=== PATIENT | female | born 1935 | race Caucasian/White ===

== ENCOUNTER 2018-06-11 02:03 | Emergency (ER) | payer MEDICARE, BC ==
[2018-06-11] MEDS: IV NORMAL SALINE 1000ML BAG 1,000 ML IV ×2 (03:36)
[2018-06-11] MEDS: ONDANSETRON PF 4 MG/2 ML VIAL. IV (03:37)
[2018-06-11 03:44] LABS: BASO % 0 % (0-3); BILIRUBIN,URINE NEGATIVE (NEG); CLARITY,URINE CLEAR; COLOR,URINE YELLOW; EOS # 0.2 x10^3/uL (0.0-0.7); EOS % 1 % (0-3); GLUCOSE,URINE NEGATIVE (NEG); HEMATOCRIT 37.5 % (36.0-47.0); HEMOGLOBIN 12.5 g/dL (12.0-15.5); LYMPH # 0.9 x10^3/uL (1.0-4.8); LYMPH % 5 % (24-48); MEAN CORPUSCULAR HEMOGLOBIN 32 pg (25-35); MEAN CORPUSCULAR HGB CONC 33 g/dL (31-37); MEAN CORPUSCULAR VOLUME 97 fL (79-100); MONO # 1.3 x10^3/uL (0.0-1.1); MONO % 7 % (0-9); NEUT # 15.5 x10^3uL (1.8-7.7); NEUT % 87 % (31-73); NITRITE,URINE NEGATIVE (NEG); PH,URINE 5.5; PLATELET COUNT 336 x10^3/uL (140-400); PROTEIN,URINE NEGATIVE (NEG-TRACE); RED BLOOD COUNT 3.86 x10^6/uL (3.50-5.40); RED CELL DISTRIBUTION WIDTH 13.3 % (11.5-14.5); UROBILINOGEN,URINE 0.2 mg/dL (0.2 mg/dL); WHITE BLOOD COUNT 17.9 x10^3/uL (4.0-11.0)
[2018-06-11 03:50] LABS: ADD MAN DIFF? YES
[2018-06-11 03:55] LABS: ANION GAP 12 (6-14); BLOOD UREA NITROGEN 31 mg/dL (7-20); BUN/CREATININE RATIO 17 (6-20); CALCIUM 9.6 mg/dL (8.5-10.1); CARBON DIOXIDE 23 mmol/L (21-32); CHLORIDE 109 mmol/L (98-107); CREATININE 1.8 mg/dL (0.6-1.0); GFR 26.9; GLUCOSE 149 mg/dL (70-99); POTASSIUM 4.4 mmol/L (3.5-5.1); SODIUM 144 mmol/L (136-145)
[2018-06-11 04:01] LABS: ALBUMIN 3.8 g/dL (3.4-5.0); ALBUMIN/GLOBULIN RATIO 1.2 (1.0-1.7); ALK PHOS 62 U/L (46-116); ALT (SGPT) 21 U/L (14-59); AST (SGOT) 17 U/L (15-37); LIPASE 176 U/L (73-393); TOTAL BILIRUBIN 0.4 mg/dL (0.2-1.0); TOTAL PROTEIN 7.1 g/dL (6.4-8.2)
[2018-06-11 04:09] LABS: BACTERIA,URINE 0 /HPF (0-FEW); HYALINE CASTS, URINE MODERATE /HPF; RBC,URINE 0 /HPF (0-2); SQUAMOUS EPITHELIAL CELL,UR FEW /LPF
[2018-06-11 04:23] LABS: % BANDS 1 % (0-9); % BASOS 1 % (0-3); % EOS 1 % (0-5); % LYMPHS 10 % (24-48); % MONOS 5 % (0-10); % SEGS 82 % (35-66); PLT ESTIMATE ADEQUATE (ADEQUATE)
== END 2018-06-11 06:17 | disposition home or self-care (01) ==
LOC: ER 02:03
DX: K52.9 Noninfective gastroenteritis and colitis, unspecified (principal); I10 Essential (primary) hypertension; J45.909 Unspecified asthma, uncomplicated; Z87.440 Personal history of urinary (tract) infections; Z90.49 Acquired absence of other specified parts of digestive tract; Z90.89 Acquired absence of other organs; Z90.710 Acquired absence of both cervix and uterus; Z98.890 Other specified postprocedural states
CPT/HCPCS: 36415; 74176; 80053; 81001; 83690; 85007; 85025; 87086; 96361; 96365; 96374; 99285-25; J2405; J7030

== ENCOUNTER → 2018-08-29 | Outpatient (CLI) | payer MEDICARE, BC ==
[2018-06-11 04:30] VITALS: BP 162/70
[~2018-08-29] MED LIST: ALBU2.5V14 NEB; BUPR300T3 PO; CYCL1DRO EACHEYE; FLUT10.6 IH; FLUT16SP NS; FLUT1DIS3 IH; ONDA4TAB7 PO; OXYC-323 PO; PANT40TA5 PO; POTA10TA12 PO; PRAV80TA2 PO; ROFL500T7 PO; SULF1TAB24 PO; VERA120T59 PO; XOPENEX HFA15 GM IH
--- NOTE | 2018-08-29 17:35 | RAD ---
Renal ultrasound 08/29/2018 CLINICAL HISTORY: Chronic kidney disease. TECHNIQUE: A real-time ultrasound examination of both kidneys and the urinary bladder was performed. Multiple images were obtained. FINDINGS: Comparison is made to a CT scan of the abdomen and pelvis dated 06/11/2018. Both kidneys are within normal limits in size. The right kidney measures 11.5 cm in length. The left kidney measures 11 cm in length. Cysts are seen involving the superior/midpole left kidney which measure 1.3 to 2 cm in size. No focal abnormality of the right kidney is seen. There is no evidence of hydronephrosis. No renal calculus is noted. The urinary bladder is distended with urine. No abnormality is seen. IMPRESSION: Negative study. Electronically signed by: Delta Galindo MD (08/29/2018 5:32 PM) [facility]
== END | disposition home or self-care (01) ==
LOC: US 15:01
PROVIDERS: ATTEND Specialist
DX: I12.9 Hypertensive chronic kidney disease with stage 1 through stage 4 chronic kidney disease, or unspecified chronic kidney disease (principal); N18.3 Chronic kidney disease, stage 3 (moderate); N28.1 Cyst of kidney, acquired; E66.8 Other obesity
CPT/HCPCS: 76770

== ENCOUNTER 2019-05-20 00:38 | Emergency (ER) | payer MEDICARE, BC ==
[~2019-05-20] VITALS: Ht 172.7 cm; Wt 95.3 kg
[~2019-05-20 00:38] MED LIST changes: -OXYC-323 PO; +OXYC1TAB15 PO; -PANT40TA5 PO; +PANT40TA77 PO; -VERA120T59 PO; +VERA120T7 PO
[2019-05-20 01:38] LABS: BASO % 1 % (0-3); EOS # 0.4 x10^3/uL (0.0-0.7); EOS % 5 % (0-3); HEMATOCRIT 33.7 % (36.0-47.0); HEMOGLOBIN 11.5 g/dL (12.0-15.5); LYMPH # 1.8 x10^3/uL (1.0-4.8); LYMPH % 21 % (24-48); MEAN CORPUSCULAR HEMOGLOBIN 33 pg (25-35); MEAN CORPUSCULAR HGB CONC 34 g/dL (31-37); MEAN CORPUSCULAR VOLUME 96 fL (79-100); MONO # 0.9 x10^3/uL (0.0-1.1); MONO % 10 % (0-9); NEUT # 5.4 x10^3/uL (1.8-7.7); NEUT % 63 % (31-73); PLATELET COUNT 286 x10^3/uL (140-400); RED CELL DISTRIBUTION WIDTH 12.8 % (11.5-14.5); WHITE BLOOD COUNT 8.5 x10^3/uL (4.0-11.0)
--- NOTE | 2019-05-20 01:54 | RAD ---
AP portable chest radiograph 05/20/2019 Clinical History: Chest pain. An AP erect portable digital radiograph of the chest was obtained. No previous studies are available for comparison. The cardiac silhouette is mildly enlarged. The thoracic aorta is tortuous. Atherosclerotic calcification thoracic aorta is seen. No acute pulmonary infiltrate is seen. No pleural effusion or pneumothorax is noted. There is diffuse osteopenia of the visualized bony structures. Degenerative changes are seen involving the thoracic spine and both shoulders. IMPRESSION: No acute abnormality is seen. Electronically signed by: Delta Galindo MD (05/20/2019 1:51 AM) [facility]
[2019-05-20 02:09] LABS: CALCIUM 11.1 mg/dL (8.5-10.1); CREATININE 1.4 mg/dL (0.6-1.0); GFR 35.8; POTASSIUM 4.3 mmol/L (3.5-5.1)
[2019-05-20 02:15] LABS: ALBUMIN 3.5 g/dL (3.4-5.0); ALBUMIN/GLOBULIN RATIO 1.2 (1.0-1.7); TOTAL BILIRUBIN 0.3 mg/dL (0.2-1.0); TOTAL PROTEIN 6.4 g/dL (6.4-8.2)
[2019-05-20] MEDS ORDERED: METOCLOPRAMIDE HCL 10 MG/2 ML VIAL. IV ONE (02:30)
[2019-05-20] MEDS ORDERED: LIDO:MAALOX 1:1 20 ML SINGLE DOSE. PO PRN (02:30)
[2019-05-20] MEDS ORDERED: FAMOTIDINE 20 MG/2 ML VIAL IVP ONE (02:30)
[2019-05-20 03:00] VITALS: BP 157/73
--- NOTE | 2019-05-20 03:30 | PHYS DOC ---
Past Medical History Past Medical History: Asthma, Depression, Hypertension, Kidney Infection, UTI, Other Additional Past Medical Histor: "kidney disease" Past Surgical History: Appendectomy, Cholecystectomy, Hip Replacement, Hysterectomy, Knee Replacement, Other Additional Past Surgical Histo: hernia repair, bladder x2, bilat hips, Alcohol Use: None Drug Use: None Adult General Chief Complaint Chief Complaint: CHEST PAIN HPI HPI Patient is a 84 year old female who presents with epigastric pain radiating to chest, starting approximately 6 hours prior to ED arrival. Patient states symptoms initially improvement, but then worsened after eating hamburger this evening for dinner. Prescription later to some mouth, and nausea. No back pain flank pain, vomiting. Denies shortness of breath, and sweats. History of atrial flutter. Denies history of CAD or exertional chest pain.[] Review of Systems Review of Systems He is symptoms as per history of present illness. All other review symptoms are negative. All other systems were reviewed and found to be within normal limits, except as documented in this note. Current Medications Current Medications Current Medications Medications (Trade) Dose Ordered Sig/Radha Start Time Stop Time Status Last Admin Dose Admin Famotidine (Pepcid Vial) 20 mg 1X ONCE 05/20/19 02:30 05/20/19 02:31 DC 05/20/19 02:43 20 MG Metoclopramide HCl (Reglan Vial) 10 mg 1X ONCE 05/20/19 02:30 05/20/19 02:31 DC 05/20/19 02:43 10 MG Multi-Ingredient Mouthwash/Gargle (Gi Cocktail) 20 ml PRN QID PRN 05/20/19 02:30 05/20/19 02:43 20 ML Allergies Allergies Allergies Coded Allergies Type Severity Reaction Last Updated Verified No Known Drug Allergies 07/29/15 No Physical Exam Physical Exam Constitutional: Well developed, well nourished, no acute distress, non-toxic appearance. [] HENT: Normocephalic, atraumatic, bilateral external ears normal, oropharynx moist, no oral exudates, nose normal. [] Eyes: PERRLA, EOMI, conjunctiva normal, no discharge. [] Neck: Normal range of motion, no tenderness, supple, no stridor. [] Cardiovascular:Heart rate regular rhythm, no murmur [] Lungs & Thorax: Bilateral breath sounds clear to auscultation [] Abdomen: Bowel sounds normal, soft, no tenderness. [] Skin: Warm, dry, no erythema, no rash. [] Back: No tenderness, no CVA tenderness. [] Extremities: No tenderness, no cyanosis, no clubbing, ROM intact, no edema. [] Neurologic: Alert and oriented X 3, normal motor function, normal sensory function, no focal deficits noted. [] Psychologic: Affect normal, judgement normal, mood normal. [] Current Patient Data Vital Signs Vital Signs Date Time Temp Pulse Resp B/P (MAP) Pulse Ox O2 Delivery O2 Flow Rate FiO2 05/20/19 00:40 96.1 76 18 172/88 (116) 97 Room Air 96.1 Lab Values Laboratory Tests Test 05/20/19 01:10 White Blood Count 8.5 x10^3/uL (4.0-11.0) Red Blood Count 3.50 x10^6/uL (3.50-5.40) Hemoglobin 11.5 g/dL (12.0-15.5) L Hematocrit 33.7 % (36.0-47.0) L Mean Corpuscular Volume 96 fL (79-100) Mean Corpuscular Hemoglobin 33 pg (25-35) Mean Corpuscular Hemoglobin Concent 34 g/dL (31-37) Red Cell Distribution Width 12.8 % (11.5-14.5) Platelet Count 286 x10^3/uL (140-400) Neutrophils (%) (Auto) 63 % (31-73) Lymphocytes (%) (Auto) 21 % (24-48) L Monocytes (%) (Auto) 10 % (0-9) H Eosinophils (%) (Auto) 5 % (0-3) H Basophils (%) (Auto) 1 % (0-3) Neutrophils # (Auto) 5.4 x10^3/uL (1.8-7.7) Lymphocytes # (Auto) 1.8 x10^3/uL (1.0-4.8) Monocytes # (Auto) 0.9 x10^3/uL (0.0-1.1) Eosinophils # (Auto) 0.4 x10^3/uL (0.0-0.7) Basophils # (Auto) 0.0 x10^3/uL (0.0-0.2) Sodium Level 140 mmol/L (136-145) Potassium Level 4.3 mmol/L (3.5-5.1) Chloride Level 104 mmol/L (98-107) Carbon Dioxide Level 24 mmol/L (21-32) Anion Gap 12 (6-14) Blood Urea Nitrogen 27 mg/dL (7-20) H Creatinine 1.4 mg/dL (0.6-1.0) H Estimated GFR (Cockcroft-Gault) 35.8 BUN/Creatinine Ratio 19 (6-20) Glucose Level 111 mg/dL (70-99) H Calcium Level 11.1 mg/dL (8.5-10.1) H Total Bilirubin 0.3 mg/dL (0.2-1.0) Aspartate Amino Transferase (AST) 21 U/L (15-37) Alanine Aminotransferase (ALT) 20 U/L (14-59) Alkaline Phosphatase 66 U/L (46-116) Troponin I Quantitative < 0.017 ng/mL (0.000-0.055) Total Protein 6.4 g/dL (6.4-8.2) Albumin 3.5 g/dL (3.4-5.0) Albumin/Globulin Ratio 1.2 (1.0-1.7) Laboratory Tests 05/20/19 01:10 Laboratory Tests 05/20/19 01:10 EKG EKG [EKG: Reviewed] Radiology/Procedures Radiology/Procedures [Chest x-ray: Reviewed] Course & Med Decision Making Course & Med Decision Making Pertinent Labs and Imaging studies reviewed. (See chart for details) [EKG, lab and imaging reviewed. Symptoms fully resolved with medications provided. Symptoms most consistent with acute gastritis/esophagitis. Recommend supportive care with PCP follow-up. Return precautions reviewed. Patient verbalizes understanding and agreement discharge instructions prior to departure.] Dragon Disclaimer Dragon Disclaimer This electronic medical record was generated, in whole or in part, using a voice recognition dictation system. Departure Departure Impression: Primary Impression: Esophagitis Additional Impression: Chest pain Disposition: HOME, SELF-CARE Condition: GOOD Patient Instructions: Chest Pain (Nonspecific), [id number], Esophagitis Additional Instructions: Please take daily and acid and follow-up with PCP for reevaluation in 3-5 days. Avoid spicy food caffeine and fatty meals. Return to the ED if new or worsening symptoms Problem Qualifiers ELISSA PATEL DO May 20, 2019 03:30
--- NOTE | 2019-05-20 12:01 | EKG ---
[facility] [address] [place] [address] Test Date: 2019-05-20 Test Time: 00:46:15 Pat Name: OWEN CARROLL Department: Room: Gender: F [employer]: : 1935 Requested By: ELISSA PATEL Order Number: [id number] Reading MD: Measurements Intervals Tram Rate: 75 P: CO: QRS: -28 QRSD: 116 T: 74 QT: 384 QTc: 431 Interpretive Statements ATRIAL FIBRILLATION LEFTWARD AXIS QRS(T) CONTOUR ABNORMALITY CONSISTENT WITH ANTEROSEPTAL INFARCT PROBABLY OLD CONSISTENT WITH INFERIOR INFARCT PROBABLY OLD ST & T ABNORMALITY, CONSIDER HIGH LATERAL ISCHEMIA OR LEFT VENTRICULAR STRAIN ABNORMAL ECG No previous ECG available for comparison
== END 2019-05-20 03:30 | disposition home or self-care (01) ==
LOC: ER 00:38
DX: K20.9 Esophagitis, unspecified (principal); R07.89 Other chest pain; I10 Essential (primary) hypertension; J45.909 Unspecified asthma, uncomplicated; Z90.89 Acquired absence of other organs; Z90.49 Acquired absence of other specified parts of digestive tract; Z90.710 Acquired absence of both cervix and uterus; Z98.890 Other specified postprocedural states
CPT/HCPCS: 36415; 71045; 80053; 84484; 85025; 93005; 96374; 96375; 99285; J2765; J3490

== ENCOUNTER → 2020-06-26 | Outpatient (CLI) | payer MEDICARE, BC ==
--- NOTE | 2020-06-27 08:52 | CARD ---
MR#: [id number] Date of Study: 06/26/2020 Ordering Physician: RAMÓN WHITNEY, Referring Physician: RAMÓN WHITNEY, Tech: Mariela Lomas APPROVED REPORT EXAM: Two-dimensional and M-mode echocardiogram with Doppler and color Doppler. Other Information Quality : AverageHR: 76bpm INDICATION COPD Aortic Valve Disease Atrial Fibrillation RISK FACTORS Hypertension 2D DIMENSIONS RVDd2.8 (2.9-3.5cm)Left Atrium(2D)4.6 (1.6-4.0cm) IVSd1.1 (0.7-1.1cm)Aortic Root(2D)2.9 (2.0-3.7cm) LVDd6.1 (3.9-5.9cm)LVOT Diameter2.1 (1.8-2.4cm) PWd1.3 (0.7-1.1cm)LVDs3.8 (2.5-4.0cm) FS (%) 51.6 %SV154.0 ml Aortic Valve AoV Peak Lew.160.2cm/sAoV VTI34.7cm AO Peak GR.10.3mmHgLVOT VTI 20.01cm AO Mean GR.7mmHg Mitral Valve MV E Jsmikqhq90.9cm/sMV E Peak Gr.2mmHg MV DECEL [id number] A Enqyhirr03.1cm/s MV E Mean Gr.1mmHgE/A Ratio1.5 TDI Lateral E' P. V8.17cm/sMedial E' P. V6.56cm/s E/Lateral E'10.4E/Medial E'12.9 Tricuspid Valve TR P. Gdbetluh615bl/sRAP [id number] TR Peak Gr.89blDoIWHY52xsYc Pulmonary Vein S1 Jvntyzro96.2cm/sS2 Pcwptzlq66.15cm/s D2 Fgchghji04.2cm/sPVa rcuaetoh282rkyc LEFT VENTRICLE The left ventricle is normal size. There is mild concentric left ventricular hypertrophy. The left ve ntricular systolic function is low normal. The Ejection Fraction is estimated at 50%. There is normal LV segmental wall motion. The left ventricular diastolic function and filling is normal for age. RIGHT VENTRICLE The right ventricle is normal size. There is normal right ventricular wall thickness. The right ventr icular systolic function is normal. ATRIA The left atrium is borderline dilated. The right atrium size is normal. The interatrial septum is int act with no evidence for an atrial septal defect or patent foramen ovale as noted on 2-D or Doppler i maging. AORTIC VALVE The aortic valve is normal in structure and function. Doppler and Color Flow revealed no significant aortic regurgitation. There is no significant aortic valvular stenosis. Calculated aortic valve area is 1.75 cm2 with maximum pressure gradient of 10 mmHg and mean pressure gradient of 7 mmHg. MITRAL VALVE The mitral valve is normal in structure and function. There is no evidence of mitral valve prolapse. There is no mitral valve stenosis. Doppler and Color Flow revealed trace mitral valve regurgitation. TRICUSPID VALVE The tricuspid valve is normal in structure and function. Doppler and Color Flow revealed trace tricus pid regurgitation with an estimated PAP of 37 mmHg. There is no tricuspid valve stenosis. PULMONIC VALVE The pulmonic valve is not well visualized. Doppler and Color Flow revealed no pulmonic valvular regur gitation. GREAT VESSELS The aortic root is normal in size. The ascending aorta is normal in size. The IVC is normal in size a nd collapses >50% with inspiration. PERICARDIAL EFFUSION There is no evidence of significant pericardial effusion. Critical Notification Critical Value: No <Conclusion> The left ventricle is normal size. The left ventricular systolic function is low normal. The Ejection Fraction is estimated at 50%. There is mild concentric left ventricular hypertrophy. Doppler and Color Flow revealed no significant aortic regurgitation. There is no significant aortic valvular stenosis. Doppler and Color Flow revealed trace mitral valve regurgitation. Doppler and Color Flow revealed trace tricuspid regurgitation with an estimated PAP of 37 mmHg. Signed by : Nicola Becker MD Electronically Approved : 06/27/2020 08:52:22
== END | disposition home or self-care (01) ==
LOC: ECHO 14:38
PROVIDERS: ATTEND Internal Medicine Cardiovascular Disease
DX: I35.8 Other nonrheumatic aortic valve disorders (principal); I51.7 Cardiomegaly
CPT/HCPCS: 93306

== ENCOUNTER 2020-08-23 14:44 | Emergency (ER) | payer MEDICARE, BC ==
[~2020-08-23] VITALS: Ht 172.7 cm; Wt 95.5 kg
[2020-08-23] MEDS ORDERED: LIDOCAINE 1%/EPI 1:100,000 20 ML VIAL. SQ ONE (15:45)
--- NOTE | 2020-08-23 16:38 | RAD ---
CT Head W/O Contrast: History: Reason: fall head injury / Spl. Instructions: / History: Comparison: none Axial images were obtained without contrast. There is mild diffuse atrophy. There is no mass effect, extraaxial fluid collections or hydrocephalus. There is no gross bleed. Mild, patchy periventricular and subcortical white matter hypoattenuation is seen. There is no focal loss of gomez-white matter distinction to suggest acute ischemia, i.e. stroke. There is a scalp hematoma anterior laterally on the left. Impression: No acute intracranial findings. End impression CT C-Spine without contrast: Clinical History: Reason: fall head injury / Spl. Instructions: / History: Technique: Axial helical images of the cervical spine were obtained without contrast, axial coronal and sagittal reconstruction was performed. Findings: There is no loss of vertebral body stature. There is no prevertebral soft tissue swelling. The vertebral bodies are well aligned. The C1-C2 relationship is normal. The visualized osseous structures appear normal. Evaluation of the central canal is limited without contrast. There is multiple posterior disc bulges resulting in flattening of the thecal sac. There does not appear to be gross flattening of the cervical cord. There is marked narrowing of multiple neuroforamen. Impression: No acute findings. Clinical correlation suggested. PQRS Compliance Statement: One or more of the following individualized dose reduction techniques were utilized for this examination: 1. Automated exposure control 2. Adjustment of the mA and/or kV according to patient size 3. Use of iterative reconstruction technique Electronically signed by: Red Crabtree III, MD (08/23/2020 4:35 PM) [id number]
--- NOTE | 2020-08-23 16:43 | ED.ADGEN ---
Past Medical History Past Medical History: Asthma, Depression, Hypertension, Kidney Infection, UTI, Other Additional Past Medical Histor: "kidney disease" Past Surgical History: Appendectomy, Cholecystectomy, Hip Replacement, Hysterectomy, Knee Replacement, Other Additional Past Surgical Histo: hernia repair, bladder x2, bilat hips, Smoking Status: Never Smoker Alcohol Use: Rarely Drug Use: None General Adult EDM: Chief Complaint: MECHANICAL FALL HPI: HPI: Patient is a 85 year old female, accompanied by her son, who presents to the emergency room for evaluation after suffering a fall while in her garage. Patient states that at around 1400 today she was in the garage when she tripped over a sandbag and fell. She denies any loss of consciousness, dizziness, or headache. Patient denies any chest pain or palpitations prior to the fall. She denies any shortness of breath, nausea, vomiting, diarrhea, abdominal pain, or vision changes. She denies any use of blood thinners. The patient currently complains of pain in her forehead at the laceration site that she rates a 2 out of 10 on the pain scale. Patient reports her last tetanus shot was less than 5 years ago. C-collar was placed by triage. Review of Systems: Review of Systems: Complete ROS is negative unless otherwise stated in the HPI. Current Medications: Current Medications Medications (Trade) Dose Ordered Sig/Radha Start Time Stop Time Status Last Admin Dose Admin Lidocaine/ Epinephrine (LIDOCAINE 1%-EPI 1:100,000 Multi-Dose) 20 ml 1X ONCE 08/23/20 15:45 08/23/20 15:46 DC 08/23/20 15:23 20 ML Allergies: Allergies: Allergies Coded Allergies Type Severity Reaction Last Updated Verified No Known Drug Allergies 07/29/15 No Physical Exam: PE: Constitutional: Well developed, well nourished, no acute distress, non-toxic appearance, obese. [] HENT: Normocephalic, atraumatic, bilateral external ears normal, nose normal. [] Eyes: PERRLA, EOMI, conjunctiva normal, no discharge. [] Neck: Normal range of motion, no obvious deformity, in c-collar, no stridor. [] Cardiovascular:Heart rate regular rhythm Lungs & Thorax: Respirations even and unlabored, no retractions, no respiratory distress Abdomen: soft, no tenderness Skin: Warm, dry, no erythema, no rash; 3 cm laceration noted to patient's forehead with bleeding controlled, no visible foreign body; there is a 5 cm skin tear to the left forearm, bleeding controlled, no visible foreign body;1 cm skin tear to the fourth digit of the left hand, bleeding controlled, no visible foreign body [] Extremities: LUE: Tenderness to palpation of the fourth digit of the left hand, arthritic changes noted unable to rule out deformity, no crepitus, no cyanosis, ROM intact, no edema, left elbow nontender to palpation, left forearm nontender to palpation, left wrist nontender to palpation. [] Neurologic: Alert and oriented X 3, no focal deficits noted. [] Psychologic: Affect normal, judgement normal, mood normal. [] Current Patient Data: Vital Signs: Vital Signs Date Time Temp Pulse Resp B/P (MAP) Pulse Ox O2 Delivery O2 Flow Rate FiO2 08/23/20 18:00 74 20 97 08/23/20 14:44 98.4 169/76 (107) Room Air 98.4 EKG: EKG: [] Heart Score: Risk Factors: Risk Factors: DM, Current or recent (<one month) smoker, HTN, HLP, family history of CAD, obesity. Risk Scores: Score 0 - 3: 2.5% MACE over next 6 weeks - Discharge Home Score 4 - 6: 20.3% MACE over next 6 weeks - Admit for Clinical Observation Score 7 - 10: 72.7% MACE over next 6 weeks - Early Invasive Strategies Radiology/Procedures: Radiology/Procedures: PROCEDURE: CT HEAD AND CERVICAL SPINE WO CT Head W/O Contrast: History: Reason: fall head injury / Spl. Instructions: / History: Comparison: none Axial images were obtained without contrast. There is mild diffuse atrophy. There is no mass effect, extraaxial fluid collections or hydrocephalus. There is no gross bleed. Mild, patchy periventricular and subcortical white matter hypoattenuation is seen. There is no focal loss of gomez-white matter distinction to suggest acute ischemia, i.e. stroke. There is a scalp hematoma anterior laterally on the left. Impression: No acute intracranial findings. End impression CT C-Spine without contrast: Clinical History: Reason: fall head injury / Spl. Instructions: / History: Technique: Axial helical images of the cervical spine were obtained without contrast, axial coronal and sagittal reconstruction was performed. Findings: There is no loss of vertebral body stature. There is no prevertebral soft tissue swelling. The vertebral bodies are well aligned. The C1-C2 relationship is normal. The visualized osseous structures appear normal. Evaluation of the central canal is limited without contrast. There is multiple posterior disc bulges resulting in flattening of the thecal sac. There does not appear to be gross flattening of the cervical cord. There is marked narrowing of multiple neuroforamen. Impression: No acute findings. Clinical correlation suggested. Laceration Repair by me: Anesthesia: 1% lidocaine locally with epi Location: Left forehead Tendon/Joint/Nerves: No injury Foreign body: None detected after copious irrigation and exploration w ith NS and chlorhexidine Technique: 7 simple Interrupted Sutures with 6-0 Ethilon Complexity: No subcutaneous sutures/mucosal repair/edge excision Post Closure Length: 2.5 cm Patient's bleeding was easily controlled in the department and there is no indication of anemia. No evidence of compartment syndrome, neurologic injury, vascular injury, open joint, tendon laceration, or foreign body. Patient is appropriate for outpatient follow up. 48 hour wound check. [] Course & Med Decision Making: Course & Med Decision Making Pertinent Labs and Imaging studies reviewed. (See chart for details) [] Dragon Disclaimer: Dragon Disclaimer: This electronic medical record was generated, in whole or in part, using a voice recognition dictation system. Departure Departure Impression: Primary Impression: Laceration of forehead without complication Additional Impressions: Head injury, acute, without loss of consciousness Skin tear of left upper extremity Finger abrasion, non-infected Disposition: 01 DC HOME SELF CARE/HOMELESS Condition: STABLE Referrals: KEN CONTE MD (PCP) Patient Instructions: Head Injury, Adult, Gtqo-zm-Gkbs, Skin Tear Care, Ukcn-an-Fxlb, Sutured Wound Care, Qjck-zf-Pqlq Additional Instructions: Fill the prescription and use it as directed. Tylenol or ibuprofen as needed for pain. Follow the head injury precautions provided. Keep the area clean and dry. Keep the dressing that was placed today on for 24 hours then change the dressing twice a day and as needed. Follow-up with your primary care doctor, or return to the emergency room in 5-7 days to have the sutures removed, sooner if you develop signs of infection including: redness, warmth, drainage, or a fever. Recommend wound recheck with your primary care doctor in 48 hours. Scripts Cephalexin (KEFLEX) 500 Mg Capsule 500 MG PO QID for 7 Days, #28 CAP 0 Refills Prov: FRIDA SERRANO [employer]UX SYSTEM ENGINEER 08/23/20 Problem Qualifiers Primary Impression: Laceration of forehead without complication Encounter type: initial encounter Qualified Codes: S01.81XA - Laceration without foreign body of other part of head, initial encounter Additional Impressions: Head injury, acute, without loss of consciousness Encounter type: initial encounter Qualified Codes: S09.90XA - Unspecified injury of head, initial encounter FRIDA SERRANO [employer] SYSTEM ENGINEER Aug 23, 2020 16:43
--- NOTE | 2020-08-23 17:58 | RAD ---
3 views left finger HISTORY: Pain after injury to the left fourth finger from fall AP view left hand was obtained as well as oblique and lateral comminuted views of the fourth finger. 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 A fracture line is not seen. IMPRESSION: Marked chronic degenerative changes. No acute bony abnormality identified. Electronically signed by: Red Crabtree III, MD (08/23/2020 5:55 PM) [id number]
[2020-08-23 18:00] VITALS: BP 182/85
[2020-08-23] MEDS ORDERED: CEPH-264 PO (18:19)
== END 2020-08-23 19:56 | disposition home or self-care (01) ==
LOC: ER 14:44
DX: S01.81XA Laceration without foreign body of other part of head, initial encounter (principal); S41.112A Laceration without foreign body of left upper arm, initial encounter; S60.415A Abrasion of left ring finger, initial encounter; J45.909 Unspecified asthma, uncomplicated; I10 Essential (primary) hypertension; W01.0XXA Fall on same level from slipping, tripping and stumbling without subsequent striking against object, initial encounter; Y93.89 Activity, other specified; Y92.89 Other specified places as the place of occurrence of the external cause; Y99.8 Other external cause status
CPT/HCPCS: 12011; 29125; 70450; 72125; 73140; 99285; J3490

== ENCOUNTER 2020-11-22 19:10 | Inpatient (IN) | payer MEDICARE, BC ==
[~2020-11-22] VITALS: Ht 172.7 cm; Wt 95.6 kg
[~2020-11-22 19:10] MED LIST changes: +CEPH-264 PO
[2020-11-22] MEDS ORDERED: IV NORMAL SALINE 1000ML BAG 1,000 ML IV SCH (19:15)
--- NOTE | 2020-11-22 19:37 | RAD ---
Exam: CT head INDICATION: Left-sided weakness and facial droop TECHNIQUE: Sequential axial images through the head were obtained without the administration of IV co ntrast. Comparisons: 08/23/2020 FINDINGS: No focal parenchymal lesion or hemorrhage is identified. There is no midline shift or sulcal effaceme nt. Patchy hypodensity in the periventricular white matter, similar when compared to prior exam. No acute vascular territory infarction is identified. Carlisle-white distinction is preserved. The ventricular system is within normal limits without compression hydrocephalus. The basal cisterns are well maintained. 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 The visualized portions of the paranasal sinuses and mastoid air cells are well-pneumatized. No acute fractures. IMPRESSION: No acute intracranial abnormality. Exposure: One or more of the following in the visualized dose reduction techniques were utilized for this examination: 1. Automated exposure control 2. Adjustment of the MA and/or KV according to patient size Use of iterative of reconstructive technique FOR INTERNAL CODING PURPOSES Critical result: Findings discussed with Karma at 11/22/2020 7:33 PM. RESULT CODE: (C) Electronically signed by: Fadi Reid MD (11/22/2020 7:34 PM) [email or web address]
--- NOTE | 2020-11-22 19:40 | PHYS DOC ---
Past Medical History Past Medical History: A-Fib, Asthma, Cancer (left facial skin), COPD, Dep ression, Hypertension, Kidney Infection, Renal Disease, UTI, Other Past Medical History Limited secondary to acuity of condition Past Surgical History: Appendectomy, Cholecystectomy, Hip Replacement, Hysterectomy, Knee Replacement, Other Additional Past Surgical Histo: hernia repair, bladder x2, bilat hips, Past Surgical History Limited secondary to acuity of condition Smoking Status: Never Smoker Alcohol Use: Rarely Drug Use: None Social History Limited secondary to acuity of condition General Adult EDM: Chief Complaint: NEURO SYMPTOMS/DEFICITS HPI: HPI: Patient is a 85 year old female presents as code stroke per EMS with last known well at 1600. Patient was reportedly found on floor of bedroom at 1825 with limited ability to move left side. EMS noted a left facial droop with significantly slurred speech. EMS also reports O2 sat down to 80% on room air which improved with supplemental O2. Patient reports she had felt lightheaded and slid off the bed onto the floor. Patient has been recently treated for pos sible COPD exacerbation with steroids. Reports has had some symptoms of shortness of breath and cough x2 weeks. Patient was tested for COVID-19 10 days ago which was reportedly negative. Denies history of prior stroke. Denies use of blood thinners with exception for aspirin. Patient reports she has not taken her aspirin this evening. History of present illness limited secondary to acuity of condition. Review of Systems: Review of Systems: Constitutional: Denies fever or chills; reports malaise Eyes: Denies redness or eye pain; denies vision change Respiratory: Reports cough and shortness of breath Cardiovascular: Denies chest pain or palpitations GI: Denies abdominal pain, nausea, or vomiting : Denies dysuria or hematuria Musculoskeletal: Denies back pain or joint pain Integument: Denies rash or skin lesions Neurologic: Denies headache; reports left facial droop, left sided weakness and decreased sensation on left side Review of systems limited secondary to acuity of condition Current Medications: Current Medications Medications (Trade) Dose Ordered Sig/Radha Start Time Stop Time Status Last Admin Dose Admin Alteplase, Recombinant 90 ml @ 90 mls/hr 1X ONCE 11/22/20 19:45 11/22/20 20:44 UNV Aspirin (Aspirin Rectal Supp) 300 mg 1X ONCE 11/22/20 19:45 11/22/20 19:46 UNV Sodium Chloride 50 ml @ 50 mls/hr 1X ONCE 11/22/20 19:45 11/22/20 20:44 UNV Allergies: Allergies: Allergies Coded Allergies Type Severity Reaction Last Updated Verified No Known Drug Allergies 07/29/15 No Physical Exam: PE: Constitutional: Well developed, well nourished, no acute distress, non-toxic appearance HENT: Normocephalic, atraumatic Eyes: PERRL, deviation to right side with limited range of motion with looking left, conjunctiva normal, no discharge Neck: Normal range of motion, no tenderness, supple Lungs & Thorax: No respiratory distress, equal chest rise and fall Abdomen: Soft, no tenderness, no guarding/rebound tenderness/distention Skin: Warm, dry, no erythema, left cheek Steri-Strip intact at site of skin biopsy/cancer removal Extremities: Decreased strength to left arm and hand in comparison to right Neurologic: Alert and oriented X 3, severe slurred speech and dysarthria appreciated, decreased sensation to left arm, cheek, and left leg EKG: EKG: @1943 Sinus tachycardia at 116 bpm with frequent PVC, baseline artifact noted, QRS 100ms, QT/QTc 350/493ms Radiology/Procedures: Radiology/Procedures: PROCEDURE: CT CODE STROKE HEAD WO Exam: CT head INDICATION: Left-sided weakness and facial droop TECHNIQUE: Sequential axial images through the head were obtained without the administration of IV contrast. Comparisons: 08/23/2020 FINDINGS: No focal parenchymal lesion or hemorrhage is identified. There is no midline shift or sulcal effacement. Patchy hypodensity in the periventricular white matter, similar when compared to prior exam. No acute vascular territory infarction is identified. Carlisle-white distinction is preserved. The ventricular system is within normal limits without compression hydrocephalus. The basal cisterns are well maintained. 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 The visualized portions of the paranasal sinuses and mastoid air cells are well- pneumatized. No acute fractures. IMPRESSION: No acute intracranial abnormality. Exposure: One or more of the following in the visualized dose reduction techniques were utilized for this examination: 1. Automated exposure control 2. Adjustment of the MA and/or KV according to patient size Use of iterative of reconstructive technique FOR INTERNAL CODING PURPOSES Critical result: Findings discussed with Gilmore at 11/22/2020 7:33 PM. RESULT CODE: (C) Electronically signed by: Fadi Reid MD (11/22/2020 7:34 PM) [facility] PROCEDURE: PORTABLE CHEST 1V EXAM: XR CHEST 1V INDICATION: Reason: CODE stroke, weakness 3 / Spl. Instructions: / History: . TECHNIQUE: Single view COMPARISON: 05/20/2019 chest x-ray FINDINGS: The heart size is moderately enlarged. The great vessels appear unremarkable. There is no hilar or mediastinal mass. There is mild central pulmonary vascular congestion. Left basilar opacity suggesting atelectasis or consolidation is noted. There is no pleural effusion or pneumothorax. There are no significant osseous abnormalities. IMPRESSION: Cardiomegaly with mild central pulmonary vascular congestion. Left basilar atelectasis or consolidation. Electronically signed by: Eulalio Head MD (11/22/2020 9:47 PM) [facility] PROCEDURE: CT ANGIOGRAPHY HEAD AND NECK Exam: CTA head and neck INDICATION: Left-sided weakness, facial droop TECHNIQUE: Sequential axial images through the head and neck obtained following the administration of 60 mL of Omni 300 IV contrast. Sagittal and coronal reformatted images were reconstructed from the axial data and reviewed. 3-D reformatted images were reconstructed from the axial data and reviewed. Comparisons: CT head without contrast same day FINDINGS: CTA NECK: Visualized portions of thoracic aorta are unremarkable. Standard three-vessel aortic arch anatomy. Right common carotid artery is patent without evidence of stenosis, occlusion or aneurysm. Mild plaque at the origin of the right internal carotid artery without significant stenosis. Left common carotid artery is patent without evidence of stenosis, occlusion or aneurysm. Mild plaque at the origin left internal carotid artery without significant stenosis. Right vertebral artery is patent to the basilar confluence without evidence of stenosis, occlusion or aneurysm. Left vertebral artery is patent to the basilar confluence without evidence of stenosis, occlusion or aneurysm. Visualized paraspinal soft tissues are unremarkable. CTA HEAD: Mild calcified plaque at the cavernous segment of the right internal carotid artery. There is cut off of the M2/M3 branch of the right MCA seen on series 3 image 271, at the sylvian fissure. Right KENDALL is patent. Mild calcified plaque at the cavernous segment left internal carotid artery without significant stenosis. Left MCA is patent. Left KENDALL is patent. Basilar artery is patent without evidence of stenosis, occlusion or aneurysm. advertising account manager are patent bilaterally. IMPRESSION: 1. Evaluation is mildly limited secondary to technical factors. There is apparent abrupt cut off of a M2/M3 branch of the right MCA is described above. 2. Mild calcified plaque at the origin of the internal carotid arteries bilaterally without significant stenosis. 3. Mild calcified plaque at the cavernous segment of the internal carotid arteries bilaterally without significant stenosis. Exposure: One or more of the following in the visualized dose reduction techniques were utilized for this examination: 1. Automated exposure control 2. Adjustment of the MA and/or KV according to patient size 3. Use of iterative of reconstructive technique FOR INTERNAL CODING PURPOSES Critical result: Findings discussed with Karma at 11/22/2020 8:45 PM. RESULT CODE: (C) Electronically signed by: Fadi Reid MD (11/22/2020 9:02 PM) [facility] Course & Med Decision Making: Course & Med Decision Making Pertinent Labs and Imaging studies reviewed. (See chart for details) Patient presents as code stroke with left-sided deficit. Patient initially appears to have left-sided neglect. Patient sent immediately to CT scanner. CT head without acute hemorrhage. Patient NIHSS 14 upon arrival. EKG stable. Labs obtained and posted to chart. Patient close to 4-hour window as last known well at 1600. Decision to start TPA after discussion with family and patient who are in agreement that benefits outweigh risk at this time. Discussed case with Dr. Berg (neurology) regarding who is in agreement with plan of care and to send patient for CTA head/neck. Dr. Berg in agreement with consultation if patient not requiring neuro-interventional therapy. TPA with some improvement of symptoms. CTA head/neck with signs of infarct at M2/M3 distribution. Discussed case with stroke neurologist, who discussed case with neurointerventionalist. Decision as lesion distal that risk of neuro-intervention outweighing benefit. Of note: COVID testing obtained with patient's history of SOA x 2 weeks and hypoxia upon EMS arrival requiring supplemental O2. CXR stable. BNP elevated. Bumex therefore provided due to concern for CHF exacerbation with decreased GFR. Patient requiring admission for further evaluation and treatment. Discussed with Dr. Verma (hospitalist) who is in agreement with admission. Discussed findings and plan with patient, who acknowledges understanding and agreement. COVID-19 CRITERIA: The patient was evaluated during the global COVID-19 pandemic, and that diagnosis was suspected/considered upon their initial presentation. Their evaluation, treatment and testing was consistent with current guidelines for patients who present with complaints or symptoms that may be related to COVID-19. Dragon Disclaimer: Dragon Disclaimer: This electronic medical record was generated, in whole or in part, using a voice recognition dictation system. Departure Departure Impression: Primary Impression: Acute CVA (cerebrovascular accident) Additional Impressions: Suspected 2019 novel coronavirus infection Hypoxia Pulmonary vascular congestion Lactic acidosis Disposition: ADMITTED INPT THIS HOSP (ICU) Admitting Physician: SAVANNAH Wright) Condition: GUARDED Referrals: KEN CONTE MD (PCP) NIHSS Stroke Scale NIH Stroke Scale: NIH Stroke Scale Response (Comments) Value Level of Consciousness: 0 Alert/Responsive 0 LOC Questions: 0 Answers both correctly 0 LOC Commands: 0 Performs both tasks 0 Best Gaze: 1 Partial gaze palsy 1 Visual: 1 Partial hemianopia 1 Facial Palsy: 2 Partial paralysis 2 Motor - Left Arm 2 Some effort 2 Motor - Right Arm 0 No drift 0 Motor - Left Leg 0 No drift 0 Motor: Right Leg 0 No drift 0 Limb Ataxia: 1 One limb 1 Sensory: 2 Severe to total loss 2 Best Language: 2 Severe aphasia 2 Dysathria: 2 Severe 2 Extinction and Inattention: 1 One sensory modality 1 Total 14 COVID-19 Assessment: COVID-19 Patient Risks: Age 65 or older: Yes Sign of co-morbidity: Yes Exp to person + for COVID: No Exp to PUI: No Travel from affected area: No Lower respiratory symptoms: Yes Fever: No Other: Yes PPE Use: Full PPE with N95 mask or PAPR: Yes Critical Care Time Critical care time was 60 minutes which includes time at bedside, spent in discussion of patient's care with specialists and/or family members, with interpretation of laboratory and/or radiological studies and is exclusive of procedures. DENISSE GILMORE DO Nov 22, 2020 19:40
[2020-11-22 19:45] LABS: BASO # 0.1 x10^3/uL (0.0-0.2); BASO % 1 % (0-3); EOS # 0.3 x10^3/uL (0.0-0.7); EOS % 3 % (0-3); HEMATOCRIT 32.1 % (36.0-47.0); HEMOGLOBIN 10.6 g/dL (12.0-15.5); LYMPH # 1.6 x10^3/uL (1.0-4.8); LYMPH % 16 % (24-48); MEAN CORPUSCULAR HEMOGLOBIN 33 pg (25-35); MEAN CORPUSCULAR HGB CONC 33 g/dL (31-37); MEAN CORPUSCULAR VOLUME 100 fL (79-100); MONO # 0.8 x10^3/uL (0.0-1.1); MONO % 9 % (0-9); NEUT # 6.9 x10^3/uL (1.8-7.7); NEUT % 72 % (31-73); PLATELET COUNT 234 x10^3/uL (140-400); RED BLOOD COUNT 3.22 x10^6/uL (3.50-5.40); RED CELL DISTRIBUTION WIDTH 14.3 % (11.5-14.5); WHITE BLOOD COUNT 9.7 x10^3/uL (4.0-11.0)
[2020-11-22] MEDS ORDERED: IV NORMAL SALINE 50ML IV ONE (19:45)
[2020-11-22] MEDS ORDERED: IV NORMAL SALINE 50ML 50 ML IV ONE (19:45)
[2020-11-22] MEDS ORDERED: ALTEPLASE 9 MG IV ONE (19:45)
[2020-11-22] MEDS ORDERED: ALTEPLASE IV ONE ×2 (19:45)
[2020-11-22] MEDS ORDERED: ASPIRIN RECTAL 300 MG SUPP. PR ONE (19:45)
[2020-11-22] MEDS ORDERED: ALTEPLASE 81 MG IV SCH (19:45)
[2020-11-22 19:58] LABS: PROTHROMBIN TIME PATIENT 13.2 SEC (11.7-14.0)
[2020-11-22 20:09] LABS: CREATININE 1.5 mg/dL (0.6-1.0); POTASSIUM 3.3 mmol/L (3.5-5.1)
[2020-11-22 20:11] LABS: ALBUMIN 2.8 g/dL (3.4-5.0); MAGNESIUM 1.7 mg/dL (1.8-2.4); TOTAL BILIRUBIN 0.3 mg/dL (0.2-1.0); TOTAL PROTEIN 5.6 g/dL (6.4-8.2)
[2020-11-22] MEDS ORDERED: IOHEXOL 300 MG/ML 100ML VIAL. IV ONE (20:15)
[2020-11-22 20:22] LABS: CREATINE KINASE 58 U/L (26-192)
[2020-11-22] MEDS ORDERED: CONTRAST GIVEN. MC PRN (20:30)
--- NOTE | 2020-11-22 21:04 | RAD ---
Exam: CTA head and neck INDICATION: Left-sided weakness, facial droop TECHNIQUE: Sequential axial images through the head and neck obtained following the administration of 60 mL of Omni 300 IV contrast. Sagittal and coronal reformatted images were reconstructed from the a xial data and reviewed. 3-D reformatted images were reconstructed from the axial data and reviewed. Comparisons: CT head without contrast same day FINDINGS: CTA NECK: Visualized portions of thoracic aorta are unremarkable. Standard three-vessel aortic arch anatomy. Right common carotid artery is patent without evidence of stenosis, occlusion or aneurysm. Mild plaqu e at the origin of the right internal carotid artery without significant stenosis. Left common carotid artery is patent without evidence of stenosis, occlusion or aneurysm. Mild plaque at the origin left internal carotid artery without significant stenosis. Right vertebral artery is patent to the basilar confluence without evidence of stenosis, occlusion or aneurysm. Left vertebral artery is patent to the basilar confluence without evidence of stenosis, occlusion or aneurysm. Visualized paraspinal soft tissues are unremarkable. CTA HEAD: Mild calcified plaque at the cavernous segment of the right internal carotid artery. There is cut off of the M2/M3 branch of the right MCA seen on series 3 image 271, at the sylvian fissure. Right KENDALL i s patent. Mild calcified plaque at the cavernous segment left internal carotid artery without significant steno sis. Left MCA is patent. Left KENDALL is patent. Basilar artery is patent without evidence of stenosis, occlusion or aneurysm. gravel inspector are patent bilater ally. IMPRESSION: 1. Evaluation is mildly limited secondary to technical factors. There is apparent abrupt cut off of a M2/M3 branch of the right MCA is described above. 2. Mild calcified plaque at the origin of the internal carotid arteries bilaterally without signific ant stenosis. 3. Mild calcified plaque at the cavernous segment of the internal carotid arteries bilaterally witho ut significant stenosis. Exposure: One or more of the following in the visualized dose reduction techniques were utilized for this examination: 1. Automated exposure control 2. Adjustment of the MA and/or KV according to patient size 3. Use of iterative of reconstructive technique FOR INTERNAL CODING PURPOSES Critical result: Findings discussed with Parada at 11/22/2020 8:45 PM. RESULT CODE: (C) Electronically signed by: Fadi Reid MD (11/22/2020 9:02 PM) [facility]
[2020-11-22] MEDS ORDERED: ONDANSETRON PF 4 MG/2 ML VIAL. IV PRN (21:45)
--- NOTE | 2020-11-22 21:50 | RAD ---
EXAM: XR CHEST 1V INDICATION: Reason: CODE stroke, weakness 3 / Spl. Instructions: / History: . TECHNIQUE: Single view COMPARISON: 05/20/2019 chest x-ray FINDINGS: The heart size is moderately enlarged. The great vessels appear unremarkable. There is no hilar or mediastinal mass. There is mild central pulmonary vascular congestion. Left basilar opacity suggesting atelectasis or c onsolidation is noted. There is no pleural effusion or pneumothorax. There are no significant osseous abnormalities. IMPRESSION: Cardiomegaly with mild central pulmonary vascular congestion. Left basilar atelectasis or consolidation. Electronically signed by: Eulalio Head MD (11/22/2020 9:47 PM) [facility]
[2020-11-22 22:09] LABS: BILIRUBIN,URINE NEGATIVE (NEG); CLARITY,URINE CLOUDY; COLOR,URINE YELLOW; NITRITE,URINE NEGATIVE (NEG); PH,URINE 5.5 (<5.0-8.0); PROTEIN,URINE 100 mg/dL (NEG-TRACE); UROBILINOGEN,URINE 0.2 mg/dL (0.2 mg/dL)
[2020-11-22 22:14] LABS: AMORPHOUS SEDIMENT,UR PRESENT /HPF; BACTERIA,URINE FEW /HPF (0-FEW); RBC,URINE RARE /HPF (0-2)
[2020-11-22 22:15] LABS: HYALINE CASTS, URINE OCCASIONAL /HPF
[2020-11-22 23:30] VITALS: BP 167/119
[2020-11-22] MEDS ORDERED: BUMETANIDE 1 MG/4 ML VIAL. IV ONE (23:30)
[2020-11-22 23:45] VITALS: BP 149/78
[2020-11-23] VITALS (32 sets, daily range): BP systolic 101–193; BP diastolic 56–123
[2020-11-23] MEDS: POTASSIUM CHLORIDE 10MEQ 100 ML IV SCH ×4 (02:46→07:34)
[2020-11-23] MEDS ORDERED: MAGNESIUM SULFATE 2GM 50 ML IV ONE (03:00)
[2020-11-23] MEDS: LABETALOL 20 MG/4 ML DISP.SYRIN. IVP PRN ×7 (03:38→16:08)
--- NOTE | 2020-11-23 04:33 | RAD ---
EXAM: CT head without contrast INDICATION: Headache post TBA COMPARISON: CT head 11/22/2020 TECHNIQUE: Axial CT imaging through the head without intravenous contrast. One or more of the following individualized dose reduction techniques were utilized for this examinat ion: 1. Automated exposure control 2. Adjustment of the mA and/or kV according to patient size 3. Use of iterative reconstruction technique. FINDINGS: There is new hypoattenuation with loss of gomez-white matter differentiation in the right frontal, par ietal, and temporal lobes, consistent with acute infarct. This involves approximately two thirds of t he right cerebral hemisphere. There is mild gyral swelling within the infarct. No definite intracran ial hemorrhage. No midline shift. Ventricles and sulci are mildly enlarged. There are old small white matter infarcts in the left frontal lobe, unchanged. There is fluid in the sphenoid sinuses. Surgical and scalp are intact. Globes and orbits are intact. IMPRESSION: 1. Moderate to large acute infarct in the right MCA territory with mild edema. No midline shift. 2. No acute intracranial hemorrhage. Critical results discussed with the patient's nurse at 4:30 AM on 11/23/2020. FOR INTERNAL CODING PURPOSES Critical result: Findings discussed with at 11/23/2020 4:30 AM. RESULT CODE: (C) Electronically signed by: Dina Chaudhary MD (11/23/2020 4:30 AM) [id number]
--- NOTE | 2020-11-23 07:52 | NUR ---
At approximately 2315 on 11/22 patient arrived to room 109 from the ED. NIHSS done at bedside by this RN and Aarti RICHARDSON. VS stable. Will continue to monitor
--- NOTE | 2020-11-23 07:59 | NUR ---
At approximately 0330, patient c/o headache post TPA administration. Patient still A&Ox4 and pupils still reactive. Dr. Berg paged immediately. Orders for stat CT of the head completed and was negative for hemorrhage.
[2020-11-23] MEDS ORDERED: ASCO500C PO (11:36)
[2020-11-23] MEDS ORDERED: DRON400T6 PO (11:36)
[2020-11-23] MEDS ORDERED: IRON1CAP14 PO (11:36)
[2020-11-23] MEDS ORDERED: MV-M1TAB7 PO (11:36)
[2020-11-23] MEDS ORDERED: METO25TA4 PO (11:36)
[2020-11-23] MEDS ORDERED: CYAN-25 PO (11:36)
[2020-11-23] MEDS ORDERED: ASPI325T8 PO (11:36)
[2020-11-23] MEDS ORDERED: GUAI-108 PO (11:36)
[2020-11-23] MEDS ORDERED: guaiFENesin DM 600/30MG 1 TAB TAB.ER.12H PO PRN (12:00)
--- NOTE | 2020-11-23 12:21 | PDOC ---
GENERAL General: History and physical 716301 VITAL SIGNS Vital Signs/I&O: Vital Signs Date Time Temp Pulse Resp B/P (MAP) Pulse Ox O2 Delivery O2 Flow Rate FiO2 11/23/20 11:00 104 25 137/83 (101) 96 Nasal Cannula 2.0 11/23/20 08:00 98.5 98.5 I & O 11/22/20 11/22/20 11/23/20 15:00 23:00 07:00 Intake Total 1140 ml Balance 1140 ml ALLERGIES Allergies: Allergies Coded Allergies Type Severity Reaction Last Updated Verified No Known Drug Allergies 07/29/15 No MEDS Medications: Current Medications Medications (Trade) Dose Ordered Sig/Radha Route PRN Reason Start Time Stop Time Status Last Admin Dose Admin Sodium Chloride 1,000 ml @ 1,000 mls/hr Q1H IV 11/22/20 19:15 11/22/20 20:14 DC 11/22/20 19:31 Alteplase, Recombinant 9 ml @ 540 mls/hr 1X ONCE IV 11/22/20 19:45 11/22/20 19:46 DC 11/22/20 19:57 Alteplase, Recombinant 81 ml @ 81 mls/hr Q1H IV 11/22/20 19:45 11/22/20 20:44 DC 11/22/20 20:00 Sodium Chloride 50 ml @ 200 mls/hr 1X ONCE IV 11/22/20 19:45 11/22/20 19:59 DC 11/22/20 20:10 Aspirin (Aspirin Rectal Supp) 300 mg 1X ONCE AR 11/22/20 19:45 11/22/20 19:48 DC 11/22/20 20:16 Iohexol (Omnipaque 300 Mg/ml) 60 ml 1X ONCE IV 11/22/20 20:15 11/22/20 20:16 DC 11/22/20 20:38 Ondansetron HCl (Zofran) 4 mg PRN Q8HRS PRN IV NAUSEA/VOMITING 1ST CHOICE 11/22/20 21:45 11/23/20 21:44 11/23/20 04:05 Bumetanide (Bumex) 0.5 mg 1X ONCE IV 11/22/20 23:30 11/22/20 23:31 DC 11/23/20 00:51 Labetalol HCl (Normodyne Iv Push) 10 mg PRN Q10MIN PRN IVP HYPERTENSION 11/23/20 02:15 11/23/20 09:56 Nicardipine HCl 50 mg/Sodium Chloride 250 ml @ 25 mls/hr CONT PRN PRN IV HYPERTENSION 11/23/20 02:15 11/23/20 07:49 Potassium Chloride/Water 100 ml @ 100 mls/hr Q1H IV 11/23/20 03:00 11/23/20 06:59 DC 11/23/20 07:34 Magnesium Sulfate 50 ml @ 25 mls/hr 1X ONCE IV 11/23/20 03:00 11/23/20 04:59 DC 11/23/20 04:31 LAB Lab: Laboratory Tests Test 11/22/20 19:25 11/22/20 19:27 11/22/20 22:01 White Blood Count 9.7 x10^3/uL (4.0-11.0) Red Blood Count 3.22 x10^6/uL (3.50-5.40) L Hemoglobin 10.6 g/dL (12.0-15.5) L Hematocrit 32.1 % (36.0-47.0) L Mean Corpuscular Volume 100 fL (79-100) Mean Corpuscular Hemoglobin 33 pg (25-35) Mean Corpuscular Hemoglobin Concent 33 g/dL (31-37) Red Cell Distribution Width 14.3 % (11.5-14.5) Platelet Count 234 x10^3/uL (140-400) Neutrophils (%) (Auto) 72 % (31-73) Lymphocytes (%) (Auto) 16 % (24-48) L Monocytes (%) (Auto) 9 % (0-9) Eosinophils (%) (Auto) 3 % (0-3) Basophils (%) (Auto) 1 % (0-3) Neutrophils # (Auto) 6.9 x10^3/uL (1.8-7.7) Lymphocytes # (Auto) 1.6 x10^3/uL (1.0-4.8) Monocytes # (Auto) 0.8 x10^3/uL (0.0-1.1) Eosinophils # (Auto) 0.3 x10^3/uL (0.0-0.7) Basophils # (Auto) 0.1 x10^3/uL (0.0-0.2) Prothrombin Time 13.2 SEC (11.7-14.0) Prothrombin Time INR 1.0 (0.8-1.1) Activated Partial Thromboplast Time 27 SEC (24-38) Sodium Level 147 mmol/L (136-145) H Potassium Level 3.3 mmol/L (3.5-5.1) L Chloride Level 109 mmol/L (98-107) H Carbon Dioxide Level 25 mmol/L (21-32) Anion Gap 13 (6-14) Blood Urea Nitrogen 25 mg/dL (7-20) H Creatinine 1.5 mg/dL (0.6-1.0) H Estimated GFR (Cockcroft-Gault) 33.0 BUN/Creatinine Ratio 17 (6-20) Glucose Level 184 mg/dL (70-99) H Lactic Acid Level 2.2 mmol/L (0.4-2.0) H Calcium Level 8.0 mg/dL (8.5-10.1) L Magnesium Level 1.7 mg/dL (1.8-2.4) L Total Bilirubin 0.3 mg/dL (0.2-1.0) Aspartate Amino Transferase (AST) 19 U/L (15-37) Alanine Aminotransferase (ALT) 32 U/L (14-59) Alkaline Phosphatase 51 U/L (46-116) Ammonia 14 mcmol/L (11-34) Creatine Kinase 58 U/L (26-192) Creatine Kinase MB (Mass) 1.3 ng/mL (0.0-3.6) Creatine Kinase MB Relative Index % (0-4) Troponin I Quantitative 0.027 ng/mL (0.000-0.055) DZ-Aki-U-Type Natriuretic Peptide 3852 pg/mL (0-449) H Total Protein 5.6 g/dL (6.4-8.2) L Albumin 2.8 g/dL (3.4-5.0) L Albumin/Globulin Ratio 1.0 (1.0-1.7) Glucose (Fingerstick) 197 mg/dL (70-99) H Urine Collection Type Unknown Urine Color Yellow Urine Clarity Cloudy Urine pH 5.5 (<5.0-8.0) Urine Specific Celina >=1.030 (1.000-1.030) Urine Protein 100 mg/dL (NEG-TRACE) Urine Glucose (UA) Negative mg/dL (NEG) Urine Ketones (Stick) Negative mg/dL (NEG) Urine Blood Negative (NEG) Urine Nitrite Negative (NEG) Urine Bilirubin Negative (NEG) Urine Urobilinogen Dipstick 0.2 mg/dL (0.2 mg/dL) Urine Leukocyte Esterase Negative (NEG) Urine RBC Rare /HPF (0-2) Urine WBC 1-4 /HPF (0-4) Urine Squamous Epithelial Cells Mod /LPF Urine Amorphous Sediment Present /HPF Urine Bacteria Few /HPF (0-FEW) Urine Hyaline Casts Occasional /HPF Urine Mucus Slight /LPF Laboratory Tests 11/22/20 19:25 Laboratory Tests 11/22/20 19:25 Justifications for Admission Other Justification YAS WELSH MD Nov 23, 2020 12:21
[2020-11-23 12:31] LABS: BASO % 1 % (0-3); EOS # 0.1 x10^3/uL (0.0-0.7); EOS % 1 % (0-3); HEMATOCRIT 30.6 % (36.0-47.0); HEMOGLOBIN 10.1 g/dL (12.0-15.5); LYMPH % 10 % (24-48); MEAN CORPUSCULAR HEMOGLOBIN 33 pg (25-35); MEAN CORPUSCULAR HGB CONC 33 g/dL (31-37); MEAN CORPUSCULAR VOLUME 99 fL (79-100); MONO # 0.8 x10^3/uL (0.0-1.1); MONO % 8 % (0-9); NEUT # 7.7 x10^3/uL (1.8-7.7); NEUT % 80 % (31-73); PLATELET COUNT 206 x10^3/uL (140-400); RED CELL DISTRIBUTION WIDTH 14.1 % (11.5-14.5); WHITE BLOOD COUNT 9.6 x10^3/uL (4.0-11.0)
[2020-11-23 12:47] LABS: CHOLESTEROL/HDL RATIO 1.9
[2020-11-23 12:54] LABS: ALBUMIN 2.9 g/dL (3.4-5.0); ALBUMIN/GLOBULIN RATIO 1.1 (1.0-1.7); CALCIUM 8.1 mg/dL (8.5-10.1); CREATININE 1.3 mg/dL (0.6-1.0); GFR 38.9; POTASSIUM 3.6 mmol/L (3.5-5.1); TOTAL BILIRUBIN 0.6 mg/dL (0.2-1.0); TOTAL PROTEIN 5.6 g/dL (6.4-8.2)
[2020-11-23] MEDS: VERAPAMIL SR 120 MG TABLET.ER. PO SCH (12:55)
[2020-11-23] MEDS: buPROPion XL 150 MG TAB.ER.24H. PO SCH (12:55)
--- NOTE | 2020-11-23 12:55 | NUR ---
Asked patient's son for list of medications, brought up a list of medications and patient's glasses up to the hospital. Medication reconciliation completed by Dr. Mayers, but did not pass swallow evaluation by speech therapist. Notified Dr. Mayers, some medications changed to IV.
[2020-11-23] MEDS ORDERED: METOPROLOL IV PUSH 5 MG/5 ML VIAL. IVP ONE (13:00)
[2020-11-23] MEDS: AMINO AC 3%/ELECTROLYTE/GLYCER 1,000 ML IV SCH (13:00)
--- NOTE | 2020-11-23 13:24 | HP ---
ADMIT DATE: 11/22/2020 HISTORY OF PRESENT ILLNESS: The patient is an 85-year-old woman who presented late yesterday via 911, having been found on the floor of her bedroom about 2-1/2 hours after her last known normal with inability to move her left side. The patient was found to have a dense left hemiparesis, left facial droop, and aphasia. She was found to have a large right MCA territory stroke, which was worked up extensively in the Emergency Department including consultation by phone with the on-call stroke neurologist. The patient was not a candidate for transfer for intravascular intervention given the location of the defect. The patient was treated with TPA in the Emergency Department with improvement of symptoms. I am seeing her this morning now about 18 hours after admission. Her only complaint is that she is very hungry. She says she was not eating well yesterday before the event. She has little memory of the event. She has had about 2 weeks of cough and congestion and was tested over a week ago for COVID-19 and negative. She has been placed in isolation while awaiting a repeat COVID-19 test at this point. The patient tells me that she has a history of COPD and feels that this is a COPD exacerbation. She has several tissues on her bed with significant blood-tinged sputum. She denies any chest pain, palpitations, nausea, vomiting, or change in her bowel habits. Her biggest issue is that she wants to eat. Initial concern given the size of her stroke is that she has a significant swallow deficit. Speech and swallow assessment is pending. REVIEW OF SYSTEMS: All other systems reviewed and negative. PAST MEDICAL HISTORY: We will need to review with her medical durable power of ip attorney, but per the patient's report she has a history of: 1. Hypertension. 2. Chronic obstructive pulmonary disease. 3. Chronic depression and anxiety. 4. Generalized osteoarthritis. MEDICATIONS: Please see the medication reconciliation form. SOCIAL HISTORY: The patient lives independently in her own home with her son and [id number]. They are a big help to her. She does not take any tobacco, alcohol or illicit drugs. FAMILY HISTORY: Reviewed in full and noncontributory to the present illness. PHYSICAL EXAMINATION: VITAL SIGNS: Reviewed since admission and are notable for that the patient has been afebrile, blood pressure has been in the one-teens to 140s over 70s, heart rate is in the one-teens, sinus tachycardia. She is breathing comfortably and saturating 96% on 2 liters. GENERAL: The patient is a pleasant 85-year-old woman who is mildly dysarthric. Per report, improving, appears to be at baseline orientation, full mental status assessment was not completed. Other than being hungry she is in no acute distress. HEENT: Unremarkable for acute abnormality. NECK: Soft and supple. No adenopathy or thyromegaly noted. CHEST: Bilateral equal air entry, though diminished throughout. No crackles or wheezes are noted. HEART: S1, S2, tachycardic. No murmurs or gallops are noted. ABDOMEN: Obese, soft, nontender, nondistended. No masses or organomegaly noted. EXTREMITIES: Notable for weakness throughout. She has a 3 x 5 strength deficit in her left upper extremity and lower extremity. Trace bipedal edema noted. Pulses intact throughout. LABORATORY DATA AND OTHER STUDIES: Admission hemoglobin is 10.6, white count is 9.7, platelet count is 234. Troponin 0.027. BNP is mildly elevated at 3851. Random glucose is up at 197, creatinine is 1.5 which is unchanged compared with prior. Nonfasting glucose was elevated as well in the Emergency Department at 184. Serum potassium is 3.3. Chest x-ray is notable for cardiomegaly, as well as left basilar atelectasis versus consolidation. Head CT demonstrates moderate to large acute infarct in the right MCA territory with mild edema, no midline shift. Head and neck CTA does demonstrate a defect at the M2-M3 branch of the right MCA at the sylvian fissure. Right common carotid is unremarkable. Left common carotid is unremarkable. EKG is unremarkable per report, I am unable to locate that to review. ASSESSMENT AND PLAN: An 85-year-old woman admitted several hours after being found down in her home 2-1/2 hours after her last known normal, found to have a large right MCA territory stroke, treated with TPA. She seems to have responded well to that. We have all of his therapy teams ordered and hopefully, the speech and swallow folks will commence soon so that she can eat. I promised her I would start some intravenous nutrition and she seems happy by that intervention. We will check fasting cholesterol, A1c, among other labs in the morning. Neurology consultation is pending. We will hold aspirin and other antiplatelet medications and at this time following TPA and defer to Neurology regarding longer term treatment plan. The patient is a full code by report and we will need to reach out to her medical durable power of ip attorney. Inpatient status is most appropriate as we anticipate a length of stay of 3 to 5 midnights while we work this through. COVID-19 testing is pending. I will add empiric antibiotics for her acute lower respiratory infection along with antitussives. YAS WELSH MD DR: RACHELL/ellen JOB#: [id number] / [id number] NORRIS
[2020-11-23] MEDS ORDERED: AZITHRMYCN 500MG IVPB FOR OMNI 250 ML IV ONE (14:15)
[2020-11-23] MEDS: ALBUTEROL SULFATE 2.5 MG/3 ML NEBU. NEB SCH ×2 (16:00→20:00)
[2020-11-23] MEDS: AZITHROMYCIN 500 MG in IV NORMAL SALINE 250ML 250 ML IV SCH (16:21)
--- NOTE | 2020-11-23 17:14 | NUR ---
Nebulizer nonadministered, patient PUI covid-19.
[2020-11-23] MEDS: METOPROLOL IV PUSH 5 MG/5 ML VIAL. IVP SCH (18:16)
[2020-11-23] MEDS: BUDESONIDE 0.5 MG/2 ML NEBU. NEB SCH (20:00)
[2020-11-23] MEDS: DRONEDARONE HCL 400 MG TABLET PO SCH (21:00)
[2020-11-23] MEDS: ATORVASTATIN CALCIUM 20 MG TABLET PO SCH (21:00)
[2020-11-23] MEDS ORDERED: NON FORMULARY ITEM (Fluticasone/Salmeterol (Advair 250-50 Diskus) 1 PUFF) IH SCH (21:00)
[2020-11-23] MEDS: METOPROLOL TART IMMED RELEASE 25 MG TABLET. PO SCH (21:00)
--- NOTE | 2020-11-23 23:10 | CONS ---
DATE OF CONSULTATION: REFERRING PHYSICIAN: Dr. Verma. REASON FOR CONSULTATION: Stroke. HISTORY OF PRESENT ILLNESS: The patient is an 85-year-old woman who was found down in her bathroom. Last known normal was 2-1/2 hours prior to discovery. 911 was activated and she was taken to [facility] Emergency Room. She was found to have dense left hemiparesis, some left-sided neglect and difficulty with speech. CT scan of the head was negative. TPA was administered as it was nearing the end of the potential window for TPA. While TPA was being administered, she underwent a CT arteriogram to see if there was evidence of large vessel occlusion. She was found to have occlusion of M2 or M3, so this was not approachable. She was admitted to the Intensive Care Unit with supportive care. She has continued to have severe deficits. Early in the morning, she complained of the onset of headache. A stat CT scan of the head was performed and fortunately did not reveal any evidence of hemorrhage. It was starting to show evidence of stroke in the right middle cerebral artery distribution. PAST MEDICAL HISTORY: 1. Hypertension. 2. Chronic obstructive pulmonary disease. 3. Chronic anxiety and depression. 4. Generalized osteoarthritis. ALLERGIES: No known allergies to drugs. MEDICATIONS PRIOR TO ADMISSION: Albuterol nebulized 4 times a day, vitamin C 500 mg capsules, aspirin 325 mg, bupropion XL 300 mg, vitamin B12 tablets, Multaq 400 mg twice per day, Flovent metered dose inhaler, Advair Diskus twice per day, Mucinex DM twice per day as needed, Xopenex metered dose inhaler as needed, metoprolol 25 mg twice per day, multivitamin, Zofran 4 mg as needed, pravastatin 80 mg, roflumilast 500 mcg daily and verapamil extended release 120 mg daily. FAMILY HISTORY: Noncontributory. SOCIAL HISTORY: She lives independently in her own home with her son and [id number]. They are being help to her. She does not smoke tobacco, drink alcohol or use recreational drugs. REVIEW OF SYSTEMS: She did have some headache. She is not aware of a change of vision or hearing. She has had trouble with speech and swallow. She is not feeling short of breath. There has been no chest or abdominal pain. Does have bone and joint pain. The knees are especially bothered her. She has not had fever or rash. Does not have any gastrointestinal or genitourinary complaints. Does not currently have any psychiatric complaints. Does not complain of excessive bruising or bleeding. She does not complain of swelling. PHYSICAL EXAMINATION: VITAL SIGNS: The blood pressure was elevated at 181/83, pulse 111, respirations 24, temperature 99.1 degrees oral, oximetry was 99% on 2 liters nasal cannula. Her weight was 104.8 kilograms, height 68 inches with a calculated body mass index of 35.1. GENERAL: She was alert, awake and cooperative. Speech was dysarthric, but understandable. Speech was fluent. She appeared well groomed and well nourished. She was well oriented. NEUROLOGIC: Examination of the cranial nerves revealed visual redding were not full to confrontation. She appeared to have a dense left homonymous hemianopsia. She had a right gaze preference. Extraocular movements were intact. The eyes were conjugate. Pupils were 3 mm. Facial sensation was intact bilaterally. Muscles of mastication were powerful symmetrically. She had a left facial droop and delay of left smile. Slight delay of left eye closure. Hearing was intact to finger rub. The palate arched symmetrically. Tongue was midline with full motion. Sternocleidomastoid and trapezius were powerful. Muscle bulk was symmetric. Tone was increased in the left leg, diminished in the left arm. Power was full in the right. On the left side, she could raise the left arm in the air, but there was drift. 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 In the left leg, she could raise the leg off the bed with effort. Marked weakness with hip, knee and ankle dorsiflexion 4/5. Reflexes slightly brisker in the left upper and the right upper extremity. She had trace reflexes in the left knee, absent at the right knee. Ankle reflexes were absent. Left toe was upgoing whereas the right toe was not. Coordination testing with [id number] well performed with the right hand, but not the left. [id number] not well performed with the left. Sensory exam was intact on the right to pain, light touch, proprioception, graphesthesia. There was loss of graphesthesia, proprioception with the left hand. Pain was not perceived in the left hand. She did not perceive nail bed pressure. Although the left arm did withdraw, but she denied any pain. Gait was not testable. EXTREMITIES: Peripheral pulses were symmetric in the hands, diminished in the feet. There was slight edema in the feet. There was no cyanosis. LABORATORY RESULTS: CBC was performed 11/23/2020 revealing a normal white blood cell count and platelet count. Hemoglobin was diminished to 10.1 and hematocrit 30.6. Chemistries were performed 11/23/2020. This revealed normal sodium and potassium. Chloride was elevated to 109 and CO2 was normal. BUN was 18 and creatinine was elevated to 1.3 with a GFR that calculated at 38.9. Glucose was elevated at 117. Calcium was low at 8.1. The liver enzymes were not elevated. Total protein was diminished to 5.6 and albumin at 2.9. Troponin was elevated to 0.066. Lactic acid was not elevated. Fasting lipid profile was performed 11/23/2020. Total glucose was 136, triglycerides 74, HDL was 73, LDL 48 and VLDL 15. PT/INR was 1, PTT was 27. Urinalysis was performed 11/22/2020. This revealed a high specific gravity of greater than 1.030. Protein was 100 mg/dL. There was rare red blood cells and 1-4 white blood cells with moderate squamous epithelial cells. There were few bacteria. Head CT was performed 11/22/2020 at 1931 hours which revealed no acute intracranial process. DIAGNOSTIC RESULTS: CTA of the head and neck was performed 11/22/2020. This revealed abrupt cutoff of the M2/M3 branch of the right MCA. There was mild calcified plaque at the origin of the internal carotid arteries bilaterally without significant stenosis. There was mild calcified plaque in the cavernous segment of the internal carotid arteries bilaterally without significant stenosis. CT scan of the head was performed without contrast on 11/23/2020 at 0418 hours. I reviewed these images. This revealed changes consistent with stroke in the distribution of the right middle cerebral artery typically one that would be seen with an M1 segment occlusion. There was sulcal effacement. This was a fairly large stroke. IMPRESSION AND PLAN: The patient is an 85-year-old woman who had a last known normal and was found 2-1/2 hours following this with left hemiparesis suggesting stroke. She presented to the Emergency Room in a timely fashion without a contraindication to TPA, which was ultimately administered intravenously. Unfortunately, she appears to have had a very large stroke despite the fact TPA was administered. She developed a headache, which was concerning for intracranial hemorrhage, but this was shown not to be the case by a CT scan of the head at 4 in the morning. She will have another CT scan of her head at 24 hours to make sure there has been no complication of intracranial hemorrhage. She will have further stroke workup with echocardiogram to evaluate for cardioembolic source. If there is no intracranial hemorrhage, aspirin can be resumed and clopidogrel can be added to the regimen. Her fasting lipid profile was favorable. She will continue with pravastatin. She will work with all the therapies. At the present time, she is not able to swallow, but hopefully Speech Therapy can work with her to tolerate a modified diet. She will need to go to inpatient rehabilitation when medically stable. ALON BOSCH MD DR: DANO/ellen JOB#: [id number] / [id number] THOM Ruiz MD
[2020-11-23] MEDS ORDERED: CLOPIDOGREL BISULFATE 75 MG TABLET PO ONE (23:30)
[2020-11-23] MEDS: ASPIRIN ENTERIC COATED 81 MG TABLET.DR. PO SCH (23:30)
[2020-11-24] VITALS (29 sets, daily range): BP systolic 95–216; BP diastolic 61–117
--- NOTE | 2020-11-24 01:30 | RAD ---
EXAM: CT head without contrast INDICATION: 24 hours posterior PA COMPARISON: CT head 117 TECHNIQUE: Axial CT imaging through the head without intravenous contrast. Coronal reformats were obt ained. One or more of the following individualized dose reduction techniques were utilized for this examinat ion: 1. Automated exposure control 2. Adjustment of the mA and/or kV according to patient size 3. Use of iterative reconstruction technique. FINDINGS: No intracranial hemorrhage. Hypoattenuation with loss of gomez-white matter differentiation and narrow ing of the sulci in the right cerebral hemisphere has slightly progressed. There is mild narrowing of the left lateral ventricle. No midline shift. Skull and scalp are intact. There is fluid in the sphe noid sinuses. Globes and orbits are intact. IMPRESSION: 1. No intracranial hemorrhage. 2. Evolving large subacute right MCA territory infarct with edema. No midline shift. Electronically signed by: Dina Chaudhary MD (11/24/2020 1:27 AM) [id number]
[2020-11-24 04:32] LABS: BASO # 0.1 x10^3/uL (0.0-0.2); BASO % 1 % (0-3); EOS # 0.1 x10^3/uL (0.0-0.7); EOS % 1 % (0-3); HEMATOCRIT 29.4 % (36.0-47.0); HEMOGLOBIN 9.7 g/dL (12.0-15.5); LYMPH # 1.1 x10^3/uL (1.0-4.8); LYMPH % 11 % (24-48); MEAN CORPUSCULAR HEMOGLOBIN 33 pg (25-35); MEAN CORPUSCULAR HGB CONC 33 g/dL (31-37); MEAN CORPUSCULAR VOLUME 99 fL (79-100); MONO # 1.1 x10^3/uL (0.0-1.1); MONO % 10 % (0-9); NEUT # 8.1 x10^3/uL (1.8-7.7); NEUT % 78 % (31-73); PLATELET COUNT 178 x10^3/uL (140-400); RED BLOOD COUNT 2.97 x10^6/uL (3.50-5.40); RED CELL DISTRIBUTION WIDTH 13.9 % (11.5-14.5); WHITE BLOOD COUNT 10.5 x10^3/uL (4.0-11.0)
[2020-11-24] MEDS: AMINO AC 3%/ELECTROLYTE/GLYCER 1,000 ML IV SCH ×3 (04:40→22:02)
[2020-11-24 04:57] LABS: ALBUMIN 2.6 g/dL (3.4-5.0); ALBUMIN/GLOBULIN RATIO 0.9 (1.0-1.7); CALCIUM 8.1 mg/dL (8.5-10.1); CREATININE 1.3 mg/dL (0.6-1.0); GFR 38.9; POTASSIUM 3.9 mmol/L (3.5-5.1); TOTAL BILIRUBIN 0.6 mg/dL (0.2-1.0); TOTAL PROTEIN 5.5 g/dL (6.4-8.2)
[2020-11-24] MEDS: METOPROLOL IV PUSH 5 MG/5 ML VIAL. IVP SCH ×4 (06:26→18:10)
[2020-11-24] MEDS: LABETALOL 20 MG/4 ML DISP.SYRIN. IVP PRN ×4 (07:22→19:19)
[2020-11-24] MEDS: CLOPIDOGREL BISULFATE 75 MG TABLET PO SCH (07:51)
[2020-11-24] MEDS: ASPIRIN ENTERIC COATED 81 MG TABLET.DR. PO SCH (07:51)
[2020-11-24] MEDS: VERAPAMIL SR 120 MG TABLET.ER. PO SCH (07:51)
[2020-11-24] MEDS: METOPROLOL TART IMMED RELEASE 25 MG TABLET. PO SCH ×2 (07:52→20:25)
[2020-11-24] MEDS: CYANOCOBALAMIN (VITAMIN B-12) 1,000 MCG TABLET. PO SCH (07:52)
[2020-11-24] MEDS: buPROPion XL 150 MG TAB.ER.24H. PO SCH (07:52)
[2020-11-24] MEDS: ROFLUMILAST 500 MCG TABLET. PO SCH (07:52)
[2020-11-24] MEDS: DRONEDARONE HCL 400 MG TABLET PO SCH ×2 (07:52→20:25)
--- NOTE | 2020-11-24 07:56 | NUR ---
Patient in severe respiratory distress at 0650, audibly wheezing and coarse, able to cough and expectorate secretions. Stat CXR ordered, Dr. Mas consulted for COPD exacerbation, and patient placed on BiPAP. HR 140s-150s, in afib rvr with a bundle branch block and hypertensive. Labetalol given for blood pressure control and cardizem increased to 15 mg/hr. After about 15 minutes, patient's HR was <100, afib without a bundle branch block, and patient in no respiratory distress. No change in neurological status. Will continue to monitor.
--- NOTE | 2020-11-24 08:28 | RAD ---
Study: XR CHEST 1V Indication: Respiratory distress. Comparison: 11/22/2020 Findings: Redemonstrated prominence of the cardiomediastinal silhouette. Similar degree of increased lung bart ngs though aeration has improved at the left lung base. No newly seen focal airspace infiltrate or in creasing effusion. No pneumothorax. Unchanged thickening of the right minor fissure. Aortic atherosclerotic calcifications. Impression: Improved appearance of the chest to include better aeration at the left lower lung with the left cost ophrenic angle now able to be delineated. Unchanged prominence of the cardiomediastinal silhouette. Electronically signed by: HELEN BECKHAM MD (11/24/2020 8:26 AM) [id number]
[2020-11-24] MEDS ORDERED: ACETAMINOPHEN 650 MG SUPP.RECT. PR PRN (08:45)
[2020-11-24] MEDS ORDERED: ONDANSETRON PF 4 MG/2 ML VIAL. IVP PRN (08:45)
[2020-11-24] MEDS ORDERED: FLUTICASONE PROPIONATE IH SCH (09:00)
[2020-11-24] MEDS: BUDESONIDE 0.5 MG/2 ML NEBU. NEB SCH ×2 (09:12→19:52)
[2020-11-24] MEDS: ALBUTEROL SULFATE 2.5 MG/3 ML NEBU. NEB SCH ×4 (09:12→19:52)
[2020-11-24] MEDS: ENOXAPARIN 30 MG/0.3 ML SYRINGE. SQ SCH (09:24)
[2020-11-24 09:47] LABS: BASE EXCESS ABG -2 mmol/L (-3-3); HCO3 ABG 22 mmol/L (21-28); PCO2 ABG 36 mmHg (35-46); PO2 ABG 162 mmHg (65-108); SAT O2 ABG 99 % (92-99)
[2020-11-24 09:50] LABS: FIO2 ABG 40
--- NOTE | 2020-11-24 10:00 | PDOC ---
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 I believe the risks outweigh the benefits of full anticoagulation this soon after a fairly good size stroke, I will institute low- dose enoxaparin Resume statin when able to swallow PT/OT/ST Will need inpatient rehabilitation Subjective Denies pain Objective Vital Signs Date Time Temp Pulse Resp B/P (MAP) Pulse Ox O2 Delivery O2 Flow Rate FiO2 11/24/20 09:00 100 BiPAP/CPAP 11/24/20 09:00 85 20 113/70 (84) 11/24/20 07:00 2.0 11/24/20 04:00 98.7 98.7 Intake and Output 11/24/20 07:00 Intake Total 3104 ml Output Total 791 ml Balance 2313 ml Intake IV Total 3104 ml Output Urine Total 790 ml Stool Total 1 ml PHYSICAL EXAM Alert. Wearing BiPAP PERRL. EOMI. CN: Left field cut, left central facial weakness. Muscle tone: normal. Muscle strength: 3/5 left hemiparesis DTR: 2+ Plantar reflex: Flexor Gait: not examined in bed. Sensory exam: no abnormal findings. No cerebellar signs elicited. Review of Relevant I have reviewed the following items gerry (where applicable) has been applied. Labs Laboratory Tests Test 11/22/20 19:25 11/22/20 19:27 11/22/20 20:49 11/22/20 22:01 White Blood Count 9.7 x10^3/uL (4.0-11.0) Red Blood Count 3.22 x10^6/uL (3.50-5.40) Hemoglobin 10.6 g/dL (12.0-15.5) Hematocrit 32.1 % (36.0-47.0) Mean Corpuscular Volume 100 fL (79-100) Mean Corpuscular Hemoglobin 33 pg (25-35) Mean Corpuscular Hemoglobin Concent 33 g/dL (31-37) Red Cell Distribution Width 14.3 % (11.5-14.5) Platelet Count 234 x10^3/uL (140-400) Neutrophils (%) (Auto) 72 % (31-73) Lymphocytes (%) (Auto) 16 % (24-48) Monocytes (%) (Auto) 9 % (0-9) Eosinophils (%) (Auto) 3 % (0-3) Basophils (%) (Auto) 1 % (0-3) Neutrophils # (Auto) 6.9 x10^3/uL (1.8-7.7) Lymphocytes # (Auto) 1.6 x10^3/uL (1.0-4.8) Monocytes # (Auto) 0.8 x10^3/uL (0.0-1.1) Eosinophils # (Auto) 0.3 x10^3/uL (0.0-0.7) Basophils # (Auto) 0.1 x10^3/uL (0.0-0.2) Prothrombin Time 13.2 SEC (11.7-14.0) Prothromb Time International Ratio 1.0 (0.8-1.1) Activated Partial Thromboplast Time 27 SEC (24-38) Sodium Level 147 mmol/L (136-145) Potassium Level 3.3 mmol/L (3.5-5.1) Chloride Level 109 mmol/L (98-107) Carbon Dioxide Level 25 mmol/L (21-32) Anion Gap 13 (6-14) Blood Urea Nitrogen 25 mg/dL (7-20) Creatinine 1.5 mg/dL (0.6-1.0) Estimated GFR (Cockcroft-Gault) 33.0 BUN/Creatinine Ratio 17 (6-20) Glucose Level 184 mg/dL (70-99) Lactic Acid Level 2.2 mmol/L (0.4-2.0) Calcium Level 8.0 mg/dL (8.5-10.1) Magnesium Level 1.7 mg/dL (1.8-2.4) Total Bilirubin 0.3 mg/dL (0.2-1.0) Aspartate Amino Transf (AST/SGOT) 19 U/L (15-37) Alanine Aminotransferase (ALT/SGPT) 32 U/L (14-59) Alkaline Phosphatase 51 U/L (46-116) Ammonia 14 mcmol/L (11-34) Creatine Kinase 58 U/L (26-192) Creatine Kinase MB (Mass) 1.3 ng/mL (0.0-3.6) Creatine Kinase MB Relative Index % (0-4) Troponin I Quantitative 0.027 ng/mL (0.000-0.055) RN-Ggf-V-Type Natriuretic Peptide 3852 pg/mL (0-449) Total Protein 5.6 g/dL (6.4-8.2) Albumin 2.8 g/dL (3.4-5.0) Albumin/Globulin Ratio 1.0 (1.0-1.7) Glucose (Fingerstick) 197 mg/dL (70-99) Coronavirus (PCR) Not detected (Not Detected) Urine Collection Type Unknown Urine Color Yellow Urine Clarity Cloudy Urine pH 5.5 (<5.0-8.0) Urine Specific [place] >=1.030 (1.000-1.030) Urine Protein 100 mg/dL (NEG-TRACE) Urine Glucose (UA) Negative mg/dL (NEG) Urine Ketones (Stick) Negative mg/dL (NEG) Urine Blood Negative (NEG) Urine Nitrite Negative (NEG) Urine Bilirubin Negative (NEG) Urine Urobilinogen Dipstick 0.2 mg/dL (0.2 mg/dL) Urine Leukocyte Esterase Negative (NEG) Urine RBC Rare /HPF (0-2) Urine WBC 1-4 /HPF (0-4) Urine Squamous Epithelial Cells Mod /LPF Urine Amorphous Sediment Present /HPF Urine Bacteria Few /HPF (0-FEW) Urine Hyaline Casts Occasional /HPF Urine Mucus Slight /LPF Test 11/23/20 12:05 11/24/20 04:05 11/24/20 09:45 White Blood Count 9.6 x10^3/uL (4.0-11.0) 10.5 x10^3/uL (4.0-11.0) Red Blood Count 3.10 x10^6/uL (3.50-5.40) 2.97 x10^6/uL (3.50-5.40) Hemoglobin 10.1 g/dL (12.0-15.5) 9.7 g/dL (12.0-15.5) Hematocrit 30.6 % (36.0-47.0) 29.4 % (36.0-47.0) Mean Corpuscular Volume 99 fL (79-100) 99 fL (79-100) Mean Corpuscular Hemoglobin 33 pg (25-35) 33 pg (25-35) Mean Corpuscular Hemoglobin Concent 33 g/dL (31-37) 33 g/dL (31-37) Red Cell Distribution Width 14.1 % (11.5-14.5) 13.9 % (11.5-14.5) Platelet Count 206 x10^3/uL (140-400) 178 x10^3/uL (140-400) Neutrophils (%) (Auto) 80 % (31-73) 78 % (31-73) Lymphocytes (%) (Auto) 10 % (24-48) 11 % (24-48) Monocytes (%) (Auto) 8 % (0-9) 10 % (0-9) Eosinophils (%) (Auto) 1 % (0-3) 1 % (0-3) Basophils (%) (Auto) 1 % (0-3) 1 % (0-3) Neutrophils # (Auto) 7.7 x10^3/uL (1.8-7.7) 8.1 x10^3/uL (1.8-7.7) Lymphocytes # (Auto) 1.0 x10^3/uL (1.0-4.8) 1.1 x10^3/uL (1.0-4.8) Monocytes # (Auto) 0.8 x10^3/uL (0.0-1.1) 1.1 x10^3/uL (0.0-1.1) Eosinophils # (Auto) 0.1 x10^3/uL (0.0-0.7) 0.1 x10^3/uL (0.0-0.7) Basophils # (Auto) 0.0 x10^3/uL (0.0-0.2) 0.1 x10^3/uL (0.0-0.2) Sodium Level 142 mmol/L (136-145) 143 mmol/L (136-145) Potassium Level 3.6 mmol/L (3.5-5.1) 3.9 mmol/L (3.5-5.1) Chloride Level 109 mmol/L (98-107) 109 mmol/L (98-107) Carbon Dioxide Level 24 mmol/L (21-32) 24 mmol/L (21-32) Anion Gap 9 (6-14) 10 (6-14) Blood Urea Nitrogen 18 mg/dL (7-20) 22 mg/dL (7-20) Creatinine 1.3 mg/dL (0.6-1.0) 1.3 mg/dL (0.6-1.0) Estimated GFR (Cockcroft-Gault) 38.9 38.9 BUN/Creatinine Ratio 14 (6-20) 17 (6-20) Glucose Level 117 mg/dL (70-99) 123 mg/dL (70-99) Lactic Acid Level 0.9 mmol/L (0.4-2.0) Calcium Level 8.1 mg/dL (8.5-10.1) 8.1 mg/dL (8.5-10.1) Total Bilirubin 0.6 mg/dL (0.2-1.0) 0.6 mg/dL (0.2-1.0) Aspartate Amino Transf (AST/SGOT) 23 U/L (15-37) 25 U/L (15-37) Alanine Aminotransferase (ALT/SGPT) 31 U/L (14-59) 26 U/L (14-59) Alkaline Phosphatase 47 U/L (46-116) 47 U/L (46-116) Troponin I Quantitative 0.066 ng/mL (0.000-0.055) Total Protein 5.6 g/dL (6.4-8.2) 5.5 g/dL (6.4-8.2) Albumin 2.9 g/dL (3.4-5.0) 2.6 g/dL (3.4-5.0) Albumin/Globulin Ratio 1.1 (1.0-1.7) 0.9 (1.0-1.7) Triglycerides Level 74 mg/dL (0-150) Cholesterol Level 136 mg/dL (0-200) LDL Cholesterol, Calculated 48 mg/dL (0-100) VLDL Cholesterol, Calculated 15 mg/dL (0-40) Non-HDL Cholesterol Calculated 63 mg/dL (0-129) HDL Cholesterol 73 mg/dL (40-60) Cholesterol/HDL Ratio 1.9 O2 Saturation 99 % (92-99) Arterial Blood pH 7.41 (7.35-7.45) Arterial Blood pCO2 at Patient Temp 36 mmHg (35-46) Arterial Blood pO2 at Patient Temp 162 mmHg (65-108) Arterial Blood HCO3 22 mmol/L (21-28) Arterial Blood Base Excess -2 mmol/L (-3-3) FiO2 40 Laboratory Tests Test 11/23/20 12:05 11/24/20 04:05 11/24/20 09:45 White Blood Count 9.6 x10^3/uL (4.0-11.0) 10.5 x10^3/uL (4.0-11.0) Red Blood Count 3.10 x10^6/uL (3.50-5.40) 2.97 x10^6/uL (3.50-5.40) Hemoglobin 10.1 g/dL (12.0-15.5) 9.7 g/dL (12.0-15.5) Hematocrit 30.6 % (36.0-47.0) 29.4 % (36.0-47.0) Mean Corpuscular Volume 99 fL (79-100) 99 fL (79-100) Mean Corpuscular Hemoglobin 33 pg (25-35) 33 pg (25-35) Mean Corpuscular Hemoglobin Concent 33 g/dL (31-37) 33 g/dL (31-37) Red Cell Distribution Width 14.1 % (11.5-14.5) 13.9 % (11.5-14.5) Platelet Count 206 x10^3/uL (140-400) 178 x10^3/uL (140-400) Neutrophils (%) (Auto) 80 % (31-73) 78 % (31-73) Lymphocytes (%) (Auto) 10 % (24-48) 11 % (24-48) Monocytes (%) (Auto) 8 % (0-9) 10 % (0-9) Eosinophils (%) (Auto) 1 % (0-3) 1 % (0-3) Basophils (%) (Auto) 1 % (0-3) 1 % (0-3) Neutrophils # (Auto) 7.7 x10^3/uL (1.8-7.7) 8.1 x10^3/uL (1.8-7.7) Lymphocytes # (Auto) 1.0 x10^3/uL (1.0-4.8) 1.1 x10^3/uL (1.0-4.8) Monocytes # (Auto) 0.8 x10^3/uL (0.0-1.1) 1.1 x10^3/uL (0.0-1.1) Eosinophils # (Auto) 0.1 x10^3/uL (0.0-0.7) 0.1 x10^3/uL (0.0-0.7) Basophils # (Auto) 0.0 x10^3/uL (0.0-0.2) 0.1 x10^3/uL (0.0-0.2) Sodium Level 142 mmol/L (136-145) 143 mmol/L (136-145) Potassium Level 3.6 mmol/L (3.5-5.1) 3.9 mmol/L (3.5-5.1) Chloride Level 109 mmol/L (98-107) 109 mmol/L (98-107) Carbon Dioxide Level 24 mmol/L (21-32) 24 mmol/L (21-32) Anion Gap 9 (6-14) 10 (6-14) Blood Urea Nitrogen 18 mg/dL (7-20) 22 mg/dL (7-20) Creatinine 1.3 mg/dL (0.6-1.0) 1.3 mg/dL (0.6-1.0) Estimated GFR (Cockcroft-Gault) 38.9 38.9 BUN/Creatinine Ratio 14 (6-20) 17 (6-20) Glucose Level 117 mg/dL (70-99) 123 mg/dL (70-99) Lactic Acid Level 0.9 mmol/L (0.4-2.0) Calcium Level 8.1 mg/dL (8.5-10.1) 8.1 mg/dL (8.5-10.1) Total Bilirubin 0.6 mg/dL (0.2-1.0) 0.6 mg/dL (0.2-1.0) Aspartate Amino Transf (AST/SGOT) 23 U/L (15-37) 25 U/L (15-37) Alanine Aminotransferase (ALT/SGPT) 31 U/L (14-59) 26 U/L (14-59) Alkaline Phosphatase 47 U/L (46-116) 47 U/L (46-116) Troponin I Quantitative 0.066 ng/mL (0.000-0.055) Total Protein 5.6 g/dL (6.4-8.2) 5.5 g/dL (6.4-8.2) Albumin 2.9 g/dL (3.4-5.0) 2.6 g/dL (3.4-5.0) Albumin/Globulin Ratio 1.1 (1.0-1.7) 0.9 (1.0-1.7) Triglycerides Level 74 mg/dL (0-150) Cholesterol Level 136 mg/dL (0-200) LDL Cholesterol, Calculated 48 mg/dL (0-100) VLDL Cholesterol, Calculated 15 mg/dL (0-40) Non-HDL Cholesterol Calculated 63 mg/dL (0-129) HDL Cholesterol 73 mg/dL (40-60) Cholesterol/HDL Ratio 1.9 O2 Saturation 99 % (92-99) Arterial Blood pH 7.41 (7.35-7.45) Arterial Blood pCO2 at Patient Temp 36 mmHg (35-46) Arterial Blood pO2 at Patient Temp 162 mmHg (65-108) Arterial Blood HCO3 22 mmol/L (21-28) Arterial Blood Base Excess -2 mmol/L (-3-3) FiO2 40 Microbiology 11/22/20 Blood Culture - Preliminary, Resulted NO GROWTH AFTER 1 DAY Medications Current Medications Sodium Chloride 1,000 ml @ 1,000 mls/hr Q1H IV Last administered on 11/22/20at 19:31; Start 11/22/20 at 19:15; Stop 11/22/20 at 20:14; Status DC Alteplase, Recombinant 9 ml @ 540 mls/hr 1X ONCE IV Last administered on 11/22/20at 19:57; Start 11/22/20 at 19:45; Stop 11/22/20 at 19:46; Status DC Alteplase, Recombinant 81 ml @ 81 mls/hr Q1H IV Last administered on 11/22/20at 20:00; Start 11/22/20 at 19:45; Stop 11/22/20 at 20:44; Status DC Sodium Chloride 50 ml @ 200 mls/hr 1X ONCE IV Last administered on 11/22/20at 20:10; Start 11/22/20 at 19:45; Stop 11/22/20 at 19:59; Status DC Alteplase, Recombinant 10 ml @ 600 mls/hr 1X ONCE IV ; Start 11/22/20 at 19:45; Stop 11/22/20 at 19:46; Status UNV Alteplase, Recombinant 90 ml @ 90 mls/hr 1X ONCE IV ; Start 11/22/20 at 19:45; Stop 11/22/20 at 20:44; Status UNV Sodium Chloride 50 ml @ 50 mls/hr 1X ONCE IV ; Start 11/22/20 at 19:45; Stop 11/22/20 at 20:44; Status UNV Aspirin (Aspirin Rectal Supp) 300 mg 1X ONCE TN Last administered on 11/22/20at 20:16; Start 11/22/20 at 19:45; Stop 11/22/20 at 19:48; Status DC Iohexol (Omnipaque 300 Mg/ml) 60 ml 1X ONCE IV Last administered on 11/22/20at 20:38; Start 11/22/20 at 20:15; Stop 11/22/20 at 20:16; Status DC Info (CONTRAST GIVEN -- Rx MONITORING) 1 each PRN DAILY PRN MC SEE COMMENTS; Start 11/22/20 at 20:30; Stop 11/24/20 at 20:29 Ondansetron HCl (Zofran) 4 mg PRN Q8HRS PRN IV NAUSEA/VOMITING 1ST CHOICE Last administered on 11/23/20at 04:05; Start 11/22/20 at 21:45; Stop 11/23/20 at 21:44; Status DC Bumetanide (Bumex) 0.5 mg 1X ONCE IV Last administered on 11/23/20at 00:51; Start 11/22/20 at 23:30; Stop 11/22/20 at 23:31; Status DC Labetalol HCl (Normodyne Iv Push) 10 mg PRN Q10MIN PRN IVP HYPERTENSION Last administered on 11/24/20at 07:22; Start 11/23/20 at 02:15 Nicardipine HCl 50 mg/Sodium Chloride 250 ml @ 25 mls/hr CONT PRN PRN IV HYPERTENSION Last administered on 11/23/20at 15:53; Start 11/23/20 at 02:15; Stop 11/24/20 at 09:35; Status DC Potassium Chloride/Water 100 ml @ 100 mls/hr Q1H IV Last administered on 11/23/20at 07:34; Start 11/23/20 at 03:00; Stop 11/23/20 at 06:59; Status DC Magnesium Sulfate 50 ml @ 25 mls/hr 1X ONCE IV Last administered on 11/23/20at 04:31; Start 11/23/20 at 03:00; Stop 11/23/20 at 04:59; Status DC Amino Acids/ Glycerin/ Electrolytes 1,000 ml @ 80 mls/hr [id number] IV Last administered on 11/24/20at 04:40; Start 11/23/20 at 11:30 Cyanocobalamin (Vitamin B-12) 1,000 mcg DAILY PO ; Start 11/24/20 at 09:00 Dronedarone (Multaq) 400 mg BID PO ; Start 11/23/20 at 21:00 Guaifenesin (MUCINEX ER with DM) 1 tab PRN BID PRN PO cough and congestion; Start 11/23/20 at 12:00 Metoprolol Tartrate (Lopressor) 25 mg BID PO ; Start 11/23/20 at 21:00 Roflumilast (Daliresp) 500 mcg DAILY PO ; Start 11/24/20 at 09:00 Verapamil HCl (Calan Sr) 120 mg DAILY PO ; Start 11/23/20 at 13:00 Albuterol Sulfate (Ventolin Neb Soln) 2.5 mg RTQID NEB Last administered on 11/24/20at 09:12; Start 11/23/20 at 16:00 Bupropion HCl (Wellbutrin Xl) 300 mg DAILY PO ; Start 11/23/20 at 13:00 Non-Formulary Medication (Fluticasone Propionate (Flovent 44MCG Hfa)) 10.6 gm DAILY IH ; Start 11/24/20 at 09:00; Status UNV Non-Formulary Medication (Fluticasone/ Salmeterol (Advair 250-50 Diskus)) 1 puff BID IH ; Start 11/23/20 at 21:00; Status UNV Atorvastatin Calcium (Lipitor) 20 mg QHS PO ; Start 11/23/20 at 21:00 Budesonide (Pulmicort) 0.5 mg RTBID NEB Last administered on 11/24/20at 09:12; Start 11/23/20 at 20:00 Metoprolol Tartrate (Lopressor Vial) 2.5 mg Q6HRS IVP Last administered on 11/24/20at 06:26; Start 11/23/20 at 18:00 Metoprolol Tartrate (Lopressor Vial) 2.5 mg 1X ONCE IVP Last administered on 11/23/20at 13:01; Start 11/23/20 at 13:00; Stop 11/23/20 at 13:01; Status DC Azithromycin 250 ml @ 250 mls/hr 1X ONCE IV ; Start 11/23/20 at 14:15; Stop 11/23/20 at 15:14; Status UNV Azithromycin 500 mg/Sodium Chloride 250 ml @ 250 mls/hr Q24H IV Last administered on 11/23/20at 16:21; Start 11/23/20 at 16:00 Aspirin (Ecotrin) 81 mg DAILYWBKFT PO ; Start 11/23/20 at 23:30 Clopidogrel Bisulfate (Plavix) 75 mg 1X ONCE PO ; Start 11/23/20 at 23:30; Stop 11/23/20 at 23:31; Status DC Clopidogrel Bisulfate (Plavix) 75 mg DAILYWBKFT PO ; Start 11/24/20 at 08:00 Diltiazem HCl 125 mg/Sodium Chloride 125 ml @ 5 mls/hr CONT PRN IV SEE ADMIN INSTRUCTIONS Last administered on 11/24/20at 00:17; Start 11/23/20 at 23:45 Labetalol HCl (Normodyne Iv Push) 10 mg PRN Q10MIN PRN IVP HYPERTENSION; Start 11/24/20 at 08:45 Nicardipine HCl 50 mg/Sodium Chloride 250 ml @ 25 mls/hr CONT PRN PRN IV HYPERTENSION; Start 11/24/20 at 08:45 Acetaminophen (Tylenol) 650 mg PRN Q6HRS PRN PO MILD PAIN / TEMP > 100.3'F; Start 11/24/20 at 08:45 Acetaminophen (Tylenol Supp) 650 mg PRN Q6HRS PRN TN MILD PAIN / TEMP > 100.3'F; Start 11/24/20 at 08:45 Ondansetron HCl (Zofran) 4 mg PRN Q6HRS PRN IVP NAUSEA/VOMITING; Start 11/24/20 at 08:45 Enoxaparin Sodium (Lovenox 30mg Syringe) 30 mg Q24H SQ Last administered on 11/24/20at 09:24; Start 11/24/20 at 08:45 Active Scripts Active Zofran (Ondansetron Hcl) 4 Mg Tablet 1 Tab PO PRN Q6-8HRS PRN Reported Mucinex Dm Er 600-30 Mg Tablet (Guaifenesin/Dextromethorphan) 1 Each Tab.er.12h 1 Tab PO BID PRN 14 Days Aspirin 325 Mg Tablet 1 Tab PO DAILY Vitamin B-12 (Cyanocobalamin (Vitamin B-12)) 1,000 Mcg Tablet 1 Tab PO DAILY 30 Days Vitamin D3 Complete Caplet (Mv-Mn/Iron/Fa/Herbal Cmplx#190) 1 Each Tablet 1 Each PO DAILY Vitamin C (Ascorbic Acid) 500 Mg Capsule.er 2 Cap PO BID 30 Days Metoprolol Tartrate 25 Mg Tablet 1 Tab PO BID Multaq (Dronedarone Hcl) 400 Mg Tablet 1 Tab PO BID Flovent 44MCG Hfa (Fluticasone Propionate) 10.6 Gm Aer.w.adap 10.6 Gm IH DAILY Xopenex Hfa (Levalbuterol Tartrate) 15 Gm Hfa.aer.ad 15 Gm IH PRN Verapamil Er (Verapamil Hcl) 120 Mg Tablet.er 120 Mg PO DAILY Pravastatin Sodium 80 Mg Tablet 80 Mg PO DAILY Daliresp (Roflumilast) 500 Mcg Tablet 500 Mcg PO DAILY Wellbutrin Xl (Bupropion Hcl) 300 Mg Tab.er.24h 300 Mg PO DAILY Albuterol Sulfate Conc Neb Soln (Albuterol Sulfate) 2.5 Mg/0.5 Ml Vial.neb 1 Vial NEB QID Advair 250-50 Diskus (Fluticasone/Salmeterol) 1 Each Disk.w.dev 1 Puff IH BID Vitals/I & O Vital Sign - Last 24 Hours 11/23/20 11/23/20 11/23/20 11/23/20 09:56 10:00 11:00 12:00 Temp 99.1 99.1 Pulse 122 108 104 116 Resp B/P (MAP) 155/102 151/77 (101) 137/83 (101) 163/76 (105) Pulse Ox 98 96 98 O2 Delivery Nasal Cannula Nasal Cannula Nasal Cannula O2 Flow Rate 2.0 2.0 2.0 11/23/20 11/23/20 11/23/20 11/23/20 12:00 13:00 13:01 13:15 Pulse 124 116 95 24 B/P (MAP) 150/81 (104) 163/76 119/80 (93) Pulse Ox 99 O2 Delivery Nasal Cannula Nasal Cannula O2 Flow Rate 2.0 2.0 11/23/20 11/23/20 11/23/20 11/23/20 14:00 14:35 15:00 16:00 Temp 99.8 99.8 Pulse 122 111 111 101 Resp B/P (MAP) 136/75 (95) 181/67 143/70 (94) 160/94 (116) Pulse Ox 97 99 100 O2 Delivery Nasal Cannula Nasal Cannula Nasal Cannula O2 Flow Rate 2.0 2.0 2.0 11/23/20 11/23/20 11/23/20 11/23/20 16:00 16:08 17:00 18:00 Pulse 111 118 116 Resp B/P (MAP) 181/83 147/56 (86) 101/64 (76) Pulse Ox 97 96 O2 Delivery Nasal Cannula Nasal Cannula Nasal Cannula O2 Flow Rate 2.0 2.0 2.0 11/23/20 11/23/20 11/23/20 11/23/20 18:16 19:00 20:00 20:00 Temp 100.2 100.2 Pulse 128 100 114 Resp B/P (MAP) 147/56 124/72 (89) 149/75 (99) Pulse Ox 100 99 O2 Delivery Nasal Cannula Nasal Cannula Nasal Cannula O2 Flow Rate 2.0 2.0 2.0 11/23/20 11/23/20 11/23/20 11/24/20 21:00 22:00 23:00 00:00 Temp 99.2 98.9 99.2 98.9 Pulse 100 108 92 112 Resp 24 23 22 25 B/P (MAP) 137/73 (94) 123/77 (92) 144/71 (95) 151/93 (112) Pulse Ox 98 100 100 100 O2 Delivery Nasal Cannula Nasal Cannula Nasal Cannula Nasal Cannula O2 Flow Rate 2.0 2.0 2.0 2.0 11/24/20 11/24/20 11/24/20 11/24/20 00:00 00:00 01:00 02:00 Pulse 112 92 106 Resp 26 28 B/P (MAP) 151/93 144/64 (90) 169/73 (105) Pulse Ox 100 100 O2 Delivery Nasal Cannula Nasal Cannula Nasal Cannula O2 Flow Rate 2.0 2.0 2.0 11/24/20 11/24/20 11/24/20 11/24/20 03:00 04:00 04:00 05:00 Temp 98.7 98.7 Pulse 104 104 104 Resp 30 18 30 B/P (MAP) 111/78 (89) 103/75 (84) 123/61 (81) Pulse Ox 98 100 100 O2 Delivery Nasal Cannula Nasal Cannula Nasal Cannula Nasal Cannula O2 Flow Rate 2.0 2.0 2.0 2.0 11/24/20 11/24/20 11/24/20 11/24/20 06:00 06:26 07:00 07:22 Pulse 94 123 150 125 Resp 25 32 B/P (MAP) 148/89 (108) 148/89 174/105 (128) 174/105 Pulse Ox 98 88 O2 Delivery Nasal Cannula Nasal Cannula O2 Flow Rate 2.0 2.0 11/24/20 11/24/20 11/24/20 11/24/20 07:28 07:45 08:00 08:45 Pulse 87 71 84 Resp 22 22 B/P (MAP) 119/82 (94) 138/71 (93) Pulse Ox 100 100 O2 Delivery BiPAP/CPAP BiPAP/CPAP Bi-pap 11/24/20 11/24/20 09:00 09:00 Pulse 85 Resp 20 B/P (MAP) 113/70 (84) Pulse Ox 100 100 O2 Delivery BiPAP/CPAP BiPAP/CPAP Intake and Output 11/23/20 11/23/20 11/24/20 15:00 23:00 07:00 Intake Total 1189 ml 1915 ml Output Total 300 ml 250 ml 241 ml Balance -300 ml 939 ml 1674 ml Justicifation of Admission Dx: Justifications for Admission: Justification of Admission Dx: Yes Stroke - Ischemic: Stroke-Ischemic THOM POP MD Nov 24, 2020 10:00
--- NOTE | 2020-11-24 13:57 | PDOC ---
PULMONARY PROGRESS NOTES DATE: 11/24/20 TIME: 13:56 Vitals Vital Signs Date Time Temp Pulse Resp B/P (MAP) Pulse Ox O2 Delivery O2 Flow Rate FiO2 11/24/20 13:07 103 183/72 11/24/20 11:05 97 Nasal Cannula 2.0 11/24/20 11:00 27 11/24/20 04:00 98.7 98.7 Labs Laboratory Tests Test 11/22/20 19:25 11/22/20 19:27 11/22/20 20:49 11/22/20 22:01 White Blood Count 9.7 x10^3/uL (4.0-11.0) Red Blood Count 3.22 x10^6/uL (3.50-5.40) Hemoglobin 10.6 g/dL (12.0-15.5) Hematocrit 32.1 % (36.0-47.0) Mean Corpuscular Volume 100 fL (79-100) Mean Corpuscular Hemoglobin 33 pg (25-35) Mean Corpuscular Hemoglobin Concent 33 g/dL (31-37) Red Cell Distribution Width 14.3 % (11.5-14.5) Platelet Count 234 x10^3/uL (140-400) Neutrophils (%) (Auto) 72 % (31-73) Lymphocytes (%) (Auto) 16 % (24-48) Monocytes (%) (Auto) 9 % (0-9) Eosinophils (%) (Auto) 3 % (0-3) Basophils (%) (Auto) 1 % (0-3) Neutrophils # (Auto) 6.9 x10^3/uL (1.8-7.7) Lymphocytes # (Auto) 1.6 x10^3/uL (1.0-4.8) Monocytes # (Auto) 0.8 x10^3/uL (0.0-1.1) Eosinophils # (Auto) 0.3 x10^3/uL (0.0-0.7) Basophils # (Auto) 0.1 x10^3/uL (0.0-0.2) Prothrombin Time 13.2 SEC (11.7-14.0) Prothromb Time International Ratio 1.0 (0.8-1.1) Activated Partial Thromboplast Time 27 SEC (24-38) Sodium Level 147 mmol/L (136-145) Potassium Level 3.3 mmol/L (3.5-5.1) Chloride Level 109 mmol/L (98-107) Carbon Dioxide Level 25 mmol/L (21-32) Anion Gap 13 (6-14) Blood Urea Nitrogen 25 mg/dL (7-20) Creatinine 1.5 mg/dL (0.6-1.0) Estimated GFR (Cockcroft-Gault) 33.0 BUN/Creatinine Ratio 17 (6-20) Glucose Level 184 mg/dL (70-99) Lactic Acid Level 2.2 mmol/L (0.4-2.0) Calcium Level 8.0 mg/dL (8.5-10.1) Magnesium Level 1.7 mg/dL (1.8-2.4) Total Bilirubin 0.3 mg/dL (0.2-1.0) Aspartate Amino Transf (AST/SGOT) 19 U/L (15-37) Alanine Aminotransferase (ALT/SGPT) 32 U/L (14-59) Alkaline Phosphatase 51 U/L (46-116) Ammonia 14 mcmol/L (11-34) Creatine Kinase 58 U/L (26-192) Creatine Kinase MB (Mass) 1.3 ng/mL (0.0-3.6) Creatine Kinase MB Relative Index % (0-4) Troponin I Quantitative 0.027 ng/mL (0.000-0.055) JD-Ytb-Y-Type Natriuretic Peptide 3852 pg/mL (0-449) Total Protein 5.6 g/dL (6.4-8.2) Albumin 2.8 g/dL (3.4-5.0) Albumin/Globulin Ratio 1.0 (1.0-1.7) Glucose (Fingerstick) 197 mg/dL (70-99) Coronavirus (PCR) Not detected (Not Detected) Urine Collection Type Unknown Urine Color Yellow Urine Clarity Cloudy Urine pH 5.5 (<5.0-8.0) Urine Specific [place] >=1.030 (1.000-1.030) Urine Protein 100 mg/dL (NEG-TRACE) Urine Glucose (UA) Negative mg/dL (NEG) Urine Ketones (Stick) Negative mg/dL (NEG) Urine Blood Negative (NEG) Urine Nitrite Negative (NEG) Urine Bilirubin Negative (NEG) Urine Urobilinogen Dipstick 0.2 mg/dL (0.2 mg/dL) Urine Leukocyte Esterase Negative (NEG) Urine RBC Rare /HPF (0-2) Urine WBC 1-4 /HPF (0-4) Urine Squamous Epithelial Cells Mod /LPF Urine Amorphous Sediment Present /HPF Urine Bacteria Few /HPF (0-FEW) Urine Hyaline Casts Occasional /HPF Urine Mucus Slight /LPF Test 11/23/20 12:05 11/24/20 04:05 11/24/20 09:45 White Blood Count 9.6 x10^3/uL (4.0-11.0) 10.5 x10^3/uL (4.0-11.0) Red Blood Count 3.10 x10^6/uL (3.50-5.40) 2.97 x10^6/uL (3.50-5.40) Hemoglobin 10.1 g/dL (12.0-15.5) 9.7 g/dL (12.0-15.5) Hematocrit 30.6 % (36.0-47.0) 29.4 % (36.0-47.0) Mean Corpuscular Volume 99 fL (79-100) 99 fL (79-100) Mean Corpuscular Hemoglobin 33 pg (25-35) 33 pg (25-35) Mean Corpuscular Hemoglobin Concent 33 g/dL (31-37) 33 g/dL (31-37) Red Cell Distribution Width 14.1 % (11.5-14.5) 13.9 % (11.5-14.5) Platelet Count 206 x10^3/uL (140-400) 178 x10^3/uL (140-400) Neutrophils (%) (Auto) 80 % (31-73) 78 % (31-73) Lymphocytes (%) (Auto) 10 % (24-48) 11 % (24-48) Monocytes (%) (Auto) 8 % (0-9) 10 % (0-9) Eosinophils (%) (Auto) 1 % (0-3) 1 % (0-3) Basophils (%) (Auto) 1 % (0-3) 1 % (0-3) Neutrophils # (Auto) 7.7 x10^3/uL (1.8-7.7) 8.1 x10^3/uL (1.8-7.7) Lymphocytes # (Auto) 1.0 x10^3/uL (1.0-4.8) 1.1 x10^3/uL (1.0-4.8) Monocytes # (Auto) 0.8 x10^3/uL (0.0-1.1) 1.1 x10^3/uL (0.0-1.1) Eosinophils # (Auto) 0.1 x10^3/uL (0.0-0.7) 0.1 x10^3/uL (0.0-0.7) Basophils # (Auto) 0.0 x10^3/uL (0.0-0.2) 0.1 x10^3/uL (0.0-0.2) Sodium Level 142 mmol/L (136-145) 143 mmol/L (136-145) Potassium Level 3.6 mmol/L (3.5-5.1) 3.9 mmol/L (3.5-5.1) Chloride Level 109 mmol/L (98-107) 109 mmol/L (98-107) Carbon Dioxide Level 24 mmol/L (21-32) 24 mmol/L (21-32) Anion Gap 9 (6-14) 10 (6-14) Blood Urea Nitrogen 18 mg/dL (7-20) 22 mg/dL (7-20) Creatinine 1.3 mg/dL (0.6-1.0) 1.3 mg/dL (0.6-1.0) Estimated GFR (Cockcroft-Gault) 38.9 38.9 BUN/Creatinine Ratio 14 (6-20) 17 (6-20) Glucose Level 117 mg/dL (70-99) 123 mg/dL (70-99) Lactic Acid Level 0.9 mmol/L (0.4-2.0) Calcium Level 8.1 mg/dL (8.5-10.1) 8.1 mg/dL (8.5-10.1) Total Bilirubin 0.6 mg/dL (0.2-1.0) 0.6 mg/dL (0.2-1.0) Aspartate Amino Transf (AST/SGOT) 23 U/L (15-37) 25 U/L (15-37) Alanine Aminotransferase (ALT/SGPT) 31 U/L (14-59) 26 U/L (14-59) Alkaline Phosphatase 47 U/L (46-116) 47 U/L (46-116) Troponin I Quantitative 0.066 ng/mL (0.000-0.055) Total Protein 5.6 g/dL (6.4-8.2) 5.5 g/dL (6.4-8.2) Albumin 2.9 g/dL (3.4-5.0) 2.6 g/dL (3.4-5.0) Albumin/Globulin Ratio 1.1 (1.0-1.7) 0.9 (1.0-1.7) Triglycerides Level 74 mg/dL (0-150) Cholesterol Level 136 mg/dL (0-200) LDL Cholesterol, Calculated 48 mg/dL (0-100) VLDL Cholesterol, Calculated 15 mg/dL (0-40) Non-HDL Cholesterol Calculated 63 mg/dL (0-129) HDL Cholesterol 73 mg/dL (40-60) Cholesterol/HDL Ratio 1.9 O2 Saturation 99 % (92-99) Arterial Blood pH 7.41 (7.35-7.45) Arterial Blood pCO2 at Patient Temp 36 mmHg (35-46) Arterial Blood pO2 at Patient Temp 162 mmHg (65-108) Arterial Blood HCO3 22 mmol/L (21-28) Arterial Blood Base Excess -2 mmol/L (-3-3) FiO2 40 Laboratory Tests Test 11/24/20 04:05 11/24/20 09:45 White Blood Count 10.5 x10^3/uL (4.0-11.0) Red Blood Count 2.97 x10^6/uL (3.50-5.40) Hemoglobin 9.7 g/dL (12.0-15.5) Hematocrit 29.4 % (36.0-47.0) Mean Corpuscular Volume 99 fL (79-100) Mean Corpuscular Hemoglobin 33 pg (25-35) Mean Corpuscular Hemoglobin Concent 33 g/dL (31-37) Red Cell Distribution Width 13.9 % (11.5-14.5) Platelet Count 178 x10^3/uL (140-400) Neutrophils (%) (Auto) 78 % (31-73) Lymphocytes (%) (Auto) 11 % (24-48) Monocytes (%) (Auto) 10 % (0-9) Eosinophils (%) (Auto) 1 % (0-3) Basophils (%) (Auto) 1 % (0-3) Neutrophils # (Auto) 8.1 x10^3/uL (1.8-7.7) Lymphocytes # (Auto) 1.1 x10^3/uL (1.0-4.8) Monocytes # (Auto) 1.1 x10^3/uL (0.0-1.1) Eosinophils # (Auto) 0.1 x10^3/uL (0.0-0.7) Basophils # (Auto) 0.1 x10^3/uL (0.0-0.2) Sodium Level 143 mmol/L (136-145) Potassium Level 3.9 mmol/L (3.5-5.1) Chloride Level 109 mmol/L (98-107) Carbon Dioxide Level 24 mmol/L (21-32) Anion Gap 10 (6-14) Blood Urea Nitrogen 22 mg/dL (7-20) Creatinine 1.3 mg/dL (0.6-1.0) Estimated GFR (Cockcroft-Gault) 38.9 BUN/Creatinine Ratio 17 (6-20) Glucose Level 123 mg/dL (70-99) Calcium Level 8.1 mg/dL (8.5-10.1) Total Bilirubin 0.6 mg/dL (0.2-1.0) Aspartate Amino Transf (AST/SGOT) 25 U/L (15-37) Alanine Aminotransferase (ALT/SGPT) 26 U/L (14-59) Alkaline Phosphatase 47 U/L (46-116) Total Protein 5.5 g/dL (6.4-8.2) Albumin 2.6 g/dL (3.4-5.0) Albumin/Globulin Ratio 0.9 (1.0-1.7) O2 Saturation 99 % (92-99) Arterial Blood pH 7.41 (7.35-7.45) Arterial Blood pCO2 at Patient Temp 36 mmHg (35-46) Arterial Blood pO2 at Patient Temp 162 mmHg (65-108) Arterial Blood HCO3 22 mmol/L (21-28) Arterial Blood Base Excess -2 mmol/L (-3-3) FiO2 40 Medications Active Scripts Medications Dose Route/Sig Max Daily Dose Days Date Category Mucinex Dm Er 600-30 Mg Tablet (Guaifenesin/Dextromethorphan) 1 Each Tab.er.12h 1 Tab PO BID PRN 14 11/23/20 Reported Aspirin 325 Mg Tablet 1 Tab PO DAILY 11/23/20 Reported Vitamin B-12 (Cyanocobalamin (Vitamin B-12)) 1,000 Mcg Tablet 1 Tab PO DAILY 30 11/23/20 Reported Vitamin D3 Complete Caplet (Mv-Mn/Iron/Fa/Herbal Cmplx#190) 1 Each Tablet 1 Each PO DAILY 11/23/20 Reported Vitamin C (Ascorbic Acid) 500 Mg Capsule.er 2 Cap PO BID 30 11/23/20 Reported Metoprolol Tartrate 25 Mg Tablet 1 Tab PO BID 11/23/20 Reported Multaq (Dronedarone Hcl) 400 Mg Tablet 1 Tab PO BID 11/23/20 Reported Zofran (Ondansetron Hcl) 4 Mg Tablet 1 Tab PO PRN Q6-8HRS PRN 06/11/18 Rx Flovent 44MCG Hfa (Fluticasone Propionate) 10.6 Gm Aer.w.adap 10.6 Gm IH DAILY 07/29/15 Reported Xopenex Hfa (Levalbuterol Tartrate) 15 Gm Hfa.aer.ad 15 Gm IH PRN 07/20/14 Reported Verapamil Er (Verapamil Hcl) 120 Mg Tablet.er 120 Mg PO DAILY 07/20/14 Reported Pravastatin Sodium 80 Mg Tablet 80 Mg PO DAILY 07/20/14 Reported Daliresp (Roflumilast) 500 Mcg Tablet 500 Mcg PO DAILY 07/20/14 Reported Wellbutrin Xl (Bupropion Hcl) 300 Mg Tab.er.24h 300 Mg PO DAILY 07/20/14 Reported Albuterol Sulfate Conc Neb Soln (Albuterol Sulfate) 2.5 Mg/0.5 Ml Vial.neb 1 Vial NEB QID 07/20/14 Reported Advair 250-50 Diskus (Fluticasone/Salmeterol) 1 Each Disk.w.dev 1 Puff IH BID 07/20/14 Reported Impression . Full note dictated Chronic respiratory failure, acute exacerbation of COPD, recent stroke. Continue current support. May require outpatient polysomnogram. JALEESA NICOLE MD Nov 24, 2020 13:57
--- NOTE | 2020-11-24 14:45 | PDOC ---
PROGRESS NOTES Date of Service: DATE: 11/24/20 TIME: 14:42 Chief Complaint Chief Complaint acute stoke, RIGHT MCA, s/p TPA given left hemiparesis hand face left sided neglect obese, BMI 35 DM2 History of Present Illness History of Present Illness start PT and OT today cont current Vitals Vitals Vital Signs Date Time Temp Pulse Resp B/P (MAP) Pulse Ox O2 Delivery O2 Flow Rate FiO2 11/24/20 13:07 103 183/72 11/24/20 11:05 97 Nasal Cannula 2.0 11/24/20 11:00 27 11/24/20 04:00 98.7 98.7 Physical Exam General: Alert, Oriented X3, Cooperative, No acute distress Heart: Regular rate, Normal S2 Abdomen: Soft Extremities: No clubbing, No cyanosis Skin: No breakdown Labs LABS Laboratory Tests Test 11/24/20 04:05 11/24/20 09:45 White Blood Count 10.5 x10^3/uL (4.0-11.0) Red Blood Count 2.97 x10^6/uL (3.50-5.40) Hemoglobin 9.7 g/dL (12.0-15.5) Hematocrit 29.4 % (36.0-47.0) Mean Corpuscular Volume 99 fL (79-100) Mean Corpuscular Hemoglobin 33 pg (25-35) Mean Corpuscular Hemoglobin Concent 33 g/dL (31-37) Red Cell Distribution Width 13.9 % (11.5-14.5) Platelet Count 178 x10^3/uL (140-400) Neutrophils (%) (Auto) 78 % (31-73) Lymphocytes (%) (Auto) 11 % (24-48) Monocytes (%) (Auto) 10 % (0-9) Eosinophils (%) (Auto) 1 % (0-3) Basophils (%) (Auto) 1 % (0-3) Neutrophils # (Auto) 8.1 x10^3/uL (1.8-7.7) Lymphocytes # (Auto) 1.1 x10^3/uL (1.0-4.8) Monocytes # (Auto) 1.1 x10^3/uL (0.0-1.1) Eosinophils # (Auto) 0.1 x10^3/uL (0.0-0.7) Basophils # (Auto) 0.1 x10^3/uL (0.0-0.2) Sodium Level 143 mmol/L (136-145) Potassium Level 3.9 mmol/L (3.5-5.1) Chloride Level 109 mmol/L (98-107) Carbon Dioxide Level 24 mmol/L (21-32) Anion Gap 10 (6-14) Blood Urea Nitrogen 22 mg/dL (7-20) Creatinine 1.3 mg/dL (0.6-1.0) Estimated GFR (Cockcroft-Gault) 38.9 BUN/Creatinine Ratio 17 (6-20) Glucose Level 123 mg/dL (70-99) Calcium Level 8.1 mg/dL (8.5-10.1) Total Bilirubin 0.6 mg/dL (0.2-1.0) Aspartate Amino Transf (AST/SGOT) 25 U/L (15-37) Alanine Aminotransferase (ALT/SGPT) 26 U/L (14-59) Alkaline Phosphatase 47 U/L (46-116) Total Protein 5.5 g/dL (6.4-8.2) Albumin 2.6 g/dL (3.4-5.0) Albumin/Globulin Ratio 0.9 (1.0-1.7) O2 Saturation 99 % (92-99) Arterial Blood pH 7.41 (7.35-7.45) Arterial Blood pCO2 at Patient Temp 36 mmHg (35-46) Arterial Blood pO2 at Patient Temp 162 mmHg (65-108) Arterial Blood HCO3 22 mmol/L (21-28) Arterial Blood Base Excess -2 mmol/L (-3-3) FiO2 40 Assessment and Plan Assessmemt and Plan Problems Medical Problems: (1) Acute CVA (cerebrovascular accident) Status: Acute (2) Hypoxia Status: Acute (3) Lactic acidosis Status: Acute (4) Pulmonary vascular congestion Status: Acute (5) Suspected 2019 novel coronavirus infection Status: Acute Comment Review of Relevant I have reviewed the following items gerry (where applicable) has been applied. Labs Laboratory Tests Test 11/22/20 19:25 11/22/20 19:27 11/22/20 20:49 11/22/20 22:01 White Blood Count 9.7 x10^3/uL (4.0-11.0) Red Blood Count 3.22 x10^6/uL (3.50-5.40) Hemoglobin 10.6 g/dL (12.0-15.5) Hematocrit 32.1 % (36.0-47.0) Mean Corpuscular Volume 100 fL (79-100) Mean Corpuscular Hemoglobin 33 pg (25-35) Mean Corpuscular Hemoglobin Concent 33 g/dL (31-37) Red Cell Distribution Width 14.3 % (11.5-14.5) Platelet Count 234 x10^3/uL (140-400) Neutrophils (%) (Auto) 72 % (31-73) Lymphocytes (%) (Auto) 16 % (24-48) Monocytes (%) (Auto) 9 % (0-9) Eosinophils (%) (Auto) 3 % (0-3) Basophils (%) (Auto) 1 % (0-3) Neutrophils # (Auto) 6.9 x10^3/uL (1.8-7.7) Lymphocytes # (Auto) 1.6 x10^3/uL (1.0-4.8) Monocytes # (Auto) 0.8 x10^3/uL (0.0-1.1) Eosinophils # (Auto) 0.3 x10^3/uL (0.0-0.7) Basophils # (Auto) 0.1 x10^3/uL (0.0-0.2) Prothrombin Time 13.2 SEC (11.7-14.0) Prothromb Time International Ratio 1.0 (0.8-1.1) Activated Partial Thromboplast Time 27 SEC (24-38) Sodium Level 147 mmol/L (136-145) Potassium Level 3.3 mmol/L (3.5-5.1) Chloride Level 109 mmol/L (98-107) Carbon Dioxide Level 25 mmol/L (21-32) Anion Gap 13 (6-14) Blood Urea Nitrogen 25 mg/dL (7-20) Creatinine 1.5 mg/dL (0.6-1.0) Estimated GFR (Cockcroft-Gault) 33.0 BUN/Creatinine Ratio 17 (6-20) Glucose Level 184 mg/dL (70-99) Lactic Acid Level 2.2 mmol/L (0.4-2.0) Calcium Level 8.0 mg/dL (8.5-10.1) Magnesium Level 1.7 mg/dL (1.8-2.4) Total Bilirubin 0.3 mg/dL (0.2-1.0) Aspartate Amino Transf (AST/SGOT) 19 U/L (15-37) Alanine Aminotransferase (ALT/SGPT) 32 U/L (14-59) Alkaline Phosphatase 51 U/L (46-116) Ammonia 14 mcmol/L (11-34) Creatine Kinase 58 U/L (26-192) Creatine Kinase MB (Mass) 1.3 ng/mL (0.0-3.6) Creatine Kinase MB Relative Index % (0-4) Troponin I Quantitative 0.027 ng/mL (0.000-0.055) MV-Tlo-E-Type Natriuretic Peptide 3852 pg/mL (0-449) Total Protein 5.6 g/dL (6.4-8.2) Albumin 2.8 g/dL (3.4-5.0) Albumin/Globulin Ratio 1.0 (1.0-1.7) Glucose (Fingerstick) 197 mg/dL (70-99) Coronavirus (PCR) Not detected (Not Detected) Urine Collection Type Unknown Urine Color Yellow Urine Clarity Cloudy Urine pH 5.5 (<5.0-8.0) Urine Specific [place] >=1.030 (1.000-1.030) Urine Protein 100 mg/dL (NEG-TRACE) Urine Glucose (UA) Negative mg/dL (NEG) Urine Ketones (Stick) Negative mg/dL (NEG) Urine Blood Negative (NEG) Urine Nitrite Negative (NEG) Urine Bilirubin Negative (NEG) Urine Urobilinogen Dipstick 0.2 mg/dL (0.2 mg/dL) Urine Leukocyte Esterase Negative (NEG) Urine RBC Rare /HPF (0-2) Urine WBC 1-4 /HPF (0-4) Urine Squamous Epithelial Cells Mod /LPF Urine Amorphous Sediment Present /HPF Urine Bacteria Few /HPF (0-FEW) Urine Hyaline Casts Occasional /HPF Urine Mucus Slight /LPF Test 11/23/20 12:05 11/24/20 04:05 11/24/20 09:45 White Blood Count 9.6 x10^3/uL (4.0-11.0) 10.5 x10^3/uL (4.0-11.0) Red Blood Count 3.10 x10^6/uL (3.50-5.40) 2.97 x10^6/uL (3.50-5.40) Hemoglobin 10.1 g/dL (12.0-15.5) 9.7 g/dL (12.0-15.5) Hematocrit 30.6 % (36.0-47.0) 29.4 % (36.0-47.0) Mean Corpuscular Volume 99 fL (79-100) 99 fL (79-100) Mean Corpuscular Hemoglobin 33 pg (25-35) 33 pg (25-35) Mean Corpuscular Hemoglobin Concent 33 g/dL (31-37) 33 g/dL (31-37) Red Cell Distribution Width 14.1 % (11.5-14.5) 13.9 % (11.5-14.5) Platelet Count 206 x10^3/uL (140-400) 178 x10^3/uL (140-400) Neutrophils (%) (Auto) 80 % (31-73) 78 % (31-73) Lymphocytes (%) (Auto) 10 % (24-48) 11 % (24-48) Monocytes (%) (Auto) 8 % (0-9) 10 % (0-9) Eosinophils (%) (Auto) 1 % (0-3) 1 % (0-3) Basophils (%) (Auto) 1 % (0-3) 1 % (0-3) Neutrophils # (Auto) 7.7 x10^3/uL (1.8-7.7) 8.1 x10^3/uL (1.8-7.7) Lymphocytes # (Auto) 1.0 x10^3/uL (1.0-4.8) 1.1 x10^3/uL (1.0-4.8) Monocytes # (Auto) 0.8 x10^3/uL (0.0-1.1) 1.1 x10^3/uL (0.0-1.1) Eosinophils # (Auto) 0.1 x10^3/uL (0.0-0.7) 0.1 x10^3/uL (0.0-0.7) Basophils # (Auto) 0.0 x10^3/uL (0.0-0.2) 0.1 x10^3/uL (0.0-0.2) Sodium Level 142 mmol/L (136-145) 143 mmol/L (136-145) Potassium Level 3.6 mmol/L (3.5-5.1) 3.9 mmol/L (3.5-5.1) Chloride Level 109 mmol/L (98-107) 109 mmol/L (98-107) Carbon Dioxide Level 24 mmol/L (21-32) 24 mmol/L (21-32) Anion Gap 9 (6-14) 10 (6-14) Blood Urea Nitrogen 18 mg/dL (7-20) 22 mg/dL (7-20) Creatinine 1.3 mg/dL (0.6-1.0) 1.3 mg/dL (0.6-1.0) Estimated GFR (Cockcroft-Gault) 38.9 38.9 BUN/Creatinine Ratio 14 (6-20) 17 (6-20) Glucose Level 117 mg/dL (70-99) 123 mg/dL (70-99) Lactic Acid Level 0.9 mmol/L (0.4-2.0) Calcium Level 8.1 mg/dL (8.5-10.1) 8.1 mg/dL (8.5-10.1) Total Bilirubin 0.6 mg/dL (0.2-1.0) 0.6 mg/dL (0.2-1.0) Aspartate Amino Transf (AST/SGOT) 23 U/L (15-37) 25 U/L (15-37) Alanine Aminotransferase (ALT/SGPT) 31 U/L (14-59) 26 U/L (14-59) Alkaline Phosphatase 47 U/L (46-116) 47 U/L (46-116) Troponin I Quantitative 0.066 ng/mL (0.000-0.055) Total Protein 5.6 g/dL (6.4-8.2) 5.5 g/dL (6.4-8.2) Albumin 2.9 g/dL (3.4-5.0) 2.6 g/dL (3.4-5.0) Albumin/Globulin Ratio 1.1 (1.0-1.7) 0.9 (1.0-1.7) Triglycerides Level 74 mg/dL (0-150) Cholesterol Level 136 mg/dL (0-200) LDL Cholesterol, Calculated 48 mg/dL (0-100) VLDL Cholesterol, Calculated 15 mg/dL (0-40) Non-HDL Cholesterol Calculated 63 mg/dL (0-129) HDL Cholesterol 73 mg/dL (40-60) Cholesterol/HDL Ratio 1.9 O2 Saturation 99 % (92-99) Arterial Blood pH 7.41 (7.35-7.45) Arterial Blood pCO2 at Patient Temp 36 mmHg (35-46) Arterial Blood pO2 at Patient Temp 162 mmHg (65-108) Arterial Blood HCO3 22 mmol/L (21-28) Arterial Blood Base Excess -2 mmol/L (-3-3) FiO2 40 Laboratory Tests Test 11/24/20 04:05 11/24/20 09:45 White Blood Count 10.5 x10^3/uL (4.0-11.0) Red Blood Count 2.97 x10^6/uL (3.50-5.40) Hemoglobin 9.7 g/dL (12.0-15.5) Hematocrit 29.4 % (36.0-47.0) Mean Corpuscular Volume 99 fL (79-100) Mean Corpuscular Hemoglobin 33 pg (25-35) Mean Corpuscular Hemoglobin Concent 33 g/dL (31-37) Red Cell Distribution Width 13.9 % (11.5-14.5) Platelet Count 178 x10^3/uL (140-400) Neutrophils (%) (Auto) 78 % (31-73) Lymphocytes (%) (Auto) 11 % (24-48) Monocytes (%) (Auto) 10 % (0-9) Eosinophils (%) (Auto) 1 % (0-3) Basophils (%) (Auto) 1 % (0-3) Neutrophils # (Auto) 8.1 x10^3/uL (1.8-7.7) Lymphocytes # (Auto) 1.1 x10^3/uL (1.0-4.8) Monocytes # (Auto) 1.1 x10^3/uL (0.0-1.1) Eosinophils # (Auto) 0.1 x10^3/uL (0.0-0.7) Basophils # (Auto) 0.1 x10^3/uL (0.0-0.2) Sodium Level 143 mmol/L (136-145) Potassium Level 3.9 mmol/L (3.5-5.1) Chloride Level 109 mmol/L (98-107) Carbon Dioxide Level 24 mmol/L (21-32) Anion Gap 10 (6-14) Blood Urea Nitrogen 22 mg/dL (7-20) Creatinine 1.3 mg/dL (0.6-1.0) Estimated GFR (Cockcroft-Gault) 38.9 BUN/Creatinine Ratio 17 (6-20) Glucose Level 123 mg/dL (70-99) Calcium Level 8.1 mg/dL (8.5-10.1) Total Bilirubin 0.6 mg/dL (0.2-1.0) Aspartate Amino Transf (AST/SGOT) 25 U/L (15-37) Alanine Aminotransferase (ALT/SGPT) 26 U/L (14-59) Alkaline Phosphatase 47 U/L (46-116) Total Protein 5.5 g/dL (6.4-8.2) Albumin 2.6 g/dL (3.4-5.0) Albumin/Globulin Ratio 0.9 (1.0-1.7) O2 Saturation 99 % (92-99) Arterial Blood pH 7.41 (7.35-7.45) Arterial Blood pCO2 at Patient Temp 36 mmHg (35-46) Arterial Blood pO2 at Patient Temp 162 mmHg (65-108) Arterial Blood HCO3 22 mmol/L (21-28) Arterial Blood Base Excess -2 mmol/L (-3-3) FiO2 40 Microbiology 11/23/20 Blood Culture - Preliminary, Resulted NO GROWTH AFTER 1 DAY Medications Current Medications Sodium Chloride 1,000 ml @ 1,000 mls/hr Q1H IV Last administered on 11/22/20at 19:31; Start 11/22/20 at 19:15; Stop 11/22/20 at 20:14; Status DC Alteplase, Recombinant 9 ml @ 540 mls/hr 1X ONCE IV Last administered on 11/22/20at 19:57; Start 11/22/20 at 19:45; Stop 11/22/20 at 19:46; Status DC Alteplase, Recombinant 81 ml @ 81 mls/hr Q1H IV Last administered on 11/22/20at 20:00; Start 11/22/20 at 19:45; Stop 11/22/20 at 20:44; Status DC Sodium Chloride 50 ml @ 200 mls/hr 1X ONCE IV Last administered on 11/22/20at 20:10; Start 11/22/20 at 19:45; Stop 11/22/20 at 19:59; Status DC Alteplase, Recombinant 10 ml @ 600 mls/hr 1X ONCE IV ; Start 11/22/20 at 19:45; Stop 11/22/20 at 19:46; Status UNV Alteplase, Recombinant 90 ml @ 90 mls/hr 1X ONCE IV ; Start 11/22/20 at 19:45; Stop 11/22/20 at 20:44; Status UNV Sodium Chloride 50 ml @ 50 mls/hr 1X ONCE IV ; Start 11/22/20 at 19:45; Stop 11/22/20 at 20:44; Status UNV Aspirin (Aspirin Rectal Supp) 300 mg 1X ONCE [place] Last administered on 11/22/20at 20:16; Start 11/22/20 at 19:45; Stop 11/22/20 at 19:48; Status DC Iohexol (Omnipaque 300 Mg/ml) 60 ml 1X ONCE IV Last administered on 11/22/20at 20:38; Start 11/22/20 at 20:15; Stop 11/22/20 at 20:16; Status DC Info (CONTRAST GIVEN -- Rx MONITORING) 1 each PRN DAILY PRN MC SEE COMMENTS; Start 11/22/20 at 20:30; Stop 11/24/20 at 20:29 Ondansetron HCl (Zofran) 4 mg PRN Q8HRS PRN IV NAUSEA/VOMITING 1ST CHOICE Last administered on 11/23/20at 04:05; Start 11/22/20 at 21:45; Stop 11/23/20 at 21:44; Status DC Bumetanide (Bumex) 0.5 mg 1X ONCE IV Last administered on 11/23/20at 00:51; Start 11/22/20 at 23:30; Stop 11/22/20 at 23:31; Status DC Labetalol HCl (Normodyne Iv Push) 10 mg PRN Q10MIN PRN IVP HYPERTENSION Last administered on 11/24/20at 13:07; Start 11/23/20 at 02:15 Nicardipine HCl 50 mg/Sodium Chloride 250 ml @ 25 mls/hr CONT PRN PRN IV HYPERTENSION Last administered on 11/23/20at 15:53; Start 11/23/20 at 02:15; Stop 11/24/20 at 09:35; Status DC Potassium Chloride/Water 100 ml @ 100 mls/hr Q1H IV Last administered on 11/23/20at 07:34; Start 11/23/20 at 03:00; Stop 11/23/20 at 06:59; Status DC Magnesium Sulfate 50 ml @ 25 mls/hr 1X ONCE IV Last administered on 11/23/20at 04:31; Start 11/23/20 at 03:00; Stop 11/23/20 at 04:59; Status DC Amino Acids/ Glycerin/ Electrolytes 1,000 ml @ 80 mls/hr [id number] IV Last administered on 11/24/20at 04:40; Start 11/23/20 at 11:30 Cyanocobalamin (Vitamin B-12) 1,000 mcg DAILY PO ; Start 11/24/20 at 09:00 Dronedarone (Multaq) 400 mg BID PO ; Start 11/23/20 at 21:00 Guaifenesin (MUCINEX ER with DM) 1 tab PRN BID PRN PO cough and congestion; Start 11/23/20 at 12:00 Metoprolol Tartrate (Lopressor) 25 mg BID PO ; Start 11/23/20 at 21:00 Roflumilast (Daliresp) 500 mcg DAILY PO ; Start 11/24/20 at 09:00 Verapamil HCl (Calan Sr) 120 mg DAILY PO ; Start 11/23/20 at 13:00 Albuterol Sulfate (Ventolin Neb Soln) 2.5 mg RTQID NEB Last administered on 11/24/20at 11:03; Start 11/23/20 at 16:00 Bupropion HCl (Wellbutrin Xl) 300 mg DAILY PO ; Start 11/23/20 at 13:00 Non-Formulary Medication (Fluticasone Propionate (Flovent 44MCG Hfa)) 10.6 gm DAILY IH ; Start 11/24/20 at 09:00; Status UNV Non-Formulary Medication (Fluticasone/ Salmeterol (Advair 250-50 Diskus)) 1 puff BID IH ; Start 11/23/20 at 21:00; Status UNV Atorvastatin Calcium (Lipitor) 20 mg QHS PO ; Start 11/23/20 at 21:00 Budesonide (Pulmicort) 0.5 mg RTBID NEB Last administered on 11/24/20at 09:12; Start 11/23/20 at 20:00 Metoprolol Tartrate (Lopressor Vial) 2.5 mg Q6HRS IVP Last administered on 11/24/20at 13:06; Start 11/23/20 at 18:00 Metoprolol Tartrate (Lopressor Vial) 2.5 mg 1X ONCE IVP Last administered on 11/23/20at 13:01; Start 11/23/20 at 13:00; Stop 11/23/20 at 13:01; Status DC Azithromycin 250 ml @ 250 mls/hr 1X ONCE IV ; Start 11/23/20 at 14:15; Stop 11/23/20 at 15:14; Status UNV Azithromycin 500 mg/Sodium Chloride 250 ml @ 250 mls/hr Q24H IV Last administered on 11/23/20at 16:21; Start 11/23/20 at 16:00 Aspirin (Ecotrin) 81 mg DAILYWBKFT PO ; Start 11/23/20 at 23:30 Clopidogrel Bisulfate (Plavix) 75 mg 1X ONCE PO ; Start 11/23/20 at 23:30; Stop 11/23/20 at 23:31; Status DC Clopidogrel Bisulfate (Plavix) 75 mg DAILYWBKFT PO ; Start 11/24/20 at 08:00 Diltiazem HCl 125 mg/Sodium Chloride 125 ml @ 5 mls/hr CONT PRN IV SEE ADMIN INSTRUCTIONS Last administered on 11/24/20at 00:17; Start 11/23/20 at 23:45 Labetalol HCl (Normodyne Iv Push) 10 mg PRN Q10MIN PRN IVP HYPERTENSION; Start 11/24/20 at 08:45 Nicardipine HCl 50 mg/Sodium Chloride 250 ml @ 25 mls/hr CONT PRN PRN IV HYPERTENSION; Start 11/24/20 at 08:45 Acetaminophen (Tylenol) 650 mg PRN Q6HRS PRN PO MILD PAIN / TEMP > 100.3'F; Start 11/24/20 at 08:45 Acetaminophen (Tylenol Supp) 650 mg PRN Q6HRS PRN [place] MILD PAIN / TEMP > 100.3'F; Start 11/24/20 at 08:45 Ondansetron HCl (Zofran) 4 mg PRN Q6HRS PRN IVP NAUSEA/VOMITING; Start 11/24/20 at 08:45 Enoxaparin Sodium (Lovenox 30mg Syringe) 30 mg Q24H SQ Last administered on 11/24/20at 09:24; Start 11/24/20 at 08:45 Active Scripts Active Zofran (Ondansetron Hcl) 4 Mg Tablet 1 Tab PO PRN Q6-8HRS PRN Reported Mucinex Dm Er 600-30 Mg Tablet (Guaifenesin/Dextromethorphan) 1 Each Tab.er.12h 1 Tab PO BID PRN 14 Days Aspirin 325 Mg Tablet 1 Tab PO DAILY Vitamin B-12 (Cyanocobalamin (Vitamin B-12)) 1,000 Mcg Tablet 1 Tab PO DAILY 30 Days Vitamin D3 Complete Caplet (Mv-Mn/Iron/Fa/Herbal Cmplx#190) 1 Each Tablet 1 Each PO DAILY Vitamin C (Ascorbic Acid) 500 Mg Capsule.er 2 Cap PO BID 30 Days Metoprolol Tartrate 25 Mg Tablet 1 Tab PO BID Multaq (Dronedarone Hcl) 400 Mg Tablet 1 Tab PO BID Flovent 44MCG Hfa (Fluticasone Propionate) 10.6 Gm Aer.w.adap 10.6 Gm IH DAILY Xopenex Hfa (Levalbuterol Tartrate) 15 Gm Hfa.aer.ad 15 Gm IH PRN Verapamil Er (Verapamil Hcl) 120 Mg Tablet.er 120 Mg PO DAILY Pravastatin Sodium 80 Mg Tablet 80 Mg PO DAILY Daliresp (Roflumilast) 500 Mcg Tablet 500 Mcg PO DAILY Wellbutrin Xl (Bupropion Hcl) 300 Mg Tab.er.24h 300 Mg PO DAILY Albuterol Sulfate Conc Neb Soln (Albuterol Sulfate) 2.5 Mg/0.5 Ml Vial.neb 1 Vial NEB QID Advair 250-50 Diskus (Fluticasone/Salmeterol) 1 Each Disk.w.dev 1 Puff IH BID Vitals/I & O Vital Sign - Last 24 Hours 111/23/20 11/23/20 11/23/20 15:00 16:00 16:00 16:08 Temp 99.8 99.8 Pulse 111 101 111 Resp B/P (MAP) 143/70 (94) 160/94 (116) 181/83 Pulse Ox 99 100 O2 Delivery Nasal Cannula Nasal Cannula Nasal Cannula O2 Flow Rate 2.0 2.0 2.0 11/23/20 11/23/20 11/23/20 11/23/20 17:00 18:00 18:16 19:00 Pulse 118 116 128 100 Resp 23 B/P (MAP) 147/56 (86) 101/64 (76) 147/56 124/72 (89) Pulse Ox 97 96 100 O2 Delivery Nasal Cannula Nasal Cannula Nasal Cannula O2 Flow Rate 2.0 2.0 2.0 11/23/20 11/23/20 11/23/20 11/23/20 20:00 20:00 21:00 22:00 Temp 100.2 99.2 100.2 99.2 Pulse 114 100 108 Resp B/P (MAP) 149/75 (99) 137/73 (94) 123/77 (92) Pulse Ox 99 98 100 O2 Delivery Nasal Cannula Nasal Cannula Nasal Cannula Nasal Cannula O2 Flow Rate 2.0 2.0 2.0 2.0 11/23/20 11/24/20 11/24/20 11/24/20 23:00 00:00 00:00 00:00 Temp 98.9 98.9 Pulse 92 112 112 Resp B/P (MAP) 144/71 (95) 151/93 (112) 151/93 Pulse Ox 100 100 O2 Delivery Nasal Cannula Nasal Cannula Nasal Cannula O2 Flow Rate 2.0 2.0 2.0 11/24/20 11/24/20 11/24/20 11/24/20 01:00 02:00 03:00 04:00 Pulse 92 106 104 Resp 30 B/P (MAP) 144/64 (90) 169/73 (105) 111/78 (89) Pulse Ox 100 100 98 O2 Delivery Nasal Cannula Nasal Cannula Nasal Cannula Nasal Cannula O2 Flow Rate 2.0 2.0 2.0 2.0 11/24/20 11/24/20 11/24/20 11/24/20 04:00 05:00 06:00 06:26 Temp 98.7 98.7 Pulse 104 104 94 123 Resp 18 30 25 B/P (MAP) 103/75 (84) 123/61 (81) 148/89 (108) 148/89 Pulse Ox 100 100 98 O2 Delivery Nasal Cannula Nasal Cannula Nasal Cannula O2 Flow Rate 2.0 2.0 2.0 11/24/20 11/24/20 11/24/20 11/24/20 07:00 07:22 07:28 07:45 Pulse 150 125 87 71 Resp 32 22 22 B/P (MAP) 174/105 (128) 174/105 119/82 (94) Pulse Ox 88 100 100 O2 Delivery Nasal Cannula BiPAP/CPAP BiPAP/CPAP O2 Flow Rate 2.0 11/24/20 11/24/20 11/24/20 11/24/20 08:00 08:45 09:00 09:00 Pulse 84 85 Resp 20 B/P (MAP) 138/71 (93) 113/70 (84) Pulse Ox 100 100 O2 Delivery Bi-pap BiPAP/CPAP BiPAP/CPAP 11/24/20 11/24/20 11/24/20 11/24/20 10:00 10:21 11:00 11:05 Pulse 97 97 Resp 27 27 B/P (MAP) 153/92 (112) 95/61 (72) Pulse Ox 100 99 100 97 O2 Delivery BiPAP/CPAP Nasal Cannula Nasal Cannula Nasal Cannula O2 Flow Rate 2.0 2.0 2.0 11/24/20 11/24/20 13:06 13:07 Pulse 93 103 B/P (MAP) 95/61 183/72 Intake and Output 11/23/20 11/23/20 11/24/20 15:00 23:00 07:00 Intake Total 1189 ml 1915 ml Output Total 300 ml 250 ml 241 ml Balance -300 ml 939 ml 1674 ml Justicifation of Admission Dx: Justifications for Admission: Justification of Admission Dx: Yes Stroke - Ischemic: Stroke-Ischemic CORRINA BROWN MD Nov 24, 2020 14:45
--- NOTE | 2020-11-24 15:11 | CONS ---
DATE OF CONSULTATION: 11/24/2020 ATTENDING PHYSICIAN: Braulio Mayers MD REASON FOR CONSULTATION: The patient is seen in pulmonary consultation at the request of Dr. Mayers for COPD and hypoxemia. HISTORY OF PRESENT ILLNESS: The patient is an 85-year-old that was found down in the bedroom. She presented to the Emergency Department and was found to have a large dense hemiparesis, some left-sided neglect and difficulty with speech. CT of the head was negative. TPA was administered. She underwent CT angiogram. There is no evidence of large vessel occlusion. The patient was seen by Neurology. She is currently doing well. Her speech has improved. I was asked to see her in consultation as a result of chronic respiratory failure and underlying COPD. She has never smoked. She has been around multiple family members that smoked. The patient has also had a recent cough and congestion, tested over a week ago for COVID-19, which was negative. She was placed in isolation and was told to undergo repeat scan. She does have a history of COPD and her symptoms were secondary to acute exacerbation of COPD. She denies any significant cough productive of discolored sputum. No chest pain. No pressure, no nausea, vomiting, diarrhea. PAST MEDICAL HISTORY: Remarkable for hypertension, COPD, recent testing for COVID-19 was negative, depression, anxiety, chronic respiratory failure. She wears oxygen at bedtime at 4 liters. She has never had a polysomnogram. ALLERGIES: No known drug allergies. SOCIAL HISTORY: She lives independently on her own. Denies any illicit use of drugs or tobacco. FAMILY HISTORY: Noncontributory. REVIEW OF SYSTEMS: As indicated in history of present illness. Otherwise, a 10-point system was reviewed. CURRENT MEDICATION: List was reviewed. PHYSICAL EXAMINATION: VITAL SIGNS: Stable. O2 saturation was greater than 92% on 2 liters of oxygen currently. Her T-max yesterday was 100.2. HEENT: Eyes, the sclerae were nonicteric. NECK: Jugular venous distention was not elevated. No lymphadenopathy. CHEST: Full expansion. LUNGS: Adequate flow with no wheezes. CARDIOVASCULAR: Regular rate and rhythm with S1, S2, no S3. ABDOMEN: Soft, obese. EXTREMITIES: No clubbing, cyanosis or edema. LABORATORY DATA: Reviewed. White count is 10.5. Arterial blood gas: pH of 7.41, PaCO2 of 36, pO2 162, SARS-CoV-2 was negative. UA was noted. Electrolytes were noted. BUN was normal. Elevated creatinine was elevated. Albumin was low. CT revealed no intracranial hemorrhage. There was evolving large subacute right MCA territory infarct with edema. Chest x-ray was reviewed, cardiomegaly with mild vascular congestion. IMPRESSION: 1. Chronic respiratory failure. 2. Chronic obstructive pulmonary disease with mild acute exacerbation . 3. MCA infarct, status post tPA. 4. Dysphagia. 5. Left-sided hemiparesis. 6. Acute on chronic diastolic heart failure. PLAN: 1. Respiratory status appears to be compensated. We will continue current support. The patient was started on antibiotics. No need for steroids at this time. I did not appreciate any wheezing, upon exam. 2. Follow Neurology input. 3. We will need aggressive PT and OT. 4. Continue oxygen supplementation. 5. Nebulized treatments. I do appreciate the privilege in sharing the patient's care. JALEESA NICOLE MD DR: YOHANNES/ellen JOB#: [id number] / [id number]
[2020-11-24] MEDS ORDERED: SALIVA STIMULANT AGENT 44ML SPRAY BOTTLE. PO PRN (15:45)
--- NOTE | 2020-11-24 16:07 | NUR ---
SS following for discharge planning. SS reviewed pt chart and discussed with pt RN. Pt is from home with family and is currently requiring oxygen at two liters. COVID19 negative. Pt on IV Azithromycin. NPO on PPN. ST following. PT/OT recommended acute rehabilitation. Pt and pt's family requesting [facility], ; fax [phone]. Pt needing PO diet prior to discharge. SS phoned and faxed referral as requested. SS will continue to follow for discharge planning.
[2020-11-24] MEDS: AZITHROMYCIN 500 MG in IV NORMAL SALINE 250ML 250 ML IV SCH (16:37)
[2020-11-24] MEDS: ATORVASTATIN CALCIUM 20 MG TABLET PO SCH (20:25)
[2020-11-25] VITALS (25 sets, daily range): BP systolic 108–213; BP diastolic 56–110
[2020-11-25 00:11] LABS: HEMOGLOBIN A1C 5.4 % (4.8-5.6)
[2020-11-25] MEDS: METOPROLOL IV PUSH 5 MG/5 ML VIAL. IVP SCH ×5 (00:41→18:33)
[2020-11-25] MEDS: LABETALOL 20 MG/4 ML DISP.SYRIN. IVP PRN (03:05)
[2020-11-25] MEDS ORDERED: HALOPERIDOL LACTATE 5 MG/ML VIAL. IVP PRN (05:45)
[2020-11-25] MEDS: VERAPAMIL SR 120 MG TABLET.ER. PO SCH (07:50)
[2020-11-25] MEDS: CLOPIDOGREL BISULFATE 75 MG TABLET PO SCH (07:50)
[2020-11-25] MEDS: ASPIRIN ENTERIC COATED 81 MG TABLET.DR. PO SCH (07:50)
[2020-11-25] MEDS: METOPROLOL TART IMMED RELEASE 25 MG TABLET. PO SCH ×2 (07:51→21:00)
[2020-11-25] MEDS: DRONEDARONE HCL 400 MG TABLET PO SCH ×2 (07:51→21:00)
[2020-11-25] MEDS: ROFLUMILAST 500 MCG TABLET. PO SCH (07:51)
[2020-11-25] MEDS: CYANOCOBALAMIN (VITAMIN B-12) 1,000 MCG TABLET. PO SCH (07:52)
[2020-11-25] MEDS: buPROPion XL 150 MG TAB.ER.24H. PO SCH (07:52)
[2020-11-25] MEDS: ALBUTEROL SULFATE 2.5 MG/3 ML NEBU. NEB SCH ×4 (07:55→20:12)
[2020-11-25] MEDS: BUDESONIDE 0.5 MG/2 ML NEBU. NEB SCH ×3 (07:55→22:05)
[2020-11-25] MEDS: ENOXAPARIN 30 MG/0.3 ML SYRINGE. SQ SCH (08:48)
[2020-11-25 09:20] LABS: BASO # 0.1 x10^3/uL (0.0-0.2); BASO % 1 % (0-3); EOS # 0.1 x10^3/uL (0.0-0.7); EOS % 1 % (0-3); HEMATOCRIT 32.6 % (36.0-47.0); HEMOGLOBIN 10.6 g/dL (12.0-15.5); LYMPH # 0.8 x10^3/uL (1.0-4.8); LYMPH % 6 % (24-48); MEAN CORPUSCULAR HEMOGLOBIN 32 pg (25-35); MEAN CORPUSCULAR HGB CONC 33 g/dL (31-37); MEAN CORPUSCULAR VOLUME 98 fL (79-100); MONO # 1.1 x10^3/uL (0.0-1.1); MONO % 9 % (0-9); NEUT # 10.4 x10^3/uL (1.8-7.7); NEUT % 83 % (31-73); PLATELET COUNT 185 x10^3/uL (140-400); RED BLOOD COUNT 3.32 x10^6/uL (3.50-5.40); RED CELL DISTRIBUTION WIDTH 13.7 % (11.5-14.5); WHITE BLOOD COUNT 12.4 x10^3/uL (4.0-11.0)
[2020-11-25 09:39] LABS: ALBUMIN 2.9 g/dL (3.4-5.0); ALBUMIN/GLOBULIN RATIO 0.9 (1.0-1.7); CALCIUM 8.9 mg/dL (8.5-10.1); CREATININE 1.2 mg/dL (0.6-1.0); GFR 42.7; TOTAL BILIRUBIN 0.7 mg/dL (0.2-1.0); TOTAL PROTEIN 6.3 g/dL (6.4-8.2)
--- NOTE | 2020-11-25 10:16 | PDOC ---
PULMONARY PROGRESS NOTES DATE: 11/25/20 TIME: 10:08 Subjective Pt. remains on N/C oxygen 2 liters on cardene gtt no overnight concerns Vitals Vital Signs Date Time Temp Pulse Resp B/P (MAP) Pulse Ox O2 Delivery O2 Flow Rate FiO2 11/25/20 09:00 116 143/83 (103) 99 Nasal Cannula 2.0 11/25/20 06:04 18 11/25/20 03:00 98.8 98.8 Comments Left side weakness and facial droop ROS: No Nausea, No Chest Pain, No Abdominal Pain, No Increase Cough General: Alert Lungs: Clear Cardiovascular: S1, S2 Abdomen: Soft, Non-tender Skin: Warm, Dry Labs Laboratory Tests Test 11/23/20 12:05 11/24/20 04:00 11/24/20 04:05 11/24/20 09:45 White Blood Count 9.6 x10^3/uL (4.0-11.0) 10.5 x10^3/uL (4.0-11.0) Red Blood Count 3.10 x10^6/uL (3.50-5.40) 2.97 x10^6/uL (3.50-5.40) Hemoglobin 10.1 g/dL (12.0-15.5) 9.7 g/dL (12.0-15.5) Hematocrit 30.6 % (36.0-47.0) 29.4 % (36.0-47.0) Mean Corpuscular Volume 99 fL (79-100) 99 fL (79-100) Mean Corpuscular Hemoglobin 33 pg (25-35) 33 pg (25-35) Mean Corpuscular Hemoglobin Concent 33 g/dL (31-37) 33 g/dL (31-37) Red Cell Distribution Width 14.1 % (11.5-14.5) 13.9 % (11.5-14.5) Platelet Count 206 x10^3/uL (140-400) 178 x10^3/uL (140-400) Neutrophils (%) (Auto) 80 % (31-73) 78 % (31-73) Lymphocytes (%) (Auto) 10 % (24-48) 11 % (24-48) Monocytes (%) (Auto) 8 % (0-9) 10 % (0-9) Eosinophils (%) (Auto) 1 % (0-3) 1 % (0-3) Basophils (%) (Auto) 1 % (0-3) 1 % (0-3) Neutrophils # (Auto) 7.7 x10^3/uL (1.8-7.7) 8.1 x10^3/uL (1.8-7.7) Lymphocytes # (Auto) 1.0 x10^3/uL (1.0-4.8) 1.1 x10^3/uL (1.0-4.8) Monocytes # (Auto) 0.8 x10^3/uL (0.0-1.1) 1.1 x10^3/uL (0.0-1.1) Eosinophils # (Auto) 0.1 x10^3/uL (0.0-0.7) 0.1 x10^3/uL (0.0-0.7) Basophils # (Auto) 0.0 x10^3/uL (0.0-0.2) 0.1 x10^3/uL (0.0-0.2) Sodium Level 142 mmol/L (136-145) 143 mmol/L (136-145) Potassium Level 3.6 mmol/L (3.5-5.1) 3.9 mmol/L (3.5-5.1) Chloride Level 109 mmol/L (98-107) 109 mmol/L (98-107) Carbon Dioxide Level 24 mmol/L (21-32) 24 mmol/L (21-32) Anion Gap 9 (6-14) 10 (6-14) Blood Urea Nitrogen 18 mg/dL (7-20) 22 mg/dL (7-20) Creatinine 1.3 mg/dL (0.6-1.0) 1.3 mg/dL (0.6-1.0) Estimated GFR (Cockcroft-Gault) 38.9 38.9 BUN/Creatinine Ratio 14 (6-20) 17 (6-20) Glucose Level 117 mg/dL (70-99) 123 mg/dL (70-99) Lactic Acid Level 0.9 mmol/L (0.4-2.0) Calcium Level 8.1 mg/dL (8.5-10.1) 8.1 mg/dL (8.5-10.1) Total Bilirubin 0.6 mg/dL (0.2-1.0) 0.6 mg/dL (0.2-1.0) Aspartate Amino Transf (AST/SGOT) 23 U/L (15-37) 25 U/L (15-37) Alanine Aminotransferase (ALT/SGPT) 31 U/L (14-59) 26 U/L (14-59) Alkaline Phosphatase 47 U/L (46-116) 47 U/L (46-116) Troponin I Quantitative 0.066 ng/mL (0.000-0.055) Total Protein 5.6 g/dL (6.4-8.2) 5.5 g/dL (6.4-8.2) Albumin 2.9 g/dL (3.4-5.0) 2.6 g/dL (3.4-5.0) Albumin/Globulin Ratio 1.1 (1.0-1.7) 0.9 (1.0-1.7) Triglycerides Level 74 mg/dL (0-150) Cholesterol Level 136 mg/dL (0-200) LDL Cholesterol, Calculated 48 mg/dL (0-100) VLDL Cholesterol, Calculated 15 mg/dL (0-40) Non-HDL Cholesterol Calculated 63 mg/dL (0-129) HDL Cholesterol 73 mg/dL (40-60) Cholesterol/HDL Ratio 1.9 Hemoglobin A1c 5.4 % (4.8-5.6) O2 Saturation 99 % (92-99) Arterial Blood pH 7.41 (7.35-7.45) Arterial Blood pCO2 at Patient Temp 36 mmHg (35-46) Arterial Blood pO2 at Patient Temp 162 mmHg (65-108) Arterial Blood HCO3 22 mmol/L (21-28) Arterial Blood Base Excess -2 mmol/L (-3-3) FiO2 40 Test 11/25/20 09:06 White Blood Count 12.4 x10^3/uL (4.0-11.0) Red Blood Count 3.32 x10^6/uL (3.50-5.40) Hemoglobin 10.6 g/dL (12.0-15.5) Hematocrit 32.6 % (36.0-47.0) Mean Corpuscular Volume 98 fL (79-100) Mean Corpuscular Hemoglobin 32 pg (25-35) Mean Corpuscular Hemoglobin Concent 33 g/dL (31-37) Red Cell Distribution Width 13.7 % (11.5-14.5) Platelet Count 185 x10^3/uL (140-400) Neutrophils (%) (Auto) 83 % (31-73) Lymphocytes (%) (Auto) 6 % (24-48) Monocytes (%) (Auto) 9 % (0-9) Eosinophils (%) (Auto) 1 % (0-3) Basophils (%) (Auto) 1 % (0-3) Neutrophils # (Auto) 10.4 x10^3/uL (1.8-7.7) Lymphocytes # (Auto) 0.8 x10^3/uL (1.0-4.8) Monocytes # (Auto) 1.1 x10^3/uL (0.0-1.1) Eosinophils # (Auto) 0.1 x10^3/uL (0.0-0.7) Basophils # (Auto) 0.1 x10^3/uL (0.0-0.2) Sodium Level 139 mmol/L (136-145) Potassium Level 4.0 mmol/L (3.5-5.1) Chloride Level 104 mmol/L (98-107) Carbon Dioxide Level 23 mmol/L (21-32) Anion Gap 12 (6-14) Blood Urea Nitrogen 30 mg/dL (7-20) Creatinine 1.2 mg/dL (0.6-1.0) Estimated GFR (Cockcroft-Gault) 42.7 BUN/Creatinine Ratio 25 (6-20) Glucose Level 119 mg/dL (70-99) Calcium Level 8.9 mg/dL (8.5-10.1) Total Bilirubin 0.7 mg/dL (0.2-1.0) Aspartate Amino Transf (AST/SGOT) 34 U/L (15-37) Alanine Aminotransferase (ALT/SGPT) 30 U/L (14-59) Alkaline Phosphatase 49 U/L (46-116) Total Protein 6.3 g/dL (6.4-8.2) Albumin 2.9 g/dL (3.4-5.0) Albumin/Globulin Ratio 0.9 (1.0-1.7) Laboratory Tests Test 11/25/20 09:06 White Blood Count 12.4 x10^3/uL (4.0-11.0) Red Blood Count 3.32 x10^6/uL (3.50-5.40) Hemoglobin 10.6 g/dL (12.0-15.5) Hematocrit 32.6 % (36.0-47.0) Mean Corpuscular Volume 98 fL (79-100) Mean Corpuscular Hemoglobin 32 pg (25-35) Mean Corpuscular Hemoglobin Concent 33 g/dL (31-37) Red Cell Distribution Width 13.7 % (11.5-14.5) Platelet Count 185 x10^3/uL (140-400) Neutrophils (%) (Auto) 83 % (31-73) Lymphocytes (%) (Auto) 6 % (24-48) Monocytes (%) (Auto) 9 % (0-9) Eosinophils (%) (Auto) 1 % (0-3) Basophils (%) (Auto) 1 % (0-3) Neutrophils # (Auto) 10.4 x10^3/uL (1.8-7.7) Lymphocytes # (Auto) 0.8 x10^3/uL (1.0-4.8) Monocytes # (Auto) 1.1 x10^3/uL (0.0-1.1) Eosinophils # (Auto) 0.1 x10^3/uL (0.0-0.7) Basophils # (Auto) 0.1 x10^3/uL (0.0-0.2) Sodium Level 139 mmol/L (136-145) Potassium Level 4.0 mmol/L (3.5-5.1) Chloride Level 104 mmol/L (98-107) Carbon Dioxide Level 23 mmol/L (21-32) Anion Gap 12 (6-14) Blood Urea Nitrogen 30 mg/dL (7-20) Creatinine 1.2 mg/dL (0.6-1.0) Estimated GFR (Cockcroft-Gault) 42.7 BUN/Creatinine Ratio 25 (6-20) Glucose Level 119 mg/dL (70-99) Calcium Level 8.9 mg/dL (8.5-10.1) Total Bilirubin 0.7 mg/dL (0.2-1.0) Aspartate Amino Transf (AST/SGOT) 34 U/L (15-37) Alanine Aminotransferase (ALT/SGPT) 30 U/L (14-59) Alkaline Phosphatase 49 U/L (46-116) Total Protein 6.3 g/dL (6.4-8.2) Albumin 2.9 g/dL (3.4-5.0) Albumin/Globulin Ratio 0.9 (1.0-1.7) Medications Active Scripts Medications Dose Route/Sig Max Daily Dose Days Date Category Mucinex Dm Er 600-30 Mg Tablet (Guaifenesin/Dextromethorphan) 1 Each Tab.er.12h 1 Tab PO BID PRN 14 11/23/20 Reported Aspirin 325 Mg Tablet 1 Tab PO DAILY 11/23/20 Reported Vitamin B-12 (Cyanocobalamin (Vitamin B-12)) 1,000 Mcg Tablet 1 Tab PO DAILY 30 11/23/20 Reported Vitamin D3 Complete Caplet (Mv-Mn/Iron/Fa/Herbal Cmplx#190) 1 Each Tablet 1 Each PO DAILY 11/23/20 Reported Vitamin C (Ascorbic Acid) 500 Mg Capsule.er 2 Cap PO BID 30 11/23/20 Reported Metoprolol Tartrate 25 Mg Tablet 1 Tab PO BID 11/23/20 Reported Multaq (Dronedarone Hcl) 400 Mg Tablet 1 Tab PO BID 11/23/20 Reported Zofran (Ondansetron Hcl) 4 Mg Tablet 1 Tab PO PRN Q6-8HRS PRN 06/11/18 Rx Flovent 44MCG Hfa (Fluticasone Propionate) 10.6 Gm Aer.w.adap 10.6 Gm IH DAILY 07/29/15 Reported Xopenex Hfa (Levalbuterol Tartrate) 15 Gm Hfa.aer.ad 15 Gm IH PRN 07/20/14 Reported Verapamil Er (Verapamil Hcl) 120 Mg Tablet.er 120 Mg PO DAILY 07/20/14 Reported Pravastatin Sodium 80 Mg Tablet 80 Mg PO DAILY 07/20/14 Reported Daliresp (Roflumilast) 500 Mcg Tablet 500 Mcg PO DAILY 07/20/14 Reported Wellbutrin Xl (Bupropion Hcl) 300 Mg Tab.er.24h 300 Mg PO DAILY 07/20/14 Reported Albuterol Sulfate Conc Neb Soln (Albuterol Sulfate) 2.5 Mg/0.5 Ml Vial.neb 1 Vial NEB QID 07/20/14 Reported Advair 250-50 Diskus (Fluticasone/Salmeterol) 1 Each Disk.w.dev 1 Puff IH BID 07/20/[address] head IMPRESSION: 1. No intracranial hemorrhage. 2. Evolving large subacute right MCA territory infarct with edema. No midline shift. Impression . IMPRESSION: 1. Chronic respiratory failure. 2. Chronic obstructive pulmonary disease with mild acute exacerbation . 3. MCA infarct, status post tPA. 4. Dysphagia. 5. Left-sided hemiparesis. 6. Acute on chronic diastolic heart failure. Plan . PLAN: Continue supplemental oxygen, remains on 2 liters N/C Follow neurology recs -- S/P TPA ---11/22 NEBS Continue cardene gtt for HTN PT/OT/ST Start PPN if not able to pass swallow study DVT/GI PPX D/W PIERO ENRIQUE MD Nov 25, 2020 10:16
--- NOTE | 2020-11-25 10:57 | PDOC ---
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 I believe the risks outweigh the benefits of full anticoagulation this soon after a fairly good size stroke Resume statin when able to swallow PT/OT/ST Will need inpatient rehabilitation Subjective Feels anxious, responds to reassurance Objective Vital Signs Date Time Temp Pulse Resp B/P (MAP) Pulse Ox O2 Delivery O2 Flow Rate FiO2 11/25/20 10:05 100.4 100.4 11/25/20 09:00 116 143/83 (103) 99 Nasal Cannula 2.0 11/25/20 06:04 18 Intake and Output 11/25/20 07:00 Intake Total 745 ml Output Total 487 ml Balance 258 ml Intake IV Total 745 ml Output Urine Total 485 ml Stool Total 2 ml # Bowel Movements 1 PHYSICAL EXAM Alert. Off BiPAP PERRL. EOMI. CN: Left field cut, left central facial weakness. Muscle tone: normal. Muscle strength: 3/5 left hemiparesis DTR: 2+ Plantar reflex: Flexor Gait: not examined in bed. Sensory exam: no abnormal findings. No cerebellar signs elicited. A little tremulousness Review of Relevant I have reviewed the following items gerry (where applicable) has been applied. Labs Laboratory Tests Test 11/23/20 12:05 11/24/20 04:00 11/24/20 04:05 11/24/20 09:45 White Blood Count 9.6 x10^3/uL (4.0-11.0) 10.5 x10^3/uL (4.0-11.0) Red Blood Count 3.10 x10^6/uL (3.50-5.40) 2.97 x10^6/uL (3.50-5.40) Hemoglobin 10.1 g/dL (12.0-15.5) 9.7 g/dL (12.0-15.5) Hematocrit 30.6 % (36.0-47.0) 29.4 % (36.0-47.0) Mean Corpuscular Volume 99 fL (79-100) 99 fL (79-100) Mean Corpuscular Hemoglobin 33 pg (25-35) 33 pg (25-35) Mean Corpuscular Hemoglobin Concent 33 g/dL (31-37) 33 g/dL (31-37) Red Cell Distribution Width 14.1 % (11.5-14.5) 13.9 % (11.5-14.5) Platelet Count 206 x10^3/uL (140-400) 178 x10^3/uL (140-400) Neutrophils (%) (Auto) 80 % (31-73) 78 % (31-73) Lymphocytes (%) (Auto) 10 % (24-48) 11 % (24-48) Monocytes (%) (Auto) 8 % (0-9) 10 % (0-9) Eosinophils (%) (Auto) 1 % (0-3) 1 % (0-3) Basophils (%) (Auto) 1 % (0-3) 1 % (0-3) Neutrophils # (Auto) 7.7 x10^3/uL (1.8-7.7) 8.1 x10^3/uL (1.8-7.7) Lymphocytes # (Auto) 1.0 x10^3/uL (1.0-4.8) 1.1 x10^3/uL (1.0-4.8) Monocytes # (Auto) 0.8 x10^3/uL (0.0-1.1) 1.1 x10^3/uL (0.0-1.1) Eosinophils # (Auto) 0.1 x10^3/uL (0.0-0.7) 0.1 x10^3/uL (0.0-0.7) Basophils # (Auto) 0.0 x10^3/uL (0.0-0.2) 0.1 x10^3/uL (0.0-0.2) Sodium Level 142 mmol/L (136-145) 143 mmol/L (136-145) Potassium Level 3.6 mmol/L (3.5-5.1) 3.9 mmol/L (3.5-5.1) Chloride Level 109 mmol/L (98-107) 109 mmol/L (98-107) Carbon Dioxide Level 24 mmol/L (21-32) 24 mmol/L (21-32) Anion Gap 9 (6-14) 10 (6-14) Blood Urea Nitrogen 18 mg/dL (7-20) 22 mg/dL (7-20) Creatinine 1.3 mg/dL (0.6-1.0) 1.3 mg/dL (0.6-1.0) Estimated GFR (Cockcroft-Gault) 38.9 38.9 BUN/Creatinine Ratio 14 (6-20) 17 (6-20) Glucose Level 117 mg/dL (70-99) 123 mg/dL (70-99) Lactic Acid Level 0.9 mmol/L (0.4-2.0) Calcium Level 8.1 mg/dL (8.5-10.1) 8.1 mg/dL (8.5-10.1) Total Bilirubin 0.6 mg/dL (0.2-1.0) 0.6 mg/dL (0.2-1.0) Aspartate Amino Transf (AST/SGOT) 23 U/L (15-37) 25 U/L (15-37) Alanine Aminotransferase (ALT/SGPT) 31 U/L (14-59) 26 U/L (14-59) Alkaline Phosphatase 47 U/L (46-116) 47 U/L (46-116) Troponin I Quantitative 0.066 ng/mL (0.000-0.055) Total Protein 5.6 g/dL (6.4-8.2) 5.5 g/dL (6.4-8.2) Albumin 2.9 g/dL (3.4-5.0) 2.6 g/dL (3.4-5.0) Albumin/Globulin Ratio 1.1 (1.0-1.7) 0.9 (1.0-1.7) Triglycerides Level 74 mg/dL (0-150) Cholesterol Level 136 mg/dL (0-200) LDL Cholesterol, Calculated 48 mg/dL (0-100) VLDL Cholesterol, Calculated 15 mg/dL (0-40) Non-HDL Cholesterol Calculated 63 mg/dL (0-129) HDL Cholesterol 73 mg/dL (40-60) Cholesterol/HDL Ratio 1.9 Hemoglobin A1c 5.4 % (4.8-5.6) O2 Saturation 99 % (92-99) Arterial Blood pH 7.41 (7.35-7.45) Arterial Blood pCO2 at Patient Temp 36 mmHg (35-46) Arterial Blood pO2 at Patient Temp 162 mmHg (65-108) Arterial Blood HCO3 22 mmol/L (21-28) Arterial Blood Base Excess -2 mmol/L (-3-3) FiO2 40 Test 11/25/20 09:06 White Blood Count 12.4 x10^3/uL (4.0-11.0) Red Blood Count 3.32 x10^6/uL (3.50-5.40) Hemoglobin 10.6 g/dL (12.0-15.5) Hematocrit 32.6 % (36.0-47.0) Mean Corpuscular Volume 98 fL (79-100) Mean Corpuscular Hemoglobin 32 pg (25-35) Mean Corpuscular Hemoglobin Concent 33 g/dL (31-37) Red Cell Distribution Width 13.7 % (11.5-14.5) Platelet Count 185 x10^3/uL (140-400) Neutrophils (%) (Auto) 83 % (31-73) Lymphocytes (%) (Auto) 6 % (24-48) Monocytes (%) (Auto) 9 % (0-9) Eosinophils (%) (Auto) 1 % (0-3) Basophils (%) (Auto) 1 % (0-3) Neutrophils # (Auto) 10.4 x10^3/uL (1.8-7.7) Lymphocytes # (Auto) 0.8 x10^3/uL (1.0-4.8) Monocytes # (Auto) 1.1 x10^3/uL (0.0-1.1) Eosinophils # (Auto) 0.1 x10^3/uL (0.0-0.7) Basophils # (Auto) 0.1 x10^3/uL (0.0-0.2) Sodium Level 139 mmol/L (136-145) Potassium Level 4.0 mmol/L (3.5-5.1) Chloride Level 104 mmol/L (98-107) Carbon Dioxide Level 23 mmol/L (21-32) Anion Gap 12 (6-14) Blood Urea Nitrogen 30 mg/dL (7-20) Creatinine 1.2 mg/dL (0.6-1.0) Estimated GFR (Cockcroft-Gault) 42.7 BUN/Creatinine Ratio 25 (6-20) Glucose Level 119 mg/dL (70-99) Calcium Level 8.9 mg/dL (8.5-10.1) Total Bilirubin 0.7 mg/dL (0.2-1.0) Aspartate Amino Transf (AST/SGOT) 34 U/L (15-37) Alanine Aminotransferase (ALT/SGPT) 30 U/L (14-59) Alkaline Phosphatase 49 U/L (46-116) Total Protein 6.3 g/dL (6.4-8.2) Albumin 2.9 g/dL (3.4-5.0) Albumin/Globulin Ratio 0.9 (1.0-1.7) Laboratory Tests Test 11/25/20 09:06 White Blood Count 12.4 x10^3/uL (4.0-11.0) Red Blood Count 3.32 x10^6/uL (3.50-5.40) Hemoglobin 10.6 g/dL (12.0-15.5) Hematocrit 32.6 % (36.0-47.0) Mean Corpuscular Volume 98 fL (79-100) Mean Corpuscular Hemoglobin 32 pg (25-35) Mean Corpuscular Hemoglobin Concent 33 g/dL (31-37) Red Cell Distribution Width 13.7 % (11.5-14.5) Platelet Count 185 x10^3/uL (140-400) Neutrophils (%) (Auto) 83 % (31-73) Lymphocytes (%) (Auto) 6 % (24-48) Monocytes (%) (Auto) 9 % (0-9) Eosinophils (%) (Auto) 1 % (0-3) Basophils (%) (Auto) 1 % (0-3) Neutrophils # (Auto) 10.4 x10^3/uL (1.8-7.7) Lymphocytes # (Auto) 0.8 x10^3/uL (1.0-4.8) Monocytes # (Auto) 1.1 x10^3/uL (0.0-1.1) Eosinophils # (Auto) 0.1 x10^3/uL (0.0-0.7) Basophils # (Auto) 0.1 x10^3/uL (0.0-0.2) Sodium Level 139 mmol/L (136-145) Potassium Level 4.0 mmol/L (3.5-5.1) Chloride Level 104 mmol/L (98-107) Carbon Dioxide Level 23 mmol/L (21-32) Anion Gap 12 (6-14) Blood Urea Nitrogen 30 mg/dL (7-20) Creatinine 1.2 mg/dL (0.6-1.0) Estimated GFR (Cockcroft-Gault) 42.7 BUN/Creatinine Ratio 25 (6-20) Glucose Level 119 mg/dL (70-99) Calcium Level 8.9 mg/dL (8.5-10.1) Total Bilirubin 0.7 mg/dL (0.2-1.0) Aspartate Amino Transf (AST/SGOT) 34 U/L (15-37) Alanine Aminotransferase (ALT/SGPT) 30 U/L (14-59) Alkaline Phosphatase 49 U/L (46-116) Total Protein 6.3 g/dL (6.4-8.2) Albumin 2.9 g/dL (3.4-5.0) Albumin/Globulin Ratio 0.9 (1.0-1.7) Microbiology 11/23/20 Blood Culture - Preliminary, Resulted NO GROWTH AFTER 1 DAY Medications Current Medications Sodium Chloride 1,000 ml @ 1,000 mls/hr Q1H IV Last administered on 11/22/20at 19:31; Start 11/22/20 at 19:15; Stop 11/22/20 at 20:14; Status DC Alteplase, Recombinant 9 ml @ 540 mls/hr 1X ONCE IV Last administered on 11/22/20at 19:57; Start 11/22/20 at 19:45; Stop 11/22/20 at 19:46; Status DC Alteplase, Recombinant 81 ml @ 81 mls/hr Q1H IV Last administered on 11/22/20at 20:00; Start 11/22/20 at 19:45; Stop 11/22/20 at 20:44; Status DC Sodium Chloride 50 ml @ 200 mls/hr 1X ONCE IV Last administered on 11/22/20at 20:10; Start 11/22/20 at 19:45; Stop 11/22/20 at 19:59; Status DC Alteplase, Recombinant 10 ml @ 600 mls/hr 1X ONCE IV ; Start 11/22/20 at 19:45; Stop 11/22/20 at 19:46; Status UNV Alteplase, Recombinant 90 ml @ 90 mls/hr 1X ONCE IV ; Start 11/22/20 at 19:45; Stop 11/22/20 at 20:44; Status UNV Sodium Chloride 50 ml @ 50 mls/hr 1X ONCE IV ; Start 11/22/20 at 19:45; Stop at 20:44; Status UNV Aspirin (Aspirin Rectal Supp) 300 mg 1X ONCE ID Last administered on 11/22/20at 20:16; Start 11/22/20 at 19:45; Stop 11/22/20 at 19:48; Status DC Iohexol (Omnipaque 300 Mg/ml) 60 ml 1X ONCE IV Last administered on 11/22/20at 20:38; Start 11/22/20 at 20:15; Stop 11/22/20 at 20:16; Status DC Info (CONTRAST GIVEN -- Rx MONITORING) 1 each PRN DAILY PRN MC SEE COMMENTS; Start 11/22/20 at 20:30; Stop 11/24/20 at 20:29; Status DC Ondansetron HCl (Zofran) 4 mg PRN Q8HRS PRN IV NAUSEA/VOMITING 1ST CHOICE Last administered on 11/23/20at 04:05; Start 11/22/20 at 21:45; Stop 11/23/20 at 21:44; Status DC Bumetanide (Bumex) 0.5 mg 1X ONCE IV Last administered on 11/23/20at 00:51; Start 11/22/20 at 23:30; Stop 11/22/20 at 23:31; Status DC Labetalol HCl (Normodyne Iv Push) 10 mg PRN Q10MIN PRN IVP HYPERTENSION Last administered on 11/24/20at 13:07; Start 11/23/20 at 02:15; Stop 11/24/20 at 15:00; Status DC Nicardipine HCl 50 mg/Sodium Chloride 250 ml @ 25 mls/hr CONT PRN PRN IV HYPERTENSION Last administered on 11/23/20at 15:53; Start 11/23/20 at 02:15; Stop 11/24/20 at 09:35; Status DC Potassium Chloride/Water 100 ml @ 100 mls/hr Q1H IV Last administered on 11/23/20at 07:34; Start 11/23/20 at 03:00; Stop 11/23/20 at 06:59; Status DC Magnesium Sulfate 50 ml @ 25 mls/hr 1X ONCE IV Last administered on 11/23/20at 04:31; Start 11/23/20 at 03:00; Stop 11/23/20 at 04:59; Status DC Amino Acids/ Glycerin/ Electrolytes 1,000 ml @ 80 mls/hr [id number] IV Last administered on 11/24/20at 22:02; Start 11/23/20 at 11:30 Cyanocobalamin (Vitamin B-12) 1,000 mcg DAILY PO ; Start 11/24/20 at 09:00 Dronedarone (Multaq) 400 mg BID PO ; Start 11/23/20 at 21:00 Guaifenesin (MUCINEX ER with DM) 1 tab PRN BID PRN PO cough and congestion; Start 11/23/20 at 12:00 Metoprolol Tartrate (Lopressor) 25 mg BID PO ; Start 11/23/20 at 21:00 Roflumilast (Daliresp) 500 mcg DAILY PO ; Start 11/24/20 at 09:00 Verapamil HCl (Calan Sr) 120 mg DAILY PO ; Start 11/23/20 at 13:00 Albuterol Sulfate (Ventolin Neb Soln) 2.5 mg RTQID NEB Last administered on 11/25/20at 07:55; Start 11/23/20 at 16:00 Bupropion HCl (Wellbutrin Xl) 300 mg DAILY PO ; Start 11/23/20 at 13:00 Non-Formulary Medication (Fluticasone Propionate (Flovent 44MCG Hfa)) 10.6 gm DAILY IH ; Start 11/24/20 at 09:00; Status UNV Non-Formulary Medication (Fluticasone/ Salmeterol (Advair 250-50 Diskus)) 1 puff BID IH ; Start 11/23/20 at 21:00; Status UNV Atorvastatin Calcium (Lipitor) 20 mg QHS PO ; Start 11/23/20 at 21:00 Budesonide (Pulmicort) 0.5 mg RTBID NEB Last administered on 11/25/20at 07:55; Start 11/23/20 at 20:00 Metoprolol Tartrate (Lopressor Vial) 2.5 mg Q6HRS IVP Last administered on 11/25/20at 05:31; Start 11/23/20 at 18:00; Stop 11/25/20 at 08:41; Status DC Metoprolol Tartrate (Lopressor Vial) 2.5 mg 1X ONCE IVP Last administered on 11/23/20at 13:01; Start 11/23/20 at 13:00; Stop 11/23/20 at 13:01; Status DC Azithromycin 250 ml @ 250 mls/hr 1X ONCE IV ; Start 11/23/20 at 14:15; Stop 11/23/20 at 15:14; Status UNV Azithromycin 500 mg/Sodium Chloride 250 ml @ 250 mls/hr Q24H IV Last administered on 11/24/20at 16:37; Start 11/23/20 at 16:00 Aspirin (Ecotrin) 81 mg DAILYWBKFT PO ; Start 11/23/20 at 23:30 Clopidogrel Bisulfate (Plavix) 75 mg 1X ONCE PO ; Start 11/23/20 at 23:30; Stop 11/23/20 at 23:31; Status DC Clopidogrel Bisulfate (Plavix) 75 mg DAILYWBKFT PO ; Start 11/24/20 at 08:00 Diltiazem HCl 125 mg/Sodium Chloride 125 ml @ 5 mls/hr CONT PRN IV SEE ADMIN INSTRUCTIONS Last administered on 11/24/20at 00:17; Start 11/23/20 at 23:45 Labetalol HCl (Normodyne Iv Push) 10 mg PRN Q10MIN PRN IVP HYPERTENSION, see comments Last administered on 11/25/20at 03:05; Start 11/24/20 at 08:45 Nicardipine HCl 50 mg/Sodium Chloride 250 ml @ 25 mls/hr CONT PRN PRN IV HYPERTENSION, See comments Last administered on 11/25/20at 08:48; Start 11/24/20 at 08:45 Acetaminophen (Tylenol) 650 mg PRN Q6HRS PRN PO MILD PAIN / TEMP > 100.3'F; Start 11/24/20 at 08:45 Acetaminophen (Tylenol Supp) 650 mg PRN Q6HRS PRN ID MILD PAIN / TEMP > 100.3'F; Start 11/24/20 at 08:45 Ondansetron HCl (Zofran) 4 mg PRN Q6HRS PRN IVP NAUSEA/VOMITING; Start 11/24/20 at 08:45 Enoxaparin Sodium (Lovenox 30mg Syringe) 30 mg Q24H SQ Last administered on 11/25/20at 08:48; Start 11/24/20 at 08:45 Saliva Substitute (Biotene Moisturizing Mouth) 2 spray PRN Q15MIN PRN PO DRY MOUTH Last administered on 11/24/20at 16:37; Start 11/24/20 at 15:45 Haloperidol Lactate (Haldol Inj) 5 mg PRN Q6HRS PRN IVP AGITATION Last administered on 11/25/20at 05:55; Start 11/25/20 at 05:45 Metoprolol Tartrate (Lopressor Vial) 5 mg Q6HRS IVP Last administered on 11/25/20at 08:51; Start 11/25/20 at 09:00 Active Scripts Active Zofran (Ondansetron Hcl) 4 Mg Tablet 1 Tab PO PRN Q6-8HRS PRN Reported Mucinex Dm Er 600-30 Mg Tablet (Guaifenesin/Dextromethorphan) 1 Each Tab.er.12h 1 Tab PO BID PRN 14 Days Aspirin 325 Mg Tablet 1 Tab PO DAILY Vitamin B-12 (Cyanocobalamin (Vitamin B-12)) 1,000 Mcg Tablet 1 Tab PO DAILY 30 Days Vitamin D3 Complete Caplet (Mv-Mn/Iron/Fa/Herbal Cmplx#190) 1 Each Tablet 1 Each PO DAILY Vitamin C (Ascorbic Acid) 500 Mg Capsule.er 2 Cap PO BID 30 Days Metoprolol Tartrate 25 Mg Tablet 1 Tab PO BID Multaq (Dronedarone Hcl) 400 Mg Tablet 1 Tab PO BID Flovent 44MCG Hfa (Fluticasone Propionate) 10.6 Gm Aer.w.adap 10.6 Gm IH DAILY Xopenex Hfa (Levalbuterol Tartrate) 15 Gm Hfa.aer.ad 15 Gm IH PRN Verapamil Er (Verapamil Hcl) 120 Mg Tablet.er 120 Mg PO DAILY Pravastatin Sodium 80 Mg Tablet 80 Mg PO DAILY Daliresp (Roflumilast) 500 Mcg Tablet 500 Mcg PO DAILY Wellbutrin Xl (Bupropion Hcl) 300 Mg Tab.er.24h 300 Mg PO DAILY Albuterol Sulfate Conc Neb Soln (Albuterol Sulfate) 2.5 Mg/0.5 Ml Vial.neb 1 Vial NEB QID Advair 250-50 Diskus (Fluticasone/Salmeterol) 1 Each Disk.w.dev 1 Puff IH BID Vitals/I & O Vital Sign - Last 24 Hours 11/24/20 11/24/20 11/24/20 11/24/20 11:00 11:05 12:00 12:00 Temp 100.1 100.1 Pulse 97 96 Resp 27 28 B/P (MAP) 95/61 (72) 157/80 (105) Pulse Ox 100 97 100 O2 Delivery Nasal Cannula Nasal Cannula Nasal Cannula Nasal Cannula O2 Flow Rate 2.0 2.0 2.0 2.0 11/24/20 11/24/20 11/24/20 11/24/20 13:00 13:06 13:07 13:15 Pulse 105 93 103 Resp 29 B/P (MAP) 183/87 (119) 95/61 183/72 149/88 (108) Pulse Ox 100 O2 Delivery Nasal Cannula O2 Flow Rate 2.0 11/24/20 11/24/20 11/24/20 11/24/20 14:00 15:00 15:08 15:20 Pulse 89 98 96 93 Resp 25 24 B/P (MAP) 177/89 (118) 216/117 (150) 216/117 163/94 (117) Pulse Ox 100 99 O2 Delivery Nasal Cannula Nasal Cannula O2 Flow Rate 2.0 2.0 11/24/20 11/24/20 11/24/20 11/24/20 15:26 16:00 16:00 16:30 Temp 99.5 99.5 Pulse 94 Resp 26 B/P (MAP) 182/105 (130) 145/115 (125) Pulse Ox 95 100 O2 Delivery Room Air Nasal Cannula Nasal Cannula O2 Flow Rate 2.0 2.0 11/24/20 11/24/20 11/24/20 11/24/20 16:45 17:00 18:00 18:10 Pulse 102 107 102 Resp 24 25 B/P (MAP) 146/77 (100) 146/77 (100) 145/69 (94) 146/77 Pulse Ox 98 92 O2 Delivery Nasal Cannula Nasal Cannula O2 Flow Rate 2.0 2.0 11/24/20 11/24/20 11/24/20 11/24/20 19:00 19:19 19:32 19:32 Temp 98.7 98.7 Pulse 97 104 Resp 25 B/P (MAP) 121/66 (84) 121/66 Pulse Ox 94 O2 Delivery Nasal Cannula Nasal Cannula O2 Flow Rate 2.0 2.0 2.0 11/24/20 11/24/20 11/24/20 11/24/20 19:52 20:00 21:00 22:00 Pulse 94 107 95 Resp B/P (MAP) 145/62 (89) 135/79 (97) 132/63 (86) Pulse Ox 95 99 97 100 O2 Delivery Room Air Nasal Cannula Nasal Cannula Nasal Cannula O2 Flow Rate 2.0 2.0 2.0 11/24/20 11/24/20 11/24/20 11/25/20 23:00 23:47 23:47 00:00 Temp 98.9 98.9 Pulse 96 106 Resp B/P (MAP) 141/83 (102) 135/62 (86) Pulse Ox 98 100 O2 Delivery Nasal Cannula Nasal Cannula Nasal Cannula O2 Flow Rate 2.0 2.0 2.0 2.0 11/25/20 11/25/20 11/25/20 11/25/20 00:41 01:00 02:07 03:00 Temp 98.8 98.8 Pulse 106 94 93 96 Resp 24 B/P (MAP) 135/62 155/68 (97) 151/65 (93) 126/78 (94) Pulse Ox 97 98 99 O2 Delivery Nasal Cannula Nasal Cannula Nasal Cannula O2 Flow Rate 2.0 2.0 2.0 11/25/20 11/25/20 11/25/20 11/25/20 03:05 04:00 04:00 04:00 Pulse 116 103 Resp 25 B/P (MAP) 133/76 140/72 (94) Pulse Ox 99 O2 Delivery Nasal Cannula Nasal Cannula O2 Flow Rate 2.0 2.0 2.0 11/25/20 11/25/20 11/25/20 11/25/20 05:00 05:31 06:04 07:00 Pulse 106 111 103 132 Resp 21 18 B/P (MAP) 169/81 (110) 183/84 158/91 (113) 213/79 (123) Pulse Ox 99 99 99 O2 Delivery Nasal Cannula Nasal Cannula Nasal Cannula O2 Flow Rate 2.0 2.0 2.0 11/25/20 11/25/20 11/25/20 11/25/20 07:45 07:58 08:00 08:00 Pulse 124 B/P (MAP) 156/110 (125) Pulse Ox 99 96 96 O2 Delivery Nasal Cannula Room Air Room Air Nasal Cannula O2 Flow Rate 2.0 0.5 0.5 2.0 11/25/20 11/25/20 11/25/20 11/25/20 08:15 08:30 08:45 08:51 Pulse 132 138 130 125 B/P (MAP) 166/78 (107) 183/85 (117) 175/92 (119) Pulse Ox 97 97 97 O2 Delivery Nasal Cannula Nasal Cannula Nasal Cannula O2 Flow Rate 2.0 2.0 2.0 11/25/20 11/25/20 09:00 10:05 Temp 100.4 100.4 Pulse 116 B/P (MAP) 143/83 (103) Pulse Ox 99 O2 Delivery Nasal Cannula O2 Flow Rate 2.0 Intake and Output 11/24/20 11/24/20 11/25/20 15:00 23:00 07:00 Intake Total 745 ml Output Total 26 ml 226 ml 235 ml Balance -26 ml 519 ml -235 ml Justicifation of Admission Dx: Justifications for Admission: Justification of Admission Dx: Yes Stroke - Ischemic: Stroke-Ischemic THOM POP MD Nov 25, 2020 10:57
--- NOTE | 2020-11-25 11:49 | PDOC2 ---
CLIF MCCANN [employer] 11/25/20 1149: CARDIAC CONSULT DATE OF CONSULT Date of Consult DATE: 11/25/20 TIME: 11:38 REASON FOR CONSULT Reason for Consult: Hypertension AFIB REFERRING PHYSICIAN Referring Physician: Dr. Tompkins SOURCE Source: Chart review, Patient HISTORY OF PRESENT ILLNESS HISTORY OF PRESENT ILLNESS This is an 85 yo female who presented secondary to acute stroke. S/p TPA. Has been in AFIB with RVR, which prompted this consult. Is known to our service from outpatient clinic. Has a history of PAFIB. She has deferred anticoagulation therapy multiple times in the past. PAST MEDICAL HISTORY Cardiovascular: AFIB, HTN, Hyperlipidemia Pulmonary: Asthma, COPD Psych: Depression PAST SURGICAL HISTORY Past Surgical History: Appendectomy, Cholecystectomy, Hernia Repair, Total hip replacement (bilateral ), Hysterectomy FAMILY HISTORY Family History: Other (no pertinent history) SOCIAL HISTORY Smoke: No ALCOHOL: none Drugs: None Lives: with Family CURRENT MEDICATIONS CURRENT MEDICATIONS Current Medications Medications (Trade) Dose Ordered Sig/Radha Route PRN Reason Start Time Stop Time Status Last Admin Dose Admin Saliva Substitute (Biotene Moisturizing Mouth) 2 spray PRN Q15MIN PRN PO DRY MOUTH 11/24/20 15:45 11/24/20 16:37 Haloperidol Lactate (Haldol Inj) 5 mg PRN Q6HRS PRN IVP AGITATION 11/25/20 05:45 11/25/20 05:55 Metoprolol Tartrate (Lopressor Vial) 5 mg Q6HRS IVP 11/25/20 09:00 11/25/20 08:51 ALLERGIES ALLERGIES: Coded Allergies: No Known Drug Allergies (Unverified , 07/29/15) ROS Review of System limited as patient is on BiPAP PHYSICAL EXAM General: Alert, mild distress HEENT: Atraumatic, Mucous membr. moist/pink Lungs: Other (diminished bases, on BiPAP) Heart: Other (distant heart tones, IRRR; tele AFIB with RVR) Abdomen: Soft Extremities: Normal pulses, Other (1+ bilateral UE edema. ) Skin: No significant lesion Neuro: Normal speech, Sensation intact, Other (leftr hemiparesis ) MUSCULOSKELETAL: Osteoarthritic changes both hands VITALS/I&O VITALS/I&O: Vital Signs Date Time Temp Pulse Resp B/P (MAP) Pulse Ox O2 Delivery O2 Flow Rate FiO2 11/25/20 11:00 98.3 120 153/95 (114) 97 Nasal Cannula 2.0 98.3 11/25/20 06:04 18 I & O 11/24/20 11/24/20 11/25/20 15:00 23:00 07:00 Intake Total 745 ml Output Total 26 ml 226 ml 235 ml Balance -26 ml 519 ml -235 ml LABS Lab: Laboratory Tests Test 11/25/20 09:06 White Blood Count 12.4 x10^3/uL (4.0-11.0) H Red Blood Count 3.32 x10^6/uL (3.50-5.40) L Hemoglobin 10.6 g/dL (12.0-15.5) L Hematocrit 32.6 % (36.0-47.0) L Mean Corpuscular Volume 98 fL (79-100) Mean Corpuscular Hemoglobin 32 pg (25-35) Mean Corpuscular Hemoglobin Concent 33 g/dL (31-37) Red Cell Distribution Width 13.7 % (11.5-14.5) Platelet Count 185 x10^3/uL (140-400) Neutrophils (%) (Auto) 83 % (31-73) H Lymphocytes (%) (Auto) 6 % (24-48) L Monocytes (%) (Auto) 9 % (0-9) Eosinophils (%) (Auto) 1 % (0-3) Basophils (%) (Auto) 1 % (0-3) Neutrophils # (Auto) 10.4 x10^3/uL (1.8-7.7) H Lymphocytes # (Auto) 0.8 x10^3/uL (1.0-4.8) L Monocytes # (Auto) 1.1 x10^3/uL (0.0-1.1) Eosinophils # (Auto) 0.1 x10^3/uL (0.0-0.7) Basophils # (Auto) 0.1 x10^3/uL (0.0-0.2) Sodium Level 139 mmol/L (136-145) Potassium Level 4.0 mmol/L (3.5-5.1) Chloride Level 104 mmol/L (98-107) Carbon Dioxide Level 23 mmol/L (21-32) Anion Gap 12 (6-14) Blood Urea Nitrogen 30 mg/dL (7-20) H Creatinine 1.2 mg/dL (0.6-1.0) H Estimated GFR (Cockcroft-Gault) 42.7 BUN/Creatinine Ratio 25 (6-20) H Glucose Level 119 mg/dL (70-99) H Calcium Level 8.9 mg/dL (8.5-10.1) Total Bilirubin 0.7 mg/dL (0.2-1.0) Aspartate Amino Transferase (AST) 34 U/L (15-37) Alanine Aminotransferase (ALT) 30 U/L (14-59) Alkaline Phosphatase 49 U/L (46-116) Total Protein 6.3 g/dL (6.4-8.2) L Albumin 2.9 g/dL (3.4-5.0) L Albumin/Globulin Ratio 0.9 (1.0-1.7) L Laboratory Tests 11/25/20 09:06 Laboratory Tests 11/25/20 09:06 ECHOCARDIOGRAM ECHOCARDIOGRAM <Conclusion> The left ventricle is normal size. The left ventricular systolic function is low normal. The Ejection Fraction is estimated at 50%. There is mild concentric left ventricular hypertrophy. Doppler and Color Flow revealed no significant aortic regurgitation. There is no significant aortic valvular stenosis. Doppler and Color Flow revealed trace mitral valve regurgitation. Doppler and Color Flow revealed trace tricuspid regurgitation with an estimated PAP of 37 mmHg. DATE: 06/26/201642 ASSESSMENT/PLAN ASSESSMENT/PLAN 1. 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 s/p TPA 11/22 2. PAFIB; with present AFIB with RVR. Declined OAC multiple times in past. On ASA therapy. Multaq for rhythm maintenance 3. Hypertensive urgency; off Cardene. BP better controlled 4. Acute respiratory failure with AE COPD; requiring BiPAP 5. Acute on chronic diastolic CHF 6. Mild troponin elevation; highest 0.06. Most probable type II, demand ischemia 7. SHELLEY 8. Leukocytosis, fevers 9. Dysphagia Recommendations Continue IV Metoprolol for rate control Will give dose of IV Dig now Allow for higher baseline blood pressure given acute stroke Lasix PRN ASA therapy Statin when able to take oral On low-dose anticoagulation therapy with Lovenox High risk for full anticoagulation with large infarct Echo pending Rehab modalities Supportive care RAMÓN WHITNEY MD 11/25/20 1638: CARDIAC CONSULT ASSESSMENT/PLAN ASSESSMENT/PLAN Patient seen and examined. Agree with above nurse practitioner note. 85 old woman with massive stroke likely due to underlying history of atrial fibrillation, cannot rule out atherosclerotic disease Continue management of blood pressure and heart rate. Too high risk for anticoagulation at this time Supportive care. We will follow along closely. Echocardiogram is grossly unremarkable. CLIF MCCANN APRN Nov 25, 2020 11:49 RAMÓN WHITNEY MD Nov 25, 2020 16:38
[2020-11-25] MEDS: AMINO AC 3%/ELECTROLYTE/GLYCER 1,000 ML IV SCH (11:51)
--- NOTE | 2020-11-25 11:54 | RAD ---
XR CHEST 1V History: Reason: covid neg; increasing SOA / Spl. Instructions: / History: Comparison: November 24, 2020 Findings: Ill-defined mid and bibasilar opacities, unchanged. No pleural effusion. No pneumothorax. Normal hear t size. Impression: 1. Stable appearance of the chest compared to prior. Electronically signed by: Marty Melgar DO (11/25/2020 11:51 AM) [id number]
[2020-11-25] MEDS ORDERED: DIGOXIN IV 500 MCG/2 ML AMPUL. IV ONE (12:00)
[2020-11-25] MEDS ORDERED: methylPREDNISolone SOD SUCC PF 40 MG/ML VIAL. IV ONE (14:00)
--- NOTE | 2020-11-25 14:51 | PDOC ---
PROGRESS NOTES Date of Service: DATE: 11/25/20 TIME: 14:50 Chief Complaint Chief Complaint acute stoke, RIGHT MCA, s/p TPA given left hemiparesis hand face left sided neglect obese, BMI 35 DM2 History of Present Illness History of Present Illness some stridor today, was on bipap, started breathing treatments, will do IV steroids, then inhl pt and Ot still discussed restarting full anti-coag with CV consult, maybe 7 days post TPA is most safe, will also ask neuro consult Vitals Vitals Vital Signs Date Time Temp Pulse Resp B/P (MAP) Pulse Ox O2 Delivery O2 Flow Rate FiO2 11/25/20 14:02 130 11/25/20 12:20 100 BiPAP/CPAP 11/25/20 12:00 2.0 11/25/20 11:00 98.3 153/95 (114) 98.3 11/25/20 06:04 18 Physical Exam General: Alert, mild distress Heart: Other (distant heart tones, IRRR; tele AFIB with RVR) Lungs: Clear Abdomen: Soft Extremities: No clubbing, Normal pulses, Other (1+ bilateral UE edema. ) Skin: No rashes, No significant lesion Labs LABS Laboratory Tests Test 11/25/20 09:06 White Blood Count 12.4 x10^3/uL (4.0-11.0) Red Blood Count 3.32 x10^6/uL (3.50-5.40) Hemoglobin 10.6 g/dL (12.0-15.5) Hematocrit 32.6 % (36.0-47.0) Mean Corpuscular Volume 98 fL (79-100) Mean Corpuscular Hemoglobin 32 pg (25-35) Mean Corpuscular Hemoglobin Concent 33 g/dL (31-37) Red Cell Distribution Width 13.7 % (11.5-14.5) Platelet Count 185 x10^3/uL (140-400) Neutrophils (%) (Auto) 83 % (31-73) Lymphocytes (%) (Auto) 6 % (24-48) Monocytes (%) (Auto) 9 % (0-9) Eosinophils (%) (Auto) 1 % (0-3) Basophils (%) (Auto) 1 % (0-3) Neutrophils # (Auto) 10.4 x10^3/uL (1.8-7.7) Lymphocytes # (Auto) 0.8 x10^3/uL (1.0-4.8) Monocytes # (Auto) 1.1 x10^3/uL (0.0-1.1) Eosinophils # (Auto) 0.1 x10^3/uL (0.0-0.7) Basophils # (Auto) 0.1 x10^3/uL (0.0-0.2) Sodium Level 139 mmol/L (136-145) Potassium Level 4.0 mmol/L (3.5-5.1) Chloride Level 104 mmol/L (98-107) Carbon Dioxide Level 23 mmol/L (21-32) Anion Gap 12 (6-14) Blood Urea Nitrogen 30 mg/dL (7-20) Creatinine 1.2 mg/dL (0.6-1.0) Estimated GFR (Cockcroft-Gault) 42.7 BUN/Creatinine Ratio 25 (6-20) Glucose Level 119 mg/dL (70-99) Calcium Level 8.9 mg/dL (8.5-10.1) Total Bilirubin 0.7 mg/dL (0.2-1.0) Aspartate Amino Transf (AST/SGOT) 34 U/L (15-37) Alanine Aminotransferase (ALT/SGPT) 30 U/L (14-59) Alkaline Phosphatase 49 U/L (46-116) Total Protein 6.3 g/dL (6.4-8.2) Albumin 2.9 g/dL (3.4-5.0) Albumin/Globulin Ratio 0.9 (1.0-1.7) Thyroid Stimulating Hormone (TSH) 0.443 uIU/mL (0.358-3.74) Assessment and Plan Assessmemt and Plan Problems Medical Problems: (1) Acute CVA (cerebrovascular accident) Status: Acute (2) Hypoxia Status: Acute (3) Lactic acidosis Status: Acute (4) Pulmonary vascular congestion Status: Acute (5) Suspected 2019 novel coronavirus infection Status: Acute Comment Review of Relevant I have reviewed the following items gerry (where applicable) has been applied. Labs Laboratory Tests Test 11/24/20 04:00 11/24/20 04:05 11/24/20 09:45 11/25/20 09:06 Hemoglobin A1c 5.4 % (4.8-5.6) White Blood Count 10.5 x10^3/uL (4.0-11.0) 12.4 x10^3/uL (4.0-11.0) Red Blood Count 2.97 x10^6/uL (3.50-5.40) 3.32 x10^6/uL (3.50-5.40) Hemoglobin 9.7 g/dL (12.0-15.5) 10.6 g/dL (12.0-15.5) Hematocrit 29.4 % (36.0-47.0) 32.6 % (36.0-47.0) Mean Corpuscular Volume 99 fL (79-100) 98 fL (79-100) Mean Corpuscular Hemoglobin 33 pg (25-35) 32 pg (25-35) Mean Corpuscular Hemoglobin Concent 33 g/dL (31-37) 33 g/dL (31-37) Red Cell Distribution Width 13.9 % (11.5-14.5) 13.7 % (11.5-14.5) Platelet Count 178 x10^3/uL (140-400) 185 x10^3/uL (140-400) Neutrophils (%) (Auto) 78 % (31-73) 83 % (31-73) Lymphocytes (%) (Auto) 11 % (24-48) 6 % (24-48) Monocytes (%) (Auto) 10 % (0-9) 9 % (0-9) Eosinophils (%) (Auto) 1 % (0-3) 1 % (0-3) Basophils (%) (Auto) 1 % (0-3) 1 % (0-3) Neutrophils # (Auto) 8.1 x10^3/uL (1.8-7.7) 10.4 x10^3/uL (1.8-7.7) Lymphocytes # (Auto) 1.1 x10^3/uL (1.0-4.8) 0.8 x10^3/uL (1.0-4.8) Monocytes # (Auto) 1.1 x10^3/uL (0.0-1.1) 1.1 x10^3/uL (0.0-1.1) Eosinophils # (Auto) 0.1 x10^3/uL (0.0-0.7) 0.1 x10^3/uL (0.0-0.7) Basophils # (Auto) 0.1 x10^3/uL (0.0-0.2) 0.1 x10^3/uL (0.0-0.2) Sodium Level 143 mmol/L (136-145) 139 mmol/L (136-145) Potassium Level 3.9 mmol/L (3.5-5.1) 4.0 mmol/L (3.5-5.1) Chloride Level 109 mmol/L (98-107) 104 mmol/L (98-107) Carbon Dioxide Level 24 mmol/L (21-32) 23 mmol/L (21-32) Anion Gap 10 (6-14) 12 (6-14) Blood Urea Nitrogen 22 mg/dL (7-20) 30 mg/dL (7-20) Creatinine 1.3 mg/dL (0.6-1.0) 1.2 mg/dL (0.6-1.0) Estimated GFR (Cockcroft-Gault) 38.9 42.7 BUN/Creatinine Ratio 17 (6-20) 25 (6-20) Glucose Level 123 mg/dL (70-99) 119 mg/dL (70-99) Calcium Level 8.1 mg/dL (8.5-10.1) 8.9 mg/dL (8.5-10.1) Total Bilirubin 0.6 mg/dL (0.2-1.0) 0.7 mg/dL (0.2-1.0) Aspartate Amino Transf (AST/SGOT) 25 U/L (15-37) 34 U/L (15-37) Alanine Aminotransferase (ALT/SGPT) 26 U/L (14-59) 30 U/L (14-59) Alkaline Phosphatase 47 U/L (46-116) 49 U/L (46-116) Total Protein 5.5 g/dL (6.4-8.2) 6.3 g/dL (6.4-8.2) Albumin 2.6 g/dL (3.4-5.0) 2.9 g/dL (3.4-5.0) Albumin/Globulin Ratio 0.9 (1.0-1.7) 0.9 (1.0-1.7) O2 Saturation 99 % (92-99) Arterial Blood pH 7.41 (7.35-7.45) Arterial Blood pCO2 at Patient Temp 36 mmHg (35-46) Arterial Blood pO2 at Patient Temp 162 mmHg (65-108) Arterial Blood HCO3 22 mmol/L (21-28) Arterial Blood Base Excess -2 mmol/L (-3-3) FiO2 40 Thyroid Stimulating Hormone (TSH) 0.443 uIU/mL (0.358-3.74) Laboratory Tests Test 11/25/20 09:06 White Blood Count 12.4 x10^3/uL (4.0-11.0) Red Blood Count 3.32 x10^6/uL (3.50-5.40) Hemoglobin 10.6 g/dL (12.0-15.5) Hematocrit 32.6 % (36.0-47.0) Mean Corpuscular Volume 98 fL (79-100) Mean Corpuscular Hemoglobin 32 pg (25-35) Mean Corpuscular Hemoglobin Concent 33 g/dL (31-37) Red Cell Distribution Width 13.7 % (11.5-14.5) Platelet Count 185 x10^3/uL (140-400) Neutrophils (%) (Auto) 83 % (31-73) Lymphocytes (%) (Auto) 6 % (24-48) Monocytes (%) (Auto) 9 % (0-9) Eosinophils (%) (Auto) 1 % (0-3) Basophils (%) (Auto) 1 % (0-3) Neutrophils # (Auto) 10.4 x10^3/uL (1.8-7.7) Lymphocytes # (Auto) 0.8 x10^3/uL (1.0-4.8) Monocytes # (Auto) 1.1 x10^3/uL (0.0-1.1) Eosinophils # (Auto) 0.1 x10^3/uL (0.0-0.7) Basophils # (Auto) 0.1 x10^3/uL (0.0-0.2) Sodium Level 139 mmol/L (136-145) Potassium Level 4.0 mmol/L (3.5-5.1) Chloride Level 104 mmol/L (98-107) Carbon Dioxide Level 23 mmol/L (21-32) Anion Gap 12 (6-14) Blood Urea Nitrogen 30 mg/dL (7-20) Creatinine 1.2 mg/dL (0.6-1.0) Estimated GFR (Cockcroft-Gault) 42.7 BUN/Creatinine Ratio 25 (6-20) Glucose Level 119 mg/dL (70-99) Calcium Level 8.9 mg/dL (8.5-10.1) Total Bilirubin 0.7 mg/dL (0.2-1.0) Aspartate Amino Transf (AST/SGOT) 34 U/L (15-37) Alanine Aminotransferase (ALT/SGPT) 30 U/L (14-59) Alkaline Phosphatase 49 U/L (46-116) Total Protein 6.3 g/dL (6.4-8.2) Albumin 2.9 g/dL (3.4-5.0) Albumin/Globulin Ratio 0.9 (1.0-1.7) Thyroid Stimulating Hormone (TSH) 0.443 uIU/mL (0.358-3.74) Microbiology 11/23/20 Blood Culture - Preliminary, Resulted NO GROWTH AFTER 2 DAYS Medications Current Medications Sodium Chloride 1,000 ml @ 1,000 mls/hr Q1H IV Last administered on 11/22/20at 19:31; Start 11/22/20 at 19:15; Stop 11/22/20 at 20:14; Status DC Alteplase, Recombinant 9 ml @ 540 mls/hr 1X ONCE IV Last administered on 11/22/20at 19:57; Start 11/22/20 at 19:45; Stop 11/22/20 at 19:46; Status DC Alteplase, Recombinant 81 ml @ 81 mls/hr Q1H IV Last administered on 11/22/20at 20:00; Start 11/22/20 at 19:45; Stop 11/22/20 at 20:44; Status DC Sodium Chloride 50 ml @ 200 mls/hr 1X ONCE IV Last administered on 11/22/20at 20:10; Start 11/22/20 at 19:45; Stop 11/22/20 at 19:59; Status DC Alteplase, Recombinant 10 ml @ 600 mls/hr 1X ONCE IV ; Start 11/22/20 at 19:45; Stop 11/22/20 at 19:46; Status UNV Alteplase, Recombinant 90 ml @ 90 mls/hr 1X ONCE IV ; Start 11/22/20 at 19:45; Stop 11/22/20 at 20:44; Status UNV Sodium Chloride 50 ml @ 50 mls/hr 1X ONCE IV ; Start 11/22/20 at 19:45; Stop 11/22/20 at 20:44; Status UNV Aspirin (Aspirin Rectal Supp) 300 mg 1X ONCE [place] Last administered on 11/22/20at 20:16; Start 11/22/20 at 19:45; Stop 11/22/20 at 19:48; Status DC Iohexol (Omnipaque 300 Mg/ml) 60 ml 1X ONCE IV Last administered on 11/22/20at 20:38; Start 11/22/20 at 20:15; Stop 11/22/20 at 20:16; Status DC Info (CONTRAST GIVEN -- Rx MONITORING) 1 each PRN DAILY PRN MC SEE COMMENTS; Start 11/22/20 at 20:30; Stop 11/24/20 at 20:29; Status DC Ondansetron HCl (Zofran) 4 mg PRN Q8HRS PRN IV NAUSEA/VOMITING 1ST CHOICE Last administered on 11/23/20at 04:05; Start 11/22/20 at 21:45; Stop 11/23/20 at 21:44; Status DC Bumetanide (Bumex) 0.5 mg 1X ONCE IV Last administered on 11/23/20at 00:51; Start 11/22/20 at 23:30; Stop 11/22/20 at 23:31; Status DC Labetalol HCl (Normodyne Iv Push) 10 mg PRN Q10MIN PRN IVP HYPERTENSION Last administered on 11/24/20at 13:07; Start 11/23/20 at 02:15; Stop 11/24/20 at 15:00; Status DC Nicardipine HCl 50 mg/Sodium Chloride 250 ml @ 25 mls/hr CONT PRN PRN IV HYPERTENSION Last administered on 11/23/20at 15:53; Start 11/23/20 at 02:15; Stop 11/24/20 at 09:35; Status DC Potassium Chloride/Water 100 ml @ 100 mls/hr Q1H IV Last administered on 11/23/20at 07:34; Start 11/23/20 at 03:00; Stop 11/23/20 at 06:59; Status DC Magnesium Sulfate 50 ml @ 25 mls/hr 1X ONCE IV Last administered on 11/23/20at 04:31; Start 11/23/20 at 03:00; Stop 11/23/20 at 04:59; Status DC Amino Acids/ Glycerin/ Electrolytes 1,000 ml @ 80 mls/hr [id number] IV Last administered on 11/25/20at 11:51; Start 11/23/20 at 11:30 Cyanocobalamin (Vitamin B-12) 1,000 mcg DAILY PO ; Start 11/24/20 at 09:00 Dronedarone (Multaq) 400 mg BID PO ; Start 11/23/20 at 21:00 Guaifenesin (MUCINEX ER with DM) 1 tab PRN BID PRN PO cough and congestion; Start 11/23/20 at 12:00 Metoprolol Tartrate (Lopressor) 25 mg BID PO ; Start 11/23/20 at 21:00 Roflumilast (Daliresp) 500 mcg DAILY PO ; Start 11/24/20 at 09:00 Verapamil HCl (Calan Sr) 120 mg DAILY PO ; Start 11/23/20 at 13:00 Albuterol Sulfate (Ventolin Neb Soln) 2.5 mg RTQID NEB Last administered on 11/25/20at 12:20; Start 11/23/20 at 16:00 Bupropion HCl (Wellbutrin Xl) 300 mg DAILY PO ; Start 11/23/20 at 13:00 Non-Formulary Medication (Fluticasone Propionate (Flovent 44MCG Hfa)) 10.6 gm DAILY IH ; Start 11/24/20 at 09:00; Status UNV Non-Formulary Medication (Fluticasone/ Salmeterol (Advair 250-50 Diskus)) 1 puff BID IH ; Start 11/23/20 at 21:00; Status UNV Atorvastatin Calcium (Lipitor) 20 mg QHS PO ; Start 11/23/20 at 21:00 Budesonide (Pulmicort) 0.5 mg RTBID NEB Last administered on 11/25/20at 07:55; Start 11/23/20 at 20:00 Metoprolol Tartrate (Lopressor Vial) 2.5 mg Q6HRS IVP Last administered on 11/25/20at 05:31; Start 11/23/20 at 18:00; Stop 11/25/20 at 08:41; Status DC Metoprolol Tartrate (Lopressor Vial) 2.5 mg 1X ONCE IVP Last administered on 11/23/20at 13:01; Start 11/23/20 at 13:00; Stop 11/23/20 at 13:01; Status DC Azithromycin 250 ml @ 250 mls/hr 1X ONCE IV ; Start 11/23/20 at 14:15; Stop 11/23/20 at 15:14; Status UNV Azithromycin 500 mg/Sodium Chloride 250 ml @ 250 mls/hr Q24H IV Last administered on 11/24/20at 16:37; Start 11/23/20 at 16:00 Aspirin (Ecotrin) 81 mg DAILYWBKFT PO ; Start 11/23/20 at 23:30 Clopidogrel Bisulfate (Plavix) 75 mg 1X ONCE PO ; Start 11/23/20 at 23:30; Stop 11/23/20 at 23:31; Status DC Clopidogrel Bisulfate (Plavix) 75 mg DAILYWBKFT PO ; Start 11/24/20 at 08:00 Diltiazem HCl 125 mg/Sodium Chloride 125 ml @ 5 mls/hr CONT PRN IV SEE ADMIN INSTRUCTIONS Last administered on 11/24/20at 00:17; Start 11/23/20 at 23:45 Labetalol HCl (Normodyne Iv Push) 10 mg PRN Q10MIN PRN IVP HYPERTENSION, see comments Last administered on 11/25/20at 03:05; Start 11/24/20 at 08:45 Nicardipine HCl 50 mg/Sodium Chloride 250 ml @ 25 mls/hr CONT PRN PRN IV HYPERTENSION, See comments Last administered on 11/25/20at 08:48; Start 11/24/20 at 08:45 Acetaminophen (Tylenol) 650 mg PRN Q6HRS PRN PO MILD PAIN / TEMP > 100.3'F; Start 11/24/20 at 08:45 Acetaminophen (Tylenol Supp) 650 mg PRN Q6HRS PRN NJ MILD PAIN / TEMP > 100.3'F; Start 11/24/20 at 08:45 Ondansetron HCl (Zofran) 4 mg PRN Q6HRS PRN IVP NAUSEA/VOMITING; Start 11/24/20 at 08:45 Enoxaparin Sodium (Lovenox 30mg Syringe) 30 mg Q24H SQ Last administered on 11/25/20at 08:48; Start 11/24/20 at 08:45 Saliva Substitute (Biotene Moisturizing Mouth) 2 spray PRN Q15MIN PRN PO DRY MOUTH Last administered on 11/24/20at 16:37; Start 11/24/20 at 15:45 Haloperidol Lactate (Haldol Inj) 5 mg PRN Q6HRS PRN IVP AGITATION Last administered on 11/25/20at 05:55; Start 11/25/20 at 05:45 Metoprolol Tartrate (Lopressor Vial) 5 mg Q6HRS IVP Last administered on 11/25/20at 14:02; Start 11/25/20 at 09:00 Digoxin (Lanoxin) 500 mcg 1X ONCE IV Last administered on 11/25/20at 12:23; Start 11/25/20 at 12:00; Stop 11/25/20 at 12:01; Status DC Methylprednisolone Sodium Succinate (SOLU-Medrol 40MG VIAL) 40 mg 1X ONCE IV Last administered on 11/25/20at 14:01; Start 11/25/20 at 14:00; Stop 11/25/20 at 14:01; Status DC Budesonide (Pulmicort) 0.5 mg RTBID NEB ; Start 11/25/20 at 20:00 Aspirin (Aspirin Rectal Supp) 300 mg PRN DAILY PRN NJ IF UNABLE TO TAKE PO; Start 11/25/20 at 14:00 Hydralazine HCl (Apresoline Inj) 10 mg PRN Q4HRS PRN IVP ELEVATED BP, SEE COMMENTS; Start 11/25/20 at 15:00; Status UNV Active Scripts Active Zofran (Ondansetron Hcl) 4 Mg Tablet 1 Tab PO PRN Q6-8HRS PRN Reported Mucinex Dm Er 600-30 Mg Tablet (Guaifenesin/Dextromethorphan) 1 Each Tab.er.12h 1 Tab PO BID PRN 14 Days Aspirin 325 Mg Tablet 1 Tab PO DAILY Vitamin B-12 (Cyanocobalamin (Vitamin B-12)) 1,000 Mcg Tablet 1 Tab PO DAILY 30 Days Vitamin D3 Complete Caplet (Mv-Mn/Iron/Fa/Herbal Cmplx#190) 1 Each Tablet 1 Each PO DAILY Vitamin C (Ascorbic Acid) 500 Mg Capsule.er 2 Cap PO BID 30 Days Metoprolol Tartrate 25 Mg Tablet 1 Tab PO BID Multaq (Dronedarone Hcl) 400 Mg Tablet 1 Tab PO BID Flovent 44MCG Hfa (Fluticasone Propionate) 10.6 Gm Aer.w.adap 10.6 Gm IH DAILY Xopenex Hfa (Levalbuterol Tartrate) 15 Gm Hfa.aer.ad 15 Gm IH PRN Verapamil Er (Verapamil Hcl) 120 Mg Tablet.er 120 Mg PO DAILY Pravastatin Sodium 80 Mg Tablet 80 Mg PO DAILY Daliresp (Roflumilast) 500 Mcg Tablet 500 Mcg PO DAILY Wellbutrin Xl (Bupropion Hcl) 300 Mg Tab.er.24h 300 Mg PO DAILY Albuterol Sulfate Conc Neb Soln (Albuterol Sulfate) 2.5 Mg/0.5 Ml Vial.neb 1 Vial NEB QID Advair 250-50 Diskus (Fluticasone/Salmeterol) 1 Each Disk.w.dev 1 Puff IH BID Vitals/I & O Vital Sign - Last 24 Hours 11/24/20 11/24/20 11/24/20 11/24/20 15:00 15:08 15:20 15:26 Pulse 98 96 93 Resp 24 B/P (MAP) 216/117 (150) 216/117 163/94 (117) Pulse Ox 99 95 O2 Delivery Nasal Cannula Room Air O2 Flow Rate 2.0 11/24/20 11/24/20 11/24/20 11/24/20 16:00 16:00 16:30 16:45 Temp 99.5 99.5 Pulse 94 Resp 26 B/P (MAP) 182/105 (130) 145/115 (125) 146/77 (100) Pulse Ox 100 O2 Delivery Nasal Cannula Nasal Cannula O2 Flow Rate 2.0 2.0 11/24/20 11/24/20 11/24/20 11/24/20 17:00 18:00 18:10 19:00 Temp 98.7 98.7 Pulse 102 107 102 97 Resp 24 25 25 B/P (MAP) 146/77 (100) 145/69 (94) 146/77 121/66 (84) Pulse Ox 98 92 94 O2 Delivery Nasal Cannula Nasal Cannula Nasal Cannula O2 Flow Rate 2.0 2.0 2.0 11/24/20 11/24/20 11/24/20 11/24/20 19:19 19:32 19:32 19:52 Pulse 104 B/P (MAP) 121/66 Pulse Ox 95 O2 Delivery Nasal Cannula Room Air O2 Flow Rate 2.0 2.0 11/24/20 11/24/20 11/24/20 11/24/20 20:00 21:00 22:00 23:00 Temp 98.9 98.9 Pulse 94 107 95 96 Resp 24 B/P (MAP) 145/62 (89) 135/79 (97) 132/63 (86) 141/83 (102) Pulse Ox 99 97 100 98 O2 Delivery Nasal Cannula Nasal Cannula Nasal Cannula Nasal Cannula O2 Flow Rate 2.0 2.0 2.0 2.0 11/24/20 11/24/20 11/25/20 11/25/20 23:47 23:47 00:00 00:41 Pulse 106 106 Resp 24 B/P (MAP) 135/62 (86) 135/62 Pulse Ox 100 O2 Delivery Nasal Cannula Nasal Cannula O2 Flow Rate 2.0 2.0 2.0 11/25/20 11/25/20 11/25/20 11/25/20 01:00 02:07 03:00 03:05 Temp 98.8 98.8 Pulse 94 93 96 116 Resp 24 B/P (MAP) 155/68 (97) 151/65 (93) 126/78 (94) 133/76 Pulse Ox 97 98 99 O2 Delivery Nasal Cannula Nasal Cannula Nasal Cannula O2 Flow Rate 2.0 2.0 2.0 11/25/20 11/25/20 11/25/20 11/25/20 04:00 04:00 04:00 05:00 Pulse 103 106 Resp B/P (MAP) 140/72 (94) 169/81 (110) Pulse Ox 99 99 O2 Delivery Nasal Cannula Nasal Cannula Nasal Cannula O2 Flow Rate 2.0 2.0 2.0 2.0 11/25/20 11/25/20 11/25/20 11/25/20 05:31 06:04 07:00 07:45 Pulse 111 103 132 124 Resp 18 B/P (MAP) 183/84 158/91 (113) 213/79 (123) 156/110 (125) Pulse Ox 99 99 99 O2 Delivery Nasal Cannula Nasal Cannula Nasal Cannula O2 Flow Rate 2.0 2.0 2.0 11/25/20 11/25/20 11/25/20 11/25/20 07:58 08:00 08:00 08:15 Pulse 132 B/P (MAP) 166/78 (107) Pulse Ox 96 96 97 O2 Delivery Room Air Room Air Nasal Cannula Nasal Cannula O2 Flow Rate 0.5 0.5 2.0 2.0 11/25/20 11/25/20 11/25/20 11/25/20 08:30 08:45 08:51 09:00 Pulse 138 130 125 116 B/P (MAP) 183/85 (117) 175/92 (119) 143/83 (103) Pulse Ox 97 97 99 O2 Delivery Nasal Cannula Nasal Cannula Nasal Cannula O2 Flow Rate 2.0 2.0 2.0 11/25/20 11/25/20 11/25/20 11/25/20 10:05 11:00 12:00 12:20 Temp 100.4 98.3 100.4 98.3 Pulse 120 B/P (MAP) 153/95 (114) Pulse Ox 97 100 O2 Delivery Nasal Cannula Nasal Cannula BiPAP/CPAP O2 Flow Rate 2.0 2.0 11/25/20 11/25/20 12:23 14:02 Pulse 133 130 Intake and Output 11/24/20 11/24/20 11/25/20 15:00 23:00 07:00 Intake Total 745 ml Output Total 26 ml 226 ml 235 ml Balance -26 ml 519 ml -235 ml Justicifation of Admission Dx: Justifications for Admission: Justification of Admission Dx: Yes Stroke - Ischemic: Stroke-Ischemic CORRINA BROWN MD Nov 25, 2020 14:51
[2020-11-25] MEDS: hydrALAZINE 20 MG/ML VIAL. IVP PRN (14:53)
--- NOTE | 2020-11-25 15:03 | CARD ---
MR#: [id number] Date of Study: 11/25/2020 Ordering Physician: YAS WELSH, Referring Physician: YAS WELSH, Tech: Malka Lombardo [facility] APPROVED REPORT EXAM: Two-dimensional and M-mode echocardiogram with Doppler and color Doppler. Other Information Quality : Fair Rhythm : Atrial FibrillationTechnically limited study due to lung interference and obesity INDICATION CVA/TIA Hypertension/HCVD 2D DIMENSIONS RVDd2.9 (2.9-3.5cm)Left Atrium(2D)5.1 (1.6-4.0cm) IVSd1.0 (0.7-1.1cm)Aortic Root(2D)2.8 (2.0-3.7cm) LVDd4.7 (3.9-5.9cm)LVOT Diameter2.3 (1.8-2.4cm) PWd1.0 (0.7-1.1cm)LVDs3.6 (2.5-4.0cm) FS (%) 24.8 %SV51.3 ml LVEF(%)49.0 (>50%) Aortic Valve AoV Peak Lew.214.6cm/sAoV VTI29.4cm AO Peak GR.18.4mmHgLVOT VTI 21.36cm AO Mean GR.11mmHgAVA (VTI)3.10cm2 Mitral Valve MV E Uzdunfxv433.7cm/sMV DECEL [id number] TDI Lateral E' P. V4.54cm/sMedial E' P. V7.11cm/s E/Lateral E'28.8E/Medial E'18.4 Tricuspid Valve TR P. Celmkrbi477pd/sRAP [id number] TR Peak Gr.[id number] Pulmonary Vein S1 Iryndtvk28.4cm/sS2 Pvxttjhm89.88cm/s D2 Huglnnqp51.9cm/s LEFT VENTRICLE The left ventricle is normal size. There is normal left ventricular wall thickness. The left ventricu lar systolic function is normal. The Ejection Fraction is 55-60%. There is normal LV segmental wall m otion. RIGHT VENTRICLE The right ventricle is normal size. The right ventricular systolic function is normal. ATRIA The left atrium is moderately dilated. The right atrium is mildly dilated. The interatrial septum is intact with no evidence for an atrial septal defect or patent foramen ovale as noted on 2-D or Dopple r imaging. AORTIC VALVE The aortic valve is calcified but opens well. Doppler and Color Flow revealed no significant aortic r egurgitation. There is no significant aortic valvular stenosis. MITRAL VALVE The mitral valve is calcified but opens well. Mitral annular calcification is mild. There is no evide nce of mitral valve prolapse. There is no mitral valve stenosis. Doppler and Color-flow revealed mild mitral regurgitation. TRICUSPID VALVE The tricuspid valve is normal in structure and function. Doppler and Color Flow revealed moderate tri cuspid regurgitation. There is severe pulmonary hypertension. The PA pressure was estimated at 67 mmH g. There is no tricuspid valve stenosis. PULMONIC VALVE The pulmonic valve is not well visualized. Doppler and Color Flow revealed trace pulmonic valvular re gurgitation. There is no pulmonic valvular stenosis. GREAT VESSELS The aortic root is normal in size. The ascending aorta is normal in size. The IVC is dilated and montse apses <50% with inspiration. PERICARDIAL EFFUSION There is no evidence of significant pericardial effusion. Critical Notification Critical Value: No <Conclusion> The left ventricular systolic function is normal. The Ejection Fraction is 55-60%. There is normal LV segmental wall motion. Mild mitral regurgitation. Moderate tricuspid regurgitation. There is severe pulmonary hypertension. The PA pressure was estimated at 67 mmHg. There is no evidence of significant pericardial effusion. Signed by : Jone Underwood, Electronically Approved : 11/25/2020 15:03:19
--- NOTE | 2020-11-25 15:35 | NUR ---
SS following up with discharge planning. SS reviewed pt chart and discussed with pt RN. COVID19 negative. Pt is currently on BIPAP intermittently. COVID19 negative. Pt on IV Azithromycin. ST following. NPO and on PPN. Pt went to MRI but was unable to tolerate. Referral was sent to [facility], ; fax [phone]. Pt needing diet order prior to being accepted. SS will continue to follow for discharge planning.
[2020-11-25] MEDS ORDERED: LABETALOL 20 MG/4 ML DISP.SYRIN. IVP ONE (15:45)
--- NOTE | 2020-11-25 16:14 | NUR ---
Patient unable to tolerate MRI. When laying flat goes into respiratory distress, Spo2 in the 70's. HR into the 150-160's. Patient back to room placed on Bipap and Labetalol given per Dr Russo. Patient HR currently controlled a-fib with a rate of 101, BP 129/69, O2 sat 100% on Bipap 18/2 20 40%Will monitor.
[2020-11-25] MEDS: AZITHROMYCIN 500 MG in IV NORMAL SALINE 250ML 250 ML IV SCH (16:17)
[2020-11-25] MEDS ORDERED: ASPIRIN RECTAL 300 MG SUPP. PR ONE (21:00)
[2020-11-25] MEDS: ATORVASTATIN CALCIUM 20 MG TABLET PO SCH (21:00)
[2020-11-26] VITALS (22 sets, daily range): BP systolic 106–155; BP diastolic 42–99
[2020-11-26] MEDS: METOPROLOL IV PUSH 5 MG/5 ML VIAL. IVP SCH ×5 (00:07→23:15)
[2020-11-26] MEDS: AMINO AC 3%/ELECTROLYTE/GLYCER 1,000 ML IV SCH ×2 (02:02→15:21)
[2020-11-26] MEDS: BUDESONIDE 0.5 MG/2 ML NEBU. NEB SCH ×4 (07:19→20:53)
[2020-11-26] MEDS: ALBUTEROL SULFATE 2.5 MG/3 ML NEBU. NEB SCH ×4 (07:20→20:53)
[2020-11-26 07:34] LABS: BASO % 0 % (0-3); EOS % 0 % (0-3); HEMATOCRIT 29.9 % (36.0-47.0); LYMPH # 0.4 x10^3/uL (1.0-4.8); LYMPH % 5 % (24-48); MEAN CORPUSCULAR HEMOGLOBIN 33 pg (25-35); MEAN CORPUSCULAR HGB CONC 34 g/dL (31-37); MEAN CORPUSCULAR VOLUME 98 fL (79-100); MONO # 0.5 x10^3/uL (0.0-1.1); MONO % 5 % (0-9); NEUT # 8.8 x10^3/uL (1.8-7.7); NEUT % 90 % (31-73); PLATELET COUNT 176 x10^3/uL (140-400); RED BLOOD COUNT 3.06 x10^6/uL (3.50-5.40); RED CELL DISTRIBUTION WIDTH 13.3 % (11.5-14.5); WHITE BLOOD COUNT 9.7 x10^3/uL (4.0-11.0)
[2020-11-26 07:50] LABS: ALBUMIN 2.4 g/dL (3.4-5.0); ALBUMIN/GLOBULIN RATIO 0.7 (1.0-1.7); CALCIUM 8.9 mg/dL (8.5-10.1); CREATININE 1.4 mg/dL (0.6-1.0); GFR 35.7; POTASSIUM 4.2 mmol/L (3.5-5.1); TOTAL BILIRUBIN 0.4 mg/dL (0.2-1.0); TOTAL PROTEIN 5.9 g/dL (6.4-8.2)
[2020-11-26 07:53] LABS: PROTHROMBIN TIME PATIENT 14.5 SEC (11.7-14.0)
[2020-11-26] MEDS: CLOPIDOGREL BISULFATE 75 MG TABLET PO SCH (08:00)
[2020-11-26] MEDS: ASPIRIN ENTERIC COATED 81 MG TABLET.DR. PO SCH (08:00)
[2020-11-26 08:43] LABS: % BANDS 1 % (0-9); % LYMPHS 5 % (24-48); % MONOS 4 % (0-10); % SEGS 90 % (35-66); PLT ESTIMATE ADEQUATE (ADEQUATE)
[2020-11-26] MEDS: METOPROLOL TART IMMED RELEASE 25 MG TABLET. PO SCH ×2 (09:00→20:49)
[2020-11-26] MEDS: buPROPion XL 150 MG TAB.ER.24H. PO SCH (09:00)
[2020-11-26] MEDS: ROFLUMILAST 500 MCG TABLET. PO SCH (09:00)
[2020-11-26] MEDS: CYANOCOBALAMIN (VITAMIN B-12) 1,000 MCG TABLET. PO SCH (09:00)
[2020-11-26] MEDS: DRONEDARONE HCL 400 MG TABLET PO SCH ×2 (09:00→20:50)
[2020-11-26] MEDS: VERAPAMIL SR 120 MG TABLET.ER. PO SCH (09:00)
--- NOTE | 2020-11-26 09:39 | PDOC ---
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 Her strength is improving Recurrence of atrial fibrillation COPD exacerbation, better Hypertension, history of COVID-19 Could not tolerate MRI, will try again today Pulmonary hypertension Plan May transfer to floor Await MRI of the brain Low-dose enoxaparin She had been on aspirin instead of anticoagulation because of recent falls, for her atrial fibrillation. I believe the risks outweigh the benefits of full anticoagulation this soon after a fairly good size stroke Resume statin when able to swallow PT/OT/ST Will need inpatient rehabilitation Objective Vital Signs Date Time Temp Pulse Resp B/P (MAP) Pulse Ox O2 Delivery O2 Flow Rate FiO2 11/26/20 07:17 100 Nasal Cannula 1.0 11/26/20 07:00 98.1 85 20 127/58 (81) 98.1 Intake and Output 11/26/20 07:00 Intake Total 0 ml Output Total 500 ml Balance -500 ml Intake Oral 0 ml Output Urine Total 500 ml # Voids 3 # Bowel Movements 1 PHYSICAL EXAM Alert. Off BiPAP PERRL. EOMI. CN: Left field cut, left central facial weakness. Muscle tone: normal. Muscle strength: 4/5 left hemiparesis DTR: 2+ Plantar reflex: Flexor Gait: not examined in bed. Sensory exam: no abnormal findings. No cerebellar signs elicited. A little tremulousness Review of Relevant I have reviewed the following items gerry (where applicable) has been applied. Labs Laboratory Tests Test 11/24/20 09:45 11/25/20 09:06 11/26/20 06:55 O2 Saturation 99 % (92-99) Arterial Blood pH 7.41 (7.35-7.45) Arterial Blood pCO2 at Patient Temp 36 mmHg (35-46) Arterial Blood pO2 at Patient Temp 162 mmHg (65-108) Arterial Blood HCO3 22 mmol/L (21-28) Arterial Blood Base Excess -2 mmol/L (-3-3) FiO2 40 White Blood Count 12.4 x10^3/uL (4.0-11.0) 9.7 x10^3/uL (4.0-11.0) Red Blood Count 3.32 x10^6/uL (3.50-5.40) 3.06 x10^6/uL (3.50-5.40) Hemoglobin 10.6 g/dL (12.0-15.5) 10.0 g/dL (12.0-15.5) Hematocrit 32.6 % (36.0-47.0) 29.9 % (36.0-47.0) Mean Corpuscular Volume 98 fL (79-100) 98 fL (79-100) Mean Corpuscular Hemoglobin 32 pg (25-35) 33 pg (25-35) Mean Corpuscular Hemoglobin Concent 33 g/dL (31-37) 34 g/dL (31-37) Red Cell Distribution Width 13.7 % (11.5-14.5) 13.3 % (11.5-14.5) Platelet Count 185 x10^3/uL (140-400) 176 x10^3/uL (140-400) Neutrophils (%) (Auto) 83 % (31-73) 90 % (31-73) Lymphocytes (%) (Auto) 6 % (24-48) 5 % (24-48) Monocytes (%) (Auto) 9 % (0-9) 5 % (0-9) Eosinophils (%) (Auto) 1 % (0-3) 0 % (0-3) Basophils (%) (Auto) 1 % (0-3) 0 % (0-3) Neutrophils # (Auto) 10.4 x10^3/uL (1.8-7.7) 8.8 x10^3/uL (1.8-7.7) Lymphocytes # (Auto) 0.8 x10^3/uL (1.0-4.8) 0.4 x10^3/uL (1.0-4.8) Monocytes # (Auto) 1.1 x10^3/uL (0.0-1.1) 0.5 x10^3/uL (0.0-1.1) Eosinophils # (Auto) 0.1 x10^3/uL (0.0-0.7) 0.0 x10^3/uL (0.0-0.7) Basophils # (Auto) 0.1 x10^3/uL (0.0-0.2) 0.0 x10^3/uL (0.0-0.2) Sodium Level 139 mmol/L (136-145) 138 mmol/L (136-145) Potassium Level 4.0 mmol/L (3.5-5.1) 4.2 mmol/L (3.5-5.1) Chloride Level 104 mmol/L (98-107) 104 mmol/L (98-107) Carbon Dioxide Level 23 mmol/L (21-32) 22 mmol/L (21-32) Anion Gap 12 (6-14) 12 (6-14) Blood Urea Nitrogen 30 mg/dL (7-20) 46 mg/dL (7-20) Creatinine 1.2 mg/dL (0.6-1.0) 1.4 mg/dL (0.6-1.0) Estimated GFR (Cockcroft-Gault) 42.7 35.7 BUN/Creatinine Ratio 25 (6-20) 33 (6-20) Glucose Level 119 mg/dL (70-99) 128 mg/dL (70-99) Calcium Level 8.9 mg/dL (8.5-10.1) 8.9 mg/dL (8.5-10.1) Total Bilirubin 0.7 mg/dL (0.2-1.0) 0.4 mg/dL (0.2-1.0) Aspartate Amino Transf (AST/SGOT) 34 U/L (15-37) 23 U/L (15-37) Alanine Aminotransferase (ALT/SGPT) 30 U/L (14-59) 29 U/L (14-59) Alkaline Phosphatase 49 U/L (46-116) 48 U/L (46-116) Total Protein 6.3 g/dL (6.4-8.2) 5.9 g/dL (6.4-8.2) Albumin 2.9 g/dL (3.4-5.0) 2.4 g/dL (3.4-5.0) Albumin/Globulin Ratio 0.9 (1.0-1.7) 0.7 (1.0-1.7) Thyroid Stimulating Hormone (TSH) 0.443 uIU/mL (0.358-3.74) Segmented Neutrophils % 90 % (35-66) Band Neutrophils % 1 % (0-9) Lymphocytes % 5 % (24-48) Monocytes % 4 % (0-10) Platelet Estimate Adequate (ADEQUATE) Prothrombin Time 14.5 SEC (11.7-14.0) Prothromb Time International Ratio 1.2 (0.8-1.1) Laboratory Tests Test 11/26/20 06:55 White Blood Count 9.7 x10^3/uL (4.0-11.0) Red Blood Count 3.06 x10^6/uL (3.50-5.40) Hemoglobin 10.0 g/dL (12.0-15.5) Hematocrit 29.9 % (36.0-47.0) Mean Corpuscular Volume 98 fL (79-100) Mean Corpuscular Hemoglobin 33 pg (25-35) Mean Corpuscular Hemoglobin Concent 34 g/dL (31-37) Red Cell Distribution Width 13.3 % (11.5-14.5) Platelet Count 176 x10^3/uL (140-400) Neutrophils (%) (Auto) 90 % (31-73) Lymphocytes (%) (Auto) 5 % (24-48) Monocytes (%) (Auto) 5 % (0-9) Eosinophils (%) (Auto) 0 % (0-3) Basophils (%) (Auto) 0 % (0-3) Neutrophils # (Auto) 8.8 x10^3/uL (1.8-7.7) Lymphocytes # (Auto) 0.4 x10^3/uL (1.0-4.8) Monocytes # (Auto) 0.5 x10^3/uL (0.0-1.1) Eosinophils # (Auto) 0.0 x10^3/uL (0.0-0.7) Basophils # (Auto) 0.0 x10^3/uL (0.0-0.2) Segmented Neutrophils % 90 % (35-66) Band Neutrophils % 1 % (0-9) Lymphocytes % 5 % (24-48) Monocytes % 4 % (0-10) Platelet Estimate Adequate (ADEQUATE) Prothrombin Time 14.5 SEC (11.7-14.0) Prothromb Time International Ratio 1.2 (0.8-1.1) Sodium Level 138 mmol/L (136-145) Potassium Level 4.2 mmol/L (3.5-5.1) Chloride Level 104 mmol/L (98-107) Carbon Dioxide Level 22 mmol/L (21-32) Anion Gap 12 (6-14) Blood Urea Nitrogen 46 mg/dL (7-20) Creatinine 1.4 mg/dL (0.6-1.0) Estimated GFR (Cockcroft-Gault) 35.7 BUN/Creatinine Ratio 33 (6-20) Glucose Level 128 mg/dL (70-99) Calcium Level 8.9 mg/dL (8.5-10.1) Total Bilirubin 0.4 mg/dL (0.2-1.0) Aspartate Amino Transf (AST/SGOT) 23 U/L (15-37) Alanine Aminotransferase (ALT/SGPT) 29 U/L (14-59) Alkaline Phosphatase 48 U/L (46-116) Total Protein 5.9 g/dL (6.4-8.2) Albumin 2.4 g/dL (3.4-5.0) Albumin/Globulin Ratio 0.7 (1.0-1.7) Microbiology 11/23/20 Blood Culture - Preliminary, Resulted NO GROWTH AFTER 2 DAYS Medications Current Medications Sodium Chloride 1,000 ml @ 1,000 mls/hr Q1H IV Last administered on 11/22/20at 19:31; Start 11/22/20 at 19:15; Stop 11/22/20 at 20:14; Status DC Alteplase, Recombinant 9 ml @ 540 mls/hr 1X ONCE IV Last administered on 11/22/20at 19:57; Start 11/22/20 at 19:45; Stop 11/22/20 at 19:46; Status DC Alteplase, Recombinant 81 ml @ 81 mls/hr Q1H IV Last administered on 11/22/20at 20:00; Start 11/22/20 at 19:45; Stop 11/22/20 at 20:44; Status DC Sodium Chloride 50 ml @ 200 mls/hr 1X ONCE IV Last administered on 11/22/20at 20:10; Start 11/22/20 at 19:45; Stop 11/22/20 at 19:59; Status DC Alteplase, Recombinant 10 ml @ 600 mls/hr 1X ONCE IV ; Start 11/22/20 at 19:45; Stop 11/22/20 at 19:46; Status UNV Alteplase, Recombinant 90 ml @ 90 mls/hr 1X ONCE IV ; Start 11/22/20 at 19:45; Stop 11/22/20 at 20:44; Status UNV Sodium Chloride 50 ml @ 50 mls/hr 1X ONCE IV ; Start 11/22/20 at 19:45; Stop 11/22/20 at 20:44; Status UNV Aspirin (Aspirin Rectal Supp) [address] Last administered on 11/22/20at 20:16; Start 11/22/20 at 19:45; Stop 11/22/20 at 19:48; Status DC Iohexol (Omnipaque 300 Mg/ml) 60 ml 1X ONCE IV Last administered on 11/22/20at 20:38; Start 11/22/20 at 20:15; Stop 11/22/20 at 20:16; Status DC Info (CONTRAST GIVEN -- Rx MONITORING) 1 each PRN DAILY PRN MC SEE COMMENTS; Start 11/22/20 at 20:30; Stop 11/24/20 at 20:29; Status DC Ondansetron HCl (Zofran) 4 mg PRN Q8HRS PRN IV NAUSEA/VOMITING 1ST CHOICE Last administered on 11/23/20at 04:05; Start 11/22/20 at 21:45; Stop 11/23/20 at 21:44; Status DC Bumetanide (Bumex) 0.5 mg 1X ONCE IV Last administered on 11/23/20at 00:51; Start 11/22/20 at 23:30; Stop 11/22/20 at 23:31; Status DC Labetalol HCl (Normodyne Iv Push) 10 mg PRN Q10MIN PRN IVP HYPERTENSION Last administered on 11/24/20at 13:07; Start 11/23/20 at 02:15; Stop 11/24/20 at 15:00; Status DC Nicardipine HCl 50 mg/Sodium Chloride 250 ml @ 25 mls/hr CONT PRN PRN IV HYPERTENSION Last administered on 11/23/20at 15:53; Start 11/23/20 at 02:15; Stop 11/24/20 at 09:35; Status DC Potassium Chloride/Water 100 ml @ 100 mls/hr Q1H IV Last administered on 11/07 05/27at 07:34; Start 11/23/20 at 03:00; Stop 11/23/20 at 06:59; Status DC Magnesium Sulfate 50 ml @ 25 mls/hr 1X ONCE IV Last administered on 11/23/20at 04:31; Start 11/23/20 at 03:00; Stop 11/23/20 at 04:59; Status DC Amino Acids/ Glycerin/ Electrolytes 1,000 ml @ 80 mls/hr [id number] IV Last administered on 11/26/20at 02:02; Start 11/23/20 at 11:30 Cyanocobalamin (Vitamin B-12) 1,000 mcg DAILY PO ; Start 11/24/20 at 09:00 Dronedarone (Multaq) 400 mg BID PO ; Start 11/23/20 at 21:00 Guaifenesin (MUCINEX ER with DM) 1 tab PRN BID PRN PO cough and congestion; Start 11/23/20 at 12:00 Metoprolol Tartrate (Lopressor) 25 mg BID PO ; Start 11/23/20 at 21:00 Roflumilast (Daliresp) 500 mcg DAILY PO ; Start 11/24/20 at 09:00 Verapamil HCl (Calan Sr) 120 mg DAILY PO ; Start 11/23/20 at 13:00 Albuterol Sulfate (Ventolin Neb Soln) 2.5 mg RTQID NEB Last administered on 11/26/20at 07:20; Start 11/23/20 at 16:00 Bupropion HCl (Wellbutrin Xl) 300 mg DAILY PO ; Start 11/23/20 at 13:00 Non-Formulary Medication (Fluticasone Propionate (Flovent 44MCG Hfa)) 10.6 gm DAILY IH ; Start 11/24/20 at 09:00; Status UNV Non-Formulary Medication (Fluticasone/ Salmeterol (Advair 250-50 Diskus)) 1 puff BID IH ; Start 11/23/20 at 21:00; Status UNV Atorvastatin Calcium (Lipitor) 20 mg QHS PO ; Start 11/23/20 at 21:00 Budesonide (Pulmicort) 0.5 mg RTBID NEB Last administered on 11/26/20at 07:19; Start 11/23/20 at 20:00 Metoprolol Tartrate (Lopressor Vial) 2.5 mg Q6HRS IVP Last administered on 11/25/20at 05:31; Start 11/23/20 at 18:00; Stop 11/25/20 at 08:41; Status DC Metoprolol Tartrate (Lopressor Vial) 2.5 mg 1X ONCE IVP Last administered on 11/23/20at 13:01; Start 11/23/20 at 13:00; Stop 11/23/20 at 13:01; Status DC Azithromycin 250 ml @ 250 mls/hr 1X ONCE IV ; Start 11/23/20 at 14:15; Stop 11/23/20 at 15:14; Status UNV Azithromycin 500 mg/Sodium Chloride 250 ml @ 250 mls/hr Q24H IV Last administered on 11/25/20at 16:17; Start 11/23/20 at 16:00 Aspirin (Ecotrin) 81 mg DAILYWBKFT PO ; Start 11/23/20 at 23:30 Clopidogrel Bisulfate (Plavix) 75 mg 1X ONCE PO ; Start 11/23/20 at 23:30; Stop 11/23/20 at 23:31; Status DC Clopidogrel Bisulfate (Plavix) 75 mg DAILYWBKFT PO ; Start 11/24/20 at 08:00 Diltiazem HCl 125 mg/Sodium Chloride 125 ml @ 5 mls/hr CONT PRN IV SEE ADMIN INSTRUCTIONS Last administered on 11/24/20at 00:17; Start 11/23/20 at 23:45 Labetalol HCl (Normodyne Iv Push) 10 mg PRN Q10MIN PRN IVP HYPERTENSION, see comments Last administered on 11/25/20at 03:05; Start 11/24/20 at 08:45 Nicardipine HCl 50 mg/Sodium Chloride 250 ml @ 25 mls/hr CONT PRN PRN IV HYPERTENSION, See comments Last administered on 11/26/20at 08:26; Start 11/24/20 at 08:45 Acetaminophen (Tylenol) 650 mg PRN Q6HRS PRN PO MILD PAIN / TEMP > 100.3'F; Start 11/24/20 at 08:45 Acetaminophen (Tylenol Supp) 650 [address]N Q6HRS PRN [address] MILD PAIN / TEMP > 100.3'F; Start 11/24/20 at 08:45 Ondansetron HCl (Zofran) 4 mg PRN Q6HRS PRN IVP NAUSEA/VOMITING; Start 11/24/20 at 08:45 Enoxaparin Sodium (Lovenox 30mg Syringe) 30 mg Q24H SQ Last administered on 11/25/20at 08:48; Start 11/24/20 at 08:45 Saliva Substitute (Biotene Moisturizing Mouth) 2 spray PRN Q15MIN PRN PO DRY MOUTH Last administered on 11/24/20at 16:37; Start 11/24/20 at 15:45 Haloperidol Lactate (Haldol Inj) 5 mg PRN Q6HRS PRN IVP AGITATION Last administered on 11/25/20at 05:55; Start 11/25/20 at 05:45 Metoprolol Tartrate (Lopressor Vial) 5 mg Q6HRS IVP Last administered on 11/26/20at 06:01; Start 11/25/20 at 09:00 Digoxin (Lanoxin) 500 mcg 1X ONCE IV Last administered on 11/25/20at 12:23; Start 11/25/20 at 12:00; Stop 11/25/20 at 12:01; Status DC Methylprednisolone Sodium Succinate (SOLU-Medrol 40MG VIAL) 40 mg 1X ONCE IV Last administered on 11/25/20at 14:01; Start 11/25/20 at 14:00; Stop 11/25/20 at 14:01; Status DC Budesonide (Pulmicort) 0.5 mg RTBID NEB ; Start 11/25/20 at 20:00 Aspirin (Aspirin Rectal Supp) [address] IF UNABLE TO TAKE PO; Start 11/25/20 at 14:00 Hydralazine HCl (Apresoline Inj) 10 mg PRN Q4HRS PRN IVP ELEVATED BP, SEE COMMENTS Last administered on 11/25/20at 14:53; Start 11/25/20 at 15:00 Aspirin (Aspirin Rectal Supp) [address] Last administered on 11/25/20at 22:21; Start 11/25/20 at 21:00; Stop 11/25/20 at 21:01; Status DC Labetalol HCl (Normodyne Iv Push) 20 mg 1X ONCE IVP Last administered on 11/25/20at 15:40; Start 11/25/20 at 15:45; Stop 11/25/20 at 15:46; Status DC Sodium Chloride 1,000 ml @ 100 mls/hr 1X ONCE IV ; Start 11/26/20 at 09:45; Stop 11/26/20 at 19:44; Status UNV Active Scripts Active Zofran (Ondansetron Hcl) 4 Mg Tablet 1 Tab PO PRN Q6-8HRS PRN Reported Mucinex Dm Er 600-30 Mg Tablet (Guaifenesin/Dextromethorphan) 1 Each Tab.er.12h 1 Tab PO BID PRN 14 Days Aspirin 325 Mg Tablet 1 Tab PO DAILY Vitamin B-12 (Cyanocobalamin (Vitamin B-12)) 1,000 Mcg Tablet 1 Tab PO DAILY 30 Days Vitamin D3 Complete Caplet (Mv-Mn/Iron/Fa/Herbal Cmplx#190) 1 Each Tablet 1 Each PO DAILY Vitamin C (Ascorbic Acid) 500 Mg Capsule.er 2 Cap PO BID 30 Days Metoprolol Tartrate 25 Mg Tablet 1 Tab PO BID Multaq (Dronedarone Hcl) 400 Mg Tablet 1 Tab PO BID Flovent 44MCG Hfa (Fluticasone Propionate) 10.6 Gm Aer.w.adap 10.6 Gm IH DAILY Xopenex Hfa (Levalbuterol Tartrate) 15 Gm Hfa.aer.ad 15 Gm IH PRN Verapamil Er (Verapamil Hcl) 120 Mg Tablet.er 120 Mg PO DAILY Pravastatin Sodium 80 Mg Tablet 80 Mg PO DAILY Daliresp (Roflumilast) 500 Mcg Tablet 500 Mcg PO DAILY Wellbutrin Xl (Bupropion Hcl) 300 Mg Tab.er.24h 300 Mg PO DAILY Albuterol Sulfate Conc Neb Soln (Albuterol Sulfate) 2.5 Mg/0.5 Ml Vial.neb 1 Vial NEB QID Advair 250-50 Diskus (Fluticasone/Salmeterol) 1 Each Disk.w.dev 1 Puff IH BID Vitals/I & O Vital Sign - Last 24 Hours 11/25/20 11/25/20 11/25/20 11/25/20 10:05 11:00 12:00 12:00 Temp 100.4 98.3 100.4 98.3 Pulse 120 108 B/P (MAP) 153/95 (114) 153/73 (99) Pulse Ox 97 O2 Delivery Nasal Cannula BiPAP/CPAP Nasal Cannula O2 Flow Rate 2.0 2.0 11/25/20 11/25/20 11/25/20 11/25/20 12:20 12:23 13:00 14:00 Pulse 133 120 114 B/P (MAP) 167/96 (119) 176/106 (129) Pulse Ox 100 O2 Delivery BiPAP/CPAP Nasal Cannula Nasal Cannula 11/25/20 11/25/20 11/25/20 11/25/20 14:02 14:53 15:00 15:30 Temp 98.1 98.1 Pulse 130 111 122 B/P (MAP) 203/90 167/75 (105) Pulse Ox 100 O2 Delivery Nasal Cannula BiPAP/CPAP 11/25/20 11/25/20 11/25/20 11/25/20 15:40 16:00 16:12 16:32 Pulse 145 102 B/P (MAP) 128/69 (88) Pulse Ox 100 O2 Delivery Nasal Cannula Bi-pap BiPAP/CPAP 11/25/20 11/25/20 11/25/20 11/25/20 17:00 18:33 19:00 20:00 Temp 98.9 98.9 Pulse 106 112 114 86 B/P (MAP) 164/76 (105) 166/83 (110) 150/61 (90) Pulse Ox 100 100 O2 Delivery Nasal Cannula Nasal Cannula Nasal Cannula O2 Flow Rate 2.0 2.0 11/25/20 11/25/20 11/25/20 11/25/20 20:14 21:00 21:00 22:00 Pulse 78 86 82 B/P (MAP) 148/60 138/59 (85) 148/60 (89) Pulse Ox 96 99 99 O2 Delivery Nasal Cannula Nasal Cannula Nasal Cannula O2 Flow Rate 1.0 2.0 2.0 11/25/20 11/25/20 11/25/20 11/26/20 22:05 22:05 23:00 00:00 Temp 98.4 98.4 Pulse 82 Resp 28 B/P (MAP) 108/56 (73) Pulse Ox 100 O2 Delivery Nasal Cannula Nasal Cannula Nasal Cannula O2 Flow Rate 2.0 2.0 2.0 2.0 1/2011/26/20 11/26/20 11/26/20 00:07 00:09 00:11 00:58 Pulse 85 85 85 Resp 28 30 B/P (MAP) 116/52 116/52 (73) 136/42 (73) Pulse Ox 100 100 O2 Delivery Nasal Cannula Nasal Cannula O2 Flow Rate 2.0 2.0 2.0 11/26/20 11/26/20 11/26/20 11/26/20 02:00 03:00 03:56 03:56 Temp 98.6 98.6 Pulse 83 80 Resp 25 24 B/P (MAP) 106/55 (72) 109/48 (68) Pulse Ox 100 100 O2 Delivery Nasal Cannula Nasal Cannula Nasal Cannula O2 Flow Rate 2.0 2.0 2.0 2.0 11/26/20 11/26/20 11/26/20 11/26/20 04:00 05:00 06:00 06:01 Pulse 90 70 90 89 Resp 28 26 29 B/P (MAP) 148/50 (82) 128/60 (82) 142/48 (79) 142/48 Pulse Ox 100 100 100 O2 Delivery Nasal Cannula Nasal Cannula Nasal Cannula O2 Flow Rate 2.0 2.0 2.0 11/26/20 11/26/20 07:00 07:17 Temp 98.1 98.1 Pulse 85 Resp 20 B/P (MAP) 127/58 (81) Pulse Ox 100 100 O2 Delivery Nasal Cannula Nasal Cannula O2 Flow Rate 2.0 1.0 Intake and Output 11/25/20 11/25/20 11/26/20 15:00 23:00 07:00 Intake Total 0 ml Output Total 400 ml 100 ml Balance -400 ml -100 ml Images Echocardiogram: LEFT VENTRICLE The left ventricle is normal size. There is normal left ventricular wall thickness. The left ventricular systolic function is normal. The Ejection Fraction is 55-60%. There is normal LV segmental wall motion. RIGHT VENTRICLE The right ventricle is normal size. The right ventricular systolic function is normal. ATRIA The left atrium is moderately dilated. The right atrium is mildly dilated. The interatrial septum is intact with no evidence for an atrial septal defect or patent foramen ovale as noted on 2-D or Doppler imaging. AORTIC VALVE The aortic valve is calcified but opens well. Doppler and Color Flow revealed no significant aortic regurgitation. There is no significant aortic valvular stenosis. MITRAL VALVE The mitral valve is calcified but opens well. Mitral annular calcification is mild. There is no evidence of mitral valve prolapse. There is no mitral valve stenosis. Doppler and Color-flow revealed mild mitral regurgitation. TRICUSPID VALVE The tricuspid valve is normal in structure and function. Doppler and Color Flow revealed moderate tricuspid regurgitation. There is severe pulmonary hypertension. The PA pressure was estimated at 67 mmHg. There is no tricuspid valve stenosis. PULMONIC VALVE The pulmonic valve is not well visualized. Doppler and Color Flow revealed trace pulmonic valvular regurgitation. There is no pulmonic valvular stenosis. GREAT VESSELS The aortic root is normal in size. The ascending aorta is normal in size. The IVC is dilated and collapses <50% with inspiration. PERICARDIAL EFFUSION There is no evidence of significant pericardial effusion. Critical Notification Critical Value: No <Conclusion> The left ventricular systolic function is normal. The Ejection Fraction is 55-60%. There is normal LV segmental wall motion. Mild mitral regurgitation. Moderate tricuspid regurgitation. There is severe pulmonary hypertension. The PA pressure was estimated at 67 mmHg. There is no evidence of significant pericardial effusion. Justicifation of Admission Dx: Justifications for Admission: Justification of Admission Dx: Yes Stroke - Ischemic: Stroke-Ischemic THOM POP MD Nov 26, 2020 09:39
[2020-11-26] MEDS ORDERED: IV NORMAL SALINE 1000ML BAG 1,000 ML IV ONE (09:45)
--- NOTE | 2020-11-26 10:25 | PDOC ---
CARDIO Progress Notes Date and Time Date of Service 11/26/20 Time of Evaluation 1020 Subjective Subjective: Other (feeling much better today. Up in chair. left sided weakness ) Vitals Vitals Vital Signs Date Time Temp Pulse Resp B/P (MAP) Pulse Ox O2 Delivery O2 Flow Rate FiO2 11/26/20 09:00 68 20 126/80 (95) 100 Nasal Cannula 2.0 11/26/20 07:00 98.1 98.1 Weight Weight [ ] Input and Output Intake and Output Intake and Output 11/26/20 07:00 Intake Total 0 ml Output Total 500 ml Balance -500 ml Intake Oral 0 ml Output Urine Total 500 ml # Voids 3 # Bowel Movements 1 Laboratory Labs Laboratory Tests Test 11/26/20 06:55 White Blood Count 9.7 x10^3/uL (4.0-11.0) Red Blood Count 3.06 x10^6/uL (3.50-5.40) Hemoglobin 10.0 g/dL (12.0-15.5) Hematocrit 29.9 % (36.0-47.0) Mean Corpuscular Volume 98 fL (79-100) Mean Corpuscular Hemoglobin 33 pg (25-35) Mean Corpuscular Hemoglobin Concent 34 g/dL (31-37) Red Cell Distribution Width 13.3 % (11.5-14.5) Platelet Count 176 x10^3/uL (140-400) Neutrophils (%) (Auto) 90 % (31-73) Lymphocytes (%) (Auto) 5 % (24-48) Monocytes (%) (Auto) 5 % (0-9) Eosinophils (%) (Auto) 0 % (0-3) Basophils (%) (Auto) 0 % (0-3) Neutrophils # (Auto) 8.8 x10^3/uL (1.8-7.7) Lymphocytes # (Auto) 0.4 x10^3/uL (1.0-4.8) Monocytes # (Auto) 0.5 x10^3/uL (0.0-1.1) Eosinophils # (Auto) 0.0 x10^3/uL (0.0-0.7) Basophils # (Auto) 0.0 x10^3/uL (0.0-0.2) Segmented Neutrophils % 90 % (35-66) Band Neutrophils % 1 % (0-9) Lymphocytes % 5 % (24-48) Monocytes % 4 % (0-10) Platelet Estimate Adequate (ADEQUATE) Prothrombin Time 14.5 SEC (11.7-14.0) Prothromb Time International Ratio 1.2 (0.8-1.1) Sodium Level 138 mmol/L (136-145) Potassium Level 4.2 mmol/L (3.5-5.1) Chloride Level 104 mmol/L (98-107) Carbon Dioxide Level 22 mmol/L (21-32) Anion Gap 12 (6-14) Blood Urea Nitrogen 46 mg/dL (7-20) Creatinine 1.4 mg/dL (0.6-1.0) Estimated GFR (Cockcroft-Gault) 35.7 BUN/Creatinine Ratio 33 (6-20) Glucose Level 128 mg/dL (70-99) Calcium Level 8.9 mg/dL (8.5-10.1) Total Bilirubin 0.4 mg/dL (0.2-1.0) Aspartate Amino Transf (AST/SGOT) 23 U/L (15-37) Alanine Aminotransferase (ALT/SGPT) 29 U/L (14-59) Alkaline Phosphatase 48 U/L (46-116) Total Protein 5.9 g/dL (6.4-8.2) Albumin 2.4 g/dL (3.4-5.0) Albumin/Globulin Ratio 0.7 (1.0-1.7) Microbiology Micro Microbiology 11/23/20 Blood Culture - Preliminary, Resulted NO GROWTH AFTER 2 DAYS Physical Exam HEENT: Neck Supple W Full Motion Chest: Symmetric LUNGS: Other (diminished bases) Heart: irregularly irregular (AFIB, rate controlled ) Abdomen: Soft N/T Extremities: Other (mild anasarca, left-sided weakness ) Neurology: alert, oriented, follow commands Assessment Assessment 1. 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 s/p TPA 11/22 2. PAFIB; Declined OAC multiple times in past. Remains in AFIB, rate controlled 3. Hypertensive urgency; off Cardene. BP better controlled 4. Acute respiratory failure with underlying COPD; improved. on RA 5. Acute on chronic diastolic CHF; appears compensated 6. Mild troponin elevation; highest 0.06. Most probable type II, demand ischemia. Echo with preserved LV systolic function 7. SHELLEY; Cr stable 8. Leukocytosis, fevers 9. Dysphagia 10. Severe pulmonary hypertension; PAP 67 mmHg. Recommendations Continue IV Metoprolol for rate control Hydralazine IV PRN Titrate off Cardene as able Allow for higher baseline blood pressure given acute stroke Lasix PRN ASA therapy Statin when able to take oral On low-dose anticoagulation therapy with Lovenox Too high risk for full anticoagulation with large infarct. Will consider initiation at a later date Rehab modalities Supportive care Justicifation of Admission Dx: Justifications for Admission: Justification of Admission Dx: Yes Stroke - Ischemic: Stroke-Ischemic CLIF MCCANN APRN Nov 26, 2020 10:24
--- NOTE | 2020-11-26 10:26 | PDOC ---
PULMONARY PROGRESS NOTES DATE: 11/26/20 TIME: 10:25 Subjective Pt. remains on N/C oxygen 2 liters on cardene gtt no overnight concerns Vitals Vital Signs Date Time Temp Pulse Resp B/P (MAP) Pulse Ox O2 Delivery O2 Flow Rate FiO2 11/26/20 09:00 68 20 126/80 (95) 100 Nasal Cannula 2.0 11/26/20 07:00 98.1 98.1 Comments Left side weakness and facial droop ROS: No Nausea, No Chest Pain, No Abdominal Pain, No Increase Cough General: Alert Lungs: Clear Cardiovascular: S1, S2 Abdomen: Soft, Non-tender Skin: Warm, Dry Labs Laboratory Tests Test 11/25/20 09:06 11/26/20 06:55 White Blood Count 12.4 x10^3/uL (4.0-11.0) 9.7 x10^3/uL (4.0-11.0) Red Blood Count 3.32 x10^6/uL (3.50-5.40) 3.06 x10^6/uL (3.50-5.40) Hemoglobin 10.6 g/dL (12.0-15.5) 10.0 g/dL (12.0-15.5) Hematocrit 32.6 % (36.0-47.0) 29.9 % (36.0-47.0) Mean Corpuscular Volume 98 fL (79-100) 98 fL (79-100) Mean Corpuscular Hemoglobin 32 pg (25-35) 33 pg (25-35) Mean Corpuscular Hemoglobin Concent 33 g/dL (31-37) 34 g/dL (31-37) Red Cell Distribution Width 13.7 % (11.5-14.5) 13.3 % (11.5-14.5) Platelet Count 185 x10^3/uL (140-400) 176 x10^3/uL (140-400) Neutrophils (%) (Auto) 83 % (31-73) 90 % (31-73) Lymphocytes (%) (Auto) 6 % (24-48) 5 % (24-48) Monocytes (%) (Auto) 9 % (0-9) 5 % (0-9) Eosinophils (%) (Auto) 1 % (0-3) 0 % (0-3) Basophils (%) (Auto) 1 % (0-3) 0 % (0-3) Neutrophils # (Auto) 10.4 x10^3/uL (1.8-7.7) 8.8 x10^3/uL (1.8-7.7) Lymphocytes # (Auto) 0.8 x10^3/uL (1.0-4.8) 0.4 x10^3/uL (1.0-4.8) Monocytes # (Auto) 1.1 x10^3/uL (0.0-1.1) 0.5 x10^3/uL (0.0-1.1) Eosinophils # (Auto) 0.1 x10^3/uL (0.0-0.7) 0.0 x10^3/uL (0.0-0.7) Basophils # (Auto) 0.1 x10^3/uL (0.0-0.2) 0.0 x10^3/uL (0.0-0.2) Sodium Level 139 mmol/L (136-145) 138 mmol/L (136-145) Potassium Level 4.0 mmol/L (3.5-5.1) 4.2 mmol/L (3.5-5.1) Chloride Level 104 mmol/L (98-107) 104 mmol/L (98-107) Carbon Dioxide Level 23 mmol/L (21-32) 22 mmol/L (21-32) Anion Gap 12 (6-14) 12 (6-14) Blood Urea Nitrogen 30 mg/dL (7-20) 46 mg/dL (7-20) Creatinine 1.2 mg/dL (0.6-1.0) 1.4 mg/dL (0.6-1.0) Estimated GFR (Cockcroft-Gault) 42.7 35.7 BUN/Creatinine Ratio 25 (6-20) 33 (6-20) Glucose Level 119 mg/dL (70-99) 128 mg/dL (70-99) Calcium Level 8.9 mg/dL (8.5-10.1) 8.9 mg/dL (8.5-10.1) Total Bilirubin 0.7 mg/dL (0.2-1.0) 0.4 mg/dL (0.2-1.0) Aspartate Amino Transf (AST/SGOT) 34 U/L (15-37) 23 U/L (15-37) Alanine Aminotransferase (ALT/SGPT) 30 U/L (14-59) 29 U/L (14-59) Alkaline Phosphatase 49 U/L (46-116) 48 U/L (46-116) Total Protein 6.3 g/dL (6.4-8.2) 5.9 g/dL (6.4-8.2) Albumin 2.9 g/dL (3.4-5.0) 2.4 g/dL (3.4-5.0) Albumin/Globulin Ratio 0.9 (1.0-1.7) 0.7 (1.0-1.7) Thyroid Stimulating Hormone (TSH) 0.443 uIU/mL (0.358-3.74) Segmented Neutrophils % 90 % (35-66) Band Neutrophils % 1 % (0-9) Lymphocytes % 5 % (24-48) Monocytes % 4 % (0-10) Platelet Estimate Adequate (ADEQUATE) Prothrombin Time 14.5 SEC (11.7-14.0) Prothromb Time International Ratio 1.2 (0.8-1.1) Laboratory Tests Test 11/26/20 06:55 White Blood Count 9.7 x10^3/uL (4.0-11.0) Red Blood Count 3.06 x10^6/uL (3.50-5.40) Hemoglobin 10.0 g/dL (12.0-15.5) Hematocrit 29.9 % (36.0-47.0) Mean Corpuscular Volume 98 fL (79-100) Mean Corpuscular Hemoglobin 33 pg (25-35) Mean Corpuscular Hemoglobin Concent 34 g/dL (31-37) Red Cell Distribution Width 13.3 % (11.5-14.5) Platelet Count 176 x10^3/uL (140-400) Neutrophils (%) (Auto) 90 % (31-73) Lymphocytes (%) (Auto) 5 % (24-48) Monocytes (%) (Auto) 5 % (0-9) Eosinophils (%) (Auto) 0 % (0-3) Basophils (%) (Auto) 0 % (0-3) Neutrophils # (Auto) 8.8 x10^3/uL (1.8-7.7) Lymphocytes # (Auto) 0.4 x10^3/uL (1.0-4.8) Monocytes # (Auto) 0.5 x10^3/uL (0.0-1.1) Eosinophils # (Auto) 0.0 x10^3/uL (0.0-0.7) Basophils # (Auto) 0.0 x10^3/uL (0.0-0.2) Segmented Neutrophils % 90 % (35-66) Band Neutrophils % 1 % (0-9) Lymphocytes % 5 % (24-48) Monocytes % 4 % (0-10) Platelet Estimate Adequate (ADEQUATE) Prothrombin Time 14.5 SEC (11.7-14.0) Prothromb Time International Ratio 1.2 (0.8-1.1) Sodium Level 138 mmol/L (136-145) Potassium Level 4.2 mmol/L (3.5-5.1) Chloride Level 104 mmol/L (98-107) Carbon Dioxide Level 22 mmol/L (21-32) Anion Gap 12 (6-14) Blood Urea Nitrogen 46 mg/dL (7-20) Creatinine 1.4 mg/dL (0.6-1.0) Estimated GFR (Cockcroft-Gault) 35.7 BUN/Creatinine Ratio 33 (6-20) Glucose Level 128 mg/dL (70-99) Calcium Level 8.9 mg/dL (8.5-10.1) Total Bilirubin 0.4 mg/dL (0.2-1.0) Aspartate Amino Transf (AST/SGOT) 23 U/L (15-37) Alanine Aminotransferase (ALT/SGPT) 29 U/L (14-59) Alkaline Phosphatase 48 U/L (46-116) Total Protein 5.9 g/dL (6.4-8.2) Albumin 2.4 g/dL (3.4-5.0) Albumin/Globulin Ratio 0.7 (1.0-1.7) Medications Active Scripts Medications Dose Route/Sig Max Daily Dose Days Date Category Mucinex Dm Er 600-30 Mg Tablet (Guaifenesin/Dextromethorphan) 1 Each Tab.er.12h 1 Tab PO BID PRN 14 11/23/20 Reported Aspirin 325 Mg Tablet 1 Tab PO DAILY 11/23/20 Reported Vitamin B-12 (Cyanocobalamin (Vitamin B-12)) 1,000 Mcg Tablet 1 Tab PO DAILY 30 11/23/20 Reported Vitamin D3 Complete Caplet (Mv-Mn/Iron/Fa/Herbal Cmplx#190) 1 Each Tablet 1 Each PO DAILY 11/23/20 Reported Vitamin C (Ascorbic Acid) 500 Mg Capsule.er 2 Cap PO BID 30 11/23/20 Reported Metoprolol Tartrate 25 Mg Tablet 1 Tab PO BID 11/23/20 Reported Multaq (Dronedarone Hcl) 400 Mg Tablet 1 Tab PO BID 11/23/20 Reported Zofran (Ondansetron Hcl) 4 Mg Tablet 1 Tab PO PRN Q6-8HRS PRN 06/11/18 Rx Flovent 44MCG Hfa (Fluticasone Propionate) 10.6 Gm Aer.w.adap 10.6 Gm IH DAILY 07/29/15 Reported Xopenex Hfa (Levalbuterol Tartrate) 15 Gm Hfa.aer.ad 15 Gm IH PRN 07/20/14 Reported Verapamil Er (Verapamil Hcl) 120 Mg Tablet.er 120 Mg PO DAILY 07/20/14 Reported Pravastatin Sodium 80 Mg Tablet 80 Mg PO DAILY 07/20/14 Reported Daliresp (Roflumilast) 500 Mcg Tablet 500 Mcg PO DAILY 07/20/14 Reported Wellbutrin Xl (Bupropion Hcl) 300 Mg Tab.er.24h 300 Mg PO DAILY 07/20/14 Reported Albuterol Sulfate Conc Neb Soln (Albuterol Sulfate) 2.5 Mg/0.5 Ml Vial.neb 1 Vial NEB QID 07/20/14 Reported Advair 250-50 Diskus (Fluticasone/Salmeterol) 1 Each Disk.w.dev 1 Puff IH BID 07/20/[address] head IMPRESSION: 1. No intracranial hemorrhage. 2. Evolving large subacute right MCA territory infarct with edema. No midline shift. Impression . IMPRESSION: 1. Chronic respiratory failure. 2. Chronic obstructive pulmonary disease with mild acute exacerbation . 3. MCA infarct, status post tPA. 4. Dysphagia. 5. Left-sided hemiparesis. 6. Acute on chronic diastolic heart failure. Plan . PLAN: Continue supplemental oxygen, remains on 2 liters N/C Follow neurology recs -- S/P TPA ---11/22 NEBS Continue cardene gtt for HTN PT/OT/ST PPN till pass swallow study DVT/GI PPX D/W RN PIERO GUTIERREZ MD Nov 26, 2020 10:26
[2020-11-26] MEDS: ENOXAPARIN 30 MG/0.3 ML SYRINGE. SQ SCH (12:30)
--- NOTE | 2020-11-26 13:56 | NUR ---
SS following up with discharge planning. SS reviewed pt chart and discussed with pt RN. Pt is currently on room air. COVID19 negative. Pt on IV Azithromycin. NPO and on PPN. PT/OT recommended acute rehabilitation. Referral was sent to [facility], ; fax [phone]. SS phoned and faxed clinical updates to [facility]. Pt needing PO diet prior to acceptance. ST following. Pt transferring to room 205. SS will continue to follow for discharge planning.
--- NOTE | 2020-11-26 14:00 | PDOC ---
PROGRESS NOTES Date of Service: DATE: 11/26/20 TIME: 13:59 Chief Complaint Chief Complaint acute stoke, RIGHT MCA, s/p TPA given left hemiparesis hand face left sided neglect obese, BMI 35 DM2 History of Present Illness History of Present Illness some stridor today, was on bipap, started breathing treatments, will do IV steroids, then inhl pt and Ot still discussed restarting full anti-coag with CV consult, maybe 7 days post TPA is most safe, will also ask neuro consult Vitals Vitals Vital Signs Date Time Temp Pulse Resp B/P (MAP) Pulse Ox O2 Delivery O2 Flow Rate FiO2 11/26/20 12:29 95 140/72 11/26/20 12:00 20 100 Room Air 11/26/20 12:00 1.0 11/26/20 11:00 97.4 97.4 Physical Exam Physical Exam neuro better, left hand movement adn talking better, General: Alert, Cooperative, mild distress Heart: Regular rate, Normal S1, Other (distant heart tones, IRRR; tele AFIB with RVR) Lungs: Clear Abdomen: Soft Extremities: No clubbing, Normal pulses, Other (1+ bilateral UE edema. ) Skin: No rashes, No significant lesion Labs LABS Laboratory Tests Test 11/26/20 06:55 White Blood Count 9.7 x10^3/uL (4.0-11.0) Red Blood Count 3.06 x10^6/uL (3.50-5.40) Hemoglobin 10.0 g/dL (12.0-15.5) Hematocrit 29.9 % (36.0-47.0) Mean Corpuscular Volume 98 fL (79-100) Mean Corpuscular Hemoglobin 33 pg (25-35) Mean Corpuscular Hemoglobin Concent 34 g/dL (31-37) Red Cell Distribution Width 13.3 % (11.5-14.5) Platelet Count 176 x10^3/uL (140-400) Neutrophils (%) (Auto) 90 % (31-73) Lymphocytes (%) (Auto) 5 % (24-48) Monocytes (%) (Auto) 5 % (0-9) Eosinophils (%) (Auto) 0 % (0-3) Basophils (%) (Auto) 0 % (0-3) Neutrophils # (Auto) 8.8 x10^3/uL (1.8-7.7) Lymphocytes # (Auto) 0.4 x10^3/uL (1.0-4.8) Monocytes # (Auto) 0.5 x10^3/uL (0.0-1.1) Eosinophils # (Auto) 0.0 x10^3/uL (0.0-0.7) Basophils # (Auto) 0.0 x10^3/uL (0.0-0.2) Segmented Neutrophils % 90 % (35-66) Band Neutrophils % 1 % (0-9) Lymphocytes % 5 % (24-48) Monocytes % 4 % (0-10) Platelet Estimate Adequate (ADEQUATE) Prothrombin Time 14.5 SEC (11.7-14.0) Prothromb Time International Ratio 1.2 (0.8-1.1) Sodium Level 138 mmol/L (136-145) Potassium Level 4.2 mmol/L (3.5-5.1) Chloride Level 104 mmol/L (98-107) Carbon Dioxide Level 22 mmol/L (21-32) Anion Gap 12 (6-14) Blood Urea Nitrogen 46 mg/dL (7-20) Creatinine 1.4 mg/dL (0.6-1.0) Estimated GFR (Cockcroft-Gault) 35.7 BUN/Creatinine Ratio 33 (6-20) Glucose Level 128 mg/dL (70-99) Calcium Level 8.9 mg/dL (8.5-10.1) Total Bilirubin 0.4 mg/dL (0.2-1.0) Aspartate Amino Transf (AST/SGOT) 23 U/L (15-37) Alanine Aminotransferase (ALT/SGPT) 29 U/L (14-59) Alkaline Phosphatase 48 U/L (46-116) Total Protein 5.9 g/dL (6.4-8.2) Albumin 2.4 g/dL (3.4-5.0) Albumin/Globulin Ratio 0.7 (1.0-1.7) Review of Systems Review of Systems lookign left better Assessment and Plan Assessmemt and Plan Problems Medical Problems: (1) Acute CVA (cerebrovascular accident) Status: Acute (2) Hypoxia Status: Acute (3) Lactic acidosis Status: Acute (4) Pulmonary vascular congestion Status: Acute (5) Suspected 2019 novel coronavirus infection Status: Acute Comment Review of Relevant I have reviewed the following items gerry (where applicable) has been applied. Labs Laboratory Tests Test 11/25/20 09:06 11/26/20 06:55 White Blood Count 12.4 x10^3/uL (4.0-11.0) 9.7 x10^3/uL (4.0-11.0) Red Blood Count 3.32 x10^6/uL (3.50-5.40) 3.06 x10^6/uL (3.50-5.40) Hemoglobin 10.6 g/dL (12.0-15.5) 10.0 g/dL (12.0-15.5) Hematocrit 32.6 % (36.0-47.0) 29.9 % (36.0-47.0) Mean Corpuscular Volume 98 fL (79-100) 98 fL (79-100) Mean Corpuscular Hemoglobin 32 pg (25-35) 33 pg (25-35) Mean Corpuscular Hemoglobin Concent 33 g/dL (31-37) 34 g/dL (31-37) Red Cell Distribution Width 13.7 % (11.5-14.5) 13.3 % (11.5-14.5) Platelet Count 185 x10^3/uL (140-400) 176 x10^3/uL (140-400) Neutrophils (%) (Auto) 83 % (31-73) 90 % (31-73) Lymphocytes (%) (Auto) 6 % (24-48) 5 % (24-48) Monocytes (%) (Auto) 9 % (0-9) 5 % (0-9) Eosinophils (%) (Auto) 1 % (0-3) 0 % (0-3) Basophils (%) (Auto) 1 % (0-3) 0 % (0-3) Neutrophils # (Auto) 10.4 x10^3/uL (1.8-7.7) 8.8 x10^3/uL (1.8-7.7) Lymphocytes # (Auto) 0.8 x10^3/uL (1.0-4.8) 0.4 x10^3/uL (1.0-4.8) Monocytes # (Auto) 1.1 x10^3/uL (0.0-1.1) 0.5 x10^3/uL (0.0-1.1) Eosinophils # (Auto) 0.1 x10^3/uL (0.0-0.7) 0.0 x10^3/uL (0.0-0.7) Basophils # (Auto) 0.1 x10^3/uL (0.0-0.2) 0.0 x10^3/uL (0.0-0.2) Sodium Level 139 mmol/L (136-145) 138 mmol/L (136-145) Potassium Level 4.0 mmol/L (3.5-5.1) 4.2 mmol/L (3.5-5.1) Chloride Level 104 mmol/L (98-107) 104 mmol/L (98-107) Carbon Dioxide Level 23 mmol/L (21-32) 22 mmol/L (21-32) Anion Gap 12 (6-14) 12 (6-14) Blood Urea Nitrogen 30 mg/dL (7-20) 46 mg/dL (7-20) Creatinine 1.2 mg/dL (0.6-1.0) 1.4 mg/dL (0.6-1.0) Estimated GFR (Cockcroft-Gault) 42.7 35.7 BUN/Creatinine Ratio 25 (6-20) 33 (6-20) Glucose Level 119 mg/dL (70-99) 128 mg/dL (70-99) Calcium Level 8.9 mg/dL (8.5-10.1) 8.9 mg/dL (8.5-10.1) Total Bilirubin 0.7 mg/dL (0.2-1.0) 0.4 mg/dL (0.2-1.0) Aspartate Amino Transf (AST/SGOT) 34 U/L (15-37) 23 U/L (15-37) Alanine Aminotransferase (ALT/SGPT) 30 U/L (14-59) 29 U/L (14-59) Alkaline Phosphatase 49 U/L (46-116) 48 U/L (46-116) Total Protein 6.3 g/dL (6.4-8.2) 5.9 g/dL (6.4-8.2) Albumin 2.9 g/dL (3.4-5.0) 2.4 g/dL (3.4-5.0) Albumin/Globulin Ratio 0.9 (1.0-1.7) 0.7 (1.0-1.7) Thyroid Stimulating Hormone (TSH) 0.443 uIU/mL (0.358-3.74) Segmented Neutrophils % 90 % (35-66) Band Neutrophils % 1 % (0-9) Lymphocytes % 5 % (24-48) Monocytes % 4 % (0-10) Platelet Estimate Adequate (ADEQUATE) Prothrombin Time 14.5 SEC (11.7-14.0) Prothromb Time International Ratio 1.2 (0.8-1.1) Laboratory Tests Test 11/26/20 06:55 White Blood Count 9.7 x10^3/uL (4.0-11.0) Red Blood Count 3.06 x10^6/uL (3.50-5.40) Hemoglobin 10.0 g/dL (12.0-15.5) Hematocrit 29.9 % (36.0-47.0) Mean Corpuscular Volume 98 fL (79-100) Mean Corpuscular Hemoglobin 33 pg (25-35) Mean Corpuscular Hemoglobin Concent 34 g/dL (31-37) Red Cell Distribution Width 13.3 % (11.5-14.5) Platelet Count 176 x10^3/uL (140-400) Neutrophils (%) (Auto) 90 % (31-73) Lymphocytes (%) (Auto) 5 % (24-48) Monocytes (%) (Auto) 5 % (0-9) Eosinophils (%) (Auto) 0 % (0-3) Basophils (%) (Auto) 0 % (0-3) Neutrophils # (Auto) 8.8 x10^3/uL (1.8-7.7) Lymphocytes # (Auto) 0.4 x10^3/uL (1.0-4.8) Monocytes # (Auto) 0.5 x10^3/uL (0.0-1.1) Eosinophils # (Auto) 0.0 x10^3/uL (0.0-0.7) Basophils # (Auto) 0.0 x10^3/uL (0.0-0.2) Segmented Neutrophils % 90 % (35-66) Band Neutrophils % 1 % (0-9) Lymphocytes % 5 % (24-48) Monocytes % 4 % (0-10) Platelet Estimate Adequate (ADEQUATE) Prothrombin Time 14.5 SEC (11.7-14.0) Prothromb Time International Ratio 1.2 (0.8-1.1) Sodium Level 138 mmol/L (136-145) Potassium Level 4.2 mmol/L (3.5-5.1) Chloride Level 104 mmol/L (98-107) Carbon Dioxide Level 22 mmol/L (21-32) Anion Gap 12 (6-14) Blood Urea Nitrogen 46 mg/dL (7-20) Creatinine 1.4 mg/dL (0.6-1.0) Estimated GFR (Cockcroft-Gault) 35.7 BUN/Creatinine Ratio 33 (6-20) Glucose Level 128 mg/dL (70-99) Calcium Level 8.9 mg/dL (8.5-10.1) Total Bilirubin 0.4 mg/dL (0.2-1.0) Aspartate Amino Transf (AST/SGOT) 23 U/L (15-37) Alanine Aminotransferase (ALT/SGPT) 29 U/L (14-59) Alkaline Phosphatase 48 U/L (46-116) Total Protein 5.9 g/dL (6.4-8.2) Albumin 2.4 g/dL (3.4-5.0) Albumin/Globulin Ratio 0.7 (1.0-1.7) Microbiology 11/23/20 Blood Culture - Preliminary, Resulted NO GROWTH AFTER 3 DAYS Medications Current Medications Sodium Chloride 1,000 ml @ 1,000 mls/hr Q1H IV Last administered on 11/22/20at 19:31; Start 11/22/20 at 19:15; Stop 11/22/20 at 20:14; Status DC Alteplase, Recombinant 9 ml @ 540 mls/hr 1X ONCE IV Last administered on 11/22/20at 19:57; Start 11/22/20 at 19:45; Stop 11/22/20 at 19:46; Status DC Alteplase, Recombinant 81 ml @ 81 mls/hr Q1H IV Last administered on 11/22/20at 20:00; Start 11/22/20 at 19:45; Stop 11/22/20 at 20:44; Status DC Sodium Chloride 50 ml @ 200 mls/hr 1X ONCE IV Last administered on 11/22/20at 20:10; Start 11/22/20 at 19:45; Stop 11/22/20 at 19:59; Status DC Alteplase, Recombinant 10 ml @ 600 mls/hr 1X ONCE IV ; Start 11/22/20 at 19:45; Stop 11/22/20 at 19:46; Status UNV Alteplase, Recombinant 90 ml @ 90 mls/hr 1X ONCE IV ; Start 11/22/20 at 19:45; Stop 11/22/20 at 20:44; Status UNV Sodium Chloride 50 ml @ 50 mls/hr 1X ONCE IV ; Start 11/22/20 at 19:45; Stop 11/22/20 at 20:44; Status UNV Aspirin (Aspirin Rectal Supp) 300 mg 1X ONCE [place] Last administered on 11/22/20at 20:16; Start 11/22/20 at 19:45; Stop 11/22/20 at 19:48; Status DC Iohexol (Omnipaque 300 Mg/ml) 60 ml 1X ONCE IV Last administered on 11/22/20at 20:38; Start 11/22/20 at 20:15; Stop 11/22/20 at 20:16; Status DC Info (CONTRAST GIVEN -- Rx MONITORING) 1 each PRN DAILY PRN MC SEE COMMENTS; Start 11/22/20 at 20:30; Stop 11/24/20 at 20:29; Status DC Ondansetron HCl (Zofran) 4 mg PRN Q8HRS PRN IV NAUSEA/VOMITING 1ST CHOICE Last administered on 11/23/20at 04:05; Start 11/22/20 at 21:45; Stop 11/23/20 at 21 :44; Status DC Bumetanide (Bumex) 0.5 mg 1X ONCE IV Last administered on 11/23/20at 00:51; Start 11/22/20 at 23:30; Stop 11/22/20 at 23:31; Status DC Labetalol HCl (Normodyne Iv Push) 10 mg PRN Q10MIN PRN IVP HYPERTENSION Last administered on 11/24/20at 13:07; Start 11/23/20 at 02:15; Stop 11/24/20 at 15:00; Status DC Nicardipine HCl 50 mg/Sodium Chloride 250 ml @ 25 mls/hr CONT PRN PRN IV HYPERTENSION Last administered on 11/23/20at 15:53; Start 11/23/20 at 02:15; Stop 11/24/20 at 09:35; Status DC Potassium Chloride/Water 100 ml @ 100 mls/hr Q1H IV Last administered on 11/23/20at 07:34; Start 11/23/20 at 03:00; Stop 11/23/20 at 06:59; Status DC Magnesium Sulfate 50 ml @ 25 mls/hr 1X ONCE IV Last administered on 11/23/20at 04:31; Start 11/23/20 at 03:00; Stop 11/23/20 at 04:59; Status DC Amino Acids/ Glycerin/ Electrolytes 1,000 ml @ 80 mls/hr [id number] IV Last administered on 11/26/20at 02:02; Start 11/23/20 at 11:30 Cyanocobalamin (Vitamin B-12) 1,000 mcg DAILY PO ; Start 11/24/20 at 09:00 Dronedarone (Multaq) 400 mg BID PO ; Start 11/23/20 at 21:00 Guaifenesin (MUCINEX ER with DM) 1 tab PRN BID PRN PO cough and congestion; Start 11/23/20 at 12:00 Metoprolol Tartrate (Lopressor) 25 mg BID PO ; Start 11/23/20 at 21:00 Roflumilast (Daliresp) 500 mcg DAILY PO ; Start 11/24/20 at 09:00 Verapamil HCl (Calan Sr) 120 mg DAILY PO ; Start 11/23/20 at 13:00 Albuterol Sulfate (Ventolin Neb Soln) 2.5 mg RTQID NEB Last administered on 11/26/20at 11:10; Start 11/23/20 at 16:00 Bupropion HCl (Wellbutrin Xl) 300 mg DAILY PO ; Start 11/23/20 at 13:00 Non-Formulary Medication (Fluticasone Propionate (Flovent 44MCG Hfa)) 10.6 gm DAILY IH ; Start 11/24/20 at 09:00; Status UNV Non-Formulary Medication (Fluticasone/ Salmeterol (Advair 250-50 Diskus)) 1 puff BID IH ; Start 11/23/20 at 21:00; Status UNV Atorvastatin Calcium (Lipitor) 20 mg QHS PO ; Start 11/23/20 at 21:00 Budesonide (Pulmicort) 0.5 mg RTBID NEB Last administered on 11/26/20at 07:19; Start 11/23/20 at 20:00 Metoprolol Tartrate (Lopressor Vial) 2.5 mg Q6HRS IVP Last administered on 11/25/20at 05:31; Start 11/23/20 at 18:00; Stop 11/25/20 at 08:41; Status DC Metoprolol Tartrate (Lopressor Vial) 2.5 mg 1X ONCE IVP Last administered on 11/23/20at 13:01; Start 11/23/20 at 13:00; Stop 11/23/20 at 13:01; Status DC Azithromycin 250 ml @ 250 mls/hr 1X ONCE IV ; Start 11/23/20 at 14:15; Stop 11/23/20 at 15:14; Status UNV Azithromycin 500 mg/Sodium Chloride 250 ml @ 250 mls/hr Q24H IV Last administered on 11/25/20at 16:17; Start 11/23/20 at 16:00 Aspirin (Ecotrin) 81 mg DAILYWBKFT PO ; Start 11/23/20 at 23:30 Clopidogrel Bisulfate (Plavix) 75 mg 1X ONCE PO ; Start 11/23/20 at 23:30; Sto p 11/23/20 at 23:31; Status DC Clopidogrel Bisulfate (Plavix) 75 mg DAILYWBKFT PO ; Start 11/24/20 at 08:00 Diltiazem HCl 125 mg/Sodium Chloride 125 ml @ 5 mls/hr CONT PRN IV SEE ADMIN INSTRUCTIONS Last administered on 11/24/20at 00:17; Start 11/23/20 at 23:45 Labetalol HCl (Normodyne Iv Push) 10 mg PRN Q10MIN PRN IVP HYPERTENSION, see comments Last administered on 11/25/20at 03:05; Start 11/24/20 at 08:45 Nicardipine HCl 50 mg/Sodium Chloride 250 ml @ 25 mls/hr CONT PRN PRN IV HYPERTENSION, See comments Last administered on 11/26/20at 08:26; Start 11/24/20 at 08:45 Acetaminophen (Tylenol) 650 mg PRN Q6HRS PRN PO MILD PAIN / TEMP > 100.3'F; Start 11/24/20 at 08:45 Acetaminophen (Tylenol Supp) 650 mg PRN Q6HRS PRN WA MILD PAIN / TEMP > 100.3'F; Start 11/24/20 at 08:45 Ondansetron HCl (Zofran) 4 mg PRN Q6HRS PRN IVP NAUSEA/VOMITING; Start 11/24/20 at 08:45 Enoxaparin Sodium (Lovenox 30mg Syringe) 30 mg Q24H SQ Last administered on 11/26/20at 12:30; Start 11/24/20 at 08:45 Saliva Substitute (Biotene Moisturizing Mouth) 2 spray PRN Q15MIN PRN PO DRY MOUTH Last administered on 11/24/20at 16:37; Start 11/24/20 at 15:45 Haloperidol Lactate (Haldol Inj) 5 mg PRN Q6HRS PRN IVP AGITATION Last administered on 11/25/20at 05:55; Start 11/25/20 at 05:45 Metoprolol Tartrate (Lopressor Vial) 5 mg Q6HRS IVP Last administered on 11/26/20at 12:29; Start 11/25/20 at 09:00 Digoxin (Lanoxin) 500 mcg 1X ONCE IV Last administered on 11/25/20at 12:23; Start 11/25/20 at 12:00; Stop 11/25/20 at 12:01; Status DC Methylprednisolone Sodium Succinate (SOLU-Medrol 40MG VIAL) 40 mg 1X ONCE IV Last administered on 11/25/20at 14:01; Start 11/25/20 at 14:00; Stop 11/25/20 at 14:01; Status DC Budesonide (Pulmicort) 0.5 mg RTBID NEB ; Start 11/25/20 at 20:00 Aspirin (Aspirin Rectal Supp) 300 mg PRN DAILY PRN WA IF UNABLE TO TAKE PO; Start 11/25/20 at 14:00 Hydralazine HCl (Apresoline Inj) 10 mg PRN Q4HRS PRN IVP ELEVATED BP, SEE COMMENTS Last administered on 11/25/20at 14:53; Start 1/19/21 at 15:00 Aspirin (Aspirin Rectal Supp) 300 mg 1X ONCE [place] Last administered on 11/25/20at 22:21; Start 11/25/20 at 21:00; Stop 11/25/20 at 21:01; Status DC Labetalol HCl (Normodyne Iv Push) 20 mg 1X ONCE IVP Last administered on 11/25/20at 15:40; Start 11/25/20 at 15:45; Stop 11/25/20 at 15:46; Status DC Sodium Chloride 1,000 ml @ 100 mls/hr 1X ONCE IV ; Start 11/26/20 at 09:45; Stop 11/26/20 at 19:44 Active Scripts Active Zofran (Ondansetron Hcl) 4 Mg Tablet 1 Tab PO PRN Q6-8HRS PRN Reported Mucinex Dm Er 600-30 Mg Tablet (Guaifenesin/Dextromethorphan) 1 Each Tab.er.12h 1 Tab PO BID PRN 14 Days Aspirin 325 Mg Tablet 1 Tab PO DAILY Vitamin B-12 (Cyanocobalamin (Vitamin B-12)) 1,000 Mcg Tablet 1 Tab PO DAILY 30 Days Vitamin D3 Complete Caplet (Mv-Mn/Iron/Fa/Herbal Cmplx#190) 1 Each Tablet 1 Each PO DAILY Vitamin C (Ascorbic Acid) 500 Mg Capsule.er 2 Cap PO BID 30 Days Metoprolol Tartrate 25 Mg Tablet 1 Tab PO BID Multaq (Dronedarone Hcl) 400 Mg Tablet 1 Tab PO BID Flovent 44MCG Hfa (Fluticasone Propionate) 10.6 Gm Aer.w.adap 10.6 Gm IH DAILY Xopenex Hfa (Levalbuterol Tartrate) 15 Gm Hfa.aer.ad 15 Gm IH PRN Verapamil Er (Verapamil Hcl) 120 Mg Tablet.er 120 Mg PO DAILY Pravastatin Sodium 80 Mg Tablet 80 Mg PO DAILY Daliresp (Roflumilast) 500 Mcg Tablet 500 Mcg PO DAILY Wellbutrin Xl (Bupropion Hcl) 300 Mg Tab.er.24h 300 Mg PO DAILY Albuterol Sulfate Conc Neb Soln (Albuterol Sulfate) 2.5 Mg/0.5 Ml Vial.neb 1 Vial NEB QID Advair 250-50 Diskus (Fluticasone/Salmeterol) 1 Each Disk.w.dev 1 Puff IH BID Vitals/I & O Vital Sign - Last 24 Hours 11/25/20 11/25/20 11/25/20 11/25/20 14:00 14:02 14:53 15:00 Temp 98.1 98.1 Pulse 114 130 111 122 B/P (MAP) 176/106 (129) 203/90 167/75 (105) O2 Delivery Nasal Cannula Nasal Cannula 11/25/20 11/25/20 11/25/20 11/25/20 15:30 15:40 16:00 16:12 Pulse 145 102 B/P (MAP) 128/69 (88) Pulse Ox 100 O2 Delivery BiPAP/CPAP Nasal Cannula Bi-pap 11/25/20 11/25/20 11/25/20 11/25/20 16:32 17:00 18:33 19:00 Pulse 106 112 114 B/P (MAP) 164/76 (105) 166/83 (110) Pulse Ox 100 100 O2 Delivery BiPAP/CPAP Nasal Cannula Nasal Cannula O2 Flow Rate 2.0 11/25/20 11/25/20 11/25/20 11/25/20 20:00 20:14 21:00 21:00 Temp 98.9 98.9 Pulse 86 78 86 B/P (MAP) 150/61 (90) 148/60 138/59 (85) Pulse Ox 100 96 99 O2 Delivery Nasal Cannula Nasal Cannula Nasal Cannula O2 Flow Rate 2.0 1.0 2.0 11/25/20 11/25/20 11/25/20 11/25/20 22:00 22:05 22:05 23:00 Temp 98.4 98.4 Pulse 82 82 Resp 28 B/P (MAP) 148/60 (89) 108/56 (73) Pulse Ox 99 100 O2 Delivery Nasal Cannula Nasal Cannula Nasal Cannula O2 Flow Rate 2.0 2.0 2.0 2.0 11/26/20 11/26/20 11/26/20 11/26/20 00:00 00:07 00:09 00:11 Pulse 85 85 Resp 28 B/P (MAP) 116/52 116/52 (73) Pulse Ox 100 O2 Delivery Nasal Cannula Nasal Cannula O2 Flow Rate 2.0 2.0 2.0 11/26/20 11/26/20 11/26/20 11/26/20 00:58 02:00 03:00 03:56 Temp 98.6 98.6 Pulse 85 83 80 Resp 30 25 24 B/P (MAP) 136/42 (73) 106/55 (72) 109/48 (68) Pulse Ox 100 100 100 O2 Delivery Nasal Cannula Nasal Cannula Nasal Cannula O2 Flow Rate 2.0 2.0 2.0 2.0 11/26/20 11/26/20 11/26/20 11/26/20 03:56 04:00 05:00 06:00 Pulse 90 70 90 Resp 28 26 29 B/P (MAP) 148/50 (82) 128/60 (82) 142/48 (79) Pulse Ox 100 100 100 O2 Delivery Nasal Cannula Nasal Cannula Nasal Cannula Nasal Cannula O2 Flow Rate 2.0 2.0 2.0 2.0 11/26/20 11/26/20 11/26/20 11/26/20 06:01 07:00 07:17 08:00 Temp 98.1 98.1 Pulse 89 85 68 Resp 20 20 B/P (MAP) 142/48 127/58 (81) 118/68 (85) Pulse Ox 100 100 100 O2 Delivery Nasal Cannula Nasal Cannula Nasal Cannula O2 Flow Rate 2.0 1.0 2.0 11/26/20 11/26/20 11/26/20 11/26/20 08:00 08:00 09:00 10:00 Pulse 68 100 Resp 20 22 B/P (MAP) 126/80 (95) 107/71 (83) Pulse Ox 100 100 O2 Delivery Nasal Cannula Nasal Cannula Nasal Cannula O2 Flow Rate 1.0 2.0 2.0 2.0 11/26/20 11/26/20 11/26/20 11/26/20 11:00 11:10 12:00 12:00 Temp 97.4 97.4 Pulse 95 94 Resp 20 20 B/P (MAP) 123/79 (94) 140/72 (94) Pulse Ox 100 100 100 O2 Delivery Nasal Cannula Room Air Room Air O2 Flow Rate 2.0 1.0 11/26/20 12:29 Pulse 95 B/P (MAP) 140/72 Intake and Output 11/25/20 11/25/20 11/26/20 15:00 23:00 07:00 Intake Total 0 ml Output Total 400 ml 100 ml Balance -400 ml -100 ml Justicifation of Admission Dx: Justifications for Admission: Justification of Admission Dx: Yes Stroke - Ischemic: Stroke-Ischemic CORRINA BROWN MD Nov 26, 2020 13:59
--- NOTE | 2020-11-26 18:04 | RAD ---
INDICATION: Reason: Stroke with Alteplase(TPA given 11/25/20) COMPARISON: CT head from November 23, 2019 Technique: Multiplane are, multisequence MRI images are obtained through the brain FINDINGS: Restricted diffusion is identified within the right cerebral hemisphere at the posterior aspect of th e right MCA territory at the site of previously identified stroke and edema. There is edema seen within the right MCA territory most prominent posteriorly. There is some increased mass effect identified. There is approximately 5 mm of midline shift to the l eft now seen. Some of the imaging sequences are limited secondary to patient motion. Small amount of fluid within the sphenoid sinus. Scattered foci of high T2 signal within the white matter. Prominence of ventricles and sulci again seen which can be from age-related volume loss. There is some small foci of blooming artifact seen within the region of edema. IMPRESSION: * Restricted diffusion within the right MCA territory consistent with the patient's previously iden tified right MCA acute ischemia. There is also edema throughout this region with increased mass effec t and development of approximately 5 mm of midline shift to the left. There is some tiny foci of bloo shen artifact seen within the region which could be from a small amount of blood products within the region from microvascular regions of hemorrhage or occlusion of small peripheral vessels. [facility] is predominantly secondary to the edema and not secondary to blood products in the reg ion. Report called to the patient's floor at 5:55 PM on date of exam Electronically signed by: José Miguel Sutton MD (11/26/2020 6:02 PM) [id number]
[2020-11-26] MEDS: AZITHROMYCIN 500 MG in IV NORMAL SALINE 250ML 250 ML IV SCH (18:09)
[2020-11-26] MEDS: ATORVASTATIN CALCIUM 20 MG TABLET PO SCH (20:49)
[2020-11-27] VITALS (24 sets, daily range): BP systolic 122–177; BP diastolic 58–106
[2020-11-27] MEDS: AMINO AC 3%/ELECTROLYTE/GLYCER 1,000 ML IV SCH ×2 (05:42→15:37)
[2020-11-27] MEDS: METOPROLOL IV PUSH 5 MG/5 ML VIAL. IVP SCH ×3 (05:43→17:28)
[2020-11-27] MEDS: BUDESONIDE 0.5 MG/2 ML NEBU. NEB SCH ×3 (07:24→19:35)
[2020-11-27] MEDS: ALBUTEROL SULFATE 2.5 MG/3 ML NEBU. NEB SCH ×4 (07:24→19:35)
[2020-11-27] MEDS: CLOPIDOGREL BISULFATE 75 MG TABLET PO SCH (08:00)
[2020-11-27] MEDS: ROFLUMILAST 500 MCG TABLET. PO SCH (09:00)
[2020-11-27] MEDS: buPROPion XL 150 MG TAB.ER.24H. PO SCH (09:00)
[2020-11-27] MEDS: VERAPAMIL SR 120 MG TABLET.ER. PO SCH (09:00)
[2020-11-27] MEDS: CYANOCOBALAMIN (VITAMIN B-12) 1,000 MCG TABLET. PO SCH (09:00)
[2020-11-27] MEDS: METOPROLOL TART IMMED RELEASE 25 MG TABLET. PO SCH ×2 (09:00→21:00)
[2020-11-27] MEDS: DRONEDARONE HCL 400 MG TABLET PO SCH (09:00)
[2020-11-27] MEDS: ENOXAPARIN 30 MG/0.3 ML SYRINGE. SQ SCH (09:30)
--- NOTE | 2020-11-27 10:25 | PDOC ---
PULMONARY PROGRESS NOTES DATE: 11/27/20 TIME: 10:23 Subjective PT. is on room air Remains NPO, planned for video swallow today no overnight concerns Vitals Vital Signs Date Time Temp Pulse Resp B/P (MAP) Pulse Ox O2 Delivery O2 Flow Rate FiO2 11/27/20 07:27 100 Nasal Cannula 2.0 11/27/20 07:00 97.8 92 24 145/99 (114) 97.8 Comments Left side weakness and facial droop ROS: No Nausea, No Chest Pain, No Abdominal Pain, No Increase Cough General: Alert Lungs: Clear Cardiovascular: S1, S2 Abdomen: Soft, Non-tender Skin: Warm, Dry Labs Laboratory Tests Test 11/26/20 06:55 White Blood Count 9.7 x10^3/uL (4.0-11.0) Red Blood Count 3.06 x10^6/uL (3.50-5.40) Hemoglobin 10.0 g/dL (12.0-15.5) Hematocrit 29.9 % (36.0-47.0) Mean Corpuscular Volume 98 fL (79-100) Mean Corpuscular Hemoglobin 33 pg (25-35) Mean Corpuscular Hemoglobin Concent 34 g/dL (31-37) Red Cell Distribution Width 13.3 % (11.5-14.5) Platelet Count 176 x10^3/uL (140-400) Neutrophils (%) (Auto) 90 % (31-73) Lymphocytes (%) (Auto) 5 % (24-48) Monocytes (%) (Auto) 5 % (0-9) Eosinophils (%) (Auto) 0 % (0-3) Basophils (%) (Auto) 0 % (0-3) Neutrophils # (Auto) 8.8 x10^3/uL (1.8-7.7) Lymphocytes # (Auto) 0.4 x10^3/uL (1.0-4.8) Monocytes # (Auto) 0.5 x10^3/uL (0.0-1.1) Eosinophils # (Auto) 0.0 x10^3/uL (0.0-0.7) Basophils # (Auto) 0.0 x10^3/uL (0.0-0.2) Segmented Neutrophils % 90 % (35-66) Band Neutrophils % 1 % (0-9) Lymphocytes % 5 % (24-48) Monocytes % 4 % (0-10) Platelet Estimate Adequate (ADEQUATE) Prothrombin Time 14.5 SEC (11.7-14.0) Prothromb Time International Ratio 1.2 (0.8-1.1) Sodium Level 138 mmol/L (136-145) Potassium Level 4.2 mmol/L (3.5-5.1) Chloride Level 104 mmol/L (98-107) Carbon Dioxide Level 22 mmol/L (21-32) Anion Gap 12 (6-14) Blood Urea Nitrogen 46 mg/dL (7-20) Creatinine 1.4 mg/dL (0.6-1.0) Estimated GFR (Cockcroft-Gault) 35.7 BUN/Creatinine Ratio 33 (6-20) Glucose Level 128 mg/dL (70-99) Calcium Level 8.9 mg/dL (8.5-10.1) Total Bilirubin 0.4 mg/dL (0.2-1.0) Aspartate Amino Transf (AST/SGOT) 23 U/L (15-37) Alanine Aminotransferase (ALT/SGPT) 29 U/L (14-59) Alkaline Phosphatase 48 U/L (46-116) Total Protein 5.9 g/dL (6.4-8.2) Albumin 2.4 g/dL (3.4-5.0) Albumin/Globulin Ratio 0.7 (1.0-1.7) Medications Active Scripts Medications Dose Route/Sig Max Daily Dose Days Date Category Mucinex Dm Er 600-30 Mg Tablet (Guaifenesin/Dextromethorphan) 1 Each Tab.er.12h 1 Tab PO BID PRN 14 11/23/20 Reported Aspirin 325 Mg Tablet 1 Tab PO DAILY 11/23/20 Reported Vitamin B-12 (Cyanocobalamin (Vitamin B-12)) 1,000 Mcg Tablet 1 Tab PO DAILY 30 11/23/20 Reported Vitamin D3 Complete Caplet (Mv-Mn/Iron/Fa/Herbal Cmplx#190) 1 Each Tablet 1 Each PO DAILY 11/23/20 Reported Vitamin C (Ascorbic Acid) 500 Mg Capsule.er 2 Cap PO BID 30 11/23/20 Reported Metoprolol Tartrate 25 Mg Tablet 1 Tab PO BID 11/23/20 Reported Multaq (Dronedarone Hcl) 400 Mg Tablet 1 Tab PO BID 11/23/20 Reported Zofran (Ondansetron Hcl) 4 Mg Tablet 1 Tab PO PRN Q6-8HRS PRN 06/11/18 Rx Flovent 44MCG Hfa (Fluticasone Propionate) 10.6 Gm Aer.w.adap 10.6 Gm IH DAILY 07/29/15 Reported Xopenex Hfa (Levalbuterol Tartrate) 15 Gm Hfa.aer.ad 15 Gm IH PRN 07/20/14 Reported Verapamil Er (Verapamil Hcl) 120 Mg Tablet.er 120 Mg PO DAILY 07/20/14 Reported Pravastatin Sodium 80 Mg Tablet 80 Mg PO DAILY 07/20/14 Reported Daliresp (Roflumilast) 500 Mcg Tablet 500 Mcg PO DAILY 07/20/14 Reported Wellbutrin Xl (Bupropion Hcl) 300 Mg Tab.er.24h 300 Mg PO DAILY 07/20/14 Reported Albuterol Sulfate Conc Neb Soln (Albuterol Sulfate) 2.5 Mg/0.5 Ml Vial.neb 1 Vial NEB QID 07/20/14 Reported Advair 250-50 Diskus (Fluticasone/Salmeterol) 1 Each Disk.w.dev 1 Puff IH BID 07/20/[address] head IMPRESSION: 1. No intracranial hemorrhage. 2. Evolving large subacute right MCA territory infarct with edema. No midline shift. Impression . IMPRESSION: 1. Chronic respiratory failure-- improving 2. Chronic obstructive pulmonary disease with mild acute exacerbation . 3. MCA infarct, status post tPA. 4. Dysphagia. 5. Left-sided hemiparesis. 6. Acute on chronic diastolic heart failure. Plan . PLAN: Continue supplemental oxygen, now on room air Follow neurology recs -- S/P TPA ---11/22 NEBS HTN per PCP PT/OT/ST PPN till pass swallow study--- planned for video swallow today DVT/GI PPX D/W [employer] worker for D/C planning would benefit from rehab We will see on a PRN basis please call with any questions or concerns Thank you PIERO GUTIERREZ MD Nov 27, 2020 10:25
--- NOTE | 2020-11-27 11:10 | PDOC ---
CLIF MCCANN SALON DESIGNER 11/27/20 1110: CARDIO Progress Notes Date and Time Date of Service 11/27/20 Time of Evaluation 1100 Subjective Subjective: No Chest Pain, No shortness of breath, Other Vitals Vitals Vital Signs Date Time Temp Pulse Resp B/P (MAP) Pulse Ox O2 Delivery O2 Flow Rate FiO2 11/27/20 10:47 96 Room Air 11/27/20 07:27 2.0 11/27/20 07:00 97.8 92 24 145/99 (114) 97.8 Weight Weight [ ] Input and Output Intake and Output Intake and Output 11/27/20 07:00 Intake Total 1700 ml Output Total 400 ml Balance 1300 ml Intake Oral 400 ml IV Total 1300 ml Output Urine Total 400 ml # Voids 3 # Bowel Movements 1 Microbiology Micro Microbiology 11/23/20 Blood Culture - Preliminary, Resulted NO GROWTH AFTER 3 DAYS Physical Exam HEENT: Neck Supple W Full Motion Chest: Symmetric LUNGS: Other (diminished bases) Heart: irregularly irregular (AFIB, rate controlled ) Abdomen: Soft N/T Extremities: Other (mild anasarca, left-sided weakness ) Neurology: alert, oriented, follow commands Assessment Assessment 1. 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 s/p TPA 11/22 2. PAFIB; Declined OAC multiple times in past. Remains in AFIB, rate controlled overall. Discontinue Multaq 3. Hypertensive urgency; off Cardene. BP better controlled 4. Acute respiratory failure with underlying COPD; improved. on RA 5. Acute on chronic diastolic CHF; appears compensated 6. Mild troponin elevation; highest 0.06. Most probable type II, demand ischemia. Echo with preserved LV systolic function 7. SHELLEY; Cr stable 8. Leukocytosis, fevers 9. Dysphagia 10. Severe pulmonary hypertension; PAP 67 mmHg. Recommendations Continue IV Metoprolol for rate control Swallow evaluation today; will start oral rate control when able to take PO Continue Cardene gtt while NPO Allow for higher baseline blood pressure given acute stroke Will give dose of IV lasix today Statin when able to take oral On low-dose anticoagulation therapy with Lovenox Too high risk for full anticoagulation with large infarct. Will consider initiation at a later date Consider outpatient CV if OAC can safely be resumed Rehab modalities Supportive care Justicifation of Admission Dx: Justifications for Admission: Justification of Admission Dx: Yes Stroke - Ischemic: Stroke-Ischemic RAMÓN WHITNEY MD 11/27/20 1535: CARDIO Progress Notes Plan Plan Patient seen and examined. Agree with above nurse practitioner note. Discussed with son at bedside. CLIF MCCANN APRN Nov 27, 2020 11:10 RAMÓN WHITNEY MD Nov 27, 2020 15:35
--- NOTE | 2020-11-27 11:27 | NUR ---
SS following up with discharge planning. SS reviewed pt chart and discussed with pt RN. Pt is currently requiring oxygen at two liters nasal canula. COVID19 negative. Pt on IV Azithromycin. PT/OT recommended acute rehabilitation. Pt accepted at [facility], ; fax [phone], pending diet. Pt is NPO and on PPN. Video swallow scheduled for today. SS will continue to follow for discharge planning.
--- NOTE | 2020-11-27 12:20 | EKG ---
[facility] [address] [place] [address] Test Date: 2020-11-27 Test Time: 12:18:57 Pat Name: OWEN CARROLL Department: Room: 205 1 Gender: F Master Scheduler: GABRIEL : 1935 Requested By: CLIF MCCANN Order Number: [id number] Reading MD: Measurements Intervals Parker Rate: 104 P: [place]: QRS: -27 QRSD: 90 T: 171 QT: 328 QTc: 437 Interpretive Statements IRREGULAR RHYTHM, NO P-WAVE FOUND VENTRICULAR PREMATURE COMPLEX(ES) LEFTWARD AXIS QRS(T) CONTOUR ABNORMALITY CONSIDER ANTEROSEPTAL MYOCARDIAL DAMAGE ST & T ABNORMALITY, CONSIDER HIGH LATERAL ISCHEMIA OR LEFT VENTRICULAR STRAIN ABNORMAL ECG RI6.02 Compared to ECG 11/22/2020 19:43:00 T-wave abnormality now present Possible ischemia now present Supraventricular rhythm no longer present Myocardial infarct finding no longer present
[2020-11-27] MEDS: hydrALAZINE 20 MG/ML VIAL. IVP PRN (13:00)
[2020-11-27] MEDS ORDERED: FUROSEMIDE 20 MG/2 ML VIAL. IVP ONE (13:30)
[2020-11-27] MEDS ORDERED: BARIUM SULFATE 40% (APPLE) 148 GM PWD. PO ONE (13:45)
--- NOTE | 2020-11-27 13:56 | PDOC ---
PROGRESS NOTES Date of Service: DATE: 11/27/20 TIME: 13:55 Chief Complaint Chief Complaint acute stoke, RIGHT MCA, s/p TPA given left hemiparesis hand face left sided neglect obese, BMI 35 DM2 History of Present Illness History of Present Illness breathing much better out of ICU swallow eval today, plan acute rehab, they need a diet order to approve she feels better, some improvement in exam Vitals Vitals Vital Signs Date Time Temp Pulse Resp B/P (MAP) Pulse Ox O2 Delivery O2 Flow Rate FiO2 11/27/20 13:00 99 146/70 11/27/20 11:00 98.7 24 99 Room Air 98.7 11/27/20 08:00 2.0 Physical Exam Physical Exam neuro better, left hand movement adn talking better, General: Alert, Cooperative, mild distress Heart: Regular rate, Normal S1, Other (distant heart tones, IRRR; tele AFIB with RVR) Lungs: Clear Abdomen: Soft Extremities: No clubbing, Normal pulses, Other (1+ bilateral UE edema. ) Skin: No rashes, No significant lesion Assessment and Plan Assessmemt and Plan Problems Medical Problems: (1) Acute CVA (cerebrovascular accident) Status: Acute (2) Hypoxia Status: Acute (3) Lactic acidosis Status: Acute (4) Pulmonary vascular congestion Status: Acute (5) Suspected 2019 novel coronavirus infection Status: Acute Comment Review of Relevant I have reviewed the following items gerry (where applicable) has been applied. Labs Laboratory Tests Test 11/26/20 06:55 White Blood Count 9.7 x10^3/uL (4.0-11.0) Red Blood Count 3.06 x10^6/uL (3.50-5.40) Hemoglobin 10.0 g/dL (12.0-15.5) Hematocrit 29.9 % (36.0-47.0) Mean Corpuscular Volume 98 fL (79-100) Mean Corpuscular Hemoglobin 33 pg (25-35) Mean Corpuscular Hemoglobin Concent 34 g/dL (31-37) Red Cell Distribution Width 13.3 % (11.5-14.5) Platelet Count 176 x10^3/uL (140-400) Neutrophils (%) (Auto) 90 % (31-73) Lymphocytes (%) (Auto) 5 % (24-48) Monocytes (%) (Auto) 5 % (0-9) Eosinophils (%) (Auto) 0 % (0-3) Basophils (%) (Auto) 0 % (0-3) Neutrophils # (Auto) 8.8 x10^3/uL (1.8-7.7) Lymphocytes # (Auto) 0.4 x10^3/uL (1.0-4.8) Monocytes # (Auto) 0.5 x10^3/uL (0.0-1.1) Eosinophils # (Auto) 0.0 x10^3/uL (0.0-0.7) Basophils # (Auto) 0.0 x10^3/uL (0.0-0.2) Segmented Neutrophils % 90 % (35-66) Band Neutrophils % 1 % (0-9) Lymphocytes % 5 % (24-48) Monocytes % 4 % (0-10) Platelet Estimate Adequate (ADEQUATE) Prothrombin Time 14.5 SEC (11.7-14.0) Prothromb Time International Ratio 1.2 (0.8-1.1) Sodium Level 138 mmol/L (136-145) Potassium Level 4.2 mmol/L (3.5-5.1) Chloride Level 104 mmol/L (98-107) Carbon Dioxide Level 22 mmol/L (21-32) Anion Gap 12 (6-14) Blood Urea Nitrogen 46 mg/dL (7-20) Creatinine 1.4 mg/dL (0.6-1.0) Estimated GFR (Cockcroft-Gault) 35.7 BUN/Creatinine Ratio 33 (6-20) Glucose Level 128 mg/dL (70-99) Calcium Level 8.9 mg/dL (8.5-10.1) Total Bilirubin 0.4 mg/dL (0.2-1.0) Aspartate Amino Transf (AST/SGOT) 23 U/L (15-37) Alanine Aminotransferase (ALT/SGPT) 29 U/L (14-59) Alkaline Phosphatase 48 U/L (46-116) Total Protein 5.9 g/dL (6.4-8.2) Albumin 2.4 g/dL (3.4-5.0) Albumin/Globulin Ratio 0.7 (1.0-1.7) Microbiology 11/23/20 Blood Culture - Preliminary, Resulted NO GROWTH AFTER 4 DAYS Medications Current Medications Sodium Chloride 1,000 ml @ 1,000 mls/hr Q1H IV Last administered on 11/22/20at 19:31; Start 11/22/20 at 19:15; Stop 11/22/20 at 20:14; Status DC Alteplase, Recombinant 9 ml @ 540 mls/hr 1X ONCE IV Last administered on 11/07 04/27at 19:57; Start 11/22/20 at 19:45; Stop 11/22/20 at 19:46; Status DC Alteplase, Recombinant 81 ml @ 81 mls/hr Q1H IV Last administered on 11/22/20at 20:00; Start 11/22/20 at 19:45; Stop 11/22/20 at 20:44; Status DC Sodium Chloride 50 ml @ 200 mls/hr 1X ONCE IV Last administered on 11/22/20at 20:10; Start 11/22/20 at 19:45; Stop 11/22/20 at 19:59; Status DC Alteplase, Recombinant 10 ml @ 600 mls/hr 1X ONCE IV ; Start 11/22/20 at 19:45; Stop 11/22/20 at 19:46; Status UNV Alteplase, Recombinant 90 ml @ 90 mls/hr 1X ONCE IV ; Start 11/22/20 at 19:45; Stop 11/22/20 at 20:44; Status UNV Sodium Chloride 50 ml @ 50 mls/hr 1X ONCE IV ; Start 11/22/20 at 19:45; Stop 11/22/20 at 20:44; Status UNV Aspirin (Aspirin Rectal Supp) 300 mg 1X ONCE FL Last administered on 11/22/20at 20:16; Start 11/22/20 at 19:45; Stop 11/22/20 at 19:48; Status DC Iohexol (Omnipaque 300 Mg/ml) 60 ml 1X ONCE IV Last administered on 11/22/20at 20:38; Start 11/22/20 at 20:15; Stop 11/22/20 at 20:16; Status DC Info (CONTRAST GIVEN -- Rx MONITORING) 1 each PRN DAILY PRN MC SEE COMMENTS; Start 11/22/20 at 20:30; Stop 11/24/20 at 20:29; Status DC Ondansetron HCl (Zofran) 4 mg PRN Q8HRS PRN IV NAUSEA/VOMITING 1ST CHOICE Last administered on 11/23/20at 04:05; Start 11/22/20 at 21:45; Stop 11/23/20 at 21:44; Status DC Bumetanide (Bumex) 0.5 mg 1X ONCE IV Last administered on 11/23/20at 00:51; Start 11/22/20 at 23:30; Stop 11/22/20 at 23:31; Status DC Labetalol HCl (Normodyne Iv Push) 10 mg PRN Q10MIN PRN IVP HYPERTENSION Last administered on 11/24/20at 13:07; Start 11/23/20 at 02:15; Stop 11/24/20 at 15:00; Status DC Nicardipine HCl 50 mg/Sodium Chloride 250 ml @ 25 mls/hr CONT PRN PRN IV HYPERTENSION Last administered on 11/23/20at 15:53; Start 11/23/20 at 02:15; Stop 11/24/20 at 09:35; Status DC Potassium Chloride/Water 100 ml @ 100 mls/hr Q1H IV Last administered on 11/23/20at 07:34; Start 11/23/20 at 03:00; Stop 11/23/20 at 06:59; Status DC Magnesium Sulfate 50 ml @ 25 mls/hr 1X ONCE IV Last administered on 11/23/20at 04:31; Start 11/23/20 at 03:00; Stop 11/23/20 at 04:59; Status DC Amino Acids/ Glycerin/ Electrolytes 1,000 ml @ 80 mls/hr [id number] IV Last administered on 11/27/20at 05:42; Start 11/23/20 at 11:30 Cyanocobalamin (Vitamin B-12) 1,000 mcg DAILY PO ; Start 11/24/20 at 09:00 Dronedarone (Multaq) 400 mg BID PO ; Start 11/23/20 at 21:00 Guaifenesin (MUCINEX ER with DM) 1 tab PRN BID PRN PO cough and congestion; Start 11/23/20 at 12:00 Metoprolol Tartrate (Lopressor) 25 mg BID PO ; Start 11/23/20 at 21:00 Roflumilast (Daliresp) 500 mcg DAILY PO ; Start 11/24/20 at 09:00 Verapamil HCl (Calan Sr) 120 mg DAILY PO ; Start 11/23/20 at 13:00 Albuterol Sulfate (Ventolin Neb Soln) 2.5 mg RTQID NEB Last administered on 11/27/20at 10:47; Start 11/23/20 at 16:00 Bupropion HCl (Wellbutrin Xl) 300 mg DAILY PO ; Start 11/23/20 at 13:00 Non-Formulary Medication (Fluticasone Propionate (Flovent 44MCG Hfa)) 10.6 gm DAILY IH ; Start 11/24/20 at 09:00; Status UNV Non-Formulary Medication (Fluticasone/ Salmeterol (Advair 250-50 Diskus)) 1 puff BID IH ; Start 11/23/20 at 21:00; Status UNV Atorvastatin Calcium (Lipitor) 20 mg QHS PO ; Start 11/23/20 at 21:00 Budesonide (Pulmicort) 0.5 mg RTBID NEB Last administered on 11/27/20at 07:24; Start 11/23/20 at 20:00 Metoprolol Tartrate (Lopressor Vial) 2.5 mg Q6HRS IVP Last administered on 11/25/20at 05:31; Start 11/23/20 at 18:00; Stop 11/25/20 at 08:41; Status DC Metoprolol Tartrate (Lopressor Vial) 2.5 mg 1X ONCE IVP Last administered on 11/23/20at 13:01; Start 11/23/20 at 13:00; Stop 11/23/20 at 13:01; Status DC Azithromycin 250 ml @ 250 mls/hr 1X ONCE IV ; Start 11/23/20 at 14:15; Stop 11/23/20 at 15:14; Status UNV Azithromycin 500 mg/Sodium Chloride 250 ml @ 250 mls/hr Q24H IV Last administered on 11/26/20at 18:09; Start 11/23/20 at 16:00 Aspirin (Ecotrin) 81 mg DAILYWBKFT PO ; Start 11/23/20 at 23:30 Clopidogrel Bisulfate (Plavix) 75 mg 1X ONCE PO ; Start 11/23/20 at 23:30; Stop 11/23/20 at 23:31; Status DC Clopidogrel Bisulfate (Plavix) 75 mg DAILYWBKFT PO ; Start 11/24/20 at 08:00 Diltiazem HCl 125 mg/Sodium Chloride 125 ml @ 5 mls/hr CONT PRN IV SEE ADMIN INSTRUCTIONS Last administered on 11/24/20at 00:17; Start 11/23/20 at 23:45 Labetalol HCl (Normodyne Iv Push) 10 mg PRN Q10MIN PRN IVP HYPERTENSION, 1ST CHOICE Last administered on 11/25/20at 03:05; Start 11/24/20 at 08:45 Nicardipine HCl 50 mg/Sodium Chloride 250 ml @ 25 mls/hr CONT PRN PRN IV HYPERTENSION, See comments Last administered on 11/27/20at 11:54; Start 11/24/20 at 08:45 Acetaminophen (Tylenol) 650 mg PRN Q6HRS PRN PO MILD PAIN / TEMP > 100.3'F; Start 11/24/20 at 08:45 Acetaminophen (Tylenol Supp) 650 mg PRN Q6HRS PRN FL MILD PAIN / TEMP > 1 00.3'F; Start 11/24/20 at 08:45 Ondansetron HCl (Zofran) 4 mg PRN Q6HRS PRN IVP NAUSEA/VOMITING; Start 11/24/20 at 08:45 Enoxaparin Sodium (Lovenox 30mg Syringe) 30 mg Q24H SQ Last administered on 11/27/20at 09:30; Start 11/24/20 at 08:45 Saliva Substitute (Biotene Moisturizing Mouth) 2 spray PRN Q15MIN PRN PO DRY MOUTH Last administered on 11/24/20at 16:37; Start 11/24/20 at 15:45 Haloperidol Lactate (Haldol Inj) 5 mg PRN Q6HRS PRN IVP AGITATION Last administered on 11/25/20at 05:55; Start 11/25/20 at 05:45 Metoprolol Tartrate (Lopressor Vial) 5 mg Q6HRS IVP Last administered on 11/27/20at 05:43; Start 11/25/20 at 09:00 Digoxin (Lanoxin) 500 mcg 1X ONCE IV Last administered on 11/25/20at 12:23; Start 11/25/20 at 12:00; Stop 11/25/20 at 12:01; Status DC Methylprednisolone Sodium Succinate (SOLU-Medrol 40MG VIAL) 40 mg 1X ONCE IV Last administered on 11/25/20at 14:01; Start 11/25/20 at 14:00; Stop 11/25/20 at 14:01; Status DC Budesonide (Pulmicort) 0.5 mg RTBID NEB Last administered on 11/26/20at 20:53; Start 11/25/20 at 20:00 Aspirin (Aspirin Rectal Supp) 300 mg PRN DAILY PRN [place] IF UNABLE TO TAKE PO; Start 11/25/20 at 14:00 Hydralazine HCl (Apresoline Inj) 10 mg PRN Q4HRS PRN IVP ELEVATED BP, 2ND CHOICE Last administered on 11/27/20at 13:00; Start 11/25/20 at 15:00 Aspirin (Aspirin Rectal Supp) 300 mg 1X ONCE FL Last administered on 11/25/20at 22:21; Start 11/25/20 at 21:00; Stop 11/25/20 at 21:01; Status DC Labetalol HCl (Normodyne Iv Push) 20 mg 1X ONCE IVP Last administered on 11/25/20at 15:40; Start 11/25/20 at 15:45; Stop 11/25/20 at 15:46; Status DC Sodium Chloride 1,000 ml @ 100 mls/hr 1X ONCE IV ; Start 11/26/20 at 09:45; Stop 11/26/20 at 19:44; Status DC Furosemide (Lasix) 20 mg 1X ONCE IVP ; Start 11/27/20 at 13:30; Stop 11/27/20 at 13:34; Status DC Barium Sulfate (Varibar Thin Liquid Apple) 148 gm 1X ONCE PO Last administered on 11/27/20at 13:43; Start 11/27/20 at 13:45; Stop 11/27/20 at 13:46; Status DC Active Scripts Active Zofran (Ondansetron Hcl) 4 Mg Tablet 1 Tab PO PRN Q6-8HRS PRN Reported Mucinex Dm Er 600-30 Mg Tablet (Guaifenesin/Dextromethorphan) 1 Each Tab.er.12h 1 Tab PO BID PRN 14 Days Aspirin 325 Mg Tablet 1 Tab PO DAILY Vitamin B-12 (Cyanocobalamin (Vitamin B-12)) 1,000 Mcg Tablet 1 Tab PO DAILY 30 Days Vitamin D3 Complete Caplet (Mv-Mn/Iron/Fa/Herbal Cmplx#190) 1 Each Tablet 1 Each PO DAILY Vitamin C (Ascorbic Acid) 500 Mg Capsule.er 2 Cap PO BID 30 Days Metoprolol Tartrate 25 Mg Tablet 1 Tab PO BID Multaq (Dronedarone Hcl) 400 Mg Tablet 1 Tab PO BID Flovent 44MCG Hfa (Fluticasone Propionate) 10.6 Gm Aer.w.adap 10.6 Gm IH DAILY Xopenex Hfa (Levalbuterol Tartrate) 15 Gm Hfa.aer.ad 15 Gm IH PRN Verapamil Er (Verapamil Hcl) 120 Mg Tablet.er 120 Mg PO DAILY Pravastatin Sodium 80 Mg Tablet 80 Mg PO DAILY Daliresp (Roflumilast) 500 Mcg Tablet 500 Mcg PO DAILY Wellbutrin Xl (Bupropion Hcl) 300 Mg Tab.er.24h 300 Mg PO DAILY Albuterol Sulfate Conc Neb Soln (Albuterol Sulfate) 2.5 Mg/0.5 Ml Vial.neb 1 Vial NEB QID Advair 250-50 Diskus (Fluticasone/Salmeterol) 1 Each Disk.w.dev 1 Puff IH BID Vitals/I & O Vital Sign - Last 24 Hours 11/26/20 11/26/20 11/26/20 11/26/20 14:00 15:00 15:00 15:36 Temp 98.2 98.2 Pulse 84 87 96 Resp 18 B/P (MAP) 149/99 (116) 137/96 (110) 153/89 (110) Pulse Ox 99 100 99 99 O2 Delivery Room Air Room Air Room Air Room Air 11/26/20 11/26/20 11/26/20 11/26/20 16:00 16:00 18:08 19:05 Pulse 92 92 86 B/P (MAP) 155/75 (101) 155/75 139/63 (88) Pulse Ox 96 O2 Delivery Room Air O2 Flow Rate 1.0 11/26/20 11/26/20 11/26/20 11/26/20 19:38 20:00 20:00 20:05 Temp 96.2 96.2 Pulse 96 88 Resp 18 B/P (MAP) 140/65 (90) 137/63 (87) Pulse Ox 100 O2 Delivery Room Air Nasal Cannula O2 Flow Rate 1.0 2.0 11/26/20 11/26/20 11/26/20 11/26/20 21:05 22:28 23:09 23:15 Temp 97.9 97.9 Pulse 94 81 102 97 Resp 20 B/P (MAP) 144/76 (98) 132/58 (82) 131/72 (91) 131/72 Pulse Ox 100 O2 Delivery Nasal Cannula O2 Flow Rate 2.0 11/27/20 11/27/20 11/27/20 11/27/20 00:05 00:10 01:05 02:00 Pulse 82 86 88 B/P (MAP) 122/61 (81) 133/62 (85) 140/66 (90) O2 Flow Rate 1.0 11/27/20 11/27/20 11/27/20 11/27/20 02:54 04:00 04:00 05:00 Pulse 90 92 92 B/P (MAP) 150/64 (92) 150/70 (96) 135/67 (89) Pulse Ox 100 O2 Delivery Nasal Cannula O2 Flow Rate 2.0 1.0 11/27/20 11/27/20 11/27/20 11/27/20 05:43 06:00 07:00 07:27 Temp 97.8 97.8 Pulse 89 86 92 Resp 24 B/P (MAP) 131/61 124/60 (81) 145/99 (114) Pulse Ox 99 100 O2 Delivery Room Air Nasal Cannula O2 Flow Rate 2.0 11/27/20 11/27/20 11/27/20 11/27/20 08:00 10:47 11:00 13:00 Temp 98.7 98.7 Pulse 99 99 Resp 24 B/P (MAP) 146/70 (95) 146/70 Pulse Ox 96 99 O2 Delivery Nasal Cannula Room Air Room Air O2 Flow Rate 2.0 Intake and Output 11/26/20 11/26/20 11/27/20 15:00 23:00 07:00 Intake Total 0 ml 1650 ml 50 ml Output Total 400 ml Balance 0 ml 1650 ml -350 ml Justicifation of Admission Dx: Justifications for Admission: Justification of Admission Dx: Yes Stroke - Ischemic: Stroke-Ischemic CORRINA BROWN MD Nov 27, 2020 13:56
--- NOTE | 2020-11-27 15:04 | PDOC ---
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 Her strength is improving, clinically she looks great considering. Recurrence of atrial fibrillation COPD exacerbation, better Hypertension, history of COVID-19 Pulmonary hypertension Note swallowing evaluation, failed video swallow Plan Will need PEG Low-dose enoxaparin She had been on aspirin instead of anticoagulation because of recent falls, for her atrial fibrillation. I believe the risks outweigh the benefits of full anticoagulation this soon after a fairly good size stroke. Continue aspirin, aim to switch to apixaban after PEG Clopidogrel was ordered, she has never received, discontinue Resume statin when able to swallow PT/OT/ST Will need inpatient rehabilitation Discussed with son Objective Vital Signs Date Time Temp Pulse Resp B/P (MAP) Pulse Ox O2 Delivery O2 Flow Rate FiO2 11/27/20 13:00 99 146/70 11/27/20 11:00 98.7 24 99 Room Air 98.7 11/27/20 08:00 2.0 Intake and Output 11/27/20 07:00 Intake Total 1700 ml Output Total 400 ml Balance 1300 ml Intake Oral 400 ml IV Total 1300 ml Output Urine Total 400 ml # Voids 3 # Bowel Movements 1 PHYSICAL EXAM Alert. Off BiPAP PERRL. EOMI. CN: Left field cut, left central facial weakness. Muscle tone: normal. Muscle strength: 4/5 left hemiparesis DTR: 2+ Plantar reflex: Flexor Gait: not examined in bed. Sensory exam: no abnormal findings. No cerebellar signs elicited. Not tremulous Review of Relevant I have reviewed the following items gerry (where applicable) has been applied. Labs Laboratory Tests Test 11/26/20 06:55 White Blood Count 9.7 x10^3/uL (4.0-11.0) Red Blood Count 3.06 x10^6/uL (3.50-5.40) Hemoglobin 10.0 g/dL (12.0-15.5) Hematocrit 29.9 % (36.0-47.0) Mean Corpuscular Volume 98 fL (79-100) Mean Corpuscular Hemoglobin 33 pg (25-35) Mean Corpuscular Hemoglobin Concent 34 g/dL (31-37) Red Cell Distribution Width 13.3 % (11.5-14.5) Platelet Count 176 x10^3/uL (140-400) Neutrophils (%) (Auto) 90 % (31-73) Lymphocytes (%) (Auto) 5 % (24-48) Monocytes (%) (Auto) 5 % (0-9) Eosinophils (%) (Auto) 0 % (0-3) Basophils (%) (Auto) 0 % (0-3) Neutrophils # (Auto) 8.8 x10^3/uL (1.8-7.7) Lymphocytes # (Auto) 0.4 x10^3/uL (1.0-4.8) Monocytes # (Auto) 0.5 x10^3/uL (0.0-1.1) Eosinophils # (Auto) 0.0 x10^3/uL (0.0-0.7) Basophils # (Auto) 0.0 x10^3/uL (0.0-0.2) Segmented Neutrophils % 90 % (35-66) Band Neutrophils % 1 % (0-9) Lymphocytes % 5 % (24-48) Monocytes % 4 % (0-10) Platelet Estimate Adequate (ADEQUATE) Prothrombin Time 14.5 SEC (11.7-14.0) Prothromb Time International Ratio 1.2 (0.8-1.1) Sodium Level 138 mmol/L (136-145) Potassium Level 4.2 mmol/L (3.5-5.1) Chloride Level 104 mmol/L (98-107) Carbon Dioxide Level 22 mmol/L (21-32) Anion Gap 12 (6-14) Blood Urea Nitrogen 46 mg/dL (7-20) Creatinine 1.4 mg/dL (0.6-1.0) Estimated GFR (Cockcroft-Gault) 35.7 BUN/Creatinine Ratio 33 (6-20) Glucose Level 128 mg/dL (70-99) Calcium Level 8.9 mg/dL (8.5-10.1) Total Bilirubin 0.4 mg/dL (0.2-1.0) Aspartate Amino Transf (AST/SGOT) 23 U/L (15-37) Alanine Aminotransferase (ALT/SGPT) 29 U/L (14-59) Alkaline Phosphatase 48 U/L (46-116) Total Protein 5.9 g/dL (6.4-8.2) Albumin 2.4 g/dL (3.4-5.0) Albumin/Globulin Ratio 0.7 (1.0-1.7) Microbiology 11/23/20 Blood Culture - Preliminary, Resulted NO GROWTH AFTER 4 DAYS Medications Current Medications Sodium Chloride 1,000 ml @ 1,000 mls/hr Q1H IV Last administered on 11/22/20at 19:31; Start 11/22/20 at 19:15; Stop 11/22/20 at 20:14; Status DC Alteplase, Recombinant 9 ml @ 540 mls/hr 1X ONCE IV Last administered on 11/22/20at 19:57; Start 11/22/20 at 19:45; Stop 11/22/20 at 19:46; Status DC Alteplase, Recombinant 81 ml @ 81 mls/hr Q1H IV Last administered on 11/22/20at 20:00; Start 11/22/20 at 19:45; Stop 11/22/20 at 20:44; Status DC Sodium Chloride 50 ml @ 200 mls/hr 1X ONCE IV Last administered on 11/22/20at 20:10; Start 11/22/20 at 19:45; Stop 11/22/20 at 19:59; Status DC Alteplase, Recombinant 10 ml @ 600 mls/hr 1X ONCE IV ; Start 11/22/20 at 19:45; Stop 11/22/20 at 19:46; Status UNV Alteplase, Recombinant 90 ml @ 90 mls/hr 1X ONCE IV ; Start 11/22/20 at 19:45; Stop 11/22/20 at 20:44; Status UNV Sodium Chloride 50 ml @ 50 mls/hr 1X ONCE IV ; Start 11/22/20 at 19:45; Stop 11/22/20 at 20:44; Status UNV Aspirin (Aspirin Rectal Supp) 300 mg 1X ONCE TN Last administered on 11/22/20at 20:16; Start 11/22/20 at 19:45; Stop 11/22/20 at 19:48; Status DC Iohexol (Omnipaque 300 Mg/ml) 60 ml 1X ONCE IV Last administered on 11/22/20at 20:38; Start 11/22/20 at 20:15; Stop 11/22/20 at 20:16; Status DC Info (CONTRAST GIVEN -- Rx MONITORING) 1 each PRN DAILY PRN MC SEE COMMENTS; Start 11/22/20 at 20:30; Stop 11/24/20 at 20:29; Status DC Ondansetron HCl (Zofran) 4 mg PRN Q8HRS PRN IV NAUSEA/VOMITING 1ST CHOICE Last administered on 11/23/20at 04:05; Start 11/22/20 at 21:45; Stop 11/23/20 at 21:44; Status DC Bumetanide (Bumex) 0.5 mg 1X ONCE IV Last administered on 11/23/20at 00:51; Start 11/22/20 at 23:30; Stop 11/22/20 at 23:31; Status DC Labetalol HCl (Normodyne Iv Push) 10 mg PRN Q10MIN PRN IVP HYPERTENSION Last administered on 11/24/20at 13:07; Start 11/23/20 at 02:15; Stop 11/24/20 at 15:00; Status DC Nicardipine HCl 50 mg/Sodium Chloride 250 ml @ 25 mls/hr CONT PRN PRN IV HYPERTENSION Last administered on 11/23/20at 15:53; Start 11/23/20 at 02:15; Stop 11/24/20 at 09:35; Status DC Potassium Chloride/Water 100 ml @ 100 mls/hr Q1H IV Last administered on 11/23/20at 07:34; Start 11/23/20 at 03:00; Stop 11/23/20 at 06:59; Status DC Magnesium Sulfate 50 ml @ 25 mls/hr 1X ONCE IV Last administered on 11/23/20at 04:31; Start 11/23/20 at 03:00; Stop 11/23/20 at 04:59; Status DC Amino Acids/ Glycerin/ Electrolytes 1,000 ml @ 80 mls/hr [id number] IV Last administered on 11/27/20at 05:42; Start 11/23/20 at 11:30 Cyanocobalamin (Vitamin B-12) 1,000 mcg DAILY PO ; Start 11/24/20 at 09:00 Dronedarone (Multaq) 400 mg BID PO ; Start 11/23/20 at 21:00 Guaifenesin (MUCINEX ER with DM) 1 tab PRN BID PRN PO cough and congestion; Start 11/23/20 at 12:00 Metoprolol Tartrate (Lopressor) 25 mg BID PO ; Start 11/23/20 at 21:00 Roflumilast (Daliresp) 500 mcg DAILY PO ; Start 11/24/20 at 09:00 Verapamil HCl (Calan Sr) 120 mg DAILY PO ; Start 11/23/20 at 13:00 Albuterol Sulfate (Ventolin Neb Soln) 2.5 mg RTQID NEB Last administered on 11/27/20at 10:47; Start 11/23/20 at 16:00 Bupropion HCl (Wellbutrin Xl) 300 mg DAILY PO ; Start 11/23/20 at 13:00 Non-Formulary Medication (Fluticasone Propionate (Flovent 44MCG Hfa)) 10.6 gm DAILY IH ; Start 11/24/20 at 09:00; Status UNV Non-Formulary Medication (Fluticasone/ Salmeterol (Advair 250-50 Diskus)) 1 puff BID IH ; Start 11/23/20 at 21:00; Status UNV Atorvastatin Calcium (Lipitor) 20 mg QHS PO ; Start 11/23/20 at 21:00 Budesonide (Pulmicort) 0.5 mg RTBID NEB Last administered on 11/27/20at 07:24; Start 11/23/20 at 20:00 Metoprolol Tartrate (Lopressor Vial) 2.5 mg Q6HRS IVP Last administered on 11/25/20at 05:31; Start 11/23/20 at 18:00; Stop 11/25/20 at 08:41; Status DC Metoprolol Tartrate (Lopressor Vial) 2.5 mg 1X ONCE IVP Last administered on 11/23/20at 13:01; Start 11/23/20 at 13:00; Stop 11/23/20 at 13:01; Status DC Azithromycin 250 ml @ 250 mls/hr 1X ONCE IV ; Start 11/23/20 at 14:15; Stop 11/23/20 at 15:14; Status UNV Azithromycin 500 mg/Sodium Chloride 250 ml @ 250 mls/hr Q24H IV Last administered on 11/26/20at 18:09; Start 11/23/20 at 16:00 Aspirin (Ecotrin) 81 mg DAILYWBKFT PO ; Start 11/23/20 at 23:30 Clopidogrel Bisulfate (Plavix) 75 mg 1X ONCE PO ; Start 11/23/20 at 23:30; Stop 11/23/20 at 23:31; Status DC Clopidogrel Bisulfate (Plavix) 75 mg DAILYWBKFT PO ; Start 11/24/20 at 08:00 Diltiazem HCl 125 mg/Sodium Chloride 125 ml @ 5 mls/hr CONT PRN IV SEE ADMIN INSTRUCTIONS Last administered on 11/24/20at 00:17; Start 11/23/20 at 23:45 Labetalol HCl (Normodyne Iv Push) 10 mg PRN Q10MIN PRN IVP HYPERTENSION, 1ST CHOICE Last administered on 11/25/20at 03:05; Start 11/24/20 at 08:45 Nicardipine HCl 50 mg/Sodium Chloride 250 ml @ 25 mls/hr CONT PRN PRN IV HYPERTENSION, See comments Last administered on 11/27/20at 11:54; Start 11/24/20 at 08:45 Acetaminophen (Tylenol) 650 mg PRN Q6HRS PRN PO MILD PAIN / TEMP > 100.3'F; Start 11/24/20 at 08:45 Acetaminophen (Tylenol Supp) 650 mg PRN Q6HRS PRN TN MILD PAIN / TEMP > 100.3'F; Start 11/24/20 at 08:45 Ondansetron HCl (Zofran) 4 mg PRN Q6HRS PRN IVP NAUSEA/VOMITING; Start 11/24/20 at 08:45 Enoxaparin Sodium (Lovenox 30mg Syringe) 30 mg Q24H SQ Last administered on 11/27/20at 09:30; Start 11/24/20 at 08:45 Saliva Substitute (Biotene Moisturizing Mouth) 2 spray PRN Q15MIN PRN PO DRY MOUTH Last administered on 11/24/20at 16:37; Start 11/24/20 at 15:45 Haloperidol Lactate (Haldol Inj) 5 mg PRN Q6HRS PRN IVP AGITATION Last administered on 11/25/20at 05:55; Start 11/25/20 at 05:45 Metoprolol Tartrate (Lopressor Vial) 5 mg Q6HRS IVP Last administered on 11/27/20at 05:43; Start 11/25/20 at 09:00 Digoxin (Lanoxin) 500 mcg 1X ONCE IV Last administered on 11/25/20at 12:23; Start 11/25/20 at 12:00; Stop 11/25/20 at 12:01; Status DC Methylprednisolone Sodium Succinate (SOLU-Medrol 40MG VIAL) 40 mg 1X ONCE IV Last administered on 11/25/20at 14:01; Start 11/25/20 at 14:00; Stop 11/25/20 at 14:01; Status DC Budesonide (Pulmicort) 0.5 mg RTBID NEB Last administered on 11/26/20at 20:53; Start 11/25/20 at 20:00 Aspirin (Aspirin Rectal Supp) 300 mg PRN DAILY PRN TN IF UNABLE TO TAKE PO; Start 11/25/20 at 14:00 Hydralazine HCl (Apresoline Inj) 10 mg PRN Q4HRS PRN IVP ELEVATED BP, 2ND CHOICE Last administered on 11/27/20at 13:00; Start 11/25/20 at 15:00 Aspirin (Aspirin Rectal Supp) 300 mg 1X ONCE TN Last administered on 11/25/20at 22:21; Start 11/25/20 at 21:00; Stop 11/25/20 at 21:01; Status DC Labetalol HCl (Normodyne Iv Push) 20 mg 1X ONCE IVP Last administered on 11/25/20at 15:40; Start 11/25/20 at 15:45; Stop 11/25/20 at 15:46; Status DC Sodium Chloride 1,000 ml @ 100 mls/hr 1X ONCE IV ; Start 11/26/20 at 09:45; Stop 11/26/20 at 19:44; Status DC Furosemide (Lasix) 20 mg 1X ONCE IVP ; Start 11/27/20 at 13:30; Stop 11/27/20 at 13:34; Status DC Barium Sulfate (Varibar Thin Liquid Apple) 148 gm 1X ONCE PO Last administered on 11/27/20at 13:43; Start 11/27/20 at 13:45; Stop 11/27/20 at 13:46; Status DC Active Scripts Active Zofran (Ondansetron Hcl) 4 Mg Tablet 1 Tab PO PRN Q6-8HRS PRN Reported Mucinex Dm Er 600-30 Mg Tablet (Guaifenesin/Dextromethorphan) 1 Each Tab.er.12h 1 Tab PO BID PRN 14 Days Aspirin 325 Mg Tablet 1 Tab PO DAILY Vitamin B-12 (Cyanocobalamin (Vitamin B-12)) 1,000 Mcg Tablet 1 Tab PO DAILY 30 Days Vitamin D3 Complete Caplet (Mv-Mn/Iron/Fa/Herbal Cmplx#190) 1 Each Tablet 1 Each PO DAILY Vitamin C (Ascorbic Acid) 500 Mg Capsule.er 2 Cap PO BID 30 Days Metoprolol Tartrate 25 Mg Tablet 1 Tab PO BID Multaq (Dronedarone Hcl) 400 Mg Tablet 1 Tab PO BID Flovent 44MCG Hfa (Fluticasone Propionate) 10.6 Gm Aer.w.adap 10.6 Gm IH DAILY Xopenex Hfa (Levalbuterol Tartrate) 15 Gm Hfa.aer.ad 15 Gm IH PRN Verapamil Er (Verapamil Hcl) 120 Mg Tablet.er 120 Mg PO DAILY Pravastatin Sodium 80 Mg Tablet 80 Mg PO DAILY Daliresp (Roflumilast) 500 Mcg Tablet 500 Mcg PO DAILY Wellbutrin Xl (Bupropion Hcl) 300 Mg Tab.er.24h 300 Mg PO DAILY Albuterol Sulfate Conc Neb Soln (Albuterol Sulfate) 2.5 Mg/0.5 Ml Vial.neb 1 Vial NEB QID Advair 250-50 Diskus (Fluticasone/Salmeterol) 1 Each Disk.w.dev 1 Puff IH BID Vitals/I & O Vital Sign - Last 24 Hours 11/26/20 11/26/20 11/26/20 11/26/20 15:36 16:00 16:00 18:08 Pulse 92 92 B/P (MAP) 155/75 (101) 155/75 Pulse Ox 99 96 O2 Delivery Room Air Room Air O2 Flow Rate 1.0 11/26/20 11/26/20 11/26/20 11/26/20 19:05 19:38 20:00 20:00 Temp 96.2 96.2 Pulse 86 96 Resp 18 B/P (MAP) 139/63 (88) 140/65 (90) Pulse Ox 100 O2 Delivery Room Air Nasal Cannula O2 Flow Rate 1.0 2.0 11/26/20 11/26/20 11/26/20 11/26/20 20:05 21:05 22:28 23:09 Temp 97.9 97.9 Pulse 88 94 81 102 Resp 20 B/P (MAP) 137/63 (87) 144/76 (98) 132/58 (82) 131/72 (91) Pulse Ox 100 O2 Delivery Nasal Cannula O2 Flow Rate 2.0 11/26/20 11/27/20 11/27/20 11/27/20 23:15 00:05 00:10 01:05 Pulse 97 82 86 B/P (MAP) 131/72 122/61 (81) 133/62 (85) O2 Flow Rate 1.0 11/27/20 11/27/20 11/27/20 11/27/20 02:00 02:54 04:00 04:00 Pulse 88 90 92 B/P (MAP) 140/66 (90) 150/64 (92) 150/70 (96) Pulse Ox 100 O2 Delivery Nasal Cannula O2 Flow Rate 2.0 1.0 11/27/20 11/27/20 11/27/20 11/27/20 05:00 05:43 06:00 07:00 Temp 97.8 97.8 Pulse 92 89 86 92 Resp 24 B/P (MAP) 135/67 (89) 131/61 124/60 (81) 145/99 (114) Pulse Ox 99 O2 Delivery Room Air 11/27/20 11/27/20 11/27/20 11/27/20 07:27 08:00 10:47 11:00 Temp 98.7 98.7 Pulse 99 Resp 24 B/P (MAP) 146/70 (95) Pulse Ox 100 96 99 O2 Delivery Nasal Cannula Nasal Cannula Room Air Room Air O2 Flow Rate 2.0 2.0 11/27/20 13:00 Pulse 99 B/P (MAP) 146/70 Intake and Output 11/26/20 11/26/20 11/27/20 15:00 23:00 07:00 Intake Total 0 ml 1650 ml 50 ml Output Total 400 ml Balance 0 ml 1650 ml -350 ml Images BRAIN W/O CONTRAST INDICATION: Reason: Stroke with Alteplase(TPA given 11/25/20) COMPARISON: CT head from November 23, 2019 Technique: Multiplane are, multisequence MRI images are obtained through the brain FINDINGS: Restricted diffusion is identified within the right cerebral hemisphere at the posterior aspect of the right MCA territory at the site of previously identified stroke and edema. There is edema seen within the right MCA territory most prominent posteriorly. There is some increased mass effect identified. There is approximately 5 mm of midline shift to the left now seen. Some of the imaging sequences are limited secondary to patient motion. Small amount of fluid within the sphenoid sinus. Scattered foci of high T2 signal within the white matter. Prominence of ventricles and sulci again seen which can be from age-related volume loss. There is some small foci of blooming artifact seen within the region of edema. IMPRESSION: * Restricted diffusion within the right MCA territory consistent with the patient's previously identified right MCA acute ischemia. There is also edema throughout this region with increased mass effect and development of approximately 5 mm of midline shift to the left. There is some tiny foci of blooming artifact seen within the region which could be from a small amount of blood products within the region from microvascular regions of hemorrhage or occlusion of small peripheral vessels. The increased mass effect is predominantly secondary to the edema and not secondary to blood products in the region. Report called to the patient's floor at 5:55 PM on date of exam Justicifation of Admission Dx: Justifications for Admission: Justification of Admission Dx: Yes Stroke - Ischemic: Stroke-Ischemic THOM POP MD Nov 27, 2020 15:04
--- NOTE | 2020-11-27 15:12 | PDOC2 ---
GI CONSULT Date of Service: DATE: 11/27/20 TIME: 14:55 Reason For Consult: PEG HPI: HPI: 85 y/o female w/ h/o A Fib admitted 11/22 w/ CVA s/p alteplase. 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 We have been asked to see for possible PEG placement. H/o GERD controlled w/ a daily medication. H/o dysphagia improved w/ past esophageal dilation - EGD <5 years ago @ [facility]. Moderate hiatal hernia noted on CT A/P in 2018. No n/v, abd pain, diarrhea, constipation, hematochezia, or melena. Previous colonoscopy, unclear timing but recalled as normal. S/p cholecystectomy for stones. No liver, pancreas, or PUD history. Was on ASA 81mg at home per son. She denies NSAIDs. Son mentions pt and were specific in [place] that they did not wish for any life-saving measures. Also mentions she's been coughing a lot and struggling w/ COPD. D/w nurse - on PPN, plans for Dobhoff placement, also plans for rehab on DC. PMH: PMH: A Fib, HTN, HLD, asthma, COPD, depression, CKD cholecystectomy, hysterectomy, BSO, appendectomy, IHR, bilateral hip replacements FH: Family History: No pertinent hx Social History: Smoke: No ALCOHOL: none Drugs: None ROS: GEN: Denies fevers, chills, sweats HEENT: Denies blurred vision, sore throat CV: Denies chest pain RESP: +cough GI: Per HPI : Denies hematuria, dysuria ENDO: Denies weight changes NEURO: Denies confusion, dizziness MSK: +weakness SKIN: Denies jaundice, pruritus Vitals: Vitals: Vital Signs Date Time Temp Pulse Resp B/P (MAP) Pulse Ox O2 Delivery O2 Flow Rate FiO2 11/27/20 13:00 99 146/70 11/27/20 11:00 98.7 24 99 Room Air 98.7 11/27/20 08:00 2.0 Labs: Labs: BLOOD CULTURE Preliminary NO GROWTH AFTER 4 DAYS Allergies: Coded Allergies: No Known Drug Allergies (Unverified , 07/29/15) Medications: Current Medications Medications (Trade) Dose Ordered Sig/Radha Route PRN Reason Start Time Stop Time Status Last Admin Dose Admin Barium Sulfate (Varibar Thin Liquid Apple) 148 gm 1X ONCE PO 11/27/20 13:45 11/27/20 13:46 DC 11/27/20 13:43 Imaging: Imaging: Head CT 11/22 IMPRESSION: No acute intracranial abnormality. CXR 11/22 IMPRESSION: Cardiomegaly with mild central pulmonary vascular congestion. Left basilar atelectasis or consolidation. Head/Neck CTA 11/22 IMPRESSION: 1. Evaluation is mildly limited secondary to technical factors. There is apparent abrupt cut off of a M2/M3 branch of the right MCA is described above. 2. Mild calcified plaque at the origin of the internal carotid arteries bilaterally without significant stenosis. 3. Mild calcified plaque at the cavernous segment of the internal carotid arteries bilaterally without significant stenosis. Head CT 11/23 IMPRESSION: 1. Moderate to large acute infarct in the right MCA territory with mild edema. No midline shift. 2. No acute intracranial hemorrhage. Head CT 11/23 IMPRESSION: 1. No intracranial hemorrhage. 2. Evolving large subacute right MCA territory infarct with edema. No midline shift. CXR 11/24 Impression: Improved appearance of the chest to include better aeration at the left lower lung with the left costophrenic angle now able to be delineated. Unchanged prominence of the cardiomediastinal silhouette. CXR 11/24 Impression: 1. Stable appearance of the chest compared to prior. Echo 11/25 <Conclusion> The left ventricular systolic function is normal. The Ejection Fraction is 55-60%. There is normal LV segmental wall motion. Mild mitral regurgitation. Moderate tricuspid regurgitation. There is severe pulmonary hypertension. The PA pressure was estimated at 67 mmHg. There is no evidence of significant pericardial effusion. Brain MRI 11/26 IMPRESSION: * Restricted diffusion within the right MCA territory consistent with the patient's previously identified right MCA acute ischemia. There is also edema throughout this region with increased mass effect and development of approximately 5 mm of midline shift to the left. There is some tiny foci of blooming artifact seen within the region which could be from a small amount of blood products within the region from microvascular regions of hemorrhage or occlusion of small peripheral vessels. The increased mass effect is predominantly secondary to the edema and not secondary to blood products in the region. Report called to the patient's floor at 5:55 PM on date of exam. [place] 11/27 pending Initial Videoswallow Study Results Pt demo's aspiration w/cough on honey thick liquid via tsp and cup; chintuck was not effective in preventing aspiration. Puree had associated deep penetration w/risk of aspiration r/t same. IMPRESSIONS: Moderate oropharyngeal dysphagia r/t pharyngeal delay. Aspiration of honey thick liquid, unrelieved by reduced bolus size or chintuck. Risk of aspiration also present w/puree d/t deep penetration. No safe consistency identified. Recent R CVA and potentially, COPD, are considered contributing factors to current dysphagia. Anticipate need for non-oral nutrition for immediate future. Long-term potential for resuming modified diet is fair w/continued tx. RECOMMENDATIONS: NPO meds and nutrition; consider more long-term means of non- oral nutrition. Will con't w/dysphagia tx while acutely hospitalized. Would benefit from ongoing dysphagia tx. JOANNE Denson. Images reviewed w/pt and results explained. PE: GEN: NAD HEENT: Atraumatic, PERRL LUNGS: some coarseness, had a coughing fit while I was in the room, used suction, 2L NC HEART: irregularly irregular ABD: quiet BS, S/NT, large EXTREMITY: No edema SKIN: bruising NEURO/PSYCH: A & O 3, anxious A/P: A/P: CVA, oropharyngeal dysphagia Normocytic anemia, CKD H/o GERD, past esophageal dilation, and moderate hiatal hernia CRC screen - had colonoscopy as some point in the past S/p cholecystectomy COVID-19 negative 11/22/20 A Fib, COPD -- Discussed PEG procedure w/ pt and son - they will discuss. Increased risk w/ COPD. 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 MANNY BLUE Nov 27, 2020 15:12
[2020-11-27] MEDS ORDERED: fentaNYL PF VIAL 100 MCG/2 ML VIAL IVP ONE (15:30)
[2020-11-27] MEDS: PANTOPRAZOLE IV PUSH 40 MG VIAL. IVP SCH (15:36)
--- NOTE | 2020-11-27 16:47 | RAD ---
INDICATION: Reason: dobhoff placement / Spl. Instructions: / History: COMPARISON: June 11, 2018 IMPRESSION: Abdomen: Single view obtained. There is some contrast seen within the bowel. Degenerative changes of the spine. Single enteric tube is seen with the tip located at the expected location of the distal es ophagus. Patchy opacity at the left lung base could be atelectasis or infiltrate. Electronically signed by: José Miguel Sutton MD (11/27/2020 4:45 PM) [id number]
[2020-11-27] MEDS: ASPIRIN RECTAL 300 MG SUPP. PR PRN (17:28)
[2020-11-27] MEDS: AZITHROMYCIN 500 MG in IV NORMAL SALINE 250ML 250 ML IV SCH (17:29)
--- NOTE | 2020-11-27 17:31 | RAD ---
Video Swallow Study: History: CVA. Dysphagia. Technique: Honey thick and pureed (pudding thick) barium preparations were administered by the speech pathologist and swallowing was monitored via videofluoroscopy. Findings: Oral stage was characterized by anterior spillage from the oral cavity, reduced bolus formation and posterior spillage into the pharynx. The pharyngeal stage was characterized by delayed swallow initiation with aspiration of honey thick consistencies both with teaspoon and cup, unaffected by chin tuck. Laryngeal penetration (both deep and shallow) was also observed with puree thick consistencies. Impression: Abnormal video swallow study showing aspiration of honey thick liquids, not improved with chin tuck, and laryngeal penetration with pudding thick liquids. Please see speech pathologist's report for further details. Fluoro Time: 1.8 minutes. Number of images: 0
[2020-11-27] MEDS: ATORVASTATIN CALCIUM 20 MG TABLET PO SCH (21:00)
[2020-11-28] MEDS: METOPROLOL IV PUSH 5 MG/5 ML VIAL. IVP SCH ×2 (00:04→05:41)
[2020-11-28 02:05] VITALS: BP 152/88
--- NOTE | 2020-11-28 02:24 | RAD ---
EXAM: XR CHEST 1V 11/28/2020 1:18 AM CLINICAL INDICATION: Right PICC placement COMPARISON: Chest radiograph 11/25/2020 TECHNIQUE: AP upright view the chest FINDINGS: There is a new right PICC with tip at the superior cavoatrial junction. Cardiac silhouette is unchanged. There is mild interstitial prominence. No focal consolidation, pleural effusion, or pn eumothorax. No acute osseous abnormality. IMPRESSION: New right PICC in appropriate position. Electronically signed by: Dina Chaudhary MD (11/28/2020 2:21 AM) [id number]
[2020-11-28] MEDS: AMINO AC 3%/ELECTROLYTE/GLYCER 1,000 ML IV SCH ×2 (03:16→16:30)
--- NOTE | 2020-11-28 03:17 | RAD ---
EXAM: XR ABDOMEN 1V 11/28/2020 2:32 AM CLINICAL INDICATION: NG tube placement COMPARISON: Abdominal radiograph 11/27/2020 TECHNIQUE: AP supine view of the abdomen FINDINGS: The weighted feeding tube on the prior radiograph is been removed. There is no nasogastric tube. There is contrast in the decompressed colon. No evidence of small bowel obstruction. Surgical clips are in the right upper quadrant. A central venous catheter is seen in the high right atrium. Keila ng bases are clear. There are bilateral hip prostheses. IMPRESSION: Interval removal of weighted feeding tube. Electronically signed by: Dina Chaudhary MD (11/28/2020 3:14 AM) [id number]
--- NOTE | 2020-11-28 04:01 | RAD ---
EXAM: XR ABDOMEN 1V 11/28/2020 3:11 AM CLINICAL INDICATION: NG placement COMPARISON: 11/28/2020 at 2:31 AM TECHNIQUE: AP supine view the abdomen FINDINGS: A new weighted feeding tube terminates in the distal stomach near the gastric pylorus. No small bowel obstruction. There is contrast in the colon. Surgical clips in the right upper quadrant. Small right pleural effusion and basilar opacities noted. IMPRESSION: Weighted feeding tube in the distal stomach with tip near the gastric pylorus. Electronically signed by: Dina Chaudhary MD (11/28/2020 3:59 AM) [id number]
--- NOTE | 2020-11-28 04:19 | NUR ---
Patient accidently removed Dobbhoff, new Dobbhoff placed with KUB confirmation of placement. Tube it 65cm at the right nare, secured. Tube feed resumed. Pt tolerated procedure well. Pt tolerating tube feed. Will continue to monitor.
[2020-11-28 06:43] LABS: ALBUMIN 2.4 g/dL (3.4-5.0); ALBUMIN/GLOBULIN RATIO 0.8 (1.0-1.7); CALCIUM 9.2 mg/dL (8.5-10.1); CREATININE 1.5 mg/dL (0.6-1.0); TOTAL BILIRUBIN 0.4 mg/dL (0.2-1.0); TOTAL PROTEIN 5.6 g/dL (6.4-8.2)
[2020-11-28 06:47] LABS: BASO % 0 % (0-3); EOS # 0.2 x10^3/uL (0.0-0.7); EOS % 3 % (0-3); HEMATOCRIT 27.7 % (36.0-47.0); HEMOGLOBIN 9.1 g/dL (12.0-15.5); LYMPH # 1.3 x10^3/uL (1.0-4.8); LYMPH % 13 % (24-48); MEAN CORPUSCULAR HEMOGLOBIN 33 pg (25-35); MEAN CORPUSCULAR HGB CONC 33 g/dL (31-37); MEAN CORPUSCULAR VOLUME 99 fL (79-100); MONO % 10 % (0-9); NEUT # 7.1 x10^3/uL (1.8-7.7); NEUT % 74 % (31-73); PLATELET COUNT 245 x10^3/uL (140-400); RED CELL DISTRIBUTION WIDTH 13.8 % (11.5-14.5); WHITE BLOOD COUNT 9.6 x10^3/uL (4.0-11.0)
[2020-11-28 07:00] VITALS: BP 133/60
[2020-11-28 07:02] LABS: POTASSIUM 4.4 mmol/L (3.5-5.1)
[2020-11-28] MEDS: ALBUTEROL SULFATE 2.5 MG/3 ML NEBU. NEB SCH ×4 (07:42→20:57)
[2020-11-28] MEDS: BUDESONIDE 0.5 MG/2 ML NEBU. NEB SCH ×2 (07:42→20:57)
[2020-11-28] MEDS: ASPIRIN RECTAL 300 MG SUPP. PR PRN (08:39)
[2020-11-28] MEDS: ENOXAPARIN 30 MG/0.3 ML SYRINGE. SQ SCH (08:43)
[2020-11-28] MEDS: PANTOPRAZOLE IV PUSH 40 MG VIAL. IVP SCH (08:43)
[2020-11-28] MEDS: ROFLUMILAST 500 MCG TABLET. PO SCH (09:00)
[2020-11-28] MEDS: CYANOCOBALAMIN (VITAMIN B-12) 1,000 MCG TABLET. PO SCH (09:00)
[2020-11-28] MEDS: buPROPion XL 150 MG TAB.ER.24H. PO SCH (09:00)
--- NOTE | 2020-11-28 09:19 | PDOC ---
Date of Service: DATE: 11/28/20 TIME: 09:16 Objective: Objective: D/w nurse - Dobhoff placed x 2, feeds running, will stop PPN. Vital Signs: Vital Signs Date Time Temp Pulse Resp B/P (MAP) Pulse Ox O2 Delivery O2 Flow Rate FiO2 11/28/20 07:43 97 Room Air 2.0 11/28/20 07:00 99.0 99 20 133/60 (84) 99.0 Labs: Laboratory Tests Test 11/28/20 05:50 White Blood Count 9.6 x10^3/uL Red Blood Count 2.80 x10^6/uL Hemoglobin 9.1 g/dL Hematocrit 27.7 % Mean Corpuscular Volume 99 fL Mean Corpuscular Hemoglobin 33 pg Mean Corpuscular Hemoglobin Concent 33 g/dL Red Cell Distribution Width 13.8 % Platelet Count 245 x10^3/uL Neutrophils (%) (Auto) 74 % Lymphocytes (%) (Auto) 13 % Monocytes (%) (Auto) 10 % Eosinophils (%) (Auto) 3 % Basophils (%) (Auto) 0 % Neutrophils # (Auto) 7.1 x10^3/uL Lymphocytes # (Auto) 1.3 x10^3/uL Monocytes # (Auto) 1.0 x10^3/uL Eosinophils # (Auto) 0.2 x10^3/uL Basophils # (Auto) 0.0 x10^3/uL Sodium Level 142 mmol/L Potassium Level 4.4 mmol/L Chloride Level 109 mmol/L Carbon Dioxide Level 24 mmol/L Anion Gap 9 Blood Urea Nitrogen 52 mg/dL Creatinine 1.5 mg/dL Estimated GFR (Cockcroft-Gault) 33.0 BUN/Creatinine Ratio 35 Glucose Level 104 mg/dL Calcium Level 9.2 mg/dL Total Bilirubin 0.4 mg/dL Aspartate Amino Transf (AST/SGOT) 38 U/L Alanine Aminotransferase (ALT/SGPT) 65 U/L Alkaline Phosphatase 49 U/L Total Protein 5.6 g/dL Albumin 2.4 g/dL Albumin/Globulin Ratio 0.8 Imaging: KUB 11/28 IMPRESSION: Weighted feeding tube in the distal stomach with tip near the gastric pylorus. PE: GEN: NAD - staff present changing/cleaning after stool NEURO/PSYCH: A & O 3 A/P: CVA, oropharyngeal dysphagia GERD, hiatal hernia - on PPI A Fib, COPD COVID-19 negative 11/22/20 -- ?PEG Tuesday? Justicifation of Admission Dx: Justifications for Admission: Justification of Admission Dx: Yes Stroke - Ischemic: Stroke-Ischemic MANNY BLUE Nov 28, 2020 09:19
--- NOTE | 2020-11-28 09:22 | PDOC ---
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 Her strength is improving, clinically she looks great considering. Recurrence of atrial fibrillation COPD exacerbation, better Hypertension, history of COVID-19 Pulmonary hypertension Failed video swallow Plan Will need PEG Low-dose enoxaparin She had been on aspirin instead of anticoagulation because of recent falls, for her atrial fibrillation. I believe the risks outweigh the benefits of full anticoagulation this soon after a fairly good size stroke. Continue aspirin, aim to switch to apixaban after PEG Resume statin when able to swallow PT/OT/ST Will need inpatient rehabilitation Subjective She denies pain Objective Vital Signs Date Time Temp Pulse Resp B/P (MAP) Pulse Ox O2 Delivery O2 Flow Rate FiO2 11/28/20 07:43 97 Room Air 2.0 11/28/20 07:00 99.0 99 20 133/60 (84) 99.0 Intake and Output 11/28/20 07:00 Intake Total 245 ml Output Total 1625 ml Balance -1380 ml Intake Oral 0 ml Tube Feeding 245 ml Output Urine Total 1625 ml PHYSICAL EXAM Alert. Knows that she is in the hospital but does not know its name, does not know the date PERRL. EOMI. CN: Left field cut, left central facial weakness. Muscle tone: normal. Muscle strength: 4/5 left hemiparesis DTR: 2+ Plantar reflex: Flexor Gait: not examined in bed. Sensory exam: no abnormal findings. No cerebellar signs elicited. Not tremulous Review of Relevant I have reviewed the following items gerry (where applicable) has been applied. Labs Laboratory Tests Test 11/28/20 05:50 White Blood Count 9.6 x10^3/uL (4.0-11.0) Red Blood Count 2.80 x10^6/uL (3.50-5.40) Hemoglobin 9.1 g/dL (12.0-15.5) Hematocrit 27.7 % (36.0-47.0) Mean Corpuscular Volume 99 fL (79-100) Mean Corpuscular Hemoglobin 33 pg (25-35) Mean Corpuscular Hemoglobin Concent 33 g/dL (31-37) Red Cell Distribution Width 13.8 % (11.5-14.5) Platelet Count 245 x10^3/uL (140-400) Neutrophils (%) (Auto) 74 % (31-73) Lymphocytes (%) (Auto) 13 % (24-48) Monocytes (%) (Auto) 10 % (0-9) Eosinophils (%) (Auto) 3 % (0-3) Basophils (%) (Auto) 0 % (0-3) Neutrophils # (Auto) 7.1 x10^3/uL (1.8-7.7) Lymphocytes # (Auto) 1.3 x10^3/uL (1.0-4.8) Monocytes # (Auto) 1.0 x10^3/uL (0.0-1.1) Eosinophils # (Auto) 0.2 x10^3/uL (0.0-0.7) Basophils # (Auto) 0.0 x10^3/uL (0.0-0.2) Sodium Level 142 mmol/L (136-145) Potassium Level 4.4 mmol/L (3.5-5.1) Chloride Level 109 mmol/L (98-107) Carbon Dioxide Level 24 mmol/L (21-32) Anion Gap 9 (6-14) Blood Urea Nitrogen 52 mg/dL (7-20) Creatinine 1.5 mg/dL (0.6-1.0) Estimated GFR (Cockcroft-Gault) 33.0 BUN/Creatinine Ratio 35 (6-20) Glucose Level 104 mg/dL (70-99) Calcium Level 9.2 mg/dL (8.5-10.1) Total Bilirubin 0.4 mg/dL (0.2-1.0) Aspartate Amino Transf (AST/SGOT) 38 U/L (15-37) Alanine Aminotransferase (ALT/SGPT) 65 U/L (14-59) Alkaline Phosphatase 49 U/L (46-116) Total Protein 5.6 g/dL (6.4-8.2) Albumin 2.4 g/dL (3.4-5.0) Albumin/Globulin Ratio 0.8 (1.0-1.7) Laboratory Tests Test 11/28/20 05:50 White Blood Count 9.6 x10^3/uL (4.0-11.0) Red Blood Count 2.80 x10^6/uL (3.50-5.40) Hemoglobin 9.1 g/dL (12.0-15.5) Hematocrit 27.7 % (36.0-47.0) Mean Corpuscular Volume 99 fL (79-100) Mean Corpuscular Hemoglobin 33 pg (25-35) Mean Corpuscular Hemoglobin Concent 33 g/dL (31-37) Red Cell Distribution Width 13.8 % (11.5-14.5) Platelet Count 245 x10^3/uL (140-400) Neutrophils (%) (Auto) 74 % (31-73) Lymphocytes (%) (Auto) 13 % (24-48) Monocytes (%) (Auto) 10 % (0-9) Eosinophils (%) (Auto) 3 % (0-3) Basophils (%) (Auto) 0 % (0-3) Neutrophils # (Auto) 7.1 x10^3/uL (1.8-7.7) Lymphocytes # (Auto) 1.3 x10^3/uL (1.0-4.8) Monocytes # (Auto) 1.0 x10^3/uL (0.0-1.1) Eosinophils # (Auto) 0.2 x10^3/uL (0.0-0.7) Basophils # (Auto) 0.0 x10^3/uL (0.0-0.2) Sodium Level 142 mmol/L (136-145) Potassium Level 4.4 mmol/L (3.5-5.1) Chloride Level 109 mmol/L (98-107) Carbon Dioxide Level 24 mmol/L (21-32) Anion Gap 9 (6-14) Blood Urea Nitrogen 52 mg/dL (7-20) Creatinine 1.5 mg/dL (0.6-1.0) Estimated GFR (Cockcroft-Gault) 33.0 BUN/Creatinine Ratio 35 (6-20) Glucose Level 104 mg/dL (70-99) Calcium Level 9.2 mg/dL (8.5-10.1) Total Bilirubin 0.4 mg/dL (0.2-1.0) Aspartate Amino Transf (AST/SGOT) 38 U/L (15-37) Alanine Aminotransferase (ALT/SGPT) 65 U/L (14-59) Alkaline Phosphatase 49 U/L (46-116) Total Protein 5.6 g/dL (6.4-8.2) Albumin 2.4 g/dL (3.4-5.0) Albumin/Globulin Ratio 0.8 (1.0-1.7) Microbiology 11/23/20 Blood Culture - Preliminary, Resulted NO GROWTH AFTER 4 DAYS Medications Current Medications Sodium Chloride 1,000 ml @ 1,000 mls/hr Q1H IV Last administered on 11/22/20at 19:31; Start 11/22/20 at 19:15; Stop 11/22/20 at 20:14; Status DC Alteplase, Recombinant 9 ml @ 540 mls/hr 1X ONCE IV Last administered on 11/22/20at 19:57; Start 11/22/20 at 19:45; Stop 11/22/20 at 19:46; Status DC Alteplase, Recombinant 81 ml @ 81 mls/hr Q1H IV Last administered on 11/22/20at 20:00; Start 11/22/20 at 19:45; Stop 11/22/20 at 20:44; Status DC Sodium Chloride 50 ml @ 200 mls/hr 1X ONCE IV Last administered on 11/22/20at 20:10; Start 11/22/20 at 19:45; Stop 11/22/20 at 19:59; Status DC Alteplase, Recombinant 10 ml @ 600 mls/hr 1X ONCE IV ; Start 11/22/20 at 19:45; Stop 11/22/20 at 19:46; Status UNV Alteplase, Recombinant 90 ml @ 90 mls/hr 1X ONCE IV ; Start 11/22/20 at 19:45; Stop 11/22/20 at 20:44; Status UNV Sodium Chloride 50 ml @ 50 mls/hr 1X ONCE IV ; Start 11/22/20 at 19:45; Stop 11/22/20 at 20:44; Status UNV Aspirin (Aspirin Rectal Supp) 300 mg 1X ONCE WA Last administered on 11/22/20at 20:16; Start 11/22/20 at 19:45; Stop 11/22/20 at 19:48; Status DC Iohexol (Omnipaque 300 Mg/ml) 60 ml 1X ONCE IV Last administered on 11/22/20at 20:38; Start 11/22/20 at 20:15; Stop 11/22/20 at 20:16; Status DC Info (CONTRAST GIVEN -- Rx MONITORING) 1 each PRN DAILY PRN MC SEE COMMENTS; Start 11/22/20 at 20:30; Stop 11/24/20 at 20:29; Status DC Ondansetron HCl (Zofran) 4 mg PRN Q8HRS PRN IV NAUSEA/VOMITING 1ST CHOICE Last administered on 11/23/20at 04:05; Start 11/22/20 at 21:45; Stop 11/23/20 at 21:44; Status DC Bumetanide (Bumex) 0.5 mg 1X ONCE IV Last administered on 11/23/20at 00:51; Start 11/22/20 at 23:30; Stop 11/22/20 at 23:31; Status DC Labetalol HCl (Normodyne Iv Push) 10 mg PRN Q10MIN PRN IVP HYPERTENSION Last administered on 11/24/20at 13:07; Start 11/23/20 at 02:15; Stop 11/24/20 at 15:00; Status DC Nicardipine HCl 50 mg/Sodium Chloride 250 ml @ 25 mls/hr CONT PRN PRN IV HYPERTENSION Last administered on 11/23/20at 15:53; Start 11/23/20 at 02:15; Stop 11/24/20 at 09:35; Status DC Potassium Chloride/Water 100 ml @ 100 mls/hr Q1H IV Last administered on 11/23/20at 07:34; Start 11/23/20 at 03:00; Stop 11/23/20 at 06:59; Status DC Magnesium Sulfate 50 ml @ 25 mls/hr 1X ONCE IV Last administered on 11/23/20at 04:31; Start 11/23/20 at 03:00; Stop 11/23/20 at 04:59; Status DC Amino Acids/ Glycerin/ Electrolytes 1,000 ml @ 80 mls/hr [id number] IV Last administered on 11/28/20at 03:16; Start 11/23/20 at 11:30 Cyanocobalamin (Vitamin B-12) 1,000 mcg DAILY PO ; Start 11/24/20 at 09:00 Dronedarone (Multaq) 400 mg BID PO ; Start 11/23/20 at 21:00; Stop 11/27/20 at 15:13; Status DC Guaifenesin (MUCINEX ER with DM) 1 tab PRN BID PRN PO cough and congestion; Start 11/23/20 at 12:00 Metoprolol Tartrate (Lopressor) 25 mg BID PO ; Start 11/23/20 at 21:00 Roflumilast (Daliresp) 500 mcg DAILY PO ; Start 11/24/20 at 09:00 Verapamil HCl (Calan Sr) 120 mg DAILY PO ; Start 11/23/20 at 13:00 Albuterol Sulfate (Ventolin Neb Soln) 2.5 mg RTQID NEB Last administered on 11/28/20at 07:42; Start 11/23/20 at 16:00 Bupropion HCl (Wellbutrin Xl) 300 mg DAILY PO ; Start 11/23/20 at 13:00 Non-Formulary Medication (Fluticasone Propionate (Flovent 44MCG Hfa)) 10.6 gm DAILY IH ; Start 11/24/20 at 09:00; Status UNV Non-Formulary Medication (Fluticasone/ Salmeterol (Advair 250-50 Diskus)) 1 puff BID IH ; Start 11/23/20 at 21:00; Status UNV Atorvastatin Calcium (Lipitor) 20 mg QHS PO ; Start 11/23/20 at 21:00 Budesonide (Pulmicort) 0.5 mg RTBID NEB Last administered on 11/27/20at 07:24; Start 11/23/20 at 20:00; Stop 11/27/20 at 15:13; Status DC Metoprolol Tartrate (Lopressor Vial) 2.5 mg Q6HRS IVP Last administered on 11/25/20at 05:31; Start 11/23/20 at 18:00; Stop 11/25/20 at 08:41; Status DC Metoprolol Tartrate (Lopressor Vial) 2.5 mg 1X ONCE IVP Last administered on 11/23/20at 13:01; Start 11/23/20 at 13:00; Stop 11/23/20 at 13:01; Status DC Azithromycin 250 ml @ 250 mls/hr 1X ONCE IV ; Start 11/23/20 at 14:15; Stop 11/23/20 at 15:14; Status UNV Azithromycin 500 mg/Sodium Chloride 250 ml @ 250 mls/hr Q24H IV Last administered on 11/27/20at 17:29; Start 11/23/20 at 16:00 Aspirin (Ecotrin) 81 mg DAILYWBKFT PO ; Start 11/23/20 at 23:30; Stop 11/27/20 at 15:07; Status DC Clopidogrel Bisulfate (Plavix) 75 mg 1X ONCE PO ; Start 11/23/20 at 23:30; Stop 11/23/20 at 23:31; Status DC Clopidogrel Bisulfate (Plavix) 75 mg DAILYWBKFT PO ; Start 11/24/20 at 08:00; Stop 11/27/20 at 15:07; Status DC Diltiazem HCl 125 mg/Sodium Chloride 125 ml @ 5 mls/hr CONT PRN IV SEE ADMIN INSTRUCTIONS Last administered on 11/24/20at 00:17; Start 11/23/20 at 23:45 Labetalol HCl (Normodyne Iv Push) 10 mg PRN Q10MIN PRN IVP HYPERTENSION, 1ST CHOICE Last administered on 11/25/20at 03:05; Start 11/24/20 at 08:45 Nicardipine HCl 50 mg/Sodium Chloride 250 ml @ 25 mls/hr CONT PRN PRN IV HYPERTENSION, See comments Last administered on 11/28/20at 00:04; Start 11/24/20 at 08:45 Acetaminophen (Tylenol) 650 mg PRN Q6HRS PRN PO MILD PAIN / TEMP > 100.3'F; Start 11/24/20 at 08:45 Acetaminophen (Tylenol Supp) 650 mg PRN Q6HRS PRN WA MILD PAIN / TEMP > 100.3'F; Start 11/24/20 at 08:45 Ondansetron HCl (Zofran) 4 mg PRN Q6HRS PRN IVP NAUSEA/VOMITING; Start 11/24/20 at 08:45 Enoxaparin Sodium (Lovenox 30mg Syringe) 30 mg Q24H SQ Last administered on 11/28/20at 08:43; Start 11/24/20 at 08:45 Saliva Substitute (Biotene Moisturizing Mouth) 2 spray PRN Q15MIN PRN PO DRY MOUTH Last administered on 11/24/20at 16:37; Start 11/24/20 at 15:45 Haloperidol Lactate (Haldol Inj) 5 mg PRN Q6HRS PRN IVP AGITATION Last administered on 11/25/20at 05:55; Start 11/25/20 at 05:45 Metoprolol Tartrate (Lopressor Vial) 5 mg Q6HRS IVP Last administered on 11/28/20at 05:41; Start 11/25/20 at 09:00 Digoxin (Lanoxin) 500 mcg 1X ONCE IV Last administered on 11/25/20at 12:23; Start 11/25/20 at 12:00; Stop 11/25/20 at 12:01; Status DC Methylprednisolone Sodium Succinate (SOLU-Medrol 40MG VIAL) 40 mg 1X ONCE IV Last administered on 11/25/20at 14:01; Start 11/25/20 at 14:00; Stop 11/25/20 at 14:01; Status DC Budesonide (Pulmicort) 0.5 mg RTBID NEB Last administered on 11/28/20at 07:42; Start 11/25/20 at 20:00 Aspirin (Aspirin Rectal Supp) 300 mg PRN DAILY PRN WA IF UNABLE TO TAKE PO Last administered on 11/28/20at 08:39; Start 11/25/20 at 14:00 Hydralazine HCl (Apresoline Inj) 10 mg PRN Q4HRS PRN IVP ELEVATED BP, 2ND CHOICE Last administered on 11/27/20at 13:00; Start 11/25/20 at 15:00 Aspirin (Aspirin Rectal Supp) 300 mg 1X ONCE WA Last administered on 11/25/20at 22:21; Start 11/25/20 at 21:00; Stop 11/25/20 at 21:01; Status DC Labetalol HCl (Normodyne Iv Push) 20 mg 1X ONCE IVP Last administered on 11/25/20at 15:40; Start 11/25/20 at 15:45; Stop 11/25/20 at 15:46; Status DC Sodium Chloride 1,000 ml @ 100 mls/hr 1X ONCE IV ; Start 11/26/20 at 09:45; Stop 11/26/20 at 19:44; Status DC Furosemide (Lasix) 20 mg 1X ONCE IVP Last administered on 11/27/20at 15:37; Start 11/27/20 at 13:30; Stop 11/27/20 at 13:34; Status DC Barium Sulfate (Varibar Thin Liquid Apple) 148 gm 1X ONCE PO Last administered on 11/27/20at 13:43; Start 11/27/20 at 13:45; Stop 11/27/20 at 13:46; Status DC Lorazepam (Ativan Inj) 0.5 mg PRN QHS PRN IVP SLEEP Last administered on 11/28/20at 01:35; Start 11/27/20 at 15:15 Pantoprazole Sodium (PROTONIX VIAL for IV PUSH) 40 mg DAILYAC IVP Last administered on 11/28/20at 08:43; Start 11/27/20 at 15:15 Fentanyl Citrate (Fentanyl 2ml Vial) 25 mcg 1X ONCE IVP Last administered on 11/27/20at 15:36; Start 11/27/20 at 15:30; Stop 11/27/20 at 15:31; Status DC Active Scripts Active Zofran (Ondansetron Hcl) 4 Mg Tablet 1 Tab PO PRN Q6-8HRS PRN Reported Mucinex Dm Er 600-30 Mg Tablet (Guaifenesin/Dextromethorphan) 1 Each Tab.er.12h 1 Tab PO BID PRN 14 Days Aspirin 325 Mg Tablet 1 Tab PO DAILY Vitamin B-12 (Cyanocobalamin (Vitamin B-12)) 1,000 Mcg Tablet 1 Tab PO DAILY 30 Days Vitamin D3 Complete Caplet (Mv-Mn/Iron/Fa/Herbal Cmplx#190) 1 Each Tablet 1 Each PO DAILY Vitamin C (Ascorbic Acid) 500 Mg Capsule.er 2 Cap PO BID 30 Days Metoprolol Tartrate 25 Mg Tablet 1 Tab PO BID Multaq (Dronedarone Hcl) 400 Mg Tablet 1 Tab PO BID Flovent 44MCG Hfa (Fluticasone Propionate) 10.6 Gm Aer.w.adap 10.6 Gm IH DAILY Xopenex Hfa (Levalbuterol Tartrate) 15 Gm Hfa.aer.ad 15 Gm IH PRN Verapamil Er (Verapamil Hcl) 120 Mg Tablet.er 120 Mg PO DAILY Pravastatin Sodium 80 Mg Tablet 80 Mg PO DAILY Daliresp (Roflumilast) 500 Mcg Tablet 500 Mcg PO DAILY Wellbutrin Xl (Bupropion Hcl) 300 Mg Tab.er.24h 300 Mg PO DAILY Albuterol Sulfate Conc Neb Soln (Albuterol Sulfate) 2.5 Mg/0.5 Ml Vial.neb 1 Vial NEB QID Advair 250-50 Diskus (Fluticasone/Salmeterol) 1 Each Disk.w.dev 1 Puff IH BID Vitals/I & O Vital Sign - Last 24 Hours 11/27/20 11/27/20 11/27/20 11/27/20 09:35 10:05 10:47 11:00 Temp 98.7 98.7 Pulse 96 100 99 Resp 24 B/P (MAP) 145/68 (93) 153/70 (97) 146/70 (95) Pulse Ox 97 97 96 99 O2 Delivery Room Air Room Air Room Air Room Air 11/27/20 11/27/20 11/27/20 11/27/20 11:10 13:00 14:16 15:00 Temp 99.3 99.3 Pulse 108 99 106 110 Resp 22 B/P (MAP) 146/70 (95) 146/70 161/73 (102) 159/67 (97) Pulse Ox 99 98 O2 Delivery Room Air Nasal Cannula O2 Flow Rate 2.0 11/27/20 11/27/20 11/27/20 11/27/20 15:31 15:36 15:39 16:16 Pulse 110 116 B/P (MAP) 159/67 (97) 164/106 (125) Pulse Ox 99 O2 Delivery Nasal Cannula Room Air O2 Flow Rate 2.0 11/27/20 11/27/20 11/27/20 11/27/20 17:16 17:28 17:44 18:09 Pulse 130 110 102 B/P (MAP) 177/74 (108) 159/67 134/60 (84) Pulse Ox 99 O2 Delivery Nasal Cannula O2 Flow Rate 2.0 11/27/20 11/27/20 11/27/20 11/27/20 19:15 19:41 20:00 22:06 Temp 98.4 98.4 Pulse 107 93 Resp 20 B/P (MAP) 123/58 (79) 129/70 (89) Pulse Ox 100 98 100 O2 Delivery Nasal Cannula Room Air Nasal Cannula Nasal Cannula O2 Flow Rate 2.0 2.0 2.0 11/28/20 11/28/20 11/28/20 11/28/20 00:04 02:05 05:41 07:00 Temp 97.7 99.0 97.7 99.0 Pulse 121 104 100 99 Resp 18 20 B/P (MAP) 112/77 152/88 (109) 142/83 133/60 (84) Pulse Ox 100 100 O2 Delivery Nasal Cannula Nasal Cannula O2 Flow Rate 2.0 2.0 11/28/20 07:43 Pulse Ox 97 O2 Delivery Room Air O2 Flow Rate 2.0 Intake and Output 11/27/20 11/27/20 11/28/20 15:00 23:00 07:00 Intake Total 0 ml 0 ml 245 ml Output Total 625 ml 1000 ml Balance 0 ml -625 ml -755 ml Justicifation of Admission Dx: Justifications for Admission: Justification of Admission Dx: Yes Stroke - Ischemic: Stroke-Ischemic THOM POP MD Nov 28, 2020 09:22
--- NOTE | 2020-11-28 10:37 | PDOC ---
CARDIO Progress Notes Date and Time Date of Service 11/28/2020 Time of Evaluation 1030 Subjective Subjective: No Chest Pain, No shortness of breath, No Palpitations Vitals Vitals Vital Signs Date Time Temp Pulse Resp B/P (MAP) Pulse Ox O2 Delivery O2 Flow Rate FiO2 11/28/20 07:43 97 Room Air 2.0 11/28/20 07:00 99.0 99 20 133/60 (84) 99.0 Weight Weight [ ] Input and Output Intake and Output Intake and Output 11/28/20 07:00 Intake Total 245 ml Output Total 1625 ml Balance -1380 ml Intake Oral 0 ml Tube Feeding 245 ml Output Urine Total 1625 ml Laboratory Labs Laboratory Tests Test 11/28/20 05:50 White Blood Count 9.6 x10^3/uL (4.0-11.0) Red Blood Count 2.80 x10^6/uL (3.50-5.40) Hemoglobin 9.1 g/dL (12.0-15.5) Hematocrit 27.7 % (36.0-47.0) Mean Corpuscular Volume 99 fL (79-100) Mean Corpuscular Hemoglobin 33 pg (25-35) Mean Corpuscular Hemoglobin Concent 33 g/dL (31-37) Red Cell Distribution Width 13.8 % (11.5-14.5) Platelet Count 245 x10^3/uL (140-400) Neutrophils (%) (Auto) 74 % (31-73) Lymphocytes (%) (Auto) 13 % (24-48) Monocytes (%) (Auto) 10 % (0-9) Eosinophils (%) (Auto) 3 % (0-3) Basophils (%) (Auto) 0 % (0-3) Neutrophils # (Auto) 7.1 x10^3/uL (1.8-7.7) Lymphocytes # (Auto) 1.3 x10^3/uL (1.0-4.8) Monocytes # (Auto) 1.0 x10^3/uL (0.0-1.1) Eosinophils # (Auto) 0.2 x10^3/uL (0.0-0.7) Basophils # (Auto) 0.0 x10^3/uL (0.0-0.2) Sodium Level 142 mmol/L (136-145) Potassium Level 4.4 mmol/L (3.5-5.1) Chloride Level 109 mmol/L (98-107) Carbon Dioxide Level 24 mmol/L (21-32) Anion Gap 9 (6-14) Blood Urea Nitrogen 52 mg/dL (7-20) Creatinine 1.5 mg/dL (0.6-1.0) Estimated GFR (Cockcroft-Gault) 33.0 BUN/Creatinine Ratio 35 (6-20) Glucose Level 104 mg/dL (70-99) Calcium Level 9.2 mg/dL (8.5-10.1) Total Bilirubin 0.4 mg/dL (0.2-1.0) Aspartate Amino Transf (AST/SGOT) 38 U/L (15-37) Alanine Aminotransferase (ALT/SGPT) 65 U/L (14-59) Alkaline Phosphatase 49 U/L (46-116) Total Protein 5.6 g/dL (6.4-8.2) Albumin 2.4 g/dL (3.4-5.0) Albumin/Globulin Ratio 0.8 (1.0-1.7) Microbiology Micro Microbiology 11/23/20 Blood Culture - Preliminary, Resulted NO GROWTH AFTER 4 DAYS Physical Exam HEENT: Neck Supple W Full Motion Chest: Symmetric LUNGS: Other (diminished bases) Heart: irregularly irregular (AFIB) Abdomen: Soft N/T, Other (obese NGT in place) Extremities: No Calf Tenderness Neurology: alert, oriented, follow commands Assessment Assessment 1. 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 s/p TPA 11/22 2. PAFIB; Declined OAC multiple times in past. currently with RVR 3. Hypertensive urgency; off Cardene. BP better controlled 4. Acute respiratory failure with underlying COPD; improved. on RA 5. Acute on chronic diastolic CHF; appears compensated 6. Mild troponin elevation; highest 0.06. Most probable type II, demand ischemia. Echo with preserved LV systolic function 7. SHELLEY; Cr stable 8. Leukocytosis, fevers 9. Dysphagia 10. Severe pulmonary hypertension; PAP 67 mmHg. Recommendations Start on metoprolol, norvasc via NGT. Dig x1. DC cardene PEG pending for Tuesday Lasix PRN Continue statin On low-dose anticoagulation therapy with Lovenox Too high risk for full anticoagulation with large infarct. Will consider initiation at a later date when clear with neurology Consider outpatient CVN if OAC can safely be resumed Rehab modalities Supportive care Justicifation of Admission Dx: Justifications for Admission: Justification of Admission Dx: Yes Stroke - Ischemic: Stroke-Ischemic REYES ANDERSEN ACCOUNTS RECEIVABLE ADMINISTRATOR Nov 28, 2020 10:37
[2020-11-28] MEDS ORDERED: DIGOXIN IV 500 MCG/2 ML AMPUL. IV ONE (10:45)
--- NOTE | 2020-11-28 10:55 | PDOC ---
PULMONARY PROGRESS NOTES DATE: 11/28/20 TIME: 10:53 Subjective PT. is on room air Remains NPO, now with feeding tube in place no overnight concerns Vitals Vital Signs Date Time Temp Pulse Resp B/P (MAP) Pulse Ox O2 Delivery O2 Flow Rate FiO2 11/28/20 07:43 97 Room Air 2.0 11/28/20 07:00 99.0 99 20 133/60 (84) 99.0 Comments Left side weakness and facial droop ROS: No Nausea, No Chest Pain, No Abdominal Pain, No Increase Cough General: Alert Lungs: Clear Cardiovascular: S1, S2 Abdomen: Soft, Non-tender Neuro Exam: Alert, Oriented Extremities: No Edema, Other Skin: Warm, Dry Labs Laboratory Tests Test 11/28/20 05:50 White Blood Count 9.6 x10^3/uL (4.0-11.0) Red Blood Count 2.80 x10^6/uL (3.50-5.40) Hemoglobin 9.1 g/dL (12.0-15.5) Hematocrit 27.7 % (36.0-47.0) Mean Corpuscular Volume 99 fL (79-100) Mean Corpuscular Hemoglobin 33 pg (25-35) Mean Corpuscular Hemoglobin Concent 33 g/dL (31-37) Red Cell Distribution Width 13.8 % (11.5-14.5) Platelet Count 245 x10^3/uL (140-400) Neutrophils (%) (Auto) 74 % (31-73) Lymphocytes (%) (Auto) 13 % (24-48) Monocytes (%) (Auto) 10 % (0-9) Eosinophils (%) (Auto) 3 % (0-3) Basophils (%) (Auto) 0 % (0-3) Neutrophils # (Auto) 7.1 x10^3/uL (1.8-7.7) Lymphocytes # (Auto) 1.3 x10^3/uL (1.0-4.8) Monocytes # (Auto) 1.0 x10^3/uL (0.0-1.1) Eosinophils # (Auto) 0.2 x10^3/uL (0.0-0.7) Basophils # (Auto) 0.0 x10^3/uL (0.0-0.2) Sodium Level 142 mmol/L (136-145) Potassium Level 4.4 mmol/L (3.5-5.1) Chloride Level 109 mmol/L (98-107) Carbon Dioxide Level 24 mmol/L (21-32) Anion Gap 9 (6-14) Blood Urea Nitrogen 52 mg/dL (7-20) Creatinine 1.5 mg/dL (0.6-1.0) Estimated GFR (Cockcroft-Gault) 33.0 BUN/Creatinine Ratio 35 (6-20) Glucose Level 104 mg/dL (70-99) Calcium Level 9.2 mg/dL (8.5-10.1) Total Bilirubin 0.4 mg/dL (0.2-1.0) Aspartate Amino Transf (AST/SGOT) 38 U/L (15-37) Alanine Aminotransferase (ALT/SGPT) 65 U/L (14-59) Alkaline Phosphatase 49 U/L (46-116) Total Protein 5.6 g/dL (6.4-8.2) Albumin 2.4 g/dL (3.4-5.0) Albumin/Globulin Ratio 0.8 (1.0-1.7) Laboratory Tests Test 11/28/20 05:50 White Blood Count 9.6 x10^3/uL (4.0-11.0) Red Blood Count 2.80 x10^6/uL (3.50-5.40) Hemoglobin 9.1 g/dL (12.0-15.5) Hematocrit 27.7 % (36.0-47.0) Mean Corpuscular Volume 99 fL (79-100) Mean Corpuscular Hemoglobin 33 pg (25-35) Mean Corpuscular Hemoglobin Concent 33 g/dL (31-37) Red Cell Distribution Width 13.8 % (11.5-14.5) Platelet Count 245 x10^3/uL (140-400) Neutrophils (%) (Auto) 74 % (31-73) Lymphocytes (%) (Auto) 13 % (24-48) Monocytes (%) (Auto) 10 % (0-9) Eosinophils (%) (Auto) 3 % (0-3) Basophils (%) (Auto) 0 % (0-3) Neutrophils # (Auto) 7.1 x10^3/uL (1.8-7.7) Lymphocytes # (Auto) 1.3 x10^3/uL (1.0-4.8) Monocytes # (Auto) 1.0 x10^3/uL (0.0-1.1) Eosinophils # (Auto) 0.2 x10^3/uL (0.0-0.7) Basophils # (Auto) 0.0 x10^3/uL (0.0-0.2) Sodium Level 142 mmol/L (136-145) Potassium Level 4.4 mmol/L (3.5-5.1) Chloride Level 109 mmol/L (98-107) Carbon Dioxide Level 24 mmol/L (21-32) Anion Gap 9 (6-14) Blood Urea Nitrogen 52 mg/dL (7-20) Creatinine 1.5 mg/dL (0.6-1.0) Estimated GFR (Cockcroft-Gault) 33.0 BUN/Creatinine Ratio 35 (6-20) Glucose Level 104 mg/dL (70-99) Calcium Level 9.2 mg/dL (8.5-10.1) Total Bilirubin 0.4 mg/dL (0.2-1.0) Aspartate Amino Transf (AST/SGOT) 38 U/L (15-37) Alanine Aminotransferase (ALT/SGPT) 65 U/L (14-59) Alkaline Phosphatase 49 U/L (46-116) Total Protein 5.6 g/dL (6.4-8.2) Albumin 2.4 g/dL (3.4-5.0) Albumin/Globulin Ratio 0.8 (1.0-1.7) Medications Active Scripts Medications Dose Route/Sig Max Daily Dose Days Date Category Mucinex Dm Er 600-30 Mg Tablet (Guaifenesin/Dextromethorphan) 1 Each Tab.er.12h 1 Tab PO BID PRN 14 11/23/20 Reported Aspirin 325 Mg Tablet 1 Tab PO DAILY 11/23/20 Reported Vitamin B-12 (Cyanocobalamin (Vitamin B-12)) 1,000 Mcg Tablet 1 Tab PO DAILY 30 11/23/20 Reported Vitamin D3 Complete Caplet (Mv-Mn/Iron/Fa/Herbal Cmplx#190) 1 Each Tablet 1 Each PO DAILY 11/23/20 Reported Vitamin C (Ascorbic Acid) 500 Mg Capsule.er 2 Cap PO BID 30 11/23/20 Reported Metoprolol Tartrate 25 Mg Tablet 1 Tab PO BID 11/23/20 Reported Multaq (Dronedarone Hcl) 400 Mg Tablet 1 Tab PO BID 11/23/20 Reported Zofran (Ondansetron Hcl) 4 Mg Tablet 1 Tab PO PRN Q6-8HRS PRN 06/11/18 Rx Flovent 44MCG Hfa (Fluticasone Propionate) 10.6 Gm Aer.w.adap 10.6 Gm IH DAILY 07/29/15 Reported Xopenex Hfa (Levalbuterol Tartrate) 15 Gm Hfa.aer.ad 15 Gm IH PRN 07/20/14 Reported Verapamil Er (Verapamil Hcl) 120 Mg Tablet.er 120 Mg PO DAILY 07/20/14 Reported Pravastatin Sodium 80 Mg Tablet 80 Mg PO DAILY 07/20/14 Reported Daliresp (Roflumilast) 500 Mcg Tablet 500 Mcg PO DAILY 07/20/14 Reported Wellbutrin Xl (Bupropion Hcl) 300 Mg Tab.er.24h 300 Mg PO DAILY 07/20/14 Reported Albuterol Sulfate Conc Neb Soln (Albuterol Sulfate) 2.5 Mg/0.5 Ml Vial.neb 1 Vial NEB QID 07/20/14 Reported Advair 250-50 Diskus (Fluticasone/Salmeterol) 1 Each Disk.w.dev 1 Puff IH BID 07/20/[address] head IMPRESSION: 1. No intracranial hemorrhage. 2. Evolving large subacute right MCA territory infarct with edema. No midline shift. Impression . IMPRESSION: 1. Chronic respiratory failure-- resolved now on room air 2. Chronic obstructive pulmonary disease with mild acute exacerbation ---resolved 3. MCA infarct, status post TPA. 4. Dysphagia. 5. Left-sided hemiparesis. 6. Acute on chronic diastolic heart failure. Plan . 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
[2020-11-28 11:00] VITALS: BP 150/71
--- NOTE | 2020-11-28 11:02 | NUR ---
SS following up with discharge planning. SS reviewed pt chart and discussed with pt RN. Pt is currently requiring oxygen at two liters nasal canula. COVID19 negative. Pt on IV Azithromycin and PPN. NPO. Pt currently has dobhoff and is scheduled for PEG placement on 12/01/2020. PT/OT recommended acute rehabilitation. Referral was sent to [facility], ; fax [phone]. SS will continue to follow for discharge planning.
--- NOTE | 2020-11-28 12:01 | PDOC ---
PROGRESS NOTES Date of Service: DATE: 11/28/20 TIME: 12:00 Chief Complaint Chief Complaint acute stoke, RIGHT MCA, s/p TPA given left hemiparesis hand face left sided neglect obese, BMI 35 DM2 dysphagi, weakness, History of Present Illness History of Present Illness 11/28 NG tube placed for nutrition, marked weakness, confusion at times but better Out of ICU, may DC tele plad ACUTE rehab hospital, needs PEG, planned tuesday, GI unable to sched today breathing much better swallow eval today, plan acute rehab, they need a diet order to approve she feels better, some improvement in exam Vitals Vitals Vital Signs Date Time Temp Pulse Resp B/P (MAP) Pulse Ox O2 Delivery O2 Flow Rate FiO2 11/28/20 11:00 98.2 99 18 150/71 (97) 98 Nasal Cannula 2.0 98.2 Physical Exam Physical Exam neuro better, left hand movement adn talking better, General: Alert, Cooperative, mild distress Heart: Regular rate, Normal S1, Other (distant heart tones, IRRR; tele AFIB with RVR) Lungs: Clear Abdomen: Soft Extremities: No clubbing, Normal pulses, Other (1+ bilateral UE edema. ) Skin: No rashes, No significant lesion Labs LABS Laboratory Tests Test 11/28/20 05:50 White Blood Count 9.6 x10^3/uL (4.0-11.0) Red Blood Count 2.80 x10^6/uL (3.50-5.40) Hemoglobin 9.1 g/dL (12.0-15.5) Hematocrit 27.7 % (36.0-47.0) Mean Corpuscular Volume 99 fL (79-100) Mean Corpuscular Hemoglobin 33 pg (25-35) Mean Corpuscular Hemoglobin Concent 33 g/dL (31-37) Red Cell Distribution Width 13.8 % (11.5-14.5) Platelet Count 245 x10^3/uL (140-400) Neutrophils (%) (Auto) 74 % (31-73) Lymphocytes (%) (Auto) 13 % (24-48) Monocytes (%) (Auto) 10 % (0-9) Eosinophils (%) (Auto) 3 % (0-3) Basophils (%) (Auto) 0 % (0-3) Neutrophils # (Auto) 7.1 x10^3/uL (1.8-7.7) Lymphocytes # (Auto) 1.3 x10^3/uL (1.0-4.8) Monocytes # (Auto) 1.0 x10^3/uL (0.0-1.1) Eosinophils # (Auto) 0.2 x10^3/uL (0.0-0.7) Basophils # (Auto) 0.0 x10^3/uL (0.0-0.2) Sodium Level 142 mmol/L (136-145) Potassium Level 4.4 mmol/L (3.5-5.1) Chloride Level 109 mmol/L (98-107) Carbon Dioxide Level 24 mmol/L (21-32) Anion Gap 9 (6-14) Blood Urea Nitrogen 52 mg/dL (7-20) Creatinine 1.5 mg/dL (0.6-1.0) Estimated GFR (Cockcroft-Gault) 33.0 BUN/Creatinine Ratio 35 (6-20) Glucose Level 104 mg/dL (70-99) Calcium Level 9.2 mg/dL (8.5-10.1) Total Bilirubin 0.4 mg/dL (0.2-1.0) Aspartate Amino Transf (AST/SGOT) 38 U/L (15-37) Alanine Aminotransferase (ALT/SGPT) 65 U/L (14-59) Alkaline Phosphatase 49 U/L (46-116) Total Protein 5.6 g/dL (6.4-8.2) Albumin 2.4 g/dL (3.4-5.0) Albumin/Globulin Ratio 0.8 (1.0-1.7) Assessment and Plan Assessmemt and Plan Problems Medical Problems: (1) Acute CVA (cerebrovascular accident) Status: Acute (2) Hypoxia Status: Acute (3) Lactic acidosis Status: Acute (4) Pulmonary vascular congestion Status: Acute (5) Suspected 2019 novel coronavirus infection Status: Acute Comment Review of Relevant I have reviewed the following items gerry (where applicable) has been applied. Labs Laboratory Tests Test 11/28/20 05:50 White Blood Count 9.6 x10^3/uL (4.0-11.0) Red Blood Count 2.80 x10^6/uL (3.50-5.40) Hemoglobin 9.1 g/dL (12.0-15.5) Hematocrit 27.7 % (36.0-47.0) Mean Corpuscular Volume 99 fL (79-100) Mean Corpuscular Hemoglobin 33 pg (25-35) Mean Corpuscular Hemoglobin Concent 33 g/dL (31-37) Red Cell Distribution Width 13.8 % (11.5-14.5) Platelet Count 245 x10^3/uL (140-400) Neutrophils (%) (Auto) 74 % (31-73) Lymphocytes (%) (Auto) 13 % (24-48) Monocytes (%) (Auto) 10 % (0-9) Eosinophils (%) (Auto) 3 % (0-3) Basophils (%) (Auto) 0 % (0-3) Neutrophils # (Auto) 7.1 x10^3/uL (1.8-7.7) Lymphocytes # (Auto) 1.3 x10^3/uL (1.0-4.8) Monocytes # (Auto) 1.0 x10^3/uL (0.0-1.1) Eosinophils # (Auto) 0.2 x10^3/uL (0.0-0.7) Basophils # (Auto) 0.0 x10^3/uL (0.0-0.2) Sodium Level 142 mmol/L (136-145) Potassium Level 4.4 mmol/L (3.5-5.1) Chloride Level 109 mmol/L (98-107) Carbon Dioxide Level 24 mmol/L (21-32) Anion Gap 9 (6-14) Blood Urea Nitrogen 52 mg/dL (7-20) Creatinine 1.5 mg/dL (0.6-1.0) Estimated GFR (Cockcroft-Gault) 33.0 BUN/Creatinine Ratio 35 (6-20) Glucose Level 104 mg/dL (70-99) Calcium Level 9.2 mg/dL (8.5-10.1) Total Bilirubin 0.4 mg/dL (0.2-1.0) Aspartate Amino Transf (AST/SGOT) 38 U/L (15-37) Alanine Aminotransferase (ALT/SGPT) 65 U/L (14-59) Alkaline Phosphatase 49 U/L (46-116) Total Protein 5.6 g/dL (6.4-8.2) Albumin 2.4 g/dL (3.4-5.0) Albumin/Globulin Ratio 0.8 (1.0-1.7) Laboratory Tests Test 11/28/20 05:50 White Blood Count 9.6 x10^3/uL (4.0-11.0) Red Blood Count 2.80 x10^6/uL (3.50-5.40) Hemoglobin 9.1 g/dL (12.0-15.5) Hematocrit 27.7 % (36.0-47.0) Mean Corpuscular Volume 99 fL (79-100) Mean Corpuscular Hemoglobin 33 pg (25-35) Mean Corpuscular Hemoglobin Concent 33 g/dL (31-37) Red Cell Distribution Width 13.8 % (11.5-14.5) Platelet Count 245 x10^3/uL (140-400) Neutrophils (%) (Auto) 74 % (31-73) Lymphocytes (%) (Auto) 13 % (24-48) Monocytes (%) (Auto) 10 % (0-9) Eosinophils (%) (Auto) 3 % (0-3) Basophils (%) (Auto) 0 % (0-3) Neutrophils # (Auto) 7.1 x10^3/uL (1.8-7.7) Lymphocytes # (Auto) 1.3 x10^3/uL (1.0-4.8) Monocytes # (Auto) 1.0 x10^3/uL (0.0-1.1) Eosinophils # (Auto) 0.2 x10^3/uL (0.0-0.7) Basophils # (Auto) 0.0 x10^3/uL (0.0-0.2) Sodium Level 142 mmol/L (136-145) Potassium Level 4.4 mmol/L (3.5-5.1) Chloride Level 109 mmol/L (98-107) Carbon Dioxide Level 24 mmol/L (21-32) Anion Gap 9 (6-14) Blood Urea Nitrogen 52 mg/dL (7-20) Creatinine 1.5 mg/dL (0.6-1.0) Estimated GFR (Cockcroft-Gault) 33.0 BUN/Creatinine Ratio 35 (6-20) Glucose Level 104 mg/dL (70-99) Calcium Level 9.2 mg/dL (8.5-10.1) Total Bilirubin 0.4 mg/dL (0.2-1.0) Aspartate Amino Transf (AST/SGOT) 38 U/L (15-37) Alanine Aminotransferase (ALT/SGPT) 65 U/L (14-59) Alkaline Phosphatase 49 U/L (46-116) Total Protein 5.6 g/dL (6.4-8.2) Albumin 2.4 g/dL (3.4-5.0) Albumin/Globulin Ratio 0.8 (1.0-1.7) Microbiology 11/23/20 Blood Culture - Preliminary, Resulted NO GROWTH AFTER 4 DAYS Medications Current Medications Sodium Chloride 1,000 ml @ 1,000 mls/hr Q1H IV Last administered on 11/22/20at 19:31; Start 11/22/20 at 19:15; Stop 11/22/20 at 20:14; Status DC Alteplase, Recombinant 9 ml @ 540 mls/hr 1X ONCE IV Last administered on 11/22/20at 19:57; Start 11/22/20 at 19:45; Stop 11/22/20 at 19:46; Status DC Alteplase, Recombinant 81 ml @ 81 mls/hr Q1H IV Last administered on 11/22/20at 20:00; Start 11/22/20 at 19:45; Stop 11/22/20 at 20:44; Status DC Sodium Chloride 50 ml @ 200 mls/hr 1X ONCE IV Last administered on 11/22/20at 20:10; Start 11/22/20 at 19:45; Stop 11/22/20 at 19:59; Status DC Alteplase, Recombinant 10 ml @ 600 mls/hr 1X ONCE IV ; Start 11/22/20 at 19:45; Stop 11/22/20 at 19:46; Status UNV Alteplase, Recombinant 90 ml @ 90 mls/hr 1X ONCE IV ; Start 11/22/20 at 19:45; Stop 11/22/20 at 20:44; Status UNV Sodium Chloride 50 ml @ 50 mls/hr 1X ONCE IV ; Start 11/22/20 at 19:45; Stop 11/22/20 at 20:44; Status UNV Aspirin (Aspirin Rectal Supp) 300 mg 1X ONCE NH Last administered on 11/22/20at 20:16; Start 11/22/20 at 19:45; Stop 11/22/20 at 19:48; Status DC Iohexol (Omnipaque 300 Mg/ml) 60 ml 1X ONCE IV Last administered on 11/22/20at 20:38; Start 11/22/20 at 20:15; Stop 11/22/20 at 20:16; Status DC Info (CONTRAST GIVEN -- Rx MONITORING) 1 each PRN DAILY PRN MC SEE COMMENTS; Start 11/22/20 at 20:30; Stop 11/24/20 at 20:29; Status DC Ondansetron HCl (Zofran) 4 mg PRN Q8HRS PRN IV NAUSEA/VOMITING 1ST CHOICE Last administered on 11/23/20at 04:05; Start 11/22/20 at 21:45; Stop 11/23/20 at 21:44; Status DC Bumetanide (Bumex) 0.5 mg 1X ONCE IV Last administered on 11/23/20at 00:51; Start 11/22/20 at 23:30; Stop 11/22/20 at 23:31; Status DC Labetalol HCl (Normodyne Iv Push) 10 mg PRN Q10MIN PRN IVP HYPERTENSION Last administered on 11/24/20at 13:07; Start 11/23/20 at 02:15; Stop 11/24/20 at 15:00; Status DC Nicardipine HCl 50 mg/Sodium Chloride 250 ml @ 25 mls/hr CONT PRN PRN IV HYPERTENSION Last administered on 11/23/20at 15:53; Start 11/23/20 at 02:15; Stop 11/24/20 at 09:35; Status DC Potassium Chloride/Water 100 ml @ 100 mls/hr Q1H IV Last administered on 11/23/20at 07:34; Start 11/23/20 at 03:00; Stop 11/23/20 at 06:59; Status DC Magnesium Sulfate 50 ml @ 25 mls/hr 1X ONCE IV Last administered on 11/23/20at 04:31; Start 11/23/20 at 03:00; Stop 11/23/20 at 04:59; Status DC Amino Acids/ Glycerin/ Electrolytes 1,000 ml @ 80 mls/hr [id number] IV Last administered on 11/28/20at 03:16; Start 11/23/20 at 11:30 Cyanocobalamin (Vitamin B-12) 1,000 mcg DAILY PO ; Start 11/24/20 at 09:00 Dronedarone (Multaq) 400 mg BID PO ; Start 11/23/20 at 21:00; Stop 11/27/20 at 15:13; Status DC Guaifenesin (MUCINEX ER with DM) 1 tab PRN BID PRN PO cough and congestion; Start 11/23/20 at 12:00 Metoprolol Tartrate (Lopressor) 25 mg BID PO ; Start 11/23/20 at 21:00; Stop 11/28/20 at 10:35; Status DC Roflumilast (Daliresp) 500 mcg DAILY PO ; Start 11/24/20 at 09:00 Verapamil HCl (Calan Sr) 120 mg DAILY PO ; Start 11/23/20 at 13:00; Stop 11/28/20 at 10:35; Status DC Albuterol Sulfate (Ventolin Neb Soln) 2.5 mg RTQID NEB Last administered on 11/28/20at 07:42; Start 11/23/20 at 16:00 Bupropion HCl (Wellbutrin Xl) 300 mg DAILY PO ; Start 11/23/20 at 13:00 Non-Formulary Medication (Fluticasone Propionate (Flovent 44MCG Hfa)) 10.6 gm DAILY IH ; Start 11/24/20 at 09:00; Status UNV Non-Formulary Medication (Fluticasone/ Salmeterol (Advair 250-50 Diskus)) 1 puff BID IH ; Start 11/23/20 at 21:00; Status UNV Atorvastatin Calcium (Lipitor) 20 mg QHS PO ; Start 11/23/20 at 21:00 Budesonide (Pulmicort) 0.5 mg RTBID NEB Last administered on 11/27/20at 07:24; Start 11/23/20 at 20:00; Stop 11/27/20 at 15:13; Status DC Metoprolol Tartrate (Lopressor Vial) 2.5 mg Q6HRS IVP Last administered on 11/25/20at 05:31; Start 11/23/20 at 18:00; Stop 11/25/20 at 08:41; Status DC Metoprolol Tartrate (Lopressor Vial) 2.5 mg 1X ONCE IVP Last administered on 11/23/20at 13:01; Start 11/23/20 at 13:00; Stop 11/23/20 at 13:01; Status DC Azithromycin 250 ml @ 250 mls/hr 1X ONCE IV ; Start 11/23/20 at 14:15; Stop 11/23/20 at 15:14; Status UNV Azithromycin 500 mg/Sodium Chloride 250 ml @ 250 mls/hr Q24H IV Last administered on 11/27/20at 17:29; Start 11/23/20 at 16:00 Aspirin (Ecotrin) 81 mg DAILYWBKFT PO ; Start 11/23/20 at 23:30; Stop 11/27/20 at 15:07; Status DC Clopidogrel Bisulfate (Plavix) 75 mg 1X ONCE PO ; Start 11/23/20 at 23:30; Stop 11/23/20 at 23:31; Status DC Clopidogrel Bisulfate (Plavix) 75 mg DAILYWBKFT PO ; Start 11/24/20 at 08:00; Stop 11/27/20 at 15:07; Status DC Diltiazem HCl 125 mg/Sodium Chloride 125 ml @ 5 mls/hr CONT PRN IV SEE ADMIN INSTRUCTIONS Last administered on 11/24/20at 00:17; Start 11/23/20 at 23:45; Stop 11/28/20 at 10:32; Status DC Labetalol HCl (Normodyne Iv Push) 10 mg PRN Q10MIN PRN IVP HYPERTENSION, 1ST CHOICE Last administered on 11/25/20at 03:05; Start 11/24/20 at 08:45 Nicardipine HCl 50 mg/Sodium Chloride 250 ml @ 25 mls/hr CONT PRN PRN IV HYPERTENSION, See comments Last administered on 11/28/20at 00:04; Start 11/24/20 at 08:45; Stop 11/28/20 at 10:32; Status DC Acetaminophen (Tylenol) 650 mg PRN Q6HRS PRN PO MILD PAIN / TEMP > 100.3'F; Start 11/24/20 at 08:45 Acetaminophen (Tylenol Supp) 650 mg PRN Q6HRS PRN NH MILD PAIN / TEMP > 100.3'F; Start 11/24/20 at 08:45 Ondansetron HCl (Zofran) 4 mg PRN Q6HRS PRN IVP NAUSEA/VOMITING; Start 11/24/20 at 08:45 Enoxaparin Sodium (Lovenox 30mg Syringe) 30 mg Q24H SQ Last administered on 11/28/20at 08:43; Start 11/24/20 at 08:45 Saliva Substitute (Biotene Moisturizing Mouth) 2 spray PRN Q15MIN PRN PO DRY MOUTH Last administered on 11/24/20at 16:37; Start 11/24/20 at 15:45 Haloperidol Lactate (Haldol Inj) 5 mg PRN Q6HRS PRN IVP AGITATION Last administered on 11/25/20at 05:55; Start 11/25/20 at 05:45 Metoprolol Tartrate (Lopressor Vial) 5 mg Q6HRS IVP Last administered on 11/28/20at 05:41; Start 11/25/20 at 09:00; Stop 11/28/20 at 10:35; Status DC Digoxin (Lanoxin) 500 mcg 1X ONCE IV Last administered on 11/25/20at 12:23; Start 11/25/20 at 12:00; Stop 11/25/20 at 12:01; Status DC Methylprednisolone Sodium Succinate (SOLU-Medrol 40MG VIAL) 40 mg 1X ONCE IV Last administered on 11/25/20at 14:01; Start 11/25/20 at 14:00; Stop 11/25/20 at 14:01; Status DC Budesonide (Pulmicort) 0.5 mg RTBID NEB Last administered on 11/28/20at 07:42; Start 11/25/20 at 20:00 Aspirin (Aspirin Rectal Supp) 300 mg PRN DAILY PRN [place] IF UNABLE TO TAKE PO Last administered on 11/28/20at 08:39; Start 11/25/20 at 14:00 Hydralazine HCl (Apresoline Inj) 10 mg PRN Q4HRS PRN IVP ELEVATED BP, 2ND CHOICE Last administered on 11/27/20at 13:00; Start 11/25/20 at 15:00 Aspirin (Aspirin Rectal Supp) 300 mg 1X ONCE NH Last administered on 11/25/20at 22:21; Start 11/25/20 at 21:00; Stop 11/25/20 at 21:01; Status DC Labetalol HCl (Normodyne Iv Push) 20 mg 1X ONCE IVP Last administered on 11/25/20at 15:40; Start 11/25/20 at 15:45; Stop 11/25/20 at 15:46; Status DC Sodium Chloride 1,000 ml @ 100 mls/hr 1X ONCE IV ; Start 11/26/20 at 09:45; Stop 11/26/20 at 19:44; Status DC Furosemide (Lasix) 20 mg 1X ONCE IVP Last administered on 11/27/20at 15:37; Start 11/27/20 at 13:30; Stop 11/27/20 at 13:34; Status DC Barium Sulfate (Varibar Thin Liquid Apple) 148 gm 1X ONCE PO Last administered on 11/27/20at 13:43; Start 11/27/20 at 13:45; Stop 11/27/20 at 13:46; Status DC Lorazepam (Ativan Inj) 0.5 mg PRN QHS PRN IVP SLEEP Last administered on 11/28/20at 01:35; Start 11/27/20 at 15:15 Pantoprazole Sodium (PROTONIX VIAL for IV PUSH) 40 mg DAILYAC IVP Last administered on 11/28/20at 08:43; Start 11/27/20 at 15:15 Fentanyl Citrate (Fentanyl 2ml Vial) 25 mcg 1X ONCE IVP Last administered on 11/27/20at 15:36; Start 11/27/20 at 15:30; Stop 11/27/20 at 15:31; Status DC Metoprolol Tartrate (Lopressor) 50 mg BID PO ; Start 11/28/20 at 21:00 Amlodipine Besylate (Norvasc) 10 mg DAILY PO ; Start 11/28/20 at 12:00 Digoxin (Lanoxin) 250 mcg 1X ONCE IV ; Start 11/28/20 at 10:45; Stop 11/28/20 at 10:46; Status DC Active Scripts Active Zofran (Ondansetron Hcl) 4 Mg Tablet 1 Tab PO PRN Q6-8HRS PRN Reported Mucinex Dm Er 600-30 Mg Tablet (Guaifenesin/Dextromethorphan) 1 Each Tab.er.12h 1 Tab PO BID PRN 14 Days Aspirin 325 Mg Tablet 1 Tab PO DAILY Vitamin B-12 (Cyanocobalamin (Vitamin B-12)) 1,000 Mcg Tablet 1 Tab PO DAILY 30 Days Vitamin D3 Complete Caplet (Mv-Mn/Iron/Fa/Herbal Cmplx#190) 1 Each Tablet 1 Each PO DAILY Vitamin C (Ascorbic Acid) 500 Mg Capsule.er 2 Cap PO BID 30 Days Metoprolol Tartrate 25 Mg Tablet 1 Tab PO BID Multaq (Dronedarone Hcl) 400 Mg Tablet 1 Tab PO BID Flovent 44MCG Hfa (Fluticasone Propionate) 10.6 Gm Aer.w.adap 10.6 Gm IH DAILY Xopenex Hfa (Levalbuterol Tartrate) 15 Gm Hfa.aer.ad 15 Gm IH PRN Verapamil Er (Verapamil Hcl) 120 Mg Tablet.er 120 Mg PO DAILY Pravastatin Sodium 80 Mg Tablet 80 Mg PO DAILY Daliresp (Roflumilast) 500 Mcg Tablet 500 Mcg PO DAILY Wellbutrin Xl (Bupropion Hcl) 300 Mg Tab.er.24h 300 Mg PO DAILY Albuterol Sulfate Conc Neb Soln (Albuterol Sulfate) 2.5 Mg/0.5 Ml Vial.neb 1 Vial NEB QID Advair 250-50 Diskus (Fluticasone/Salmeterol) 1 Each Disk.w.dev 1 Puff IH BID Vitals/I & O Vital Sign - Last 24 Hours 11/27/20 11/27/20 11/27/20 11/27/20 13:00 14:16 15:00 15:31 Temp 99.3 99.3 Pulse 99 106 110 110 Resp 22 B/P (MAP) 146/70 161/73 (102) 159/67 (97) 159/67 (97) Pulse Ox 98 O2 Delivery Nasal Cannula O2 Flow Rate 2.0 11/27/20 11/27/20 11/27/20 11/27/20 15:36 15:39 16:16 17:16 Pulse 116 130 B/P (MAP) 164/106 (125) 177/74 (108) Pulse Ox 99 O2 Delivery Nasal Cannula Room Air O2 Flow Rate 2.0 11/27/20 11/27/20 11/27/20 11/27/20 17:28 17:44 18:09 19:15 Temp 98.4 98.4 Pulse 110 102 107 B/P (MAP) 159/67 134/60 (84) 123/58 (79) Pulse Ox 99 100 O2 Delivery Nasal Cannula Nasal Cannula O2 Flow Rate 2.0 2.0 11/27/20 11/27/20 11/27/20 11/28/20 19:41 20:00 22:06 00:04 Pulse 93 121 Resp 20 B/P (MAP) 129/70 (89) 112/77 Pulse Ox 98 100 O2 Delivery Room Air Nasal Cannula Nasal Cannula O2 Flow Rate 2.0 2.0 11/28/20 11/28/20 11/28/20 11/28/20 02:05 05:41 07:00 07:43 Temp 97.7 99.0 97.7 99.0 Pulse 104 100 99 Resp 18 20 B/P (MAP) 152/88 (109) 142/83 133/60 (84) Pulse Ox 100 100 97 O2 Delivery Nasal Cannula Nasal Cannula Nasal Cannula O2 Flow Rate 2.0 2.0 2.0 11/28/20 11/28/20 08:00 11:00 Temp 98.2 98.2 Pulse 99 Resp 18 B/P (MAP) 150/71 (97) Pulse Ox 98 O2 Delivery Nasal Cannula Nasal Cannula O2 Flow Rate 2.0 2.0 Intake and Output 11/27/20 11/27/20 11/28/20 15:00 23:00 07:00 Intake Total 0 ml 0 ml 245 ml Output Total 625 ml 1000 ml Balance 0 ml -625 ml -755 ml Justicifation of Admission Dx: Justifications for Admission: Justification of Admission Dx: Yes Stroke - Ischemic: Stroke-Ischemic CORRINA BROWN MD Nov 28, 2020 12:01
[2020-11-28 15:00] VITALS: BP 168/60
[2020-11-28] MEDS: hydrALAZINE 20 MG/ML VIAL. IVP PRN (16:04)
[2020-11-28] MEDS: AZITHROMYCIN 500 MG in IV NORMAL SALINE 250ML 250 ML IV SCH (16:05)
[2020-11-28 19:34] VITALS: BP 146/65
[2020-11-28] MEDS: METOPROLOL TART IMMED RELEASE 50 MG TABLET. PO SCH (21:47)
[2020-11-28] MEDS: ATORVASTATIN CALCIUM 20 MG TABLET PO SCH (21:47)
[2020-11-28 22:27] VITALS: BP 155/72
[2020-11-29] MEDS: AMINO AC 3%/ELECTROLYTE/GLYCER 1,000 ML IV SCH ×2 (01:24→17:30)
[2020-11-29 02:51] VITALS: BP 141/61
[2020-11-29 07:00] VITALS: BP 164/74
[2020-11-29] MEDS: BUDESONIDE 0.5 MG/2 ML NEBU. NEB SCH ×2 (08:00→22:07)
[2020-11-29] MEDS: ALBUTEROL SULFATE 2.5 MG/3 ML NEBU. NEB SCH ×4 (08:00→22:07)
[2020-11-29] MEDS: PANTOPRAZOLE IV PUSH 40 MG VIAL. IVP SCH (08:53)
[2020-11-29] MEDS: buPROPion XL 150 MG TAB.ER.24H. PO SCH (08:53)
[2020-11-29] MEDS: CYANOCOBALAMIN (VITAMIN B-12) 1,000 MCG TABLET. PO SCH (08:53)
[2020-11-29] MEDS: ROFLUMILAST 500 MCG TABLET. PO SCH (08:53)
[2020-11-29] MEDS: METOPROLOL TART IMMED RELEASE 50 MG TABLET. PO SCH ×2 (08:54→21:25)
[2020-11-29] MEDS: ENOXAPARIN 30 MG/0.3 ML SYRINGE. SQ SCH (08:56)
[2020-11-29 11:00] VITALS: BP 124/73
[2020-11-29] MEDS ORDERED: IV NORMAL SALINE 500ML BAG 500 ML IV ONE (11:30)
--- NOTE | 2020-11-29 12:52 | RAD ---
INDICATION: Reason: Placement of enteric tube/ Spl. Instructions: / History: COMPARISON: One day prior IMPRESSION: Abdomen: Single view obtained. Partial visualization of a presumed vascular catheter with tip project ing over the atriocaval junction region. Enteric tube is seen with the tip at the distal esophagus. T here is some contrast seen within the colon. Surgical clips right upper quadrant. Degenerative change s spine. Electronically signed by: José Miguel Sutton MD (11/29/2020 12:50 PM) [id number]
--- NOTE | 2020-11-29 13:54 | RAD ---
INDICATION: Reason: Dobhoff placement. 2nd attempt / Spl. Instructions: / History: COMPARISON: Earlier same day IMPRESSION: Abdomen: Single view obtained. Single enteric tube is seen with the tip likely just distal to the gas troesophageal junction. Contrast is again seen within the colon. Surgical clips right upper quadrant. Electronically signed by: José Miguel Sutton MD (11/29/2020 1:52 PM) [id number]
--- NOTE | 2020-11-29 14:29 | PDOC ---
PROGRESS NOTES Date of Service: DATE: 11/29/20 TIME: 14:28 Chief Complaint Chief Complaint acute stoke, RIGHT MCA, s/p TPA given left hemiparesis hand face left sided neglect obese, BMI 35 DM2 dysphagi, weakness, History of Present Illness History of Present Illness 11/29, dobhoff feeds are going well, cont current plan PEG for DC to acute rehab, she is doign well family is here this AM and they were very supportive 11/28 NG tube placed for nutrition, marked weakness, confusion at times but better Out of ICU, may DC tele plad ACUTE rehab hospital, needs PEG, planned tuesday, GI unable to sched today breathing much better swallow eval today, plan acute rehab, they need a diet order to approve she feels better, some improvement in exam Vitals Vitals Vital Signs Date Time Temp Pulse Resp B/P (MAP) Pulse Ox O2 Delivery O2 Flow Rate FiO2 11/29/20 11:45 99 Nasal Cannula 2.0 11/29/20 11:00 98.7 75 18 124/73 (90) 98.7 Physical Exam Physical Exam neuro better, left hand movement adn talking better, General: Alert, Cooperative, mild distress Heart: Regular rate, Normal S1, Other (distant heart tones, IRRR; tele AFIB with RVR) Lungs: Clear Abdomen: Soft Extremities: No clubbing, Normal pulses, Other (1+ bilateral UE edema. ) Skin: No rashes, No significant lesion Assessment and Plan Assessmemt and Plan Problems Medical Problems: (1) Acute CVA (cerebrovascular accident) Status: Acute (2) Hypoxia Status: Acute (3) Lactic acidosis Status: Acute (4) Pulmonary vascular congestion Status: Acute (5) Suspected 2019 novel coronavirus infection Status: Acute Comment Review of Relevant I have reviewed the following items gerry (where applicable) has been applied. Labs Laboratory Tests Test 11/28/20 05:50 White Blood Count 9.6 x10^3/uL (4.0-11.0) Red Blood Count 2.80 x10^6/uL (3.50-5.40) Hemoglobin 9.1 g/dL (12.0-15.5) Hematocrit 27.7 % (36.0-47.0) Mean Corpuscular Volume 99 fL (79-100) Mean Corpuscular Hemoglobin 33 pg (25-35) Mean Corpuscular Hemoglobin Concent 33 g/dL (31-37) Red Cell Distribution Width 13.8 % (11.5-14.5) Platelet Count 245 x10^3/uL (140-400) Neutrophils (%) (Auto) 74 % (31-73) Lymphocytes (%) (Auto) 13 % (24-48) Monocytes (%) (Auto) 10 % (0-9) Eosinophils (%) (Auto) 3 % (0-3) Basophils (%) (Auto) 0 % (0-3) Neutrophils # (Auto) 7.1 x10^3/uL (1.8-7.7) Lymphocytes # (Auto) 1.3 x10^3/uL (1.0-4.8) Monocytes # (Auto) 1.0 x10^3/uL (0.0-1.1) Eosinophils # (Auto) 0.2 x10^3/uL (0.0-0.7) Basophils # (Auto) 0.0 x10^3/uL (0.0-0.2) Sodium Level 142 mmol/L (136-145) Potassium Level 4.4 mmol/L (3.5-5.1) Chloride Level 109 mmol/L (98-107) Carbon Dioxide Level 24 mmol/L (21-32) Anion Gap 9 (6-14) Blood Urea Nitrogen 52 mg/dL (7-20) Creatinine 1.5 mg/dL (0.6-1.0) Estimated GFR (Cockcroft-Gault) 33.0 BUN/Creatinine Ratio 35 (6-20) Glucose Level 104 mg/dL (70-99) Calcium Level 9.2 mg/dL (8.5-10.1) Total Bilirubin 0.4 mg/dL (0.2-1.0) Aspartate Amino Transf (AST/SGOT) 38 U/L (15-37) Alanine Aminotransferase (ALT/SGPT) 65 U/L (14-59) Alkaline Phosphatase 49 U/L (46-116) Total Protein 5.6 g/dL (6.4-8.2) Albumin 2.4 g/dL (3.4-5.0) Albumin/Globulin Ratio 0.8 (1.0-1.7) Microbiology 11/23/20 Blood Culture - Final, Complete NO GROWTH AFTER 5 DAYS Medications Current Medications Sodium Chloride 1,000 ml @ 1,000 mls/hr Q1H IV Last administered on 11/22/20at 19:31; Start 11/22/20 at 19:15; Stop 11/22/20 at 20:14; Status DC Alteplase, Recombinant 9 ml @ 540 mls/hr 1X ONCE IV Last administered on 11/22/20at 19:57; Start 11/22/20 at 19:45; Stop 11/22/20 at 19:46; Status DC Alteplase, Recombinant 81 ml @ 81 mls/hr Q1H IV Last administered on 11/22/20at 20:00; Start 11/22/20 at 19:45; Stop 11/22/20 at 20:44; Status DC Sodium Chloride 50 ml @ 200 mls/hr 1X ONCE IV Last administered on 11/22/20at 20:10; Start 11/22/20 at 19:45; Stop 11/22/20 at 19:59; Status DC Alteplase, Recombinant 10 ml @ 600 mls/hr 1X ONCE IV ; Start 11/22/20 at 19:45; Stop 11/22/20 at 19:46; Status UNV Alteplase, Recombinant 90 ml @ 90 mls/hr 1X ONCE IV ; Start 11/22/20 at 19:45; Stop 11/22/20 at 20:44; Status UNV Sodium Chloride 50 ml @ 50 mls/hr 1X ONCE IV ; Start 11/22/20 at 19:45; Stop 11/22/20 at 20:44; Status UNV Aspirin (Aspirin Rectal Supp) 300 mg 1X ONCE NE Last administered on 11/22/20at 20:16; Start 11/22/20 at 19:45; Stop 11/22/20 at 19:48; Status DC Iohexol (Omnipaque 300 Mg/ml) 60 ml 1X ONCE IV Last administered on 11/22/20at 20:38; Start 11/22/20 at 20:15; Stop 11/22/20 at 20:16; Status DC Info (CONTRAST GIVEN -- Rx MONITORING) 1 each PRN DAILY PRN MC SEE COMMENTS; Start 11/22/20 at 20:30; Stop 11/24/20 at 20:29; Status DC Ondansetron HCl (Zofran) 4 mg PRN Q8HRS PRN IV NAUSEA/VOMITING 1ST CHOICE Last administered on 11/23/20at 04:05; Start 11/22/20 at 21:45; Stop 11/23/20 at 21:44; Status DC Bumetanide (Bumex) 0.5 mg 1X ONCE IV Last administered on 11/23/20at 00:51; Start 11/22/20 at 23:30; Stop 11/22/20 at 23:31; Status DC Labetalol HCl (Normodyne Iv Push) 10 mg PRN Q10MIN PRN IVP HYPERTENSION Last administered on 11/24/20at 13:07; Start 11/23/20 at 02:15; Stop 11/24/20 at 15:00; Status DC Nicardipine HCl 50 mg/Sodium Chloride 250 ml @ 25 mls/hr CONT PRN PRN IV HYPERTENSION Last administered on 11/23/20at 15:53; Start 11/23/20 at 02:15; Stop 11/24/20 at 09:35; Status DC Potassium Chloride/Water 100 ml @ 100 mls/hr Q1H IV Last administered on 11/23/20at 07:34; Start 11/23/20 at 03:00; Stop 11/23/20 at 06:59; Status DC Magnesium Sulfate 50 ml @ 25 mls/hr 1X ONCE IV Last administered on 11/23/20at 04:31; Start 11/23/20 at 03:00; Stop 11/23/20 at 04:59; Status DC Amino Acids/ Glycerin/ Electrolytes 1,000 ml @ 80 mls/hr [id number] IV Last administered on 11/28/20at 03:16; Start 11/23/20 at 11:30 Cyanocobalamin (Vitamin B-12) 1,000 mcg DAILY PO Last administered on 11/29/20at 08:53; Start 11/24/20 at 09:00 Dronedarone (Multaq) 400 mg BID PO ; Start 11/23/20 at 21:00; Stop 11/27/20 at 15:13; Status DC Guaifenesin (MUCINEX ER with DM) 1 tab PRN BID PRN PO cough and congestion; Start 11/23/20 at 12:00 Metoprolol Tartrate (Lopressor) 25 mg BID PO ; Start 11/23/20 at 21:00; Stop 11/28/20 at 10:35; Status DC Roflumilast (Daliresp) 500 mcg DAILY PO Last administered on 11/29/20at 08:53; Start 11/24/20 at 09:00 Verapamil HCl (Calan Sr) 120 mg DAILY PO ; Start 11/23/20 at 13:00; Stop 11/28/20 at 10:35; Status DC Albuterol Sulfate (Ventolin Neb Soln) 2.5 mg RTQID NEB Last administered on 11/29/20at 11:43; Start 11/23/20 at 16:00 Bupropion HCl (Wellbutrin Xl) 300 mg DAILY PO Last administered on 11/29/20at 08:53; Start 11/23/20 at 13:00 Non-Formulary Medication (Fluticasone Propionate (Flovent 44MCG Hfa)) 10.6 gm DAILY IH ; Start 11/24/20 at 09:00; Status UNV Non-Formulary Medication (Fluticasone/ Salmeterol (Advair 250-50 Diskus)) 1 puff BID IH ; Start 11/23/20 at 21:00; Status UNV Atorvastatin Calcium (Lipitor) 20 mg QHS PO Last administered on 11/28/20at 21:47; Start 11/23/20 at 21:00 Budesonide (Pulmicort) 0.5 mg RTBID NEB Last administered on 11/27/20at 07:24; Start 11/23/20 at 20:00; Stop 11/27/20 at 15:13; Status DC Metoprolol Tartrate (Lopressor Vial) 2.5 mg Q6HRS IVP Last administered on 11/25/20at 05:31; Start 11/23/20 at 18:00; Stop 11/25/20 at 08:41; Status DC Metoprolol Tartrate (Lopressor Vial) 2.5 mg 1X ONCE IVP Last administered on 11/23/20at 13:01; Start 11/23/20 at 13:00; Stop 11/23/20 at 13:01; Status DC Azithromycin 250 ml @ 250 mls/hr 1X ONCE IV ; Start 11/23/20 at 14:15; Stop 11/23/20 at 15:14; Status UNV Azithromycin 500 mg/Sodium Chloride 250 ml @ 250 mls/hr Q24H IV Last administered on 11/28/20at 16:05; Start 11/23/20 at 16:00 Aspirin (Ecotrin) 81 mg DAILYWBKFT PO ; Start 11/23/20 at 23:30; Stop 11/27/20 at 15:07; Status DC Clopidogrel Bisulfate (Plavix) 75 mg 1X ONCE PO ; Start 11/23/20 at 23:30; Stop 11/23/20 at 23:31; Status DC Clopidogrel Bisulfate (Plavix) 75 mg DAILYWBKFT PO ; Start 11/24/20 at 08:00; Stop 11/27/20 at 15:07; Status DC Diltiazem HCl 125 mg/Sodium Chloride 125 ml @ 5 mls/hr CONT PRN IV SEE ADMIN INSTRUCTIONS Last administered on 11/24/20at 00:17; Start 11/23/20 at 23:45; Stop 11/28/20 at 10:32; Status DC Labetalol HCl (Normodyne Iv Push) 10 mg PRN Q10MIN PRN IVP HYPERTENSION, 1ST CHOICE Last administered on 11/25/20at 03:05; Start 11/24/20 at 08:45 Nicardipine HCl 50 mg/Sodium Chloride 250 ml @ 25 mls/hr CONT PRN PRN IV HYPERTENSION, See comments Last administered on 11/28/20at 00:04; Start 11/24/20 at 08:45; Stop 11/28/20 at 10:32; Status DC Acetaminophen (Tylenol) 650 mg PRN Q6HRS PRN PO MILD PAIN / TEMP > 100.3'F; Start 11/24/20 at 08:45 Acetaminophen (Tylenol Supp) 650 mg PRN Q6HRS PRN NE MILD PAIN / TEMP > 100.3'F; Start 11/24/20 at 08:45 Ondansetron HCl (Zofran) 4 mg PRN Q6HRS PRN IVP NAUSEA/VOMITING; Start 11/24/20 at 08:45 Enoxaparin Sodium (Lovenox 30mg Syringe) 30 mg Q24H SQ Last administered on 11/29/20at 08:56; Start 11/24/20 at 08:45 Saliva Substitute (Biotene Moisturizing Mouth) 2 spray PRN Q15MIN PRN PO DRY MOUTH Last administered on 11/24/20at 16:37; Start 11/24/20 at 15:45 Haloperidol Lactate (Haldol Inj) 5 mg PRN Q6HRS PRN IVP AGITATION Last administered on 11/25/20at 05:55; Start 11/25/20 at 05:45 Metoprolol Tartrate (Lopressor Vial) 5 mg Q6HRS IVP Last administered on 11/28/20at 05:41; Start 11/25/20 at 09:00; Stop 11/28/20 at 10:35; Status DC Digoxin (Lanoxin) 500 mcg 1X ONCE IV Last administered on 11/25/20at 12:23; Start 11/25/20 at 12:00; Stop 11/25/20 at 12:01; Status DC Methylprednisolone Sodium Succinate (SOLU-Medrol 40MG VIAL) 40 mg 1X ONCE IV Last administered on 11/25/20at 14:01; Start 11/25/20 at 14:00; Stop 11/25/20 at 14:01; Status DC Budesonide (Pulmicort) 0.5 mg RTBID NEB Last administered on 11/29/20at 08:00; Start 11/25/20 at 20:00 Aspirin (Aspirin Rectal Supp) 300 mg PRN DAILY PRN NE IF UNABLE TO TAKE PO Last administered on 11/28/20at 08:39; Start 11/25/20 at 14:00 Hydralazine HCl (Apresoline Inj) 10 mg PRN Q4HRS PRN IVP ELEVATED BP, 2ND CHOICE Last administered on 11/28/20at 16:04; Start 11/25/20 at 15:00 Aspirin (Aspirin Rectal Supp) 300 mg 1X ONCE NE Last administered on 11/25/20at 22:21; Start 11/25/20 at 21:00; Stop 11/25/20 at 21:01; Status DC Labetalol HCl (Normodyne Iv Push) 20 mg 1X ONCE IVP Last administered on 11/25/20at 15:40; Start 11/25/20 at 15:45; Stop 11/25/20 at 15:46; Status DC Sodium Chloride 1,000 ml @ 100 mls/hr 1X ONCE IV ; Start 11/26/20 at 09:45; Stop 11/26/20 at 19:44; Status DC Furosemide (Lasix) 20 mg 1X ONCE IVP Last administered on 11/27/20at 15:37; Start 11/27/20 at 13:30; Stop 11/27/20 at 13:34; Status DC Barium Sulfate (Varibar Thin Liquid Apple) 148 gm 1X ONCE PO Last administered on 11/27/20at 13:43; Start 11/27/20 at 13:45; Stop 11/27/20 at 13:46; Status DC Lorazepam (Ativan Inj) 0.5 mg PRN QHS PRN IVP SLEEP Last administered on 11/28/20at 01:35; Start 11/27/20 at 15:15 Pantoprazole Sodium (PROTONIX VIAL for IV PUSH) 40 mg DAILYAC IVP Last administered on 11/29/20at 08:53; Start 11/27/20 at 15:15 Fentanyl Citrate (Fentanyl 2ml Vial) 25 mcg 1X ONCE IVP Last administered on 11/27/20at 15:36; Start 11/27/20 at 15:30; Stop 11/27/20 at 15:31; Status DC Metoprolol Tartrate (Lopressor) 50 mg BID PO Last administered on 11/29/20at 08:54; Start 11/28/20 at 21:00 Amlodipine Besylate (Norvasc) 10 mg DAILY PO Last administered on 11/29/20at 08:54; Start 11/28/20 at 12:00 Digoxin (Lanoxin) 250 mcg 1X ONCE IV Last administered on 11/28/20at 12:01; Start 11/28/20 at 10:45; Stop 11/28/20 at 10:46; Status DC Sodium Chloride 500 ml @ 500 mls/hr 1X ONCE IV Last administered on 11/29/20at 11:45; Start 11/29/20 at 11:30; Stop 11/29/20 at 12:29; Status DC Active Scripts Active Zofran (Ondansetron Hcl) 4 Mg Tablet 1 Tab PO PRN Q6-8HRS PRN Reported Mucinex Dm Er 600-30 Mg Tablet (Guaifenesin/Dextromethorphan) 1 Each Tab.er.12h 1 Tab PO BID PRN 14 Days Aspirin 325 Mg Tablet 1 Tab PO DAILY Vitamin B-12 (Cyanocobalamin (Vitamin B-12)) 1,000 Mcg Tablet 1 Tab PO DAILY 30 Days Vitamin D3 Complete Caplet (Mv-Mn/Iron/Fa/Herbal Cmplx#190) 1 Each Tablet 1 Each PO DAILY Vitamin C (Ascorbic Acid) 500 Mg Capsule.er 2 Cap PO BID 30 Days Metoprolol Tartrate 25 Mg Tablet 1 Tab PO BID Multaq (Dronedarone Hcl) 400 Mg Tablet 1 Tab PO BID Flovent 44MCG Hfa (Fluticasone Propionate) 10.6 Gm Aer.w.adap 10.6 Gm IH DAILY Xopenex Hfa (Levalbuterol Tartrate) 15 Gm Hfa.aer.ad 15 Gm IH PRN Verapamil Er (Verapamil Hcl) 120 Mg Tablet.er 120 Mg PO DAILY Pravastatin Sodium 80 Mg Tablet 80 Mg PO DAILY Daliresp (Roflumilast) 500 Mcg Tablet 500 Mcg PO DAILY Wellbutrin Xl (Bupropion Hcl) 300 Mg Tab.er.24h 300 Mg PO DAILY Albuterol Sulfate Conc Neb Soln (Albuterol Sulfate) 2.5 Mg/0.5 Ml Vial.neb 1 Vial NEB QID Advair 250-50 Diskus (Fluticasone/Salmeterol) 1 Each Disk.w.dev 1 Puff IH BID Vitals/I & O Vital Sign - Last 24 Hours 11/28/20 11/28/20 11/28/20 11/28/20 15:00 15:12 16:04 19:34 Temp 97.7 98.0 97.7 98.0 Pulse 89 94 98 Resp 22 18 B/P (MAP) 168/60 (96) 188/75 146/65 (92) Pulse Ox 99 97 93 O2 Delivery Nasal Cannula Nasal Cannula Nasal Cannula O2 Flow Rate 2.0 2.0 2.0 11/28/20 11/28/20 11/28/20 11/28/20 20:00 20:58 20:59 21:47 Pulse 98 B/P (MAP) 146/65 Pulse Ox 99 99 O2 Delivery Nasal Cannula Nasal Cannula Nasal Cannula O2 Flow Rate 2.0 2.0 2.0 11/28/20 11/29/20 11/29/20 11/29/20 22:27 02:51 07:00 08:00 Temp 98.3 98.1 97.9 98.3 98.1 97.9 Pulse 79 77 79 Resp 20 18 18 B/P (MAP) 155/72 (99) 141/61 (87) 164/74 (104) Pulse Ox 98 100 98 O2 Delivery Nasal Cannula Nasal Cannula Nasal Cannula Nasal Cannula O2 Flow Rate 2.0 2.0 2.0 2.0 11/29/20 11/29/20 11/29/20 11/29/20 08:15 08:15 08:54 08:54 Pulse 79 79 B/P (MAP) 164/74 164/74 Pulse Ox 99 99 O2 Delivery Nasal Cannula Nasal Cannula O2 Flow Rate 2.0 2.0 11/29/20 11/29/20 11:00 11:45 Temp 98.7 98.7 Pulse 75 Resp 18 B/P (MAP) 124/73 (90) Pulse Ox 99 99 O2 Delivery Nasal Cannula Nasal Cannula O2 Flow Rate 2.0 2.0 Intake and Output 11/28/20 11/28/20 11/29/20 15:00 23:00 07:00 Intake Total 0 ml 0 ml 150 ml Output Total 1000 ml 1400 ml Balance 0 ml -1000 ml -1250 ml Justicifation of Admission Dx: Justifications for Admission: Justification of Admission Dx: Yes Stroke - Ischemic: Stroke-Ischemic CORRINA BROWN MD Nov 29, 2020 14:29
--- NOTE | 2020-11-29 14:49 | RAD ---
Exam performed: Single view abdomen KUB. Indication:Dobbhoff tube placement Date of Service: 11/29/2020 Comparison: KUB from earlier today Single supine view of the abdomen findings: There is interval advancement of the Dobbhoff tube which is now seen in the right mid abdomen perhaps in the distal stomach. Nonspecific, nondistended bowel loops are present. There is radiographic contrast in the colon. Surgi dustin clips in the right upper abdomen. Impression: 1. Dobbhoff tube appears to be in the stomach. Electronically signed by: Diane Boothe MD (11/29/2020 2:46 PM) RUBEN
[2020-11-29 15:00] VITALS: BP 140/68
[2020-11-29] MEDS: ACETAMINOPHEN 325 MG TABLET. PO PRN (15:28)
[2020-11-29] MEDS: AZITHROMYCIN 500 MG in IV NORMAL SALINE 250ML 250 ML IV SCH (15:30)
[2020-11-29 19:36] VITALS: BP 124/58
[2020-11-29] MEDS: ATORVASTATIN CALCIUM 20 MG TABLET PO SCH (21:25)
[2020-11-29 23:57] VITALS: BP 135/63
[2020-11-30 03:48] VITALS: BP 125/79
[2020-11-30] MEDS: AMINO AC 3%/ELECTROLYTE/GLYCER 1,000 ML IV SCH ×2 (05:42→18:30)
[2020-11-30 07:00] VITALS: BP 149/68
[2020-11-30] MEDS: BUDESONIDE 0.5 MG/2 ML NEBU. NEB SCH ×2 (07:50→20:46)
[2020-11-30] MEDS: ALBUTEROL SULFATE 2.5 MG/3 ML NEBU. NEB SCH ×4 (07:50→20:46)
[2020-11-30] MEDS: buPROPion XL 150 MG TAB.ER.24H. PO SCH (08:22)
[2020-11-30] MEDS: ROFLUMILAST 500 MCG TABLET. PO SCH (08:22)
[2020-11-30] MEDS: CYANOCOBALAMIN (VITAMIN B-12) 1,000 MCG TABLET. PO SCH (08:22)
[2020-11-30] MEDS: METOPROLOL TART IMMED RELEASE 50 MG TABLET. PO SCH ×2 (08:23→20:31)
[2020-11-30] MEDS: ENOXAPARIN 30 MG/0.3 ML SYRINGE. SQ SCH (08:23)
[2020-11-30] MEDS: PANTOPRAZOLE IV PUSH 40 MG VIAL. IVP SCH (08:23)
[2020-11-30 10:27] LABS: BASO % 0 % (0-3); EOS # 0.5 x10^3/uL (0.0-0.7); EOS % 6 % (0-3); HEMATOCRIT 30.8 % (36.0-47.0); HEMOGLOBIN 10.1 g/dL (12.0-15.5); LYMPH # 0.9 x10^3/uL (1.0-4.8); LYMPH % 12 % (24-48); MEAN CORPUSCULAR HEMOGLOBIN 32 pg (25-35); MEAN CORPUSCULAR HGB CONC 33 g/dL (31-37); MEAN CORPUSCULAR VOLUME 98 fL (79-100); MONO # 0.8 x10^3/uL (0.0-1.1); MONO % 9 % (0-9); NEUT # 5.9 x10^3/uL (1.8-7.7); NEUT % 73 % (31-73); PLATELET COUNT 239 x10^3/uL (140-400); RED BLOOD COUNT 3.14 x10^6/uL (3.50-5.40); RED CELL DISTRIBUTION WIDTH 13.4 % (11.5-14.5); WHITE BLOOD COUNT 8.1 x10^3/uL (4.0-11.0)
[2020-11-30 11:00] VITALS: BP 130/64
[2020-11-30 11:00] LABS: ALBUMIN 2.2 g/dL (3.4-5.0); ALBUMIN/GLOBULIN RATIO 0.7 (1.0-1.7); CALCIUM 8.8 mg/dL (8.5-10.1); CREATININE 1.2 mg/dL (0.6-1.0); GFR 42.7; POTASSIUM 4.1 mmol/L (3.5-5.1); TOTAL BILIRUBIN 0.4 mg/dL (0.2-1.0); TOTAL PROTEIN 5.3 g/dL (6.4-8.2)
--- NOTE | 2020-11-30 12:06 | PDOC ---
G I PROGRESS NOTE Subjective No GI complaints. Spell of coughing while I was in room, but OK before. Physical Exam Lungs coarse. IRRR Abdomen soft, not distended. Review of Relevant I have reviewed the following items gerry (where applicable) has been applied. Labs Laboratory Tests Test 11/30/20 10:00 White Blood Count 8.1 x10^3/uL (4.0-11.0) Red Blood Count 3.14 x10^6/uL (3.50-5.40) Hemoglobin 10.1 g/dL (12.0-15.5) Hematocrit 30.8 % (36.0-47.0) Mean Corpuscular Volume 98 fL (79-100) Mean Corpuscular Hemoglobin 32 pg (25-35) Mean Corpuscular Hemoglobin Concent 33 g/dL (31-37) Red Cell Distribution Width 13.4 % (11.5-14.5) Platelet Count 239 x10^3/uL (140-400) Neutrophils (%) (Auto) 73 % (31-73) Lymphocytes (%) (Auto) 12 % (24-48) Monocytes (%) (Auto) 9 % (0-9) Eosinophils (%) (Auto) 6 % (0-3) Basophils (%) (Auto) 0 % (0-3) Neutrophils # (Auto) 5.9 x10^3/uL (1.8-7.7) Lymphocytes # (Auto) 0.9 x10^3/uL (1.0-4.8) Monocytes # (Auto) 0.8 x10^3/uL (0.0-1.1) Eosinophils # (Auto) 0.5 x10^3/uL (0.0-0.7) Basophils # (Auto) 0.0 x10^3/uL (0.0-0.2) Sodium Level 142 mmol/L (136-145) Potassium Level 4.1 mmol/L (3.5-5.1) Chloride Level 106 mmol/L (98-107) Carbon Dioxide Level 29 mmol/L (21-32) Anion Gap 7 (6-14) Blood Urea Nitrogen 27 mg/dL (7-20) Creatinine 1.2 mg/dL (0.6-1.0) Estimated GFR (Cockcroft-Gault) 42.7 BUN/Creatinine Ratio 23 (6-20) Glucose Level 113 mg/dL (70-99) Calcium Level 8.8 mg/dL (8.5-10.1) Total Bilirubin 0.4 mg/dL (0.2-1.0) Aspartate Amino Transf (AST/SGOT) 24 U/L (15-37) Alanine Aminotransferase (ALT/SGPT) 43 U/L (14-59) Alkaline Phosphatase 50 U/L (46-116) Total Protein 5.3 g/dL (6.4-8.2) Albumin 2.2 g/dL (3.4-5.0) Albumin/Globulin Ratio 0.7 (1.0-1.7) Laboratory Tests Test 11/30/20 10:00 White Blood Count 8.1 x10^3/uL (4.0-11.0) Red Blood Count 3.14 x10^6/uL (3.50-5.40) Hemoglobin 10.1 g/dL (12.0-15.5) Hematocrit 30.8 % (36.0-47.0) Mean Corpuscular Volume 98 fL (79-100) Mean Corpuscular Hemoglobin 32 pg (25-35) Mean Corpuscular Hemoglobin Concent 33 g/dL (31-37) Red Cell Distribution Width 13.4 % (11.5-14.5) Platelet Count 239 x10^3/uL (140-400) Neutrophils (%) (Auto) 73 % (31-73) Lymphocytes (%) (Auto) 12 % (24-48) Monocytes (%) (Auto) 9 % (0-9) Eosinophils (%) (Auto) 6 % (0-3) Basophils (%) (Auto) 0 % (0-3) Neutrophils # (Auto) 5.9 x10^3/uL (1.8-7.7) Lymphocytes # (Auto) 0.9 x10^3/uL (1.0-4.8) Monocytes # (Auto) 0.8 x10^3/uL (0.0-1.1) Eosinophils # (Auto) 0.5 x10^3/uL (0.0-0.7) Basophils # (Auto) 0.0 x10^3/uL (0.0-0.2) Sodium Level 142 mmol/L (136-145) Potassium Level 4.1 mmol/L (3.5-5.1) Chloride Level 106 mmol/L (98-107) Carbon Dioxide Level 29 mmol/L (21-32) Anion Gap 7 (6-14) Blood Urea Nitrogen 27 mg/dL (7-20) Creatinine 1.2 mg/dL (0.6-1.0) Estimated GFR (Cockcroft-Gault) 42.7 BUN/Creatinine Ratio 23 (6-20) Glucose Level 113 mg/dL (70-99) Calcium Level 8.8 mg/dL (8.5-10.1) Total Bilirubin 0.4 mg/dL (0.2-1.0) Aspartate Amino Transf (AST/SGOT) 24 U/L (15-37) Alanine Aminotransferase (ALT/SGPT) 43 U/L (14-59) Alkaline Phosphatase 50 U/L (46-116) Total Protein 5.3 g/dL (6.4-8.2) Albumin 2.2 g/dL (3.4-5.0) Albumin/Globulin Ratio 0.7 (1.0-1.7) Microbiology 11/23/20 Blood Culture - Final, Complete NO GROWTH AFTER 5 DAYS Vitals/I & O Vital Sign - Last 24 Hours 11/29/20 11/29/20 11/29/20 11/29/20 15:00 15:40 19:36 20:25 Temp 97.8 98.0 97.8 98.0 Pulse 80 83 Resp 18 18 B/P (MAP) 140/68 (92) 124/58 (80) Pulse Ox 99 99 100 O2 Delivery Nasal Cannula Nasal Cannula Nasal Cannula Nasal Cannula O2 Flow Rate 2.0 2.0 3.0 2.0 11/29/20 11/29/20 11/29/20 11/29/20 21:25 22:15 22:18 23:57 Temp 98.0 98.0 Pulse 83 71 Resp 18 B/P (MAP) 124/58 135/63 (87) Pulse Ox 100 100 99 O2 Delivery Nasal Cannula Nasal Cannula Nasal Cannula O2 Flow Rate 3.0 2.5 2.0 11/30/20 11/30/20 11/30/20 11/30/20 03:48 07:00 07:51 07:52 Temp 98.3 97.8 98.3 97.8 Pulse 78 74 Resp 16 16 B/P (MAP) 125/79 (94) 149/68 (95) Pulse Ox 98 99 100 100 O2 Delivery Nasal Cannula Nasal Cannula Nasal Cannula Nasal Cannula O2 Flow Rate 2.0 2.0 2.5 2.5 11/30/20 11/30/20 11/30/20 11/30/20 08:20 08:22 08:23 11:57 Pulse 78 78 B/P (MAP) 125/79 125/79 O2 Delivery Nasal Cannula Nasal Cannula O2 Flow Rate 2.0 2.5 Intake and Output 11/29/20 11/29/20 11/30/20 15:00 23:00 07:00 Intake Total 125 ml 250 ml 250 ml Output Total 950 ml Balance 125 ml 250 ml -700 ml Problem List Problems Medical Problems: (1) Acute CVA (cerebrovascular accident) Status: Acute (2) Hypoxia Status: Acute (3) Lactic acidosis Status: Acute (4) Pulmonary vascular congestion Status: Acute (5) Suspected 2019 novel coronavirus infection Status: Acute Assessment OP dysphagia, PEG desired. Plan of Care Note PEG tomorrow. Hold Lovenox today, prophylactic antibiotic. Justicifation of Admission Dx: Justifications for Admission: Justification of Admission Dx: Yes Stroke - Ischemic: Stroke-Ischemic DENISSE VARGAS MD Nov 30, 2020 12:06
--- NOTE | 2020-11-30 13:57 | PDOC ---
PROGRESS NOTES Date of Service: DATE: 11/30/20 TIME: 13:56 Chief Complaint Chief Complaint acute stoke, RIGHT MCA, s/p TPA given left hemiparesis hand face left sided neglect obese, BMI 35 DM2 dysphagi, weakness, History of Present Illness History of Present Illness 11/30, doing well, some cough, atelactasis on exam, better with breathing exercises planned PEG in AM, then DC to acute rehab hospital likely 1. she is able to move the fingers of her left hand, most slightly, today 11/29, dobhoff feeds are going well, cont current plan PEG for DC to acute rehab, she is doign well family is here this AM and they were very supportive 11/28 NG tube placed for nutrition, marked weakness, confusion at times but better Out of ICU, may DC tele plad ACUTE rehab hospital, needs PEG, planned tuesday, GI unable to sched today breathing much better swallow eval today, plan acute rehab, they need a diet order to approve she feels better, some improvement in exam Vitals Vitals Vital Signs Date Time Temp Pulse Resp B/P (MAP) Pulse Ox O2 Delivery O2 Flow Rate FiO2 11/30/20 11:57 Nasal Cannula 2.5 11/30/20 11:00 98.0 62 16 130/64 (86) 98 98.0 Physical Exam Physical Exam neuro better, left hand movement adn talking better, General: Alert, Cooperative, mild distress Heart: Regular rate, Normal S1, Other (distant heart tones, IRRR; tele AFIB with RVR) Lungs: Clear Abdomen: Soft Extremities: No clubbing, Normal pulses, Other (1+ bilateral UE edema. ) Skin: No rashes, No significant lesion Labs LABS Laboratory Tests Test 11/30/20 10:00 White Blood Count 8.1 x10^3/uL (4.0-11.0) Red Blood Count 3.14 x10^6/uL (3.50-5.40) Hemoglobin 10.1 g/dL (12.0-15.5) Hematocrit 30.8 % (36.0-47.0) Mean Corpuscular Volume 98 fL (79-100) Mean Corpuscular Hemoglobin 32 pg (25-35) Mean Corpuscular Hemoglobin Concent 33 g/dL (31-37) Red Cell Distribution Width 13.4 % (11.5-14.5) Platelet Count 239 x10^3/uL (140-400) Neutrophils (%) (Auto) 73 % (31-73) Lymphocytes (%) (Auto) 12 % (24-48) Monocytes (%) (Auto) 9 % (0-9) Eosinophils (%) (Auto) 6 % (0-3) Basophils (%) (Auto) 0 % (0-3) Neutrophils # (Auto) 5.9 x10^3/uL (1.8-7.7) Lymphocytes # (Auto) 0.9 x10^3/uL (1.0-4.8) Monocytes # (Auto) 0.8 x10^3/uL (0.0-1.1) Eosinophils # (Auto) 0.5 x10^3/uL (0.0-0.7) Basophils # (Auto) 0.0 x10^3/uL (0.0-0.2) Sodium Level 142 mmol/L (136-145) Potassium Level 4.1 mmol/L (3.5-5.1) Chloride Level 106 mmol/L (98-107) Carbon Dioxide Level 29 mmol/L (21-32) Anion Gap 7 (6-14) Blood Urea Nitrogen 27 mg/dL (7-20) Creatinine 1.2 mg/dL (0.6-1.0) Estimated GFR (Cockcroft-Gault) 42.7 BUN/Creatinine Ratio 23 (6-20) Glucose Level 113 mg/dL (70-99) Calcium Level 8.8 mg/dL (8.5-10.1) Total Bilirubin 0.4 mg/dL (0.2-1.0) Aspartate Amino Transf (AST/SGOT) 24 U/L (15-37) Alanine Aminotransferase (ALT/SGPT) 43 U/L (14-59) Alkaline Phosphatase 50 U/L (46-116) Total Protein 5.3 g/dL (6.4-8.2) Albumin 2.2 g/dL (3.4-5.0) Albumin/Globulin Ratio 0.7 (1.0-1.7) Review of Systems Review of Systems no n.v.d Assessment and Plan Assessmemt and Plan Problems Medical Problems: (1) Acute CVA (cerebrovascular accident) Status: Acute (2) Hypoxia Status: Acute (3) Lactic acidosis Status: Acute (4) Pulmonary vascular congestion Status: Acute (5) Suspected 2019 novel coronavirus infection Status: Acute Comment Review of Relevant I have reviewed the following items gerry (where applicable) has been applied. Labs Laboratory Tests Test 11/30/20 10:00 White Blood Count 8.1 x10^3/uL (4.0-11.0) Red Blood Count 3.14 x10^6/uL (3.50-5.40) Hemoglobin 10.1 g/dL (12.0-15.5) Hematocrit 30.8 % (36.0-47.0) Mean Corpuscular Volume 98 fL (79-100) Mean Corpuscular Hemoglobin 32 pg (25-35) Mean Corpuscular Hemoglobin Concent 33 g/dL (31-37) Red Cell Distribution Width 13.4 % (11.5-14.5) Platelet Count 239 x10^3/uL (140-400) Neutrophils (%) (Auto) 73 % (31-73) Lymphocytes (%) (Auto) 12 % (24-48) Monocytes (%) (Auto) 9 % (0-9) Eosinophils (%) (Auto) 6 % (0-3) Basophils (%) (Auto) 0 % (0-3) Neutrophils # (Auto) 5.9 x10^3/uL (1.8-7.7) Lymphocytes # (Auto) 0.9 x10^3/uL (1.0-4.8) Monocytes # (Auto) 0.8 x10^3/uL (0.0-1.1) Eosinophils # (Auto) 0.5 x10^3/uL (0.0-0.7) Basophils # (Auto) 0.0 x10^3/uL (0.0-0.2) Sodium Level 142 mmol/L (136-145) Potassium Level 4.1 mmol/L (3.5-5.1) Chloride Level 106 mmol/L (98-107) Carbon Dioxide Level 29 mmol/L (21-32) Anion Gap 7 (6-14) Blood Urea Nitrogen 27 mg/dL (7-20) Creatinine 1.2 mg/dL (0.6-1.0) Estimated GFR (Cockcroft-Gault) 42.7 BUN/Creatinine Ratio 23 (6-20) Glucose Level 113 mg/dL (70-99) Calcium Level 8.8 mg/dL (8.5-10.1) Total Bilirubin 0.4 mg/dL (0.2-1.0) Aspartate Amino Transf (AST/SGOT) 24 U/L (15-37) Alanine Aminotransferase (ALT/SGPT) 43 U/L (14-59) Alkaline Phosphatase 50 U/L (46-116) Total Protein 5.3 g/dL (6.4-8.2) Albumin 2.2 g/dL (3.4-5.0) Albumin/Globulin Ratio 0.7 (1.0-1.7) Laboratory Tests Test 11/30/20 10:00 White Blood Count 8.1 x10^3/uL (4.0-11.0) Red Blood Count 3.14 x10^6/uL (3.50-5.40) Hemoglobin 10.1 g/dL (12.0-15.5) Hematocrit 30.8 % (36.0-47.0) Mean Corpuscular Volume 98 fL (79-100) Mean Corpuscular Hemoglobin 32 pg (25-35) Mean Corpuscular Hemoglobin Concent 33 g/dL (31-37) Red Cell Distribution Width 13.4 % (11.5-14.5) Platelet Count 239 x10^3/uL (140-400) Neutrophils (%) (Auto) 73 % (31-73) Lymphocytes (%) (Auto) 12 % (24-48) Monocytes (%) (Auto) 9 % (0-9) Eosinophils (%) (Auto) 6 % (0-3) Basophils (%) (Auto) 0 % (0-3) Neutrophils # (Auto) 5.9 x10^3/uL (1.8-7.7) Lymphocytes # (Auto) 0.9 x10^3/uL (1.0-4.8) Monocytes # (Auto) 0.8 x10^3/uL (0.0-1.1) Eosinophils # (Auto) 0.5 x10^3/uL (0.0-0.7) Basophils # (Auto) 0.0 x10^3/uL (0.0-0.2) Sodium Level 142 mmol/L (136-145) Potassium Level 4.1 mmol/L (3.5-5.1) Chloride Level 106 mmol/L (98-107) Carbon Dioxide Level 29 mmol/L (21-32) Anion Gap 7 (6-14) Blood Urea Nitrogen 27 mg/dL (7-20) Creatinine 1.2 mg/dL (0.6-1.0) Estimated GFR (Cockcroft-Gault) 42.7 BUN/Creatinine Ratio 23 (6-20) Glucose Level 113 mg/dL (70-99) Calcium Level 8.8 mg/dL (8.5-10.1) Total Bilirubin 0.4 mg/dL (0.2-1.0) Aspartate Amino Transf (AST/SGOT) 24 U/L (15-37) Alanine Aminotransferase (ALT/SGPT) 43 U/L (14-59) Alkaline Phosphatase 50 U/L (46-116) Total Protein 5.3 g/dL (6.4-8.2) Albumin 2.2 g/dL (3.4-5.0) Albumin/Globulin Ratio 0.7 (1.0-1.7) Microbiology 11/23/20 Blood Culture - Final, Complete NO GROWTH AFTER 5 DAYS Medications Current Medications Sodium Chloride 1,000 ml @ 1,000 mls/hr Q1H IV Last administered on 11/22/20at 19:31; Start 11/22/20 at 19:15; Stop 11/22/20 at 20:14; Status DC Alteplase, Recombinant 9 ml @ 540 mls/hr 1X ONCE IV Last administered on 11/22/20at 19:57; Start 11/22/20 at 19:45; Stop 11/22/20 at 19:46; Status DC Alteplase, Recombinant 81 ml @ 81 mls/hr Q1H IV Last administered on 11/22/20at 20:00; Start 11/22/20 at 19:45; Stop 11/22/20 at 20:44; Status DC Sodium Chloride 50 ml @ 200 mls/hr 1X ONCE IV Last administered on 11/22/20at 20:10; Start 11/22/20 at 19:45; Stop 11/22/20 at 19:59; Status DC Alteplase, Recombinant 10 ml @ 600 mls/hr 1X ONCE IV ; Start 11/22/20 at 19:45; Stop 11/22/20 at 19:46; Status UNV Alteplase, Recombinant 90 ml @ 90 mls/hr 1X ONCE IV ; Start 11/22/20 at 19:45; Stop 11/22/20 at 20:44; Status UNV Sodium Chloride 50 ml @ 50 mls/hr 1X ONCE IV ; Start 11/22/20 at 19:45; Stop 11/22/20 at 20:44; Status UNV Aspirin (Aspirin Rectal Supp) 300 mg 1X ONCE WI Last administered on 11/22/20at 20:16; Start 11/22/20 at 19:45; Stop 11/22/20 at 19:48; Status DC Iohexol (Omnipaque 300 Mg/ml) 60 ml 1X ONCE IV Last administered on 11/22/20at 20:38; Start 11/22/20 at 20:15; Stop 11/22/20 at 20:16; Status DC Info (CONTRAST GIVEN -- Rx MONITORING) 1 each PRN DAILY PRN MC SEE COMMENTS; Start 11/22/20 at 20:30; Stop 11/24/20 at 20:29; Status DC Ondansetron HCl (Zofran) 4 mg PRN Q8HRS PRN IV NAUSEA/VOMITING 1ST CHOICE Last administered on 11/23/20at 04:05; Start 11/22/20 at 21:45; Stop 11/23/20 at 21:44; Status DC Bumetanide (Bumex) 0.5 mg 1X ONCE IV Last administered on 11/23/20at 00:51; Start 11/22/20 at 23:30; Stop 11/22/20 at 23:31; Status DC Labetalol HCl (Normodyne Iv Push) 10 mg PRN Q10MIN PRN IVP HYPERTENSION Last administered on 11/24/20at 13:07; Start 11/23/20 at 02:15; Stop 11/24/20 at 15:00; Status DC Nicardipine HCl 50 mg/Sodium Chloride 250 ml @ 25 mls/hr CONT PRN PRN IV HYPERTENSION Last administered on 11/23/20at 15:53; Start 11/23/20 at 02:15; Stop 11/24/20 at 09:35; Status DC Potassium Chloride/Water 100 ml @ 100 mls/hr Q1H IV Last administered on 11/23/20at 07:34; Start 11/23/20 at 03:00; Stop 11/23/20 at 06:59; Status DC Magnesium Sulfate 50 ml @ 25 mls/hr 1X ONCE IV Last administered on 11/23/20at 04:31; Start 11/23/20 at 03:00; Stop 11/23/20 at 04:59; Status DC Amino Acids/ Glycerin/ Electrolytes 1,000 ml @ 80 mls/hr [id number] IV Last administered on 11/28/20at 03:16; Start 11/23/20 at 11:30 Cyanocobalamin (Vitamin B-12) 1,000 mcg DAILY PO Last administered on 11/30/20at 08:22; Start 11/24/20 at 09:00 Dronedarone (Multaq) 400 mg BID PO ; Start 11/23/20 at 21:00; Stop 11/27/20 at 15:13; Status DC Guaifenesin (MUCINEX ER with DM) 1 tab PRN BID PRN PO cough and congestion; Start 11/23/20 at 12:00 Metoprolol Tartrate (Lopressor) 25 mg BID PO ; Start 11/23/20 at 21:00; Stop 11/28/20 at 10:35; Status DC Roflumilast (Daliresp) 500 mcg DAILY PO Last administered on 11/30/20at 08:22; Start 11/24/20 at 09:00 Verapamil HCl (Calan Sr) 120 mg DAILY PO ; Start 11/23/20 at 13:00; Stop 11/28/20 at 10:35; Status DC Albuterol Sulfate (Ventolin Neb Soln) 2.5 mg RTQID NEB Last administered on 11/30/20at 11:56; Start 11/23/20 at 16:00 Bupropion HCl (Wellbutrin Xl) 300 mg DAILY PO Last administered on 11/30/20at 08:22; Start 11/23/20 at 13:00 Non-Formulary Medication (Fluticasone Propionate (Flovent 44MCG Hfa)) 10.6 gm DAILY IH ; Start 11/24/20 at 09:00; Status UNV Non-Formulary Medication (Fluticasone/ Salmeterol (Advair 250-50 Diskus)) 1 puff BID IH ; Start 11/23/20 at 21:00; Status UNV Atorvastatin Calcium (Lipitor) 20 mg QHS PO Last administered on 11/29/20at 21:25; Start 11/23/20 at 21:00 Budesonide (Pulmicort) 0.5 mg RTBID NEB Last administered on 11/27/20at 07:24; Start 11/23/20 at 20:00; Stop 11/27/20 at 15:13; Status DC Metoprolol Tartrate (Lopressor Vial) 2.5 mg Q6HRS IVP Last administered on 11/25/20at 05:31; Start 11/23/20 at 18:00; Stop 11/25/20 at 08:41; Status DC Metoprolol Tartrate (Lopressor Vial) 2.5 mg 1X ONCE IVP Last administered on 11/23/20at 13:01; Start 11/23/20 at 13:00; Stop 11/23/20 at 13:01; Status DC Azithromycin 250 ml @ 250 mls/hr 1X ONCE IV ; Start 11/23/20 at 14:15; Stop 11/23/20 at 15:14; Status UNV Azithromycin 500 mg/Sodium Chloride 250 ml @ 250 mls/hr Q24H IV Last administered on 11/29/20at 15:30; Start 11/23/20 at 16:00 Aspirin (Ecotrin) 81 mg DAILYWBKFT PO ; Start 11/23/20 at 23:30; Stop 11/27/20 at 15:07; Status DC Clopidogrel Bisulfate (Plavix) 75 mg 1X ONCE PO ; Start 11/23/20 at 23:30; Stop 11/23/20 at 23:31; Status DC Clopidogrel Bisulfate (Plavix) 75 mg DAILYWBKFT PO ; Start 11/24/20 at 08:00; Stop 11/27/20 at 15:07; Status DC Diltiazem HCl 125 mg/Sodium Chloride 125 ml @ 5 mls/hr CONT PRN IV SEE ADMIN INSTRUCTIONS Last administered on 11/24/20at 00:17; Start 11/23/20 at 23:45; Stop 11/28/20 at 10:32; Status DC Labetalol HCl (Normodyne Iv Push) 10 mg PRN Q10MIN PRN IVP HYPERTENSION, 1ST CHOICE Last administered on 11/25/20at 03:05; Start 11/24/20 at 08:45 Nicardipine HCl 50 mg/Sodium Chloride 250 ml @ 25 mls/hr CONT PRN PRN IV HYPERTENSION, See comments Last administered on 11/28/20at 00:04; Start 11/24/20 at 08:45; Stop 11/28/20 at 10:32; Status DC Acetaminophen (Tylenol) 650 mg PRN Q6HRS PRN PO MILD PAIN / TEMP > 100.3'F Last administered on 11/29/20at 15:28; Start 11/24/20 at 08:45 Acetaminophen (Tylenol Supp) 650 mg PRN Q6HRS PRN WI MILD PAIN / TEMP > 100.3'F; Start 11/24/20 at 08:45 Ondansetron HCl (Zofran) 4 mg PRN Q6HRS PRN IVP NAUSEA/VOMITING; Start 11/24/20 at 08:45 Enoxaparin Sodium (Lovenox 30mg Syringe) 30 mg Q24H SQ Last administered on 11/30/20at 08:23; Start 11/24/20 at 08:45; Stop 11/30/20 at 12:10; Status DC Saliva Substitute (Biotene Moisturizing Mouth) 2 spray PRN Q15MIN PRN PO DRY MOUTH Last administered on 11/24/20at 16:37; Start 11/24/20 at 15:45 Haloperidol Lactate (Haldol Inj) 5 mg PRN Q6HRS PRN IVP AGITATION Last administered on 11/25/20at 05:55; Start 11/25/20 at 05:45 Metoprolol Tartrate (Lopressor Vial) 5 mg Q6HRS IVP Last administered on 11/28/20at 05:41; Start 11/25/20 at 09:00; Stop 11/28/20 at 10:35; Status DC Digoxin (Lanoxin) 500 mcg 1X ONCE IV Last administered on 11/25/20at 12:23; Start 11/25/20 at 12:00; Stop 11/25/20 at 12:01; Status DC Methylprednisolone Sodium Succinate (SOLU-Medrol 40MG VIAL) 40 mg 1X ONCE IV Last administered on 11/25/20at 14:01; Start 11/25/20 at 14:00; Stop 11/25/20 at 14:01; Status DC Budesonide (Pulmicort) 0.5 mg RTBID NEB Last administered on 11/30/20at 07:50; Start 11/25/20 at 20:00 Aspirin (Aspirin Rectal Supp) 300 mg PRN DAILY PRN WI IF UNABLE TO TAKE PO Last administered on 11/28/20at 08:39; Start 11/25/20 at 14:00 Hydralazine HCl (Apresoline Inj) 10 mg PRN Q4HRS PRN IVP ELEVATED BP, 2ND CHOICE Last administered on 11/28/20at 16:04; Start 11/25/20 at 15:00 Aspirin (Aspirin Rectal Supp) 300 mg 1X ONCE WI Last administered on 11/25/20at 22:21; Start 11/25/20 at 21:00; Stop 11/25/20 at 21:01; Status DC Labetalol HCl (Normodyne Iv Push) 20 mg 1X ONCE IVP Last administered on 11/25/20at 15:40; Start 11/25/20 at 15:45; Stop 11/25/20 at 15:46; Status DC Sodium Chloride 1,000 ml @ 100 mls/hr 1X ONCE IV ; Start 11/26/20 at 09:45; Stop 11/26/20 at 19:44; Status DC Furosemide (Lasix) 20 mg 1X ONCE IVP Last administered on 11/27/20at 15:37; Start 11/27/20 at 13:30; Stop 11/27/20 at 13:34; Status DC Barium Sulfate (Varibar Thin Liquid Apple) 148 gm 1X ONCE PO Last administered on 11/27/20at 13:43; Start 11/27/20 at 13:45; Stop 11/27/20 at 13:46; Status DC Lorazepam (Ativan Inj) 0.5 mg PRN QHS PRN IVP SLEEP Last administered on 11/28/20at 01:35; Start 11/27/20 at 15:15 Pantoprazole Sodium (PROTONIX VIAL for IV PUSH) 40 mg DAILYAC IVP Last administered on 11/30/20at 08:23; Start 11/27/20 at 15:15 Fentanyl Citrate (Fentanyl 2ml Vial) 25 mcg 1X ONCE IVP Last administered on 11/27/20at 15:36; Start 11/27/20 at 15:30; Stop 11/27/20 at 15:31; Status DC Metoprolol Tartrate (Lopressor) 50 mg BID PO Last administered on 11/30/20at 08:23; Start 11/28/20 at 21:00 Amlodipine Besylate (Norvasc) 10 mg DAILY PO Last administered on 11/30/20at 08:22; Start 11/28/20 at 12:00 Digoxin (Lanoxin) 250 mcg 1X ONCE IV Last administered on 11/28/20at 12:01; S tart 11/28/20 at 10:45; Stop 11/28/20 at 10:46; Status DC Sodium Chloride 500 ml @ 500 mls/hr 1X ONCE IV Last administered on 11/29/20at 11:45; Start 11/29/20 at 11:30; Stop 11/29/20 at 12:29; Status DC Cefazolin Sodium/ Dextrose 50 ml @ 100 mls/hr 1X ONCE IV ; Start 12/01/20 at 12:00; Stop 12/01/20 at 12:29 Active Scripts Active Zofran (Ondansetron Hcl) 4 Mg Tablet 1 Tab PO PRN Q6-8HRS PRN Reported Mucinex Dm Er 600-30 Mg Tablet (Guaifenesin/Dextromethorphan) 1 Each Tab.er.12h 1 Tab PO BID PRN 14 Days Aspirin 325 Mg Tablet 1 Tab PO DAILY Vitamin B-12 (Cyanocobalamin (Vitamin B-12)) 1,000 Mcg Tablet 1 Tab PO DAILY 30 Days Vitamin D3 Complete Caplet (Mv-Mn/Iron/Fa/Herbal Cmplx#190) 1 Each Tablet 1 Each PO DAILY Vitamin C (Ascorbic Acid) 500 Mg Capsule.er 2 Cap PO BID 30 Days Metoprolol Tartrate 25 Mg Tablet 1 Tab PO BID Multaq (Dronedarone Hcl) 400 Mg Tablet 1 Tab PO BID Flovent 44MCG Hfa (Fluticasone Propionate) 10.6 Gm Aer.w.adap 10.6 Gm IH DAILY Xopenex Hfa (Levalbuterol Tartrate) 15 Gm Hfa.aer.ad 15 Gm IH PRN Verapamil Er (Verapamil Hcl) 120 Mg Tablet.er 120 Mg PO DAILY Pravastatin Sodium 80 Mg Tablet 80 Mg PO DAILY Daliresp (Roflumilast) 500 Mcg Tablet 500 Mcg PO DAILY Wellbutrin Xl (Bupropion Hcl) 300 Mg Tab.er.24h 300 Mg PO DAILY Albuterol Sulfate Conc Neb Soln (Albuterol Sulfate) 2.5 Mg/0.5 Ml Vial.neb 1 Vial NEB QID Advair 250-50 Diskus (Fluticasone/Salmeterol) 1 Each Disk.w.dev 1 Puff IH BID Vitals/I & O Vital Sign - Last 24 Hours 11/29/20 11/29/20 11/29/20 11/29/20 15:00 15:40 19:36 20:25 Temp 97.8 98.0 97.8 98.0 Pulse 80 83 Resp 18 18 B/P (MAP) 140/68 (92) 124/58 (80) Pulse Ox 99 99 100 O2 Delivery Nasal Cannula Nasal Cannula Nasal Cannula Nasal Cannula O2 Flow Rate 2.0 2.0 3.0 2.0 11/29/20 11/29/20 11/29/20 11/29/20 21:25 22:15 22:18 23:57 Temp 98.0 98.0 Pulse 83 71 Resp 18 B/P (MAP) 124/58 135/63 (87) Pulse Ox 100 100 99 O2 Delivery Nasal Cannula Nasal Cannula Nasal Cannula O2 Flow Rate 3.0 2.5 2.0 11/30/20 11/30/20 11/30/20 11/30/20 03:48 07:00 07:51 07:52 Temp 98.3 97.8 98.3 97.8 Pulse 78 74 Resp 16 16 B/P (MAP) 125/79 (94) 149/68 (95) Pulse Ox 98 99 100 100 O2 Delivery Nasal Cannula Nasal Cannula Nasal Cannula Nasal Cannula O2 Flow Rate 2.0 2.0 2.5 2.5 11/30/20 11/30/20 11/30/20 11/30/20 08:20 08:22 08:23 11:00 Temp 98.0 98.0 Pulse 78 78 62 Resp 16 B/P (MAP) 125/79 125/79 130/64 (86) Pulse Ox 98 O2 Delivery Nasal Cannula Nasal Cannula O2 Flow Rate 2.0 2.0 11/30/20 11:57 O2 Delivery Nasal Cannula O2 Flow Rate 2.5 Intake and Output 11/29/20 11/29/20 11/30/20 15:00 23:00 07:00 Intake Total 125 ml 250 ml 250 ml Output Total 950 ml Balance 125 ml 250 ml -700 ml Justicifation of Admission Dx: Justifications for Admission: Justification of Admission Dx: Yes Stroke - Ischemic: Stroke-Ischemic CORRINA BROWN MD Nov 30, 2020 13:57
[2020-11-30 15:00] VITALS: BP 143/72
[2020-11-30] MEDS: AZITHROMYCIN 500 MG in IV NORMAL SALINE 250ML 250 ML IV SCH (15:24)
[2020-11-30] MEDS ORDERED: ZOLPIDEM 5 MG TABLET. PO PRN (15:30)
[2020-11-30 19:00] VITALS: BP 141/64
[2020-11-30] MEDS: ATORVASTATIN CALCIUM 20 MG TABLET PO SCH (20:30)
[2020-11-30 22:57] VITALS: BP 144/74
[2020-12-01] VITALS (8 sets, daily range): BP systolic 111–159; BP diastolic 56–92
[2020-12-01] MEDS: hydrALAZINE 20 MG/ML VIAL. IVP PRN (01:40)
[2020-12-01] MEDS ORDERED: DIGOXIN IV 500 MCG/2 ML AMPUL. IV ONE (01:45)
[2020-12-01 01:58] LABS: BASE EXCESS ABG 4 mmol/L (-3-3); CORRECTED PCO2 ABG 38 mmHg; CORRECTED PH ABG 7.48; CORRECTED PO2 ABG 67 mmHg; HCO3 ABG 27 mmol/L (21-28); SAT O2 ABG 93 % (92-99)
[2020-12-01 01:59] LABS: PCO2 ABG 35 mmHg (35-46); PO2 ABG 60 mmHg (65-108)
[2020-12-01] MEDS ORDERED: fentaNYL PF VIAL 100 MCG/2 ML VIAL IM ONE (02:15)
[2020-12-01 02:27] LABS: FIO2 ABG 100
[2020-12-01] MEDS ORDERED: METOPROLOL IV PUSH 5 MG/5 ML VIAL. IVP PRN (02:30)
--- NOTE | 2020-12-01 02:35 | NUR ---
Rapid Response Note: Rapid Response called by patient's RN for increased Respiratory distress and tachycardia. Upon arrival RN is speaking to Dr Aburto; per other RN, patient's HR had been elevated all night, Dr Iniguez notified and Digoxin give IVP. Patient then developed difficulty breathing requiring increase to 100% O2 via BiPap. Patient is sitting upright in bed with BiPap mask on and EKG being completed. Patient did open her eyes to her name then immediately closed them and was only able to answer with one word responses, Yes/No--patient oriented to self and place but was unable to recall day/date/year. Tele shows HR 150's-180, Afib with BBB, EKG completed, BP 157/92, Irreg +2 palpable radial pulses and +1 pedal pulse, +2-+3 bilat upper extremity edema L>R, and +2 bilat lower extremity edema, distant S1S2; Lung sounds coarse rhonchi, patient has grunting respirations using accessary abdominal muscles, Resp rate 36-40 with O2 saturation 93% on BiPap 100%, Abdomen obese with hypoactive bowel sounds. ABGs completed at time of Rapid Response resulted pH 7.48, pCO2 38, pO2 67, HCO3 27, BE 4 drawn while patient on 100% NRB. Patient was nasotracheal suctioned with return of small amount of thick yellow secretions. Spoke to Dr Aburto and notified of above; he stated he does not want patient on BiPap secondary to concern with aspiration if patient vomits. Orders already given to RN to include placement of NG to decompress stomach, Stat portable CXR, Fentanyl, and Metoprolol; Dr Aburto stated he will review CXR and place further orders as needed. Patient notified/educated on POC, but unable to verify comprehension. #18 Left Nare NG placed without difficulty after explanation to patient; placement checked with air instillation heard over upper abdomen and immediate return of yellow gastric contents--Stat KUB ordered for [facility] Patient remains on unit. Addendum: 12/01/20 at 0644 by TASHI CARRIZALES RN Amended: Links added.
[2020-12-01] MEDS ORDERED: fentaNYL PF VIAL 100 MCG/2 ML VIAL IVP ONE (02:45)
[2020-12-01] MEDS ORDERED: PIPERACILLIN/TAZOBACTAM 3.375 GM in IV NORMAL SALINE 50ML 50 ML IV ONE (03:00)
[2020-12-01] MEDS ORDERED: FUROSEMIDE 40 MG/4 ML VIAL. IVP ONE (03:00)
[2020-12-01] MEDS ORDERED: PIP/TAZO PER PHARMACY MC PRN (03:00)
--- NOTE | 2020-12-01 03:03 | RAD ---
XR ABDOMEN 1V Clinical Indication: Reason: NG placement / Spl. Instructions: / History: Comparison: KUB, 2 days ago. Findings: Dobbhoff is no longer seen. There is enteric tube, tip is in the distal stomach. The right abdomen is excluded. There is air-filled nondilated small bowel in the lower abdomen. There is mild oral contra st in the colon near the splenic flexure. Contrast appears to outline colon diverticula. There is pro bable left basilar airspace disease. Bones appear stable. IMPRESSION: 1. Enteric tube tip is in the distal stomach. 2. Nonobstructive bowel gas pattern. 3. Left basilar airspace disease. Electronically signed by: William Brown MD (12/01/2020 3:01 AM) [facility]
--- NOTE | 2020-12-01 03:08 | RAD ---
XR CHEST 1V Clinical Indication: Reason: Respiratory failure / Spl. Instructions: / History: Comparison: AP chest, 3 days ago. Findings: Enteric tube courses below left hemidiaphragm. Right PICC, tip near superior atriocaval junction. Car diac silhouette is unchanged. There are bilateral perihilar and basilar airspace opacities. This is m ost confluent in the left lung base retrocardiac. There is no pneumothorax. No pleural effusion is ap preciated. No acute bone abnormality. IMPRESSION: 1. Life support devices as above. 2. Bilateral perihilar and basilar airspace disease, worst in the left lung base. Electronically signed by: William Brown MD (12/01/2020 3:05 AM) [facility]
[2020-12-01] MEDS ORDERED: VANCOMYCIN 2 GM in IV NORMAL SALINE 500ML BAG 500 ML IV ONE (03:30)
--- NOTE | 2020-12-01 04:49 | NUR ---
Patient heart rate above 150's and patient in A-fib RVR for a few minutes. Contacted Dr. Iniguez and new orders received and would see her in the morning. Patients continued to have a heart rate in the 150's and increasing respiratory rate. Contacted Dr. Aburto and new orders received. Patient NG tube placed and on low intermittent suction. Patient is currently resting with eyes closed.
[2020-12-01] MEDS ORDERED: METOPROLOL IV PUSH 5 MG/5 ML VIAL. IVP SCH (06:00)
[2020-12-01] MEDS: AMINO AC 3%/ELECTROLYTE/GLYCER 1,000 ML IV SCH ×2 (07:00→19:30)
[2020-12-01] MEDS: BUDESONIDE 0.5 MG/2 ML NEBU. NEB SCH ×2 (07:15→21:00)
[2020-12-01] MEDS: ALBUTEROL SULFATE 2.5 MG/3 ML NEBU. NEB SCH ×4 (07:15→21:00)
[2020-12-01] MEDS: METOPROLOL TART IMMED RELEASE 50 MG TABLET. PO SCH ×2 (08:01→20:44)
[2020-12-01] MEDS: ROFLUMILAST 500 MCG TABLET. PO SCH (08:01)
[2020-12-01] MEDS: CYANOCOBALAMIN (VITAMIN B-12) 1,000 MCG TABLET. PO SCH (08:01)
[2020-12-01] MEDS: buPROPion XL 150 MG TAB.ER.24H. PO SCH (08:01)
[2020-12-01] MEDS: PANTOPRAZOLE IV PUSH 40 MG VIAL. IVP SCH (08:01)
--- NOTE | 2020-12-01 09:21 | PDOC ---
Date of Service: DATE: 12/01/20 TIME: 09:15 Objective: Objective: D/w nurse - RVR, drop in O2, and temp overnight. Tolerated Dobhoff feeds over weekend - currently to suction. Says RT said she can't lay flat because of past esophageal dilation. Vital Signs: Vital Signs Date Time Temp Pulse Resp B/P (MAP) Pulse Ox O2 Delivery O2 Flow Rate FiO2 12/01/20 08:01 92 111/56 12/01/20 07:17 98 NonRebreather Mask 12/01/20 07:00 99.6 22 2.0 99.6 Labs: Laboratory Tests Test 11/30/20 10:00 12/01/20 01:56 White Blood Count 8.1 x10^3/uL Red Blood Count 3.14 x10^6/uL Hemoglobin 10.1 g/dL Hematocrit 30.8 % Mean Corpuscular Volume 98 fL Mean Corpuscular Hemoglobin 32 pg Mean Corpuscular Hemoglobin Concent 33 g/dL Red Cell Distribution Width 13.4 % Platelet Count 239 x10^3/uL Neutrophils (%) (Auto) 73 % Lymphocytes (%) (Auto) 12 % Monocytes (%) (Auto) 9 % Eosinophils (%) (Auto) 6 % Basophils (%) (Auto) 0 % Neutrophils # (Auto) 5.9 x10^3/uL Lymphocytes # (Auto) 0.9 x10^3/uL Monocytes # (Auto) 0.8 x10^3/uL Eosinophils # (Auto) 0.5 x10^3/uL Basophils # (Auto) 0.0 x10^3/uL Sodium Level 142 mmol/L Potassium Level 4.1 mmol/L Chloride Level 106 mmol/L Carbon Dioxide Level 29 mmol/L Anion Gap 7 Blood Urea Nitrogen 27 mg/dL Creatinine 1.2 mg/dL Estimated GFR (Cockcroft-Gault) 42.7 BUN/Creatinine Ratio 23 Glucose Level 113 mg/dL Calcium Level 8.8 mg/dL Total Bilirubin 0.4 mg/dL Aspartate Amino Transf (AST/SGOT) 24 U/L Alanine Aminotransferase (ALT/SGPT) 43 U/L Alkaline Phosphatase 50 U/L Total Protein 5.3 g/dL Albumin 2.2 g/dL Albumin/Globulin Ratio 0.7 O2 Saturation 93 % Arterial Blood pH 7.51 Arterial Blood pH (Temp corrected) 7.48 Arterial Blood pCO2 at Patient Temp 35 mmHg Arterial Blood pCO2 (Temp correct) 38 mmHg Arterial Blood pO2 at Patient Temp 60 mmHg Arterial Blood pO2 (Temp corrected) 67 mmHg Arterial Blood HCO3 27 mmol/L Arterial Blood Base Excess 4 mmol/L FiO2 100 Current Medications Laboratory Tests Test 11/30/20 10:00 12/01/20 01:56 White Blood Count 8.1 x10^3/uL Red Blood Count 3.14 x10^6/uL Hemoglobin 10.1 g/dL Hematocrit 30.8 % Mean Corpuscular Volume 98 fL Mean Corpuscular Hemoglobin 32 pg Mean Corpuscular Hemoglobin Concent 33 g/dL Red Cell Distribution Width 13.4 % Platelet Count 239 x10^3/uL Neutrophils (%) (Auto) 73 % Lymphocytes (%) (Auto) 12 % Monocytes (%) (Auto) 9 % Eosinophils (%) (Auto) 6 % Basophils (%) (Auto) 0 % Neutrophils # (Auto) 5.9 x10^3/uL Lymphocytes # (Auto) 0.9 x10^3/uL Monocytes # (Auto) 0.8 x10^3/uL Eosinophils # (Auto) 0.5 x10^3/uL Basophils # (Auto) 0.0 x10^3/uL Sodium Level 142 mmol/L Potassium Level 4.1 mmol/L Chloride Level 106 mmol/L Carbon Dioxide Level 29 mmol/L Anion Gap 7 Blood Urea Nitrogen 27 mg/dL Creatinine 1.2 mg/dL Estimated GFR (Cockcroft-Gault) 42.7 BUN/Creatinine Ratio 23 Glucose Level 113 mg/dL Calcium Level 8.8 mg/dL Total Bilirubin 0.4 mg/dL Aspartate Amino Transf (AST/SGOT) 24 U/L Alanine Aminotransferase (ALT/SGPT) 43 U/L Alkaline Phosphatase 50 U/L Total Protein 5.3 g/dL Albumin 2.2 g/dL Albumin/Globulin Ratio 0.7 O2 Saturation 93 % Arterial Blood pH 7.51 Arterial Blood pH (Temp corrected) 7.48 Arterial Blood pCO2 at Patient Temp 35 mmHg Arterial Blood pCO2 (Temp correct) 38 mmHg Arterial Blood pO2 at Patient Temp 60 mmHg Arterial Blood pO2 (Temp corrected) 67 mmHg Arterial Blood HCO3 27 mmol/L Arterial Blood Base Excess 4 mmol/L FiO2 100 Imaging: KUB 12/01 IMPRESSION: 1. Enteric tube tip is in the distal stomach. 2. Nonobstructive bowel gas pattern. 3. Left basilar airspace disease. CXR 12/01 IMPRESSION: 1. Life support devices as above. 2. Bilateral perihilar and basilar airspace disease, worst in the left lung base. PE: GEN: has cool washcloth on her forehead LUNGS: coarse HEART: irregular ABD: soft, non-distended NEURO/PSYCH: did not rouse for exam A/P: CVA, oropharyngeal dysphagia A Fib, COPD - rapid response last night Fever GERD, hiatal hernia - on PPI COVID-19 negative 11/22/20 -- Hold on PEG for now, will follow. Continue IV PPI. Justicifation of Admission Dx: Justifications for Admission: Justification of Admission Dx: Yes Stroke - Ischemic: Stroke-Ischemic MANNY BLUE Dec 01, 2020 09:21
[2020-12-01 09:53] LABS: BASO % 0 % (0-3); EOS % 0 % (0-3); HEMOGLOBIN 10.6 g/dL (12.0-15.5); LYMPH # 0.6 x10^3/uL (1.0-4.8); LYMPH % 5 % (24-48); MEAN CORPUSCULAR HEMOGLOBIN 32 pg (25-35); MEAN CORPUSCULAR HGB CONC 32 g/dL (31-37); MEAN CORPUSCULAR VOLUME 98 fL (79-100); MONO # 1.4 x10^3/uL (0.0-1.1); MONO % 11 % (0-9); NEUT % 84 % (31-73); PLATELET COUNT 298 x10^3/uL (140-400); RED BLOOD COUNT 3.38 x10^6/uL (3.50-5.40); RED CELL DISTRIBUTION WIDTH 13.4 % (11.5-14.5); WHITE BLOOD COUNT 13.1 x10^3/uL (4.0-11.0)
[2020-12-01 10:10] LABS: ALBUMIN 2.3 g/dL (3.4-5.0); ALBUMIN/GLOBULIN RATIO 0.7 (1.0-1.7); CALCIUM 8.9 mg/dL (8.5-10.1); CREATININE 1.5 mg/dL (0.6-1.0); POTASSIUM 3.7 mmol/L (3.5-5.1); TOTAL BILIRUBIN 0.8 mg/dL (0.2-1.0); TOTAL PROTEIN 5.6 g/dL (6.4-8.2)
--- NOTE | 2020-12-01 11:08 | PDOC ---
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 Her strength is improving, clinically she looks great considering. Recurrence of atrial fibrillation COPD exacerbation, better Hypertension, history of COVID-19 Pulmonary hypertension Failed video swallow COPD worsening and atrial fibrillation, required rapid response night of 11/30 Plan Needs PEG, on hold for now Low-dose enoxaparin She had been on aspirin instead of anticoagulation because of recent falls, for her atrial fibrillation. I believe the risks outweigh the benefits of full anticoagulation this soon after a fairly good size stroke. Continue aspirin, aim to switch to apixaban after PEG Resume statin when able to swallow PT/OT/ST Will need inpatient rehabilitation Objective Vital Signs Date Time Temp Pulse Resp B/P (MAP) Pulse Ox O2 Delivery O2 Flow Rate FiO2 12/01/20 10:12 98.7 71 22 123/60 (81) 97 Nasal Cannula 3.0 98.7 Intake and Output 12/01/20 07:00 Intake Total 750 ml Output Total 2350 ml Balance -1600 ml IV Total 250 ml Tube Feeding 500 ml Output Urine Total 2350 ml PHYSICAL EXAM Sleepy, mumbles replies, moves to command PERRL. EOMI. CN: Left field cut, left central facial weakness. Muscle tone: normal. Muscle strength: 4/5 left hemiparesis DTR: 2+ Plantar reflex: Flexor Gait: not examined in bed. Sensory exam: no abnormal findings. No cerebellar signs elicited. Review of Relevant I have reviewed the following items gerry (where applicable) has been applied. Labs Laboratory Tests Test 11/30/20 10:00 12/01/20 01:56 12/01/20 09:25 White Blood Count 8.1 x10^3/uL (4.0-11.0) 13.1 x10^3/uL (4.0-11.0) Red Blood Count 3.14 x10^6/uL (3.50-5.40) 3.38 x10^6/uL (3.50-5.40) Hemoglobin 10.1 g/dL (12.0-15.5) 10.6 g/dL (12.0-15.5) Hematocrit 30.8 % (36.0-47.0) 33.0 % (36.0-47.0) Mean Corpuscular Volume 98 fL (79-100) 98 fL (79-100) Mean Corpuscular Hemoglobin 32 pg (25-35) 32 pg (25-35) Mean Corpuscular Hemoglobin Concent 33 g/dL (31-37) 32 g/dL (31-37) Red Cell Distribution Width 13.4 % (11.5-14.5) 13.4 % (11.5-14.5) Platelet Count 239 x10^3/uL (140-400) 298 x10^3/uL (140-400) Neutrophils (%) (Auto) 73 % (31-73) 84 % (31-73) Lymphocytes (%) (Auto) 12 % (24-48) 5 % (24-48) Monocytes (%) (Auto) 9 % (0-9) 11 % (0-9) Eosinophils (%) (Auto) 6 % (0-3) 0 % (0-3) Basophils (%) (Auto) 0 % (0-3) 0 % (0-3) Neutrophils # (Auto) 5.9 x10^3/uL (1.8-7.7) 11.0 x10^3/uL (1.8-7.7) Lymphocytes # (Auto) 0.9 x10^3/uL (1.0-4.8) 0.6 x10^3/uL (1.0-4.8) Monocytes # (Auto) 0.8 x10^3/uL (0.0-1.1) 1.4 x10^3/uL (0.0-1.1) Eosinophils # (Auto) 0.5 x10^3/uL (0.0-0.7) 0.0 x10^3/uL (0.0-0.7) Basophils # (Auto) 0.0 x10^3/uL (0.0-0.2) 0.0 x10^3/uL (0.0-0.2) Sodium Level 142 mmol/L (136-145) 142 mmol/L (136-145) Potassium Level 4.1 mmol/L (3.5-5.1) 3.7 mmol/L (3.5-5.1) Chloride Level 106 mmol/L (98-107) 104 mmol/L (98-107) Carbon Dioxide Level 29 mmol/L (21-32) 28 mmol/L (21-32) Anion Gap 7 (6-14) 10 (6-14) Blood Urea Nitrogen 27 mg/dL (7-20) 24 mg/dL (7-20) Creatinine 1.2 mg/dL (0.6-1.0) 1.5 mg/dL (0.6-1.0) Estimated GFR (Cockcroft-Gault) 42.7 33.0 BUN/Creatinine Ratio 23 (6-20) 16 (6-20) Glucose Level 113 mg/dL (70-99) 90 mg/dL (70-99) Calcium Level 8.8 mg/dL (8.5-10.1) 8.9 mg/dL (8.5-10.1) Total Bilirubin 0.4 mg/dL (0.2-1.0) 0.8 mg/dL (0.2-1.0) Aspartate Amino Transf (AST/SGOT) 24 U/L (15-37) 20 U/L (15-37) Alanine Aminotransferase (ALT/SGPT) 43 U/L (14-59) 38 U/L (14-59) Alkaline Phosphatase 50 U/L (46-116) 55 U/L (46-116) Total Protein 5.3 g/dL (6.4-8.2) 5.6 g/dL (6.4-8.2) Albumin 2.2 g/dL (3.4-5.0) 2.3 g/dL (3.4-5.0) Albumin/Globulin Ratio 0.7 (1.0-1.7) 0.7 (1.0-1.7) O2 Saturation 93 % (92-99) Arterial Blood pH 7.51 (7.35-7.45) Arterial Blood pH (Temp corrected) 7.48 Arterial Blood pCO2 at Patient Temp 35 mmHg (35-46) Arterial Blood pCO2 (Temp correct) 38 mmHg Arterial Blood pO2 at Patient Temp 60 mmHg (65-108) Arterial Blood pO2 (Temp corrected) 67 mmHg Arterial Blood HCO3 27 mmol/L (21-28) Arterial Blood Base Excess 4 mmol/L (-3-3) FiO2 100 Laboratory Tests Test 12/01/20 01:56 12/01/20 09:25 O2 Saturation 93 % (92-99) Arterial Blood pH 7.51 (7.35-7.45) Arterial Blood pH (Temp corrected) 7.48 Arterial Blood pCO2 at Patient Temp 35 mmHg (35-46) Arterial Blood pCO2 (Temp correct) 38 mmHg Arterial Blood pO2 at Patient Temp 60 mmHg (65-108) Arterial Blood pO2 (Temp corrected) 67 mmHg Arterial Blood HCO3 27 mmol/L (21-28) Arterial Blood Base Excess 4 mmol/L (-3-3) FiO2 100 White Blood Count 13.1 x10^3/uL (4.0-11.0) Red Blood Count 3.38 x10^6/uL (3.50-5.40) Hemoglobin 10.6 g/dL (12.0-15.5) Hematocrit 33.0 % (36.0-47.0) Mean Corpuscular Volume 98 fL (79-100) Mean Corpuscular Hemoglobin 32 pg (25-35) Mean Corpuscular Hemoglobin Concent 32 g/dL (31-37) Red Cell Distribution Width 13.4 % (11.5-14.5) Platelet Count 298 x10^3/uL (140-400) Neutrophils (%) (Auto) 84 % (31-73) Lymphocytes (%) (Auto) 5 % (24-48) Monocytes (%) (Auto) 11 % (0-9) Eosinophils (%) (Auto) 0 % (0-3) Basophils (%) (Auto) 0 % (0-3) Neutrophils # (Auto) 11.0 x10^3/uL (1.8-7.7) Lymphocytes # (Auto) 0.6 x10^3/uL (1.0-4.8) Monocytes # (Auto) 1.4 x10^3/uL (0.0-1.1) Eosinophils # (Auto) 0.0 x10^3/uL (0.0-0.7) Basophils # (Auto) 0.0 x10^3/uL (0.0-0.2) Sodium Level 142 mmol/L (136-145) Potassium Level 3.7 mmol/L (3.5-5.1) Chloride Level 104 mmol/L (98-107) Carbon Dioxide Level 28 mmol/L (21-32) Anion Gap 10 (6-14) Blood Urea Nitrogen 24 mg/dL (7-20) Creatinine 1.5 mg/dL (0.6-1.0) Estimated GFR (Cockcroft-Gault) 33.0 BUN/Creatinine Ratio 16 (6-20) Glucose Level 90 mg/dL (70-99) Calcium Level 8.9 mg/dL (8.5-10.1) Total Bilirubin 0.8 mg/dL (0.2-1.0) Aspartate Amino Transf (AST/SGOT) 20 U/L (15-37) Alanine Aminotransferase (ALT/SGPT) 38 U/L (14-59) Alkaline Phosphatase 55 U/L (46-116) Total Protein 5.6 g/dL (6.4-8.2) Albumin 2.3 g/dL (3.4-5.0) Albumin/Globulin Ratio 0.7 (1.0-1.7) Microbiology 11/23/20 Blood Culture - Final, Complete NO GROWTH AFTER 5 DAYS Medications Current Medications Sodium Chloride 1,000 ml @ 1,000 mls/hr Q1H IV Last administered on 11/22/20at 19:31; Start 11/22/20 at 19:15; Stop 11/22/20 at 20:14; Status DC Alteplase, Recombinant 9 ml @ 540 mls/hr 1X ONCE IV Last administered on 11/22/20at 19:57; Start 11/22/20 at 19:45; Stop 11/22/20 at 19:46; Status DC Alteplase, Recombinant 81 ml @ 81 mls/hr Q1H IV Last administered on 11/22/20at 20:00; Start 11/22/20 at 19:45; Stop 11/22/20 at 20:44; Status DC Sodium Chloride 50 ml @ 200 mls/hr 1X ONCE IV Last administered on 11/22/20at 20:10; Start 11/22/20 at 19:45; Stop 11/22/20 at 19:59; Status DC Alteplase, Recombinant 10 ml @ 600 mls/hr 1X ONCE IV ; Start 11/22/20 at 19:45; Stop 11/22/20 at 19:46; Status UNV Alteplase, Recombinant 90 ml @ 90 mls/hr 1X ONCE IV ; Start 11/22/20 at 19:45; Stop 11/22/20 at 20:44; Status UNV Sodium Chloride 50 ml @ 50 mls/hr 1X ONCE IV ; Start 11/22/20 at 19:45; Stop 11/22/20 at 20:44; Status UNV Aspirin (Aspirin Rectal Supp) 300 mg 1X ONCE MI Last administered on 11/22/20at 20:16; Start 11/22/20 at 19:45; Stop 11/22/20 at 19:48; Status DC Iohexol (Omnipaque 300 Mg/ml) 60 ml 1X ONCE IV Last administered on 11/22/20at 20:38; Start 11/22/20 at 20:15; Stop 11/22/20 at 20:16; Status DC Info (CONTRAST GIVEN -- Rx MONITORING) 1 each PRN DAILY PRN MC SEE COMMENTS; Start 11/22/20 at 20:30; Stop 11/24/20 at 20:29; Status DC Ondansetron HCl (Zofran) 4 mg PRN Q8HRS PRN IV NAUSEA/VOMITING 1ST CHOICE Last administered on 11/23/20at 04:05; Start 11/22/20 at 21:45; Stop 11/23/20 at 21:44; Status DC Bumetanide (Bumex) 0.5 mg 1X ONCE IV Last administered on 11/23/20at 00:51; Start 11/22/20 at 23:30; Stop 11/22/20 at 23:31; Status DC Labetalol HCl (Normodyne Iv Push) 10 mg PRN Q10MIN PRN IVP HYPERTENSION Last administered on 11/24/20at 13:07; Start 11/23/20 at 02:15; Stop 11/24/20 at 15:00; Status DC Nicardipine HCl 50 mg/Sodium Chloride 250 ml @ 25 mls/hr CONT PRN PRN IV HYPERTENSION Last administered on 11/23/20at 15:53; Start 11/23/20 at 02:15; Stop 11/24/20 at 09:35; Status DC Potassium Chloride/Water 100 ml @ 100 mls/hr Q1H IV Last administered on 11/23/20at 07:34; Start 11/23/20 at 03:00; Stop 11/23/20 at 06:59; Status DC Magnesium Sulfate 50 ml @ 25 mls/hr 1X ONCE IV Last administered on 11/23/20at 04:31; Start 11/23/20 at 03:00; Stop 11/23/20 at 04:59; Status DC Amino Acids/ Glycerin/ Electrolytes 1,000 ml @ 80 mls/hr [id number] IV Last administered on 11/28/20at 03:16; Start 11/23/20 at 11:30 Cyanocobalamin (Vitamin B-12) 1,000 mcg DAILY PO Last administered on 12/01/20at 08:01; Start 11/24/20 at 09:00 Dronedarone (Multaq) 400 mg BID PO ; Start 11/23/20 at 21:00; Stop 11/27/20 at 15:13; Status DC Guaifenesin (MUCINEX ER with DM) 1 tab PRN BID PRN PO cough and congestion Last administered on 11/30/20at 21:27; Start 11/23/20 at 12:00 Metoprolol Tartrate (Lopressor) 25 mg BID PO ; Start 11/23/20 at 21:00; Stop 11/28/20 at 10:35; Status DC Roflumilast (Daliresp) 500 mcg DAILY PO Last administered on 12/01/20at 08:01; Start 11/24/20 at 09:00 Verapamil HCl (Calan Sr) 120 mg DAILY PO ; Start 11/23/20 at 13:00; Stop 11/28/20 at 10:35; Status DC Albuterol Sulfate (Ventolin Neb Soln) 2.5 mg RTQID NEB Last administered on 12/01/20at 07:15; Start 11/23/20 at 16:00 Bupropion HCl (Wellbutrin Xl) 300 mg DAILY PO Last administered on 12/01/20at 08:01; Start 11/23/20 at 13:00 Non-Formulary Medication (Fluticasone Propionate (Flovent 44MCG Hfa)) 10.6 gm DAILY IH ; Start 11/24/20 at 09:00; Status UNV Non-Formulary Medication (Fluticasone/ Salmeterol (Advair 250-50 Diskus)) 1 puff BID IH ; Start 11/23/20 at 21:00; Status UNV Atorvastatin Calcium (Lipitor) 20 mg QHS PO Last administered on 11/30/20at 20:30; Start 11/23/20 at 21:00 Budesonide (Pulmicort) 0.5 mg RTBID NEB Last administered on 11/27/20at 07:24; Start 11/23/20 at 20:00; Stop 11/27/20 at 15:13; Status DC Metoprolol Tartrate (Lopressor Vial) 2.5 mg Q6HRS IVP Last administered on 11/25/20at 05:31; Start 11/23/20 at 18:00; Stop 11/25/20 at 08:41; Status DC Metoprolol Tartrate (Lopressor Vial) 2.5 mg 1X ONCE IVP Last administered on 11/23/20at 13:01; Start 11/23/20 at 13:00; Stop 11/23/20 at 13:01; Status DC Azithromycin 250 ml @ 250 mls/hr 1X ONCE IV ; Start 11/23/20 at 14:15; Stop 11/23/20 at 15:14; Status UNV Azithromycin 500 mg/Sodium Chloride 250 ml @ 250 mls/hr Q24H IV Last administered on 11/30/20at 15:24; Start 11/23/20 at 16:00 Aspirin (Ecotrin) 81 mg DAILYWBKFT PO ; Start 11/23/20 at 23:30; Stop 11/27/20 at 15:07; Status DC Clopidogrel Bisulfate (Plavix) 75 mg 1X ONCE PO ; Start 11/23/20 at 23:30; Stop 11/23/20 at 23:31; Status DC Clopidogrel Bisulfate (Plavix) 75 mg DAILYWBKFT PO ; Start 11/24/20 at 08:00; Stop 11/27/20 at 15:07; Status DC Diltiazem HCl 125 mg/Sodium Chloride 125 ml @ 5 mls/hr CONT PRN IV SEE ADMIN INSTRUCTIONS Last administered on 11/24/20at 00:17; Start 11/23/20 at 23:45; Stop 11/28/20 at 10:32; Status DC Labetalol HCl (Normodyne Iv Push) 10 mg PRN Q10MIN PRN IVP HYPERTENSION, 1ST CHOICE Last administered on 11/25/20at 03:05; Start 11/24/20 at 08:45; Stop 12/01/20 at 02:30; Status DC Nicardipine HCl 50 mg/Sodium Chloride 250 ml @ 25 mls/hr CONT PRN PRN IV HYPERTENSION, See comments Last administered on 11/28/20at 00:04; Start 11/24/20 at 08:45; Stop 11/28/20 at 10:32; Status DC Acetaminophen (Tylenol) 650 mg PRN Q6HRS PRN PO MILD PAIN / TEMP > 100.3'F Last administered on 11/29/20at 15:28; Start 11/24/20 at 08:45 Acetaminophen (Tylenol Supp) 650 mg PRN Q6HRS PRN MI MILD PAIN / TEMP > 100.3'F Last administered on 12/01/20at 02:40; Start 11/24/20 at 08:45 Ondansetron HCl (Zofran) 4 mg PRN Q6HRS PRN IVP NAUSEA/VOMITING Last adminis tered on 12/01/20at 02:40; Start 11/24/20 at 08:45 Enoxaparin Sodium (Lovenox 30mg Syringe) 30 mg Q24H SQ Last administered on at 08:23; Start 11/24/20 at 08:45; Stop 11/30/20 at 12:10; Status DC Saliva Substitute (Biotene Moisturizing Mouth) 2 spray PRN Q15MIN PRN PO DRY MOUTH Last administered on 11/24/20at 16:37; Start 11/24/20 at 15:45 Haloperidol Lactate (Haldol Inj) 5 mg PRN Q6HRS PRN IVP AGITATION Last administered on 11/25/20at 05:55; Start 11/25/20 at 05:45 Metoprolol Tartrate (Lopressor Vial) 5 mg Q6HRS IVP Last administered on 11/28/20at 05:41; Start 11/25/20 at 09:00; Stop 11/28/20 at 10:35; Status DC Digoxin (Lanoxin) 500 mcg 1X ONCE IV Last administered on 11/25/20at 12:23; Start 11/25/20 at 12:00; Stop 11/25/20 at 12:01; Status DC Methylprednisolone Sodium Succinate (SOLU-Medrol 40MG VIAL) 40 mg 1X ONCE IV Last administered on 11/25/20at 14:01; Start 11/25/20 at 14:00; Stop 11/25/20 at 14:01; Status DC Budesonide (Pulmicort) 0.5 mg RTBID NEB Last administered on 12/01/20at 07:15; Start 11/25/20 at 20:00 Aspirin (Aspirin Rectal Supp) 300 mg PRN DAILY PRN MI IF UNABLE TO TAKE PO Last administered on 11/28/20at 08:39; Start 11/25/20 at 14:00 Hydralazine HCl (Apresoline Inj) 10 mg PRN Q4HRS PRN IVP ELEVATED BP, 2ND CHOICE Last administered on 12/01/20at 01:40; Start 11/25/20 at 15:00 Aspirin (Aspirin Rectal Supp) 300 mg 1X ONCE MI Last administered on 11/25/20at 22:21; Start 11/25/20 at 21:00; Stop 11/25/20 at 21:01; Status DC Labetalol HCl (Normodyne Iv Push) 20 mg 1X ONCE IVP Last administered on 11/25/20at 15:40; Start 11/25/20 at 15:45; Stop 11/25/20 at 15:46; Status DC Sodium Chloride 1,000 ml @ 100 mls/hr 1X ONCE IV ; Start 11/26/20 at 09:45; Stop 11/26/20 at 19:44; Status DC Furosemide (Lasix) 20 mg 1X ONCE IVP Last administered on 11/27/20at 15:37; Start 11/27/20 at 13:30; Stop 11/27/20 at 13:34; Status DC Barium Sulfate (Varibar Thin Liquid Apple) 148 gm 1X ONCE PO Last administered on 11/27/20at 13:43; Start 11/27/20 at 13:45; Stop 11/27/20 at 13:46; Status DC Lorazepam (Ativan Inj) 0.5 mg PRN QHS PRN IVP SLEEP Last administered on 11/30/20at 21:28; Start 11/27/20 at 15:15 Pantoprazole Sodium (PROTONIX VIAL for IV PUSH) 40 mg DAILYAC IVP Last administered on 12/01/20at 08:01; Start 11/27/20 at 15:15 Fentanyl Citrate (Fentanyl 2ml Vial) 25 mcg 1X ONCE IVP Last administered on 11/27/20at 15:36; Start 11/27/20 at 15:30; Stop 11/27/20 at 15:31; Status DC Metoprolol Tartrate (Lopressor) 50 mg BID PO Last administered on 12/01/20at 08:01; Start 11/28/20 at 21:00 Amlodipine Besylate (Norvasc) 10 mg DAILY PO Last administered on 12/01/20at 08:01; Start 11/28/20 at 12:00 Digoxin (Lanoxin) 250 mcg 1X ONCE IV Last administered on 11/28/20at 12:01; Start 11/28/20 at 10:45; Stop 11/28/20 at 10:46; Status DC Sodium Chloride 500 ml @ 500 mls/hr 1X ONCE IV Last administered on 11/29/20at 11:45; Start 11/29/20 at 11:30; Stop 11/29/20 at 12:29; Status DC Cefazolin Sodium/ Dextrose 50 ml @ 100 mls/hr 1X ONCE IV ; Start 12/01/20 at 12:00; Stop 12/01/20 at 12:29 Zolpidem Tartrate (Ambien) 5 mg PRN QHS PRN PO INSOMNIA Last administered on 11/30/20at 20:31; Start 11/30/20 at 15:30; Stop 12/01/20 at 02:30; Status DC Digoxin (Lanoxin) 500 mcg 1X ONCE IV Last administered on 12/01/20at 01:46; Start 12/01/20 at 01:45; Stop 12/01/20 at 01:46; Status DC Metoprolol Tartrate (Lopressor Vial) 5 mg Q6HRS IVP ; Start 12/01/20 at 06:00; Status Cancel Fentanyl Citrate (Fentanyl 2ml Vial) 50 mcg 1X ONCE IM ; Start 12/01/20 at 02:15; Stop 12/01/20 at 02:16; Status Cancel Metoprolol Tartrate (Lopressor Vial) 5 mg PRN Q6HRS PRN IVP HYPERTENSION Last administered on 12/01/20at 02:29; Start 12/01/20 at 02:30 Fentanyl Citrate (Fentanyl 2ml Vial) 25 mcg 1X ONCE IVP Last administered on 12/01/20at 02:42; Start 12/01/20 at 02:45; Stop 12/01/20 at 02:46; Status DC Piperacillin Sod/ Tazobactam Sod 3.375 gm/Sodium Chloride 50 ml @ 100 mls/hr 1X ONCE IV Last administered on 12/01/20at 03:30; Start 12/01/20 at 03:00; Stop 12/01/20 at 03:29; Status DC Furosemide (Lasix) 40 mg 1X ONCE IVP Last administered on 12/01/20at 02:59; Start 12/01/20 at 03:00; Stop 12/01/20 at 03:01; Status DC Piperacillin Sod/ Tazobactam Sod (Zosyn Per Pharmacy) 1 each PRN DAILY PRN MC SEE COMMENTS; Start 12/01/20 at 03:00 Vancomycin HCl 2 gm/Sodium Chloride 500 ml @ 250 mls/hr 1X ONCE IV Last administered on 12/01/20at 04:28; Start 12/01/20 at 03:30; Stop 12/01/20 at 05:29; Status DC Piperacillin Sod/ Tazobactam Sod 3.375 gm/Sodium Chloride 50 ml @ 100 mls/hr Q6HRS IV ; Start 12/01/20 at 12:00 Active Scripts Active Zofran (Ondansetron Hcl) 4 Mg Tablet 1 Tab PO PRN Q6-8HRS PRN Reported Mucinex Dm Er 600-30 Mg Tablet (Guaifenesin/Dextromethorphan) 1 Each Tab.er.12h 1 Tab PO BID PRN 14 Days Aspirin 325 Mg Tablet 1 Tab PO DAILY Vitamin B-12 (Cyanocobalamin (Vitamin B-12)) 1,000 Mcg Tablet 1 Tab PO DAILY 30 Days Vitamin D3 Complete Caplet (Mv-Mn/Iron/Fa/Herbal Cmplx#190) 1 Each Tablet 1 Each PO DAILY Vitamin C (Ascorbic Acid) 500 Mg Capsule.er 2 Cap PO BID 30 Days Metoprolol Tartrate 25 Mg Tablet 1 Tab PO BID Multaq (Dronedarone Hcl) 400 Mg Tablet 1 Tab PO BID Flovent 44MCG Hfa (Fluticasone Propionate) 10.6 Gm Aer.w.adap 10.6 Gm IH DAILY Xopenex Hfa (Levalbuterol Tartrate) 15 Gm Hfa.aer.ad 15 Gm IH PRN Verapamil Er (Verapamil Hcl) 120 Mg Tablet.er 120 Mg PO DAILY Pravastatin Sodium 80 Mg Tablet 80 Mg PO DAILY Daliresp (Roflumilast) 500 Mcg Tablet 500 Mcg PO DAILY Wellbutrin Xl (Bupropion Hcl) 300 Mg Tab.er.24h 300 Mg PO DAILY Albuterol Sulfate Conc Neb Soln (Albuterol Sulfate) 2.5 Mg/0.5 Ml Vial.neb 1 Vial NEB QID Advair 250-50 Diskus (Fluticasone/Salmeterol) 1 Each Disk.w.dev 1 Puff IH BID Vitals/I & O Vital Sign - Last 24 Hours 11/30/20 11/30/20 11/30/20 11/30/20 11:57 15:00 15:51 19:00 Temp 97.7 97.8 97.7 97.8 Pulse 81 86 Resp 16 20 B/P (MAP) 143/72 (95) 141/64 (89) Pulse Ox 98 96 98 O2 Delivery Nasal Cannula Nasal Cannula Nasal Cannula Nasal Cannula O2 Flow Rate 2.5 2.0 2.5 2.0 11/30/20 11/30/20 11/30/20 11/30/20 19:45 20:31 20:48 20:49 Pulse 86 B/P (MAP) 141/64 Pulse Ox 98 98 O2 Delivery Nasal Cannula Nasal Cannula Nasal Cannula O2 Flow Rate 2.0 3.0 3.0 11/30/20 12/01/20 12/01/20 12/01/20 22:57 01:40 01:46 01:50 Temp 99.1 99.1 Pulse 94 168 178 Resp 22 B/P (MAP) 144/74 (97) 194/97 194/97 Pulse Ox 96 90 O2 Delivery Nasal Cannula NonRebreather Mask O2 Flow Rate 2.0 15.0 12/01/20 12/01/20 12/01/20 12/01/20 02:13 02:29 02:30 02:42 Temp 101.7 101.7 Pulse 182 179 172 Resp 36 40 B/P (MAP) 157/92 (113) 157/92 159/68 (98) Pulse Ox 93 93 90 O2 Delivery NonRebreather Mask NonRebreather Mask Nasal Cannula O2 Flow Rate 15.0 12/01/20 12/01/20 12/01/20 12/01/20 02:56 03:12 03:30 05:46 Temp 98.5 102.7 99.2 98.5 102.7 99.2 Pulse 105 Resp 26 B/P (MAP) 148/65 (92) Pulse Ox 95 95 O2 Delivery Nasal Cannula Nasal Cannula O2 Flow Rate 2.0 2.0 12/01/20 12/01/20 12/01/20 12/01/20 07:00 07:17 08:00 08:01 Temp 99.6 99.6 Pulse 92 92 Resp 22 B/P (MAP) 111/56 (74) 111/56 Pulse Ox 99 98 O2 Delivery Nasal Cannula NonRebreather Mask Nasal Cannula O2 Flow Rate 2.0 3.0 12/01/20 12/01/20 08:01 10:12 Temp 98.7 98.7 Pulse 92 71 Resp 22 B/P (MAP) 111/56 123/60 (81) Pulse Ox 97 O2 Delivery Nasal Cannula O2 Flow Rate 3.0 Intake and Output 11/30/20 11/30/20 12/01/20 15:00 23:00 07:00 Intake Total 250 ml 500 ml Output Total 1500 ml 850 ml Balance 250 ml -1000 ml -850 ml Justicifation of Admission Dx: Justifications for Admission: Justification of Admission Dx: Yes Stroke - Ischemic: Stroke-Ischemic THOM POP MD Dec 01, 2020 11:07
[2020-12-01] MEDS: PIPERACILLIN/TAZOBACTAM 3.375 GM in IV NORMAL SALINE 50ML 50 ML IV SCH ×2 (11:59→17:35)
--- NOTE | 2020-12-01 12:34 | PDOC ---
CLIF MCCANN POUNCING MACHINE OPERATOR 12/01/20 1234: CARDIO Progress Notes Date and Time Date of Service 12/01/20 Time of Evaluation 1220 Subjective Subjective: No Chest Pain, No shortness of breath, No Palpitations Comments: some SOA overnight. Vitals Vitals Vital Signs Date Time Temp Pulse Resp B/P (MAP) Pulse Ox O2 Delivery O2 Flow Rate FiO2 12/01/20 10:12 98.7 71 22 123/60 (81) 97 Nasal Cannula 3.0 98.7 Weight Weight [ ] Input and Output Intake and Output Intake and Output 12/01/20 07:00 Intake Total 750 ml Output Total 2350 ml Balance -1600 ml IV Total 250 ml Tube Feeding 500 ml Output Urine Total 2350 ml Laboratory Labs Laboratory Tests Test 12/01/20 01:56 12/01/20 09:25 O2 Saturation 93 % (92-99) Arterial Blood pH 7.51 (7.35-7.45) Arterial Blood pH (Temp corrected) 7.48 Arterial Blood pCO2 at Patient Temp 35 mmHg (35-46) Arterial Blood pCO2 (Temp correct) 38 mmHg Arterial Blood pO2 at Patient Temp 60 mmHg (65-108) Arterial Blood pO2 (Temp corrected) 67 mmHg Arterial Blood HCO3 27 mmol/L (21-28) Arterial Blood Base Excess 4 mmol/L (-3-3) FiO2 100 White Blood Count 13.1 x10^3/uL (4.0-11.0) Red Blood Count 3.38 x10^6/uL (3.50-5.40) Hemoglobin 10.6 g/dL (12.0-15.5) Hematocrit 33.0 % (36.0-47.0) Mean Corpuscular Volume 98 fL (79-100) Mean Corpuscular Hemoglobin 32 pg (25-35) Mean Corpuscular Hemoglobin Concent 32 g/dL (31-37) Red Cell Distribution Width 13.4 % (11.5-14.5) Platelet Count 298 x10^3/uL (140-400) Neutrophils (%) (Auto) 84 % (31-73) Lymphocytes (%) (Auto) 5 % (24-48) Monocytes (%) (Auto) 11 % (0-9) Eosinophils (%) (Auto) 0 % (0-3) Basophils (%) (Auto) 0 % (0-3) Neutrophils # (Auto) 11.0 x10^3/uL (1.8-7.7) Lymphocytes # (Auto) 0.6 x10^3/uL (1.0-4.8) Monocytes # (Auto) 1.4 x10^3/uL (0.0-1.1) Eosinophils # (Auto) 0.0 x10^3/uL (0.0-0.7) Basophils # (Auto) 0.0 x10^3/uL (0.0-0.2) Sodium Level 142 mmol/L (136-145) Potassium Level 3.7 mmol/L (3.5-5.1) Chloride Level 104 mmol/L (98-107) Carbon Dioxide Level 28 mmol/L (21-32) Anion Gap 10 (6-14) Blood Urea Nitrogen 24 mg/dL (7-20) Creatinine 1.5 mg/dL (0.6-1.0) Estimated GFR (Cockcroft-Gault) 33.0 BUN/Creatinine Ratio 16 (6-20) Glucose Level 90 mg/dL (70-99) Calcium Level 8.9 mg/dL (8.5-10.1) Total Bilirubin 0.8 mg/dL (0.2-1.0) Aspartate Amino Transf (AST/SGOT) 20 U/L (15-37) Alanine Aminotransferase (ALT/SGPT) 38 U/L (14-59) Alkaline Phosphatase 55 U/L (46-116) Total Protein 5.6 g/dL (6.4-8.2) Albumin 2.3 g/dL (3.4-5.0) Albumin/Globulin Ratio 0.7 (1.0-1.7) Microbiology Micro Microbiology 11/23/20 Blood Culture - Final, Complete NO GROWTH AFTER 5 DAYS Physical Exam HEENT: Neck Supple W Full Motion Chest: Symmetric LUNGS: Other (diminished bases) Heart: irregularly irregular (AFIB, rate 70) Abdomen: Soft N/T, Other (obese NGT in place) Extremities: No Calf Tenderness, Other (left-sided weakness) Neurology: alert, oriented, follow commands Assessment Assessment 1. 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 s/p TPA 11/22 2. PAFIB; Declined OAC multiple times in past. remains is AFIB, rate is controlled 3. Hypertensive urgency; off Cardene. BP now controlled 4. Acute respiratory failure with underlying COPD; improved. on RA 5. Acute on chronic diastolic CHF; s/p IV Lasix overnight 6. Mild troponin elevation; highest 0.06. Most probable type II, demand ischemia. Echo with preserved LV systolic function 7. SHELLEY; Cr stable 8. Leukocytosis, fevers 9. Dysphagia 10. Severe pulmonary hypertension; PAP 67 mmHg. 11. Fevers Recommendations Continue metoprolol, norvasc via NGT. Will increase metoprolol for better rate control PEG pending for Tuesday Lasix PRN Continue statin Presently off Lovenox. Will add ASA Resumption of anticoagulation as per neurology Consider outpatient CVN if OAC can safely be resumed Ongoing rehab modalities Supportive care Justicifation of Admission Dx: Justifications for Admission: Justification of Admission Dx: Yes Stroke - Ischemic: Stroke-Ischemic RAMÓN WHITNEY MD 12/01/209: CARDIO Progress Notes Plan Plan Pt. seen and examined. Agree with above PREPARATORY TECHNICIAN note. Supportive care. CLFI MCCANN APRN Dec 01, 2020 12:34 RAMÓN WHITNEY MD Dec 01, 2020 21:49
--- NOTE | 2020-12-01 15:08 | RAD ---
One view abdomen HISTORY: NG tube placement Supine AP view abdomen 2:57 PM COMPARISON: 2 9:00 AM NG tube has its tip in the distal stomach. IMPRESSION: NG tube has its tip in the distal stomach. Electronically signed by: Red Crabtree III, MD (12/01/2020 3:05 PM) [facility]
--- NOTE | 2020-12-01 15:51 | PDOC ---
[employer] PROGRESS NOTE Date of Service DOS: DATE: 12/01/20 TIME: 15:42 Chief Complaint Chief Complaint acute stoke, RIGHT MCA, s/p TPA currently on ASA for anticoagulation. will consider Eliquis after PEG left hemiparesis hand face left sided neglect obese, BMI 35 DM2 dysphagia requiring PEG Debility History of Present Illness History of Present Illness 12/01/20 No acute events. Fever of 102.7. PEG cancelled and rescheduled for tomorrow. > 50% time spent in patient chart, labs, and image review and discussion with RN and SW 11/30, doing well, some cough, atelactasis on exam, better with breathing exercises planned PEG in AM, then DC to acute rehab hospital likely 12.02 she is able to move the fingers of her left hand, most slightly, today 11/29, dobhoff feeds are going well, cont current plan PEG for DC to acute rehab, she is doign well family is here this AM and they were very supportive 11/28 NG tube placed for nutrition, marked weakness, confusion at times but better Out of ICU, may DC tele plad ACUTE rehab hospital, needs PEG, planned tuesday, GI unable to sched today breathing much better swallow eval today, plan acute rehab, they need a diet order to approve she feels better, some improvement in exam Vitals/I&O Vitals/I&O: Vital Signs Date Time Temp Pulse Resp B/P (MAP) Pulse Ox O2 Delivery O2 Flow Rate FiO2 12/01/20 14:26 98.9 74 22 139/64 (89) 93 Nasal Cannula 3.0 98.9 I & O 11/30/20 11/30/20 12/01/20 15:00 23:00 07:00 Intake Total 250 ml 500 ml Output Total 1500 ml 850 ml Balance 250 ml -1000 ml -850 ml Physical Exam Physical Exam: neuro better, left hand movement adn talking better, General: Alert, Cooperative, mild distress Heart: Regular rate, Normal S1, Other (distant heart tones, IRRR; tele AFIB with RVR) Lungs: Clear Abdomen: Soft Extremities: No clubbing, Normal pulses, Other (1+ bilateral UE edema. ) Skin: No rashes, No significant lesion Labs Labs: Laboratory Tests Test 12/01/20 01:56 12/01/20 09:25 O2 Saturation 93 % (92-99) Arterial Blood pH 7.51 (7.35-7.45) Arterial Blood pH (Temp corrected) 7.48 Arterial Blood pCO2 at Patient Temp 35 mmHg (35-46) Arterial Blood pCO2 (Temp correct) 38 mmHg Arterial Blood pO2 at Patient Temp 60 mmHg (65-108) Arterial Blood pO2 (Temp corrected) 67 mmHg Arterial Blood HCO3 27 mmol/L (21-28) Arterial Blood Base Excess 4 mmol/L (-3-3) FiO2 100 White Blood Count 13.1 x10^3/uL (4.0-11.0) Red Blood Count 3.38 x10^6/uL (3.50-5.40) Hemoglobin 10.6 g/dL (12.0-15.5) Hematocrit 33.0 % (36.0-47.0) Mean Corpuscular Volume 98 fL (79-100) Mean Corpuscular Hemoglobin 32 pg (25-35) Mean Corpuscular Hemoglobin Concent 32 g/dL (31-37) Red Cell Distribution Width 13.4 % (11.5-14.5) Platelet Count 298 x10^3/uL (140-400) Neutrophils (%) (Auto) 84 % (31-73) Lymphocytes (%) (Auto) 5 % (24-48) Monocytes (%) (Auto) 11 % (0-9) Eosinophils (%) (Auto) 0 % (0-3) Basophils (%) (Auto) 0 % (0-3) Neutrophils # (Auto) 11.0 x10^3/uL (1.8-7.7) Lymphocytes # (Auto) 0.6 x10^3/uL (1.0-4.8) Monocytes # (Auto) 1.4 x10^3/uL (0.0-1.1) Eosinophils # (Auto) 0.0 x10^3/uL (0.0-0.7) Basophils # (Auto) 0.0 x10^3/uL (0.0-0.2) Sodium Level 142 mmol/L (136-145) Potassium Level 3.7 mmol/L (3.5-5.1) Chloride Level 104 mmol/L (98-107) Carbon Dioxide Level 28 mmol/L (21-32) Anion Gap 10 (6-14) Blood Urea Nitrogen 24 mg/dL (7-20) Creatinine 1.5 mg/dL (0.6-1.0) Estimated GFR (Cockcroft-Gault) 33.0 BUN/Creatinine Ratio 16 (6-20) Glucose Level 90 mg/dL (70-99) Calcium Level 8.9 mg/dL (8.5-10.1) Total Bilirubin 0.8 mg/dL (0.2-1.0) Aspartate Amino Transf (AST/SGOT) 20 U/L (15-37) Alanine Aminotransferase (ALT/SGPT) 38 U/L (14-59) Alkaline Phosphatase 55 U/L (46-116) Total Protein 5.6 g/dL (6.4-8.2) Albumin 2.3 g/dL (3.4-5.0) Albumin/Globulin Ratio 0.7 (1.0-1.7) Assessment and Plan Assessmemt and Plan Problems Medical Problems: (1) Acute CVA (cerebrovascular accident) Status: Acute (2) Hypoxia Status: Acute (3) Lactic acidosis Status: Acute (4) Pulmonary vascular congestion Status: Acute (5) Suspected 2019 novel coronavirus infection Status: Acute Comment Review of Relevant I have reviewed the following items gerry (where applicable) has been applied. Medications: Current Medications Medications (Trade) Dose Ordered Sig/Radha Route PRN Reason Start Time Stop Time Status Last Admin Dose Admin Digoxin (Lanoxin) 500 mcg 1X ONCE IV 12/01/20 01:45 12/01/20 01:46 DC 12/01/20 01:46 Metoprolol Tartrate (Lopressor Vial) 5 mg PRN Q6HRS PRN IVP HYPERTENSION 12/01/20 02:30 12/01/20 02:29 Fentanyl Citrate (Fentanyl 2ml Vial) 25 mcg 1X ONCE IVP 12/01/20 02:45 12/01/20 02:46 DC 12/01/20 02:42 Piperacillin Sod/ Tazobactam Sod 3.375 gm/Sodium Chloride 50 ml @ 100 mls/hr 1X ONCE IV 12/01/20 03:00 12/01/20 03:29 DC 12/01/20 03:30 Furosemide (Lasix) 40 mg 1X ONCE IVP 12/01/20 03:00 12/01/20 03:01 DC 12/01/20 02:59 Vancomycin HCl 2 gm/Sodium Chloride 500 ml @ 250 mls/hr 1X ONCE IV 12/01/20 03:30 12/01/20 05:29 DC 12/01/20 04:28 Piperacillin Sod/ Tazobactam Sod 3.375 gm/Sodium Chloride 50 ml @ 100 mls/hr Q6HRS IV 12/01/20 12:00 12/01/20 11:59 Justifications for Admission Other Justification AKIL MCCARTY MD Dec 01, 2020 15:51
[2020-12-01] MEDS: AZITHROMYCIN 500 MG in IV NORMAL SALINE 250ML 250 ML IV SCH (16:11)
[2020-12-01] MEDS: ATORVASTATIN CALCIUM 20 MG TABLET PO SCH (20:43)
[2020-12-02] VITALS (13 sets, daily range): BP systolic 122–164; BP diastolic 58–73
[2020-12-02] MEDS: PIPERACILLIN/TAZOBACTAM 3.375 GM in IV NORMAL SALINE 50ML 50 ML IV SCH ×5 (00:16→23:47)
[2020-12-02] MEDS: PANTOPRAZOLE IV PUSH 40 MG VIAL. IVP SCH ×2 (06:00→08:24)
[2020-12-02] MEDS: ALBUTEROL SULFATE 2.5 MG/3 ML NEBU. NEB SCH ×4 (07:58→21:03)
[2020-12-02] MEDS: BUDESONIDE 0.5 MG/2 ML NEBU. NEB SCH ×2 (07:58→21:03)
--- NOTE | 2020-12-02 11:03 | PDOC ---
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 Her strength is improving, clinically she looks great considering. Recurrence of atrial fibrillation COPD exacerbation, better Hypertension, history of COVID-19 Pulmonary hypertension Failed video swallow COPD worsening and atrial fibrillation, required rapid response night of 11/30 Plan Needs PEG, maybe today Low-dose enoxaparin She had been on aspirin instead of anticoagulation because of recent falls, for her atrial fibrillation. I believe the risks outweigh the benefits of full anticoagulation this soon after a fairly good size stroke. Continue aspirin, aim to switch to apixaban after PEG Resume statin when able to swallow PT/OT/ST Will need inpatient rehabilitation Subjective No complaints Objective Vital Signs Date Time Temp Pulse Resp B/P (MAP) Pulse Ox O2 Delivery O2 Flow Rate FiO2 12/02/20 10:50 99.3 88 22 138/63 (88) 99 Nasal Cannula 3.0 99.3 Intake and Output 12/02/20 07:00 Intake Total 650 ml Output Total 1300 ml Balance -650 ml IV Total 400 ml Tube Feeding 250 ml Output Urine Total 1300 ml # Bowel Movements 2 PHYSICAL EXAM More alert, replies, moves to command PERRL. EOMI. CN: Left field cut, left central facial weakness. Muscle tone: normal. Muscle strength: 4/5 left hemiparesis DTR: 2+ Plantar reflex: Flexor Gait: not examined in bed. Sensory exam: no abnormal findings. No cerebellar signs elicited. Review of Relevant I have reviewed the following items gerry (where applicable) has been applied. Labs Laboratory Tests Test 12/01/20 01:56 12/01/20 09:25 O2 Saturation 93 % (92-99) Arterial Blood pH 7.51 (7.35-7.45) Arterial Blood pH (Temp corrected) 7.48 Arterial Blood pCO2 at Patient Temp 35 mmHg (35-46) Arterial Blood pCO2 (Temp correct) 38 mmHg Arterial Blood pO2 at Patient Temp 60 mmHg (65-108) Arterial Blood pO2 (Temp corrected) 67 mmHg Arterial Blood HCO3 27 mmol/L (21-28) Arterial Blood Base Excess 4 mmol/L (-3-3) FiO2 100 White Blood Count 13.1 x10^3/uL (4.0-11.0) Red Blood Count 3.38 x10^6/uL (3.50-5.40) Hemoglobin 10.6 g/dL (12.0-15.5) Hematocrit 33.0 % (36.0-47.0) Mean Corpuscular Volume 98 fL (79-100) Mean Corpuscular Hemoglobin 32 pg (25-35) Mean Corpuscular Hemoglobin Concent 32 g/dL (31-37) Red Cell Distribution Width 13.4 % (11.5-14.5) Platelet Count 298 x10^3/uL (140-400) Neutrophils (%) (Auto) 84 % (31-73) Lymphocytes (%) (Auto) 5 % (24-48) Monocytes (%) (Auto) 11 % (0-9) Eosinophils (%) (Auto) 0 % (0-3) Basophils (%) (Auto) 0 % (0-3) Neutrophils # (Auto) 11.0 x10^3/uL (1.8-7.7) Lymphocytes # (Auto) 0.6 x10^3/uL (1.0-4.8) Monocytes # (Auto) 1.4 x10^3/uL (0.0-1.1) Eosinophils # (Auto) 0.0 x10^3/uL (0.0-0.7) Basophils # (Auto) 0.0 x10^3/uL (0.0-0.2) Sodium Level 142 mmol/L (136-145) Potassium Level 3.7 mmol/L (3.5-5.1) Chloride Level 104 mmol/L (98-107) Carbon Dioxide Level 28 mmol/L (21-32) Anion Gap 10 (6-14) Blood Urea Nitrogen 24 mg/dL (7-20) Creatinine 1.5 mg/dL (0.6-1.0) Estimated GFR (Cockcroft-Gault) 33.0 BUN/Creatinine Ratio 16 (6-20) Glucose Level 90 mg/dL (70-99) Calcium Level 8.9 mg/dL (8.5-10.1) Total Bilirubin 0.8 mg/dL (0.2-1.0) Aspartate Amino Transf (AST/SGOT) 20 U/L (15-37) Alanine Aminotransferase (ALT/SGPT) 38 U/L (14-59) Alkaline Phosphatase 55 U/L (46-116) Total Protein 5.6 g/dL (6.4-8.2) Albumin 2.3 g/dL (3.4-5.0) Albumin/Globulin Ratio 0.7 (1.0-1.7) Microbiology 12/01/20 Blood Culture - Preliminary, Resulted NO GROWTH AFTER 1 DAY Medications Current Medications Sodium Chloride 1,000 ml @ 1,000 mls/hr Q1H IV Last administered on 11/22/20at 19:31; Start 11/22/20 at 19:15; Stop 11/22/20 at 20:14; Status DC Alteplase, Recombinant 9 ml @ 540 mls/hr 1X ONCE IV Last administered on 11/22/20at 19:57; Start 11/22/20 at 19:45; Stop 11/22/20 at 19:46; Status DC Alteplase, Recombinant 81 ml @ 81 mls/hr Q1H IV Last administered on 11/22/20at 20:00; Start 11/22/20 at 19:45; Stop 11/22/20 at 20:44; Status DC Sodium Chloride 50 ml @ 200 mls/hr 1X ONCE IV Last administered on 11/22/20at 20:10; Start 11/22/20 at 19:45; Stop 11/22/20 at 19:59; Status DC Alteplase, Recombinant 10 ml @ 600 mls/hr 1X ONCE IV ; Start 11/22/20 at 19:45; Stop 11/22/20 at 19:46; Status UNV Alteplase, Recombinant 90 ml @ 90 mls/hr 1X ONCE IV ; Start 11/22/20 at 19:45; Stop 11/22/20 at 20:44; Status UNV Sodium Chloride 50 ml @ 50 mls/hr 1X ONCE IV ; Start 11/22/20 at 19:45; Stop 11/22/20 at 20:44; Status UNV Aspirin (Aspirin Rectal Supp) 300 mg 1X ONCE CA Last administered on 11/22/20at 20:16; Start 11/22/20 at 19:45; Stop 11/22/20 at 19:48; Status DC Iohexol (Omnipaque 300 Mg/ml) 60 ml 1X ONCE IV Last administered on 11/22/20at 20:38; Start 11/22/20 at 20:15; Stop 11/22/20 at 20:16; Status DC Info (CONTRAST GIVEN -- Rx MONITORING) 1 each PRN DAILY PRN MC SEE COMMENTS; Start 11/22/20 at 20:30; Stop 11/24/20 at 20:29; Status DC Ondansetron HCl (Zofran) 4 mg PRN Q8HRS PRN IV NAUSEA/VOMITING 1ST CHOICE Last administered on 11/23/20at 04:05; Start 11/22/20 at 21:45; Stop 11/23/20 at 21:44; Status DC Bumetanide (Bumex) 0.5 mg 1X ONCE IV Last administered on 11/23/20at 00:51; Start 11/22/20 at 23:30; Stop 11/22/20 at 23:31; Status DC Labetalol HCl (Normodyne Iv Push) 10 mg PRN Q10MIN PRN IVP HYPERTENSION Last administered on 11/24/20at 13:07; Start 11/23/20 at 02:15; Stop 11/24/20 at 15:00; Status DC Nicardipine HCl 50 mg/Sodium Chloride 250 ml @ 25 mls/hr CONT PRN PRN IV HYPERTENSION Last administered on 11/23/20at 15:53; Start 11/23/20 at 02:15; Stop 11/24/20 at 09:35; Status DC Potassium Chloride/Water 100 ml @ 100 mls/hr Q1H IV Last administered on 11/23/20at 07:34; Start 11/23/20 at 03:00; Stop 11/23/20 at 06:59; Status DC Magnesium Sulfate 50 ml @ 25 mls/hr 1X ONCE IV Last administered on 11/23/20at 04:31; Start 11/23/20 at 03:00; Stop 11/23/20 at 04:59; Status DC Amino Acids/ Glycerin/ Electrolytes 1,000 ml @ 80 mls/hr [id number] IV Last administered on 11/28/20at 03:16; Start 11/23/20 at 11:30; Stop 12/02/20 at 08:46; Status DC Cyanocobalamin (Vitamin B-12) 1,000 mcg DAILY PO Last administered on 12/01/20at 08:01; Start 11/24/20 at 09:00 Dronedarone (Multaq) 400 mg BID PO ; Start 11/23/20 at 21:00; Stop 11/27/20 at 15:13; Status DC Guaifenesin (MUCINEX ER with DM) 1 tab PRN BID PRN PO cough and congestion Last administered on 11/30/20at 21:27; Start 11/23/20 at 12:00 Metoprolol Tartrate (Lopressor) 25 mg BID PO ; Start 11/23/20 at 21:00; Stop 11/28/20 at 10:35; Status DC Roflumilast (Daliresp) 500 mcg DAILY PO Last administered on 12/01/20at 08:01; Start 11/24/20 at 09:00 Verapamil HCl (Calan Sr) 120 mg DAILY PO ; Start 11/23/20 at 13:00; Stop 11/28/20 at 10:35; Status DC Albuterol Sulfate (Ventolin Neb Soln) 2.5 mg RTQID NEB Last administered on 12/02/20at 07:58; Start 11/23/20 at 16:00 Bupropion HCl (Wellbutrin Xl) 300 mg DAILY PO Last administered on 12/01/20at 08:01; Start 11/23/20 at 13:00 Non-Formulary Medication (Fluticasone Propionate (Flovent 44MCG Hfa)) 10.6 gm D AILY IH ; Start 11/24/20 at 09:00; Status UNV Non-Formulary Medication (Fluticasone/ Salmeterol (Advair 250-50 Diskus)) 1 puff BID IH ; Start 11/23/20 at 21:00; Status UNV Atorvastatin Calcium (Lipitor) 20 mg QHS PO Last administered on 12/01/20at 20:43; Start 11/23/20 at 21:00 Budesonide (Pulmicort) 0.5 mg RTBID NEB Last administered on 11/27/20at 07:24; Start 11/23/20 at 20:00; Stop 11/27/20 at 15:13; Status DC Metoprolol Tartrate (Lopressor Vial) 2.5 mg Q6HRS IVP Last administered on 11/25/20at 05:31; Start 11/23/20 at 18:00; Stop 11/25/20 at 08:41; Status DC Metoprolol Tartrate (Lopressor Vial) 2.5 mg 1X ONCE IVP Last administered on 11/23/20at 13:01; Start 11/23/20 at 13:00; Stop 11/23/20 at 13:01; Status DC Azithromycin 250 ml @ 250 mls/hr 1X ONCE IV ; Start 11/23/20 at 14:15; Stop 11/23/20 at 15:14; Status UNV Azithromycin 500 mg/Sodium Chloride 250 ml @ 250 mls/hr Q24H IV Last administered on 12/01/20at 16:11; Start 11/23/20 at 16:00 Aspirin (Ecotrin) 81 mg DAILYWBKFT PO ; Start 11/23/20 at 23:30; Stop 11/27/20 at 15:07; Status DC Clopidogrel Bisulfate (Plavix) 75 mg 1X ONCE PO ; Start 11/23/20 at 23:30; Stop 11/23/20 at 23:31; Status DC Clopidogrel Bisulfate (Plavix) 75 mg DAILYWBKFT PO ; Start 11/24/20 at 08:00; Stop 11/27/20 at 15:07; Status DC Diltiazem HCl 125 mg/Sodium Chloride 125 ml @ 5 mls/hr CONT PRN IV SEE ADMIN INSTRUCTIONS Last administered on 11/24/20at 00:17; Start 11/23/20 at 23:45; Stop 11/28/20 at 10:32; Status DC Labetalol HCl (Normodyne Iv Push) 10 mg PRN Q10MIN PRN IVP HYPERTENSION, 1ST CHOICE Last administered on 11/25/20at 03:05; Start 11/24/20 at 08:45; Stop 12/01/20 at 02:30; Status DC Nicardipine HCl 50 mg/Sodium Chloride 250 ml @ 25 mls/hr CONT PRN PRN IV HYPERTENSION, See comments Last administered on 11/28/20at 00:04; Start 11/24/20 at 08:45; Stop 11/28/20 at 10:32; Status DC Acetaminophen (Tylenol) 650 mg PRN Q6HRS PRN PO MILD PAIN / TEMP > 100.3'F Last administered on 11/29/20at 15:28; Start 11/24/20 at 08:45 Acetaminophen (Tylenol Supp) 650 mg PRN Q6HRS PRN CA MILD PAIN / TEMP > 100.3'F Last administered on 12/01/20at 02:40; Start 11/24/20 at 08:45 Ondansetron HCl (Zofran) 4 mg PRN Q6HRS PRN IVP NAUSEA/VOMITING Last administered on 12/01/20at 02:40; Start 11/24/20 at 08:45 Enoxaparin Sodium (Lovenox 30mg Syringe) 30 mg Q24H SQ Last administered on 11/30/20at 08:23; Start 11/24/20 at 08:45; Stop 11/30/20 at 12:10; Status DC Saliva Substitute (Biotene Moisturizing Mouth) 2 spray PRN Q15MIN PRN PO DRY MOUTH Last administered on 11/24/20at 16:37; Start 11/24/20 at 15:45 Haloperidol Lactate (Haldol Inj) 5 mg PRN Q6HRS PRN IVP AGITATION Last administered on 11/25/20at 05:55; Start 11/25/20 at 05:45 Metoprolol Tartrate (Lopressor Vial) 5 mg Q6HRS IVP Last administered on 11/28/20at 05:41; Start 11/25/20 at 09:00; Stop 11/28/20 at 10:35; Status DC Digoxin (Lanoxin) 500 mcg 1X ONCE IV Last administered on 11/25/20at 12:23; Start 11/25/20 at 12:00; Stop 11/25/20 at 12:01; Status DC Methylprednisolone Sodium Succinate (SOLU-Medrol 40MG VIAL) 40 mg 1X ONCE IV Last administered on 11/25/20at 14:01; Start 11/25/20 at 14:00; Stop 11/25/20 at 14:01; Status DC Budesonide (Pulmicort) 0.5 mg RTBID NEB Last administered on 12/02/20at 07:58; Start 11/25/20 at 20:00 Aspirin (Aspirin Rectal Supp) 300 mg PRN DAILY PRN CA IF UNABLE TO TAKE PO Last administered on 11/28/20at 08:39; Start 11/25/20 at 14:00 Hydralazine HCl (Apresoline Inj) 10 mg PRN Q4HRS PRN IVP ELEVATED BP, 2ND CHOICE Last administered on 12/01/20at 01:40; Start 11/25/20 at 15:00 Aspirin (Aspirin Rectal Supp) 300 mg 1X ONCE CA Last administered on 11/25/20at 22:21; Start 11/25/20 at 21:00; Stop 11/25/20 at 21:01; Status DC Labetalol HCl (Normodyne Iv Push) 20 mg 1X ONCE IVP Last administered on 11/25/20at 15:40; Start 11/25/20 at 15:45; Stop 11/25/20 at 15:46; Status DC Sodium Chloride 1,000 ml @ 100 mls/hr 1X ONCE IV ; Start 11/26/20 at 09:45; Stop 11/26/20 at 19:44; Status DC Furosemide (Lasix) 20 mg 1X ONCE IVP Last administered on 11/27/20at 15:37; Start 11/27/20 at 13:30; Stop 11/27/20 at 13:34; Status DC Barium Sulfate (Varibar Thin Liquid Apple) 148 gm 1X ONCE PO Last administered on 11/27/20at 13:43; Start 11/27/20 at 13:45; Stop 11/27/20 at 13:46; Status DC Lorazepam (Ativan Inj) 0.5 mg PRN QHS PRN IVP SLEEP Last administered on 11/30/20at 21:28; Start 11/27/20 at 15:15 Pantoprazole Sodium (PROTONIX VIAL for IV PUSH) 40 mg DAILYAC IVP Last administered on 12/02/20at 08:24; Start 11/27/20 at 15:15 Fentanyl Citrate (Fentanyl 2ml Vial) 25 mcg 1X ONCE IVP Last administered on 11/27/20at 15:36; Start 11/27/20 at 15:30; Stop 11/27/20 at 15:31; Status DC Metoprolol Tartrate (Lopressor) 50 mg BID PO Last administered on 12/01/20at 08:01; Start 11/28/20 at 21:00; Stop 12/01/20 at 19:34; Status DC Amlodipine Besylate (Norvasc) 10 mg DAILY PO Last administered on 12/01/20at 08:01; Start 11/28/20 at 12:00 Digoxin (Lanoxin) 250 mcg 1X ONCE IV Last administered on 11/28/20at 12:01; S tart 11/28/20 at 10:45; Stop 11/28/20 at 10:46; Status DC Sodium Chloride 500 ml @ 500 mls/hr 1X ONCE IV Last administered on 11/29/20at 11:45; Start 11/29/20 at 11:30; Stop 11/29/20 at 12:29; Status DC Cefazolin Sodium/ Dextrose 50 ml @ 100 mls/hr 1X ONCE IV ; Start 12/01/20 at 12:00; Stop 12/01/20 at 12:29; Status DC Zolpidem Tartrate (Ambien) 5 mg PRN QHS PRN PO INSOMNIA Last administered on 11/30/20at 20:31; Start 11/30/20 at 15:30; Stop 12/01/20 at 02:30; Status DC Digoxin (Lanoxin) 500 mcg 1X ONCE IV Last administered on 12/01/20at 01:46; Start 12/01/20 at 01:45; Stop 12/01/20 at 01:46; Status DC Metoprolol Tartrate (Lopressor Vial) 5 mg Q6HRS IVP ; Start 12/01/20 at 06:00; Status Cancel Fentanyl Citrate (Fentanyl 2ml Vial) 50 mcg 1X ONCE IM ; Start 12/01/20 at 02:15; Stop 12/01/20 at 02:16; Status Cancel Metoprolol Tartrate (Lopressor Vial) 5 mg PRN Q6HRS PRN IVP HYPERTENSION Last administered on 12/01/20at 02:29; Start 12/01/20 at 02:30 Fentanyl Citrate (Fentanyl 2ml Vial) 25 mcg 1X ONCE IVP Last administered on 12/01/20at 02:42; Start 12/01/20 at 02:45; Stop 12/01/20 at 02:46; Status DC Piperacillin Sod/ Tazobactam Sod 3.375 gm/Sodium Chloride 50 ml @ 100 mls/hr 1X ONCE IV Last administered on 12/01/20at 03:30; Start 12/01/20 at 03:00; Stop 12/01/20 at 03:29; Status DC Furosemide (Lasix) 40 mg 1X ONCE IVP Last administered on 12/01/20at 02:59; Start 12/01/20 at 03:00; Stop 12/01/20 at 03:01; Status DC Piperacillin Sod/ Tazobactam Sod (Zosyn Per Pharmacy) 1 each PRN DAILY PRN MC SEE COMMENTS; Start 12/01/20 at 03:00 Vancomycin HCl 2 gm/Sodium Chloride 500 ml @ 250 mls/hr 1X ONCE IV Last administered on 12/01/20at 04:28; Start 12/01/20 at 03:30; Stop 12/01/20 at 05:29; Status DC Piperacillin Sod/ Tazobactam Sod 3.375 gm/Sodium Chloride 50 ml @ 100 mls/hr Q6HRS IV Last administered on 12/02/20at 05:11; Start 12/01/20 at 12:00 Metoprolol Tartrate (Lopressor) 75 mg BID PO Last administered on 12/01/20at 20:44; Start 12/01/20 at 21:00 Active Scripts Active Zofran (Ondansetron Hcl) 4 Mg Tablet 1 Tab PO PRN Q6-8HRS PRN Reported Mucinex Dm Er 600-30 Mg Tablet (Guaifenesin/Dextromethorphan) 1 Each Tab.er.12h 1 Tab PO BID PRN 14 Days Aspirin 325 Mg Tablet 1 Tab PO DAILY Vitamin B-12 (Cyanocobalamin (Vitamin B-12)) 1,000 Mcg Tablet 1 Tab PO DAILY 30 Days Vitamin D3 Complete Caplet (Mv-Mn/Iron/Fa/Herbal Cmplx#190) 1 Each Tablet 1 Each PO DAILY Vitamin C (Ascorbic Acid) 500 Mg Capsule.er 2 Cap PO BID 30 Days Metoprolol Tartrate 25 Mg Tablet 1 Tab PO BID Multaq (Dronedarone Hcl) 400 Mg Tablet 1 Tab PO BID Flovent 44MCG Hfa (Fluticasone Propionate) 10.6 Gm Aer.w.adap 10.6 Gm IH DAILY Xopenex Hfa (Levalbuterol Tartrate) 15 Gm Hfa.aer.ad 15 Gm IH PRN Verapamil Er (Verapamil Hcl) 120 Mg Tablet.er 120 Mg PO DAILY Pravastatin Sodium 80 Mg Tablet 80 Mg PO DAILY Daliresp (Roflumilast) 500 Mcg Tablet 500 Mcg PO DAILY Wellbutrin Xl (Bupropion Hcl) 300 Mg Tab.er.24h 300 Mg PO DAILY Albuterol Sulfate Conc Neb Soln (Albuterol Sulfate) 2.5 Mg/0.5 Ml Vial.neb 1 Vial NEB QID Advair 250-50 Diskus (Fluticasone/Salmeterol) 1 Each Disk.w.dev 1 Puff IH BID Vitals/I & O Vital Sign - Last 24 Hours 12/01/20 12/01/20 12/01/20 12/01/20 14:26 17:26 19:25 20:26 Temp 98.9 98.4 98.9 98.4 Pulse 74 90 Resp 20 B/P (MAP) 139/64 (89) 139/60 (86) Pulse Ox 93 98 98 O2 Delivery Nasal Cannula Nasal Cannula Nasal Cannula Nasal Cannula O2 Flow Rate 3.0 3.0 3.0 3.0 12/01/20 12/01/20 12/01/20 12/02/20 20:44 21:27 23:05 03:35 Temp 98.4 99.3 98.4 99.3 Pulse 90 72 97 Resp 18 18 B/P (MAP) 139/60 127/59 (81) 150/68 (95) Pulse Ox 97 97 93 O2 Delivery Nasal Cannula Nasal Cannula Nasal Cannula O2 Flow Rate 3.0 3.0 3.0 12/02/20 12/02/20 12/02/20 12/02/20 07:00 08:01 08:01 10:50 Temp 97.9 99.3 97.9 99.3 Pulse 82 88 Resp B/P (MAP) 164/70 (101) 138/63 (88) Pulse Ox 94 100 100 99 O2 Delivery Nasal Cannula Nasal Cannula Nasal Cannula Nasal Cannula O2 Flow Rate 3.0 3.0 3.0 3.0 Intake and Output 12/01/20 12/01/20 12/02/20 15:00 23:00 07:00 Intake Total 50 ml 500 ml 100 ml Output Total 900 ml 400 ml Balance 50 ml -400 ml -300 ml Justicifation of Admission Dx: Justifications for Admission: Justification of Admission Dx: Yes Stroke - Ischemic: Stroke-Ischemic THOM POP MD Dec 02, 2020 11:03
--- NOTE | 2020-12-02 11:10 | NUR ---
SS following up with discharge planning. SS reviewed pt chart and discussed with pt RN. Pt is currently requiring oxygen at three liters nasal canula. COVID19 negative. Pt on IV Zosyn. PT/OT recommended acute rehabilitation, ; fax [phone]. Pt accepted at [facility]. Pt having PEG placement today. SS will continue to follow for discharge planning.
--- NOTE | 2020-12-02 12:01 | PDOC ---
[employer] PROGRESS NOTE Date of Service DOS: DATE: 12/02/20 TIME: 12:00 Chief Complaint Chief Complaint acute stoke, RIGHT MCA, s/p TPA currently on ASA for anticoagulation. will consider Eliquis after PEG left hemiparesis hand face left sided neglect obese, BMI 35 DM2 dysphagia requiring PEG Debility History of Present Illness History of Present Illness 12/02/2020 No acute events overnight. Patient's T-max of 99.3. Saturating 90% on 3 L nasal cannula. Pending PEG tube placement today. Patient's chart, labs, images were reviewed and discussed with RN 12/01/20 No acute events. Fever of 102.7. PEG cancelled and rescheduled for tomorrow. > 50% time spent in patient chart, labs, and image review and discussion with RN and SW 11/30, doing well, some cough, atelactasis on exam, better with breathing exercises planned PEG in AM, then DC to acute rehab hospital likely 12.02 she is able to move the fingers of her left hand, most slightly, today 11/29, dobhoff feeds are going well, cont current plan PEG for DC to acute rehab, she is doign well family is here this AM and they were very supportive 11/28 NG tube placed for nutrition, marked weakness, confusion at times but better Out of ICU, may DC tele plad ACUTE rehab hospital, needs PEG, planned tuesday, GI unable to sched today breathing much better swallow eval today, plan acute rehab, they need a diet order to approve she feels better, some improvement in exam Vitals/I&O Vitals/I&O: Vital Signs Date Time Temp Pulse Resp B/P (MAP) Pulse Ox O2 Delivery O2 Flow Rate FiO2 12/02/20 10:50 99.3 88 22 138/63 (88) 99 Nasal Cannula 3.0 99.3 I & O 12/01/20 12/01/20 12/02/20 15:00 23:00 07:00 Intake Total 50 ml 500 ml 100 ml Output Total 900 ml 400 ml Balance 50 ml -400 ml -300 ml Physical Exam Physical Exam: neuro better, left hand movement adn talking better, General: Alert, Cooperative, mild distress Heart: Regular rate, Normal S1, Other (distant heart tones, IRRR; tele AFIB with RVR) Lungs: Clear Abdomen: Soft Extremities: No clubbing, Normal pulses, Other (1+ bilateral UE edema. ) Skin: No rashes, No significant lesion Assessment and Plan Assessmemt and Plan Problems Medical Problems: (1) Acute CVA (cerebrovascular accident) Status: Acute (2) Hypoxia Status: Acute (3) Lactic acidosis Status: Acute (4) Pulmonary vascular congestion Status: Acute (5) Suspected 2019 novel coronavirus infection Status: Acute Comment Review of Relevant I have reviewed the following items gerry (where applicable) has been applied. Medications: Current Medications Medications (Trade) Dose Ordered Sig/Radha Route PRN Reason Start Time Stop Time Status Last Admin Dose Admin Metoprolol Tartrate (Lopressor) 75 mg BID PO 12/01/20 21:00 12/01/20 20:44 Justifications for Admission Other Justification AKIL MCCARTY MD Dec 02, 2020 12:01
[2020-12-02] MEDS ORDERED: PROPOFOL 10 MG/ML (20ML) VIAL. IV ONE (12:36)
[2020-12-02] MEDS ORDERED: LIDOCAINE 2% PF 5 ML VIAL. ONE (12:36)
[2020-12-02] MEDS: IV RINGERS,LACTATED 1000ML 1,000 ML IV SCH ×2 (12:40→20:38)
--- NOTE | 2020-12-02 13:09 | PDOC4 ---
PROCEDURE Procedure EGD/PEG Indication: OP dysphagia Meds: per anesthesia Findings: E--Normal G--Small HH. NG abrasions, body. D--Normal bulb. --20F g-tube placed uneventfully. Briefly re-scoped, confirming good position. Anthony. well. IMP: HH Successful PEG. REC: Water/meds per tube today. Can feed in AM if no problems. Abdominal binder. DENISSE VARGAS MD Dec 02, 2020 13:09
[2020-12-02] MEDS: buPROPion XL 150 MG TAB.ER.24H. PO SCH (15:05)
[2020-12-02] MEDS: CYANOCOBALAMIN (VITAMIN B-12) 1,000 MCG TABLET. PO SCH (15:06)
[2020-12-02] MEDS: METOPROLOL TART IMMED RELEASE 50 MG TABLET. PO SCH ×2 (15:06→20:37)
[2020-12-02] MEDS: ROFLUMILAST 500 MCG TABLET. PO SCH (15:06)
--- NOTE | 2020-12-02 16:08 | PDOC ---
REYES ANDERSEN RN HEART 12/02/20 1608: CARDIO Progress Notes Date and Time Date of Service 12/02/2020 Time of Evaluation 1030 Subjective Subjective: No Chest Pain, No shortness of breath, No Palpitations Vitals Vitals Vital Signs Date Time Temp Pulse Resp B/P (MAP) Pulse Ox O2 Delivery O2 Flow Rate FiO2 12/02/20 15:53 Nasal Cannula 3.0 12/02/20 15:06 84 154/73 12/02/20 14:49 98.1 22 100 98.1 Weight Weight [ ] Input and Output Intake and Output Intake and Output 12/02/20 07:00 Intake Total 650 ml Output Total 1300 ml Balance -650 ml IV Total 400 ml Tube Feeding 250 ml Output Urine Total 1300 ml # Bowel Movements 2 Microbiology Micro Microbiology 12/01/20 Blood Culture - Preliminary, Resulted NO GROWTH AFTER 1 DAY Physical Exam HEENT: Neck Supple W Full Motion Chest: Symmetric LUNGS: Other (diminished bases) Heart: irregularly irregular (AFIB, rate 70) Abdomen: Soft N/T, Other (obese NGT in place) Extremities: No Edema, No Calf Tenderness Neurology: alert, follow commands Assessment Assessment 1. 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 s/p TPA 11/22 2. PAFIB; Declined OAC multiple times in past. remains is AFIB, rate is controlled 3. Hypertensive urgency; off Cardene. BP now controlled 4. Acute respiratory failure with underlying COPD; improved. on RA 5. Acute on chronic diastolic CHF; compensated 6. Mild troponin elevation; highest 0.06. Most probable type II, demand ischemia. Echo with preserved LV systolic function 7. SHELLEY; Cr stable 1.5 8. Leukocytosis, fevers: none further overnight 9. Dysphagia : PEG pending today 10. Severe pulmonary hypertension; PAP 67 mmHg. 11. Hematuria: Hgb stable. will obtain UA Discussed with RN to securely anchor guerrero Recommendations Continue metoprolol for rate control, norvasc via PEG Low dose eliquis for stroke prevention once OK with GI post PEG, meantime continue ASA. PEG pending for today Lasix PRN Continue statin Consider outpatient CVN if OAC can safely be resumed Ongoing rehab modalities Supportive care Justicifation of Admission Dx: Justifications for Admission: Justification of Admission Dx: Yes Stroke - Ischemic: Stroke-Ischemic RAMÓN WHITNEY MD 12/03/20 0638: CARDIO Progress Notes Plan Plan Late entry for 12/02/20. Pt. seen and examined. Agree with above PRESIDING JUDGE note. Discussed with son and RN. Supportive care. REYES ANDERSEN APRN Dec 02, 2020 16:08 RAMÓN WHITNEY MD Dec 03, 2020 06:38
--- NOTE | 2020-12-02 16:09 | NUR ---
SS following up with discharge planning. SS phoned and faxed updated clinical to [facility], ; fax [phone]. SS will continue to follow for discharge planning.
[2020-12-02] MEDS: AZITHROMYCIN 500 MG in IV NORMAL SALINE 250ML 250 ML IV SCH (16:19)
[2020-12-02 19:08] LABS: BILIRUBIN,URINE MODERATE (NEG); CLARITY,URINE TURBID; NITRITE,URINE NEGATIVE (NEG); PROTEIN,URINE 100 mg/dL (NEG-TRACE)
[2020-12-02 19:17] LABS: COLOR,URINE BROWN
[2020-12-02 19:18] LABS: RBC,URINE TNTC /HPF (0-2)
[2020-12-02 19:19] LABS: AMORPHOUS SEDIMENT,UR PRESENT /HPF; BACTERIA,URINE FEW /HPF (0-FEW)
[2020-12-02] MEDS: ATORVASTATIN CALCIUM 20 MG TABLET PO SCH (20:37)
[2020-12-02] MEDS: ACETAMINOPHEN 325 MG TABLET. PO PRN (20:40)
[2020-12-02] MEDS ORDERED: APIXABAN 2.5 MG TABLET. PO SCH (21:00)
[2020-12-03 03:02] VITALS: BP 144/65
[2020-12-03] MEDS: PIPERACILLIN/TAZOBACTAM 3.375 GM in IV NORMAL SALINE 50ML 50 ML IV SCH ×2 (05:19→13:03)
[2020-12-03 07:00] VITALS: BP 165/67
[2020-12-03] MEDS: BUDESONIDE 0.5 MG/2 ML NEBU. NEB SCH ×2 (07:46→21:15)
[2020-12-03] MEDS: ALBUTEROL SULFATE 2.5 MG/3 ML NEBU. NEB SCH ×4 (07:46→21:15)
[2020-12-03] MEDS: PANTOPRAZOLE IV PUSH 40 MG VIAL. IVP SCH (07:59)
[2020-12-03] MEDS ORDERED: ASPIRIN CHEWABLE 81 MG TABLET. PO SCH (08:00)
[2020-12-03] MEDS: CYANOCOBALAMIN (VITAMIN B-12) 1,000 MCG TABLET. PO SCH (08:00)
[2020-12-03] MEDS: buPROPion XL 150 MG TAB.ER.24H. PO SCH (08:00)
[2020-12-03] MEDS: ROFLUMILAST 500 MCG TABLET. PO SCH (08:00)
[2020-12-03] MEDS: METOPROLOL TART IMMED RELEASE 50 MG TABLET. PO SCH ×2 (08:01→20:51)
[2020-12-03] MEDS: ANTI-COAG MONITOR BY PHARMACY. MC PRN (08:13)
--- NOTE | 2020-12-03 09:14 | PDOC ---
Date of Service: DATE: 12/03/20 TIME: 09:11 Subjective: Subjective: Feels better today. No abd pain. Wants to be turned. Objective: Objective: D/w nurse - PEG functioning for meds. Already started on ASA per cardiology, both cardiology and neurology hoping Eliquis can be restarted tonight. Vital Signs: Vital Signs Date Time Temp Pulse Resp B/P (MAP) Pulse Ox O2 Delivery O2 Flow Rate FiO2 12/03/20 08:01 73 165/67 12/03/20 07:51 98 Nasal Cannula 3.0 12/03/20 07:00 98.6 18 98.6 Labs: Laboratory Tests Test 12/02/20 18:30 Urine Collection Type Unknown Urine Color Brown Urine Clarity Turbid Urine pH 6.0 Urine Specific [place] >=1.030 Urine Protein 100 mg/dL Urine Glucose (UA) Negative mg/dL Urine Ketones (Stick) 15 mg/dL Urine Blood Large Urine Nitrite Negative Urine Bilirubin Moderate Urine Urobilinogen Dipstick 1.0 mg/dL Urine Leukocyte Esterase Small Urine RBC Tntc /HPF Urine WBC 5-10 /HPF Urine Squamous Epithelial Cells Occ /LPF Urine Amorphous Sediment Present /HPF Urine Bacteria Few /HPF Imaging: EGD/PEG 12/02 E--Normal G--Small HH. NG abrasions, body. D--Normal bulb. --20F g-tube placed uneventfully. Briefly re-scoped, confirming good position. IMP: HH Successful PEG. REC: Water/meds per tube today. Can feed in AM if no problems. Abdominal binder. PE: GEN: NAD HEENT: Atraumatic, PERRLA LUNGS: diminished, NC HEART: irregular ABD: gauze removed from under outer bumper, bumper loosened some, abd soft and non-tender, abd binder replaced NEURO/PSYCH: A & O 3 - much more alert today A/P: A Fib, CVA, oropharyngeal dysphagia, s/p PEG GERD COVID-19 negative 11/22/20 -- Okay to start tube feeds. Continue abd binder and PPI. On ASA. Will review Eliquis situation w/ Dr. Bach. Justicifation of Admission Dx: Justifications for Admission: Justification of Admission Dx: Yes Stroke - Ischemic: Stroke-Ischemic MANNY BLUE Dec 03, 2020 09:14
--- NOTE | 2020-12-03 09:45 | PDOC ---
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 Her strength is improving, clinically she looks great considering. Recurrence of atrial fibrillation COPD exacerbation, better Hypertension, history of COVID-19 Pulmonary hypertension Neurogenic dysphagia, status-post PEG COPD worsening and atrial fibrillation, required rapid response night of 11/30 Plan Switch to apixaban 2.5 mg twice daily, discussed with cardiology yesterday. Risks outweigh benefits of also taking aspirin Low-dose enoxaparin, stop it once apixaban commenced Statin, low intensity given favorable lipid profile PT/OT/ST Transfer to SNU for inpatient rehabilitation Subjective No complaints, denies pain Objective Vital Signs Date Time Temp Pulse Resp B/P (MAP) Pulse Ox O2 Delivery O2 Flow Rate FiO2 12/03/20 08:01 73 165/67 12/03/20 07:51 98 Nasal Cannula 3.0 12/03/20 07:00 98.6 18 98.6 Intake and Output 12/03/20 07:00 Intake Total 200 ml Output Total 650 ml Balance -450 ml IV Total 200 ml Output Urine Total 650 ml # Bowel Movements 1 PHYSICAL EXAM Alert, replies, moves to command, knows location, not date PERRL. EOMI. CN: Left field cut, left central facial weakness. Muscle tone: normal. Muscle strength: 4/5 left hemiparesis DTR: 2+ Plantar reflex: Flexor Gait: not examined in bed. Sensory exam: no abnormal findings. No cerebellar signs elicited. Review of Relevant I have reviewed the following items gerry (where applicable) has been applied. Labs Laboratory Tests Test 12/02/20 18:30 Urine Collection Type Unknown Urine Color Brown Urine Clarity Turbid Urine pH 6.0 (<5.0-8.0) Urine Specific [place] >=1.030 (1.000-1.030) Urine Protein 100 mg/dL (NEG-TRACE) Urine Glucose (UA) Negative mg/dL (NEG) Urine Ketones (Stick) 15 mg/dL (NEG) Urine Blood Large (NEG) Urine Nitrite Negative (NEG) Urine Bilirubin Moderate (NEG) Urine Urobilinogen Dipstick 1.0 mg/dL (0.2 mg/dL) Urine Leukocyte Esterase Small (NEG) Urine RBC Tntc /HPF (0-2) Urine WBC 5-10 /HPF (0-4) Urine Squamous Epithelial Cells Occ /LPF Urine Amorphous Sediment Present /HPF Urine Bacteria Few /HPF (0-FEW) Laboratory Tests Test 12/02/20 18:30 Urine Collection Type Unknown Urine Color Brown Urine Clarity Turbid Urine pH 6.0 (<5.0-8.0) Urine Specific [place] >=1.030 (1.000-1.030) Urine Protein 100 mg/dL (NEG-TRACE) Urine Glucose (UA) Negative mg/dL (NEG) Urine Ketones (Stick) 15 mg/dL (NEG) Urine Blood Large (NEG) Urine Nitrite Negative (NEG) Urine Bilirubin Moderate (NEG) Urine Urobilinogen Dipstick 1.0 mg/dL (0.2 mg/dL) Urine Leukocyte Esterase Small (NEG) Urine RBC Tntc /HPF (0-2) Urine WBC 5-10 /HPF (0-4) Urine Squamous Epithelial Cells Occ /LPF Urine Amorphous Sediment Present /HPF Urine Bacteria Few /HPF (0-FEW) Microbiology 12/01/20 Blood Culture - Preliminary, Resulted NO GROWTH AFTER 1 DAY Medications Current Medications Sodium Chloride 1,000 ml @ 1,000 mls/hr Q1H IV Last administered on 11/22/20at 19:31; Start 11/22/20 at 19:15; Stop 11/22/20 at 20:14; Status DC Alteplase, Recombinant 9 ml @ 540 mls/hr 1X ONCE IV Last administered on 11/22/20at 19:57; Start 11/22/20 at 19:45; Stop 11/22/20 at 19:46; Status DC Alteplase, Recombinant 81 ml @ 81 mls/hr Q1H IV Last administered on 11/22/20at 20:00; Start 11/22/20 at 19:45; Stop 11/22/20 at 20:44; Status DC Sodium Chloride 50 ml @ 200 mls/hr 1X ONCE IV Last administered on 11/22/20at 20:10; Start 11/22/20 at 19:45; Stop 11/22/20 at 19:59; Status DC Alteplase, Recombinant 10 ml @ 600 mls/hr 1X ONCE IV ; Start 11/22/20 at 19:45; Stop 11/22/20 at 19:46; Status UNV Alteplase, Recombinant 90 ml @ 90 mls/hr 1X ONCE IV ; Start 11/22/20 at 19:45; Stop 11/22/20 at 20:44; Status UNV Sodium Chloride 50 ml @ 50 mls/hr 1X ONCE IV ; Start 11/22/20 at 19:45; Stop 11/22/20 at 20:44; Status UNV Aspirin (Aspirin Rectal Supp) 300 mg 1X ONCE SD Last administered on 11/22/20at 20:16; Start 11/22/20 at 19:45; Stop 11/22/20 at 19:48; Status DC Iohexol (Omnipaque 300 Mg/ml) 60 ml 1X ONCE IV Last administered on 11/22/20at 20:38; Start 11/22/20 at 20:15; Stop 11/22/20 at 20:16; Status DC Info (CONTRAST GIVEN -- Rx MONITORING) 1 each PRN DAILY PRN MC SEE COMMENTS; Start 11/22/20 at 20:30; Stop 11/24/20 at 20:29; Status DC Ondansetron HCl (Zofran) 4 mg PRN Q8HRS PRN IV NAUSEA/VOMITING 1ST CHOICE Last administered on 11/23/20at 04:05; Start 11/22/20 at 21:45; Stop 11/23/20 at 21:44; Status DC Bumetanide (Bumex) 0.5 mg 1X ONCE IV Last administered on 11/23/20at 00:51; Start 11/22/20 at 23:30; Stop 11/22/20 at 23:31; Status DC Labetalol HCl (Normodyne Iv Push) 10 mg PRN Q10MIN PRN IVP HYPERTENSION Last administered on 11/24/20at 13:07; Start 11/23/20 at 02:15; Stop 11/24/20 at 15:00; Status DC Nicardipine HCl 50 mg/Sodium Chloride 250 ml @ 25 mls/hr CONT PRN PRN IV HYPERTENSION Last administered on 11/23/20at 15:53; Start 11/23/20 at 02:15; Stop 11/24/20 at 09:35; Status DC Potassium Chloride/Water 100 ml @ 100 mls/hr Q1H IV Last administered on 11/23/20at 07:34; Start 11/23/20 at 03:00; Stop 11/23/20 at 06:59; Status DC Magnesium Sulfate 50 ml @ 25 mls/hr 1X ONCE IV Last administered on 11/23/20at 04:31; Start 11/23/20 at 03:00; Stop 11/23/20 at 04:59; Status DC Amino Acids/ Glycerin/ Electrolytes 1,000 ml @ 80 mls/hr [id number] IV Last administered on 11/28/20at 03:16; Start 11/23/20 at 11:30; Stop 12/02/20 at 08:46; Status DC Cyanocobalamin (Vitamin B-12) 1,000 mcg DAILY PO Last administered on 12/03/20at 08:00; Start 11/24/20 at 09:00 Dronedarone (Multaq) 400 mg BID PO ; Start 11/23/20 at 21:00; Stop 11/27/20 at 15:13; Status DC Guaifenesin (MUCINEX ER with DM) 1 tab PRN BID PRN PO cough and congestion Last administered on 11/30/20at 21:27; Start 11/23/20 at 12:00 Metoprolol Tartrate (Lopressor) 25 mg BID PO ; Start 11/23/20 at 21:00; Stop 11/28/20 at 10:35; Status DC Roflumilast (Daliresp) 500 mcg DAILY PO Last administered on 12/03/20at 08:00; Start 11/24/20 at 09:00 Verapamil HCl (Calan Sr) 120 mg DAILY PO ; Start 11/23/20 at 13:00; Stop 11/28/20 at 10:35; Status DC Albuterol Sulfate (Ventolin Neb Soln) 2.5 mg RTQID NEB Last administered on 12/03/20at 07:46; Start 11/23/20 at 16:00 Bupropion HCl (Wellbutrin Xl) 300 mg DAILY PO Last administered on 12/03/20at 08:00; Start 11/23/20 at 13:00 Non-Formulary Medication (Fluticasone Propionate (Flovent 44MCG Hfa)) 10.6 gm DAILY IH ; Start 11/24/20 at 09:00; Status UNV Non-Formulary Medication (Fluticasone/ Salmeterol (Advair 250-50 Diskus)) 1 puff BID IH ; Start 11/23/20 at 21:00; Status UNV Atorvastatin Calcium (Lipitor) 20 mg QHS PO Last administered on 12/02/20at 20:37; Start 11/23/20 at 21:00 Budesonide (Pulmicort) 0.5 mg RTBID NEB Last administered on 11/27/20at 07:24; Start 11/23/20 at 20:00; Stop 11/27/20 at 15:13; Status DC Metoprolol Tartrate (Lopressor Vial) 2.5 mg Q6HRS IVP Last administered on 11/25/20at 05:31; Start 11/23/20 at 18:00; Stop 11/25/20 at 08:41; Status DC Metoprolol Tartrate (Lopressor Vial) 2.5 mg 1X ONCE IVP Last administered on 11/23/20at 13:01; Start 11/23/20 at 13:00; Stop 11/23/20 at 13:01; Status DC Azithromycin 250 ml @ 250 mls/hr 1X ONCE IV ; Start 11/23/20 at 14:15; Stop 11/23/20 at 15:14; Status UNV Azithromycin 500 mg/Sodium Chloride 250 ml @ 250 mls/hr Q24H IV Last administered on 12/02/20at 16:19; Start 11/23/20 at 16:00 Aspirin (Ecotrin) 81 mg DAILYWBKFT PO ; Start 11/23/20 at 23:30; Stop 11/27/20 at 15:07; Status DC Clopidogrel Bisulfate (Plavix) 75 mg 1X ONCE PO ; Start 11/23/20 at 23:30; Stop 11/23/20 at 23:31; Status DC Clopidogrel Bisulfate (Plavix) 75 mg DAILYWBKFT PO ; Start 11/24/20 at 08:00; Stop 11/27/20 at 15:07; Status DC Diltiazem HCl 125 mg/Sodium Chloride 125 ml @ 5 mls/hr CONT PRN IV SEE ADMIN I NSTRUCTIONS Last administered on 11/24/20at 00:17; Start 11/23/20 at 23:45; Stop 11/28/20 at 10:32; Status DC Labetalol HCl (Normodyne Iv Push) 10 mg PRN Q10MIN PRN IVP HYPERTENSION, 1ST CHOICE Last administered on 11/25/20at 03:05; Start 11/24/20 at 08:45; Stop 12/01/20 at 02:30; Status DC Nicardipine HCl 50 mg/Sodium Chloride 250 ml @ 25 mls/hr CONT PRN PRN IV HYPERTENSION, See comments Last administered on 11/28/20at 00:04; Start 11/24/20 at 08:45; Stop 11/28/20 at 10:32; Status DC Acetaminophen (Tylenol) 650 mg PRN Q6HRS PRN PO MILD PAIN / TEMP > 100.3'F Last administered on 12/02/20at 20:40; Start 11/24/20 at 08:45 Acetaminophen (Tylenol Supp) 650 mg PRN Q6HRS PRN SD MILD PAIN / TEMP > 100.3'F Last administered on 12/01/20at 02:40; Start 11/24/20 at 08:45 Ondansetron HCl (Zofran) 4 mg PRN Q6HRS PRN IVP NAUSEA/VOMITING Last administered on 12/01/20at 02:40; Start 11/24/20 at 08:45 Enoxaparin Sodium (Lovenox 30mg Syringe) 30 mg Q24H SQ Last administered on 11/30/20at 08:23; Start 11/24/20 at 08:45; Stop 11/30/20 at 12:10; Status DC Saliva Substitute (Biotene Moisturizing Mouth) 2 spray PRN Q15MIN PRN PO DRY MOUTH Last administered on 11/24/20at 16:37; Start 11/24/20 at 15:45 Haloperidol Lactate (Haldol Inj) 5 mg PRN Q6HRS PRN IVP AGITATION Last adminis tered on 11/25/20at 05:55; Start 11/25/20 at 05:45 Metoprolol Tartrate (Lopressor Vial) 5 mg Q6HRS IVP Last administered on 11/28at 05:41; Start 11/25/20 at 09:00; Stop 11/28/20 at 10:35; Status DC Digoxin (Lanoxin) 500 mcg 1X ONCE IV Last administered on 11/25/20at 12:23; Start 11/25/20 at 12:00; Stop 11/25/20 at 12:01; Status DC Methylprednisolone Sodium Succinate (SOLU-Medrol 40MG VIAL) 40 mg 1X ONCE IV Last administered on 11/25/20at 14:01; Start 11/25/20 at 14:00; Stop 11/25/20 at 14:01; Status DC Budesonide (Pulmicort) 0.5 mg RTBID NEB Last administered on 12/03/20at 07:46; Start 11/25/20 at 20:00 Aspirin (Aspirin Rectal Supp) 300 mg PRN DAILY PRN SD IF UNABLE TO TAKE PO Last administered on 11/28/20at 08:39; Start 11/25/20 at 14:00 Hydralazine HCl (Apresoline Inj) 10 mg PRN Q4HRS PRN IVP ELEVATED BP, 2ND CHOICE Last administered on 12/01/20at 01:40; Start 11/25/20 at 15:00 Aspirin (Aspirin Rectal Supp) 300 mg 1X ONCE SD Last administered on 11/25/20at 22:21; Start 11/25/20 at 21:00; Stop 11/25/20 at 21:01; Status DC Labetalol HCl (Normodyne Iv Push) 20 mg 1X ONCE IVP Last administered on 11/25/20at 15:40; Start 11/25/20 at 15:45; Stop 11/25/20 at 15:46; Status DC Sodium Chloride 1,000 ml @ 100 mls/hr 1X ONCE IV ; Start 11/26/20 at 09:45; Stop 11/26/20 at 19:44; Status DC Furosemide (Lasix) 20 mg 1X ONCE IVP Last administered on 11/27/20at 15:37; Start 11/27/20 at 13:30; Stop 11/27/20 at 13:34; Status DC Barium Sulfate (Varibar Thin Liquid Apple) 148 gm 1X ONCE PO Last administered on 11/27/20at 13:43; Start 11/27/20 at 13:45; Stop 11/27/20 at 13:46; Status DC Lorazepam (Ativan Inj) 0.5 mg PRN QHS PRN IVP SLEEP Last administered on 11/30/20at 21:28; Start 11/27/20 at 15:15 Pantoprazole Sodium (PROTONIX VIAL for IV PUSH) 40 mg DAILYAC IVP Last administered on 12/03/20at 07:59; Start 11/27/20 at 15:15; Stop 12/03/20 at 09:21; Status DC Fentanyl Citrate (Fentanyl 2ml Vial) 25 mcg 1X ONCE IVP Last administered on 11/27/20at 15:36; Start 11/27/20 at 15:30; Stop 11/27/20 at 15:31; Status DC Metoprolol Tartrate (Lopressor) 50 mg BID PO Last administered on 12/01/20at 08:01; Start 11/28/20 at 21:00; Stop 12/01/20 at 19:34; Status DC Amlodipine Besylate (Norvasc) 10 mg DAILY PO Last administered on 12/03/20at 08:01; Start 11/28/20 at 12:00 Digoxin (Lanoxin) 250 mcg 1X ONCE IV Last administered on 11/28/20at 12:01; Start 11/28/20 at 10:45; Stop 11/28/20 at 10:46; Status DC Sodium Chloride 500 ml @ 500 mls/hr 1X ONCE IV Last administered on 11/29/20at 11:45; Start 11/29/20 at 11:30; Stop 11/29/20 at 12:29; Status DC Cefazolin Sodium/ Dextrose 50 ml @ 100 mls/hr 1X ONCE IV ; Start 12/01/20 at 12:00; Stop 12/01/20 at 12:29; Status DC Zolpidem Tartrate (Ambien) 5 mg PRN QHS PRN PO INSOMNIA Last administered on 11/30/20at 20:31; Start 11/30/20 at 15:30; Stop 12/01/20 at 02:30; Status DC Digoxin (Lanoxin) 500 mcg 1X ONCE IV Last administered on 12/01/20at 01:46; Start 12/01/20 at 01:45; Stop 12/01/20 at 01:46; Status DC Metoprolol Tartrate (Lopressor Vial) 5 mg Q6HRS IVP ; Start 12/01/20 at 06:00; Status Cancel Fentanyl Citrate (Fentanyl 2ml Vial) 50 mcg 1X ONCE IM ; Start 12/01/20 at 02:15; Stop 12/01/20 at 02:16; Status Cancel Metoprolol Tartrate (Lopressor Vial) 5 mg PRN Q6HRS PRN IVP HYPERTENSION Last administered on 12/01/20at 02:29; Start 12/01/20 at 02:30 Fentanyl Citrate (Fentanyl 2ml Vial) 25 mcg 1X ONCE IVP Last administered on 12/01/20at 02:42; Start 12/01/20 at 02:45; Stop 12/01/20 at 02:46; Status DC Piperacillin Sod/ Tazobactam Sod 3.375 gm/Sodium Chloride 50 ml @ 100 mls/hr 1X ONCE IV Last administered on 12/01/20at 03:30; Start 12/01/20 at 03:00; Stop 12/01/20 at 03:29; Status DC Furosemide (Lasix) 40 mg 1X ONCE IVP Last administered on 12/01/20at 02:59; Start 12/01/20 at 03:00; Stop 12/01/20 at 03:01; Status DC Piperacillin Sod/ Tazobactam Sod (Zosyn Per Pharmacy) 1 each PRN DAILY PRN MC SEE COMMENTS; Start 12/01/20 at 03:00 Vancomycin HCl 2 gm/Sodium Chloride 500 ml @ 250 mls/hr 1X ONCE IV Last administered on 12/01/20at 04:28; Start 12/01/20 at 03:30; Stop 12/01/20 at 05:29; Status DC Piperacillin Sod/ Tazobactam Sod 3.375 gm/Sodium Chloride 50 ml @ 100 mls/hr Q6HRS IV Last administered on 12/03/20at 05:19; Start 12/01/20 at 12:00 Metoprolol Tartrate (Lopressor) 75 mg BID PO Last administered on 12/03/20at 08:01; Start 12/01/20 at 21:00 Ringer's Solution 1,000 ml @ 100 mls/hr Q10H IV Last administered on 12/02/20at 12:40; Start 12/02/20 at 12:30; Stop 12/03/20 at 09:32; Status DC Propofol (Diprivan) 200 mg STK-MED ONCE IV ; Start 12/02/20 at 12:36; Stop 12/02/20 at 12:36; Status DC Lidocaine HCl (Lidocaine Pf 2% Vial) 5 ml STK-MED ONCE .ROUTE ; Start 12/02/20 at 12:36; Stop 12/02/20 at 12:37; Status DC Apixaban (Eliquis) 2.5 mg BID PO ; Start 12/02/20 at 21:00; Stop 12/02/20 at 17:48; Status DC Info (Anti-Coagulation Monitoring By Pharmacy) 1 each PRN DAILY PRN MC SEE COMMENTS Last administered on 12/03/20at 08:13; Start 12/02/20 at 16:15 Apixaban (Eliquis) 2.5 mg BID PO ; Start 12/03/20 at 21:00 Aspirin (Aspirin Chewable) 81 mg DAILYWBKFT PO Last administered on 12/03/20at 07:59; Start 12/03/20 at 08:00 Lansoprazole (Prevacid) 30 mg DAILY FT ; Start 12/04/20 at 09:00 Active Scripts Active Zofran (Ondansetron Hcl) 4 Mg Tablet 1 Tab PO PRN Q6-8HRS PRN Reported Mucinex Dm Er 600-30 Mg Tablet (Guaifenesin/Dextromethorphan) 1 Each Tab.er.12h 1 Tab PO BID PRN 14 Days Aspirin 325 Mg Tablet 1 Tab PO DAILY Vitamin B-12 (Cyanocobalamin (Vitamin B-12)) 1,000 Mcg Tablet 1 Tab PO DAILY 30 Days Vitamin D3 Complete Caplet (Mv-Mn/Iron/Fa/Herbal Cmplx#190) 1 Each Tablet 1 Each PO DAILY Vitamin C (Ascorbic Acid) 500 Mg Capsule.er 2 Cap PO BID 30 Days Metoprolol Tartrate 25 Mg Tablet 1 Tab PO BID Multaq (Dronedarone Hcl) 400 Mg Tablet 1 Tab PO BID Flovent 44MCG Hfa (Fluticasone Propionate) 10.6 Gm Aer.w.adap 10.6 Gm IH DAILY Xopenex Hfa (Levalbuterol Tartrate) 15 Gm Hfa.aer.ad 15 Gm IH PRN Verapamil Er (Verapamil Hcl) 120 Mg Tablet.er 120 Mg PO DAILY Pravastatin Sodium 80 Mg Tablet 80 Mg PO DAILY Daliresp (Roflumilast) 500 Mcg Tablet 500 Mcg PO DAILY Wellbutrin Xl (Bupropion Hcl) 300 Mg Tab.er.24h 300 Mg PO DAILY Albuterol Sulfate Conc Neb Soln (Albuterol Sulfate) 2.5 Mg/0.5 Ml Vial.neb 1 Vial NEB QID Advair 250-50 Diskus (Fluticasone/Salmeterol) 1 Each Disk.w.dev 1 Puff IH BID Vitals/I & O Vital Sign - Last 24 Hours 12/02/20 12/02/20 12/02/20 12/02/20 10:50 12:28 12:30 13:08 Temp 99.3 98.1 98.4 99.3 98.1 98.4 Pulse 88 83 92 Resp 22 20 28 B/P (MAP) 138/63 (88) 132/61 Pulse Ox 99 98 97 O2 Delivery Nasal Cannula Nasal Cannula Nasal Cannula O2 Flow Rate 3.0 3.0 3 12/02/20 12/02/20 12/02/20 12/02/20 13:23 13:38 13:45 14:00 Pulse 86 82 99 88 Resp 24 24 B/P (MAP) 142/64 137/65 164/68 (100) 151/70 (97) Pulse Ox 98 99 100 100 O2 Delivery Room Air Nasal Cannula Nasal Cannula Nasal Cannula O2 Flow Rate 3 3 3.0 3.0 12/02/20 12/02/20 12/02/20 12/02/20 14:15 14:30 14:49 15:00 Temp 98.1 98.1 Pulse 88 84 82 86 Resp 22 B/P (MAP) 154/69 (97) 148/66 (93) 151/70 (97) 154/73 (100) Pulse Ox 100 100 100 100 O2 Delivery Nasal Cannula Nasal Cannula Nasal Cannula Nasal Cannula O2 Flow Rate 3.0 3.0 3.0 3.0 12/02/20 12/02/20 12/02/20 12/02/20 15:05 15:06 15:53 16:00 Pulse 84 84 76 B/P (MAP) 154/73 154/73 129/58 (81) Pulse Ox 98 O2 Delivery Nasal Cannula Nasal Cannula O2 Flow Rate 3.0 3.0 12/02/20 12/02/20 12/02/20 12/02/20 17:00 19:43 19:47 20:37 Temp 98.3 98.3 Pulse 82 68 68 Resp 19 B/P (MAP) 135/63 (87) 122/60 (80) 122/60 Pulse Ox 97 95 O2 Delivery Nasal Cannula Nasal Cannula Nasal Cannula O2 Flow Rate 3.0 3.0 3.0 12/02/20 12/02/20 12/03/20 12/03/20 21:03 23:00 03:02 07:00 Temp 98.3 98.2 98.6 98.3 98.2 98.6 Pulse 62 66 73 Resp 19 20 18 B/P (MAP) 136/65 (88) 144/65 (91) 165/67 (99) Pulse Ox 99 96 100 100 O2 Delivery Nasal Cannula Nasal Cannula Nasal Cannula Nasal Cannula O2 Flow Rate 3.0 3.0 3.0 5.0 12/03/20 12/03/20 12/03/20 07:51 08:01 08:01 Pulse 73 73 B/P (MAP) 165/67 165/67 Pulse Ox 98 O2 Delivery Nasal Cannula O2 Flow Rate 3.0 Intake and Output 12/02/20 12/02/20 12/03/20 15:00 23:00 07:00 Intake Total 200 ml Output Total 300 ml 350 ml Balance 200 ml -300 ml -350 ml Justicifation of Admission Dx: Justifications for Admission: Justification of Admission Dx: Yes Stroke - Ischemic: Stroke-Ischemic THOM POP MD Dec 03, 2020 09:45
[2020-12-03 09:52] LABS: BASO # 0.1 x10^3/uL (0.0-0.2); BASO % 1 % (0-3); EOS # 0.4 x10^3/uL (0.0-0.7); EOS % 4 % (0-3); HEMATOCRIT 30.2 % (36.0-47.0); HEMOGLOBIN 10.1 g/dL (12.0-15.5); LYMPH % 9 % (24-48); MEAN CORPUSCULAR HEMOGLOBIN 32 pg (25-35); MEAN CORPUSCULAR HGB CONC 33 g/dL (31-37); MEAN CORPUSCULAR VOLUME 97 fL (79-100); MONO # 0.7 x10^3/uL (0.0-1.1); MONO % 7 % (0-9); NEUT # 8.8 x10^3/uL (1.8-7.7); NEUT % 80 % (31-73); PLATELET COUNT 336 x10^3/uL (140-400); RED CELL DISTRIBUTION WIDTH 13.5 % (11.5-14.5)
[2020-12-03 11:00] VITALS: BP 151/68
--- NOTE | 2020-12-03 11:43 | PDOC ---
[employer] PROGRESS NOTE Date of Service DOS: DATE: 12/03/20 TIME: 11:41 Chief Complaint Chief Complaint acute stoke, RIGHT MCA, s/p TPA currently on ASA for anticoagulation. will consider Eliquis after PEG left hemiparesis hand face left sided neglect obese, BMI 35 DM2 dysphagia status post PEG placement 12/02/2020 Debility History of Present Illness History of Present Illness 12/03/2020 No acute events overnight. Patient seen and examined next recliner. Status post PEG tube placement and tolerated procedure well. Patient is suctioning herself due to copious mucus sputum. Have not started tube feeds yet but will have dietitian evaluate for tube feeds regimen. Patient's chart, labs, images were reviewed and discussed with RN 12/02/2020 No acute events overnight. Patient's T-max of 99.3. Saturating 90% on 3 L nasal cannula. Pending PEG tube placement today. Patient's chart, labs, images were reviewed and discussed with RN 12/01/20 No acute events. Fever of 102.7. PEG cancelled and rescheduled for tomorrow. > 50% time spent in patient chart, labs, and image review and discussion with RN and SW 11/30, doing well, some cough, atelactasis on exam, better with breathing exercises planned PEG in AM, then DC to acute rehab hospital likely 12.02 she is able to move the fingers of her left hand, most slightly, today 11/29, dobhoff feeds are going well, cont current plan PEG for DC to acute rehab, she is doign well family is here this AM and they were very supportive 11/28 NG tube placed for nutrition, marked weakness, confusion at times but better Out of ICU, may DC tele plad ACUTE rehab hospital, needs PEG, planned tuesday, GI unable to sched today breathing much better swallow eval today, plan acute rehab, they need a diet order to approve she feels better, some improvement in exam Vitals/I&O Vitals/I&O: Vital Signs Date Time Temp Pulse Resp B/P (MAP) Pulse Ox O2 Delivery O2 Flow Rate FiO2 12/03/20 10:27 Nasal Cannula 3.0 12/03/20 08:01 73 165/67 12/03/20 07:51 98 12/03/20 07:00 98.6 18 98.6 I & O 12/02/20 12/02/20 12/03/20 15:00 23:00 07:00 Intake Total 200 ml Output Total 300 ml 350 ml Balance 200 ml -300 ml -350 ml Physical Exam Physical Exam: neuro better, left hand movement adn talking better, General: Alert, Cooperative, mild distress Heart: Regular rate, Normal S1, Other (distant heart tones, IRRR; tele AFIB with RVR) Lungs: Clear Abdomen: Soft Extremities: No clubbing, Normal pulses, Other (1+ bilateral UE edema. ) Skin: No rashes, No significant lesion Labs Labs: Laboratory Tests Test 12/02/20 18:30 12/03/20 09:40 Urine Collection Type Unknown Urine Color Brown Urine Clarity Turbid Urine pH 6.0 (<5.0-8.0) Urine Specific [place] >=1.030 (1.000-1.030) Urine Protein 100 mg/dL (NEG-TRACE) Urine Glucose (UA) Negative mg/dL (NEG) Urine Ketones (Stick) 15 mg/dL (NEG) Urine Blood Large (NEG) Urine Nitrite Negative (NEG) Urine Bilirubin Moderate (NEG) Urine Urobilinogen Dipstick 1.0 mg/dL (0.2 mg/dL) Urine Leukocyte Esterase Small (NEG) Urine RBC Tntc /HPF (0-2) Urine WBC 5-10 /HPF (0-4) Urine Squamous Epithelial Cells Occ /LPF Urine Amorphous Sediment Present /HPF Urine Bacteria Few /HPF (0-FEW) White Blood Count 11.0 x10^3/uL (4.0-11.0) Red Blood Count 3.10 x10^6/uL (3.50-5.40) Hemoglobin 10.1 g/dL (12.0-15.5) Hematocrit 30.2 % (36.0-47.0) Mean Corpuscular Volume 97 fL (79-100) Mean Corpuscular Hemoglobin 32 pg (25-35) Mean Corpuscular Hemoglobin Concent 33 g/dL (31-37) Red Cell Distribution Width 13.5 % (11.5-14.5) Platelet Count 336 x10^3/uL (140-400) Neutrophils (%) (Auto) 80 % (31-73) Lymphocytes (%) (Auto) 9 % (24-48) Monocytes (%) (Auto) 7 % (0-9) Eosinophils (%) (Auto) 4 % (0-3) Basophils (%) (Auto) 1 % (0-3) Neutrophils # (Auto) 8.8 x10^3/uL (1.8-7.7) Lymphocytes # (Auto) 1.0 x10^3/uL (1.0-4.8) Monocytes # (Auto) 0.7 x10^3/uL (0.0-1.1) Eosinophils # (Auto) 0.4 x10^3/uL (0.0-0.7) Basophils # (Auto) 0.1 x10^3/uL (0.0-0.2) Assessment and Plan Assessmemt and Plan Problems Medical Problems: (1) Acute CVA (cerebrovascular accident) Status: Acute (2) Hypoxia Status: Acute (3) Lactic acidosis Status: Acute (4) Pulmonary vascular congestion Status: Acute (5) Suspected 2019 novel coronavirus infection Status: Acute Comment Review of Relevant I have reviewed the following items gerry (where applicable) has been applied. Medications: Current Medications Medications (Trade) Dose Ordered Sig/Radha Route PRN Reason Start Time Stop Time Status Last Admin Dose Admin Ringer's Solution 1,000 ml @ 100 mls/hr Q10H IV 12/02/20 12:30 12/03/20 09:32 DC 12/02/20 12:40 Info (Anti-Coagulation Monitoring By Pharmacy) 1 each PRN DAILY PRN MC SEE COMMENTS 12/02/20 16:15 12/03/20 08:13 Aspirin (Aspirin Chewable) 81 mg [id number] PO 12/03/20 08:00 12/03/20 09:44 DC 12/03/20 07:59 Justifications for Admission Other Justification AKIL MCCARTY MD Dec 03, 2020 11:43
--- NOTE | 2020-12-03 12:35 | PDOC ---
REYES ANDERSEN TECHNICAL PROJECT MANAGER 12/03/20 1235: CARDIO Progress Notes Date and Time Date of Service 12/03/2020 Time of Evaluation 0930 Subjective Subjective: No Chest Pain, No shortness of breath, No Palpitations, Other (tolerating rehab doing activity with them currently ) Vitals Vitals Vital Signs Date Time Temp Pulse Resp B/P (MAP) Pulse Ox O2 Delivery O2 Flow Rate FiO2 12/03/20 12:25 98 Nasal Cannula 3.0 12/03/20 08:01 73 165/67 12/03/20 07:00 98.6 18 98.6 Weight Weight [ ] Input and Output Intake and Output Intake and Output 12/03/20 07:00 Intake Total 200 ml Output Total 650 ml Balance -450 ml IV Total 200 ml Output Urine Total 650 ml # Bowel Movements 1 Laboratory Labs Laboratory Tests Test 12/02/20 18:30 12/03/20 09:40 Urine Collection Type Unknown Urine Color Brown Urine Clarity Turbid Urine pH 6.0 (<5.0-8.0) Urine Specific [place] >=1.030 (1.000-1.030) Urine Protein 100 mg/dL (NEG-TRACE) Urine Glucose (UA) Negative mg/dL (NEG) Urine Ketones (Stick) 15 mg/dL (NEG) Urine Blood Large (NEG) Urine Nitrite Negative (NEG) Urine Bilirubin Moderate (NEG) Urine Urobilinogen Dipstick 1.0 mg/dL (0.2 mg/dL) Urine Leukocyte Esterase Small (NEG) Urine RBC Tntc /HPF (0-2) Urine WBC 5-10 /HPF (0-4) Urine Squamous Epithelial Cells Occ /LPF Urine Amorphous Sediment Present /HPF Urine Bacteria Few /HPF (0-FEW) White Blood Count 11.0 x10^3/uL (4.0-11.0) Red Blood Count 3.10 x10^6/uL (3.50-5.40) Hemoglobin 10.1 g/dL (12.0-15.5) Hematocrit 30.2 % (36.0-47.0) Mean Corpuscular Volume 97 fL (79-100) Mean Corpuscular Hemoglobin 32 pg (25-35) Mean Corpuscular Hemoglobin Concent 33 g/dL (31-37) Red Cell Distribution Width 13.5 % (11.5-14.5) Platelet Count 336 x10^3/uL (140-400) Neutrophils (%) (Auto) 80 % (31-73) Lymphocytes (%) (Auto) 9 % (24-48) Monocytes (%) (Auto) 7 % (0-9) Eosinophils (%) (Auto) 4 % (0-3) Basophils (%) (Auto) 1 % (0-3) Neutrophils # (Auto) 8.8 x10^3/uL (1.8-7.7) Lymphocytes # (Auto) 1.0 x10^3/uL (1.0-4.8) Monocytes # (Auto) 0.7 x10^3/uL (0.0-1.1) Eosinophils # (Auto) 0.4 x10^3/uL (0.0-0.7) Basophils # (Auto) 0.1 x10^3/uL (0.0-0.2) Microbiology Micro Microbiology 12/01/20 Blood Culture - Preliminary, Resulted NO GROWTH AFTER 2 DAYS Physical Exam HEENT: Neck Supple W Full Motion Chest: Symmetric LUNGS: Other (diminished bases) Heart: irregularly irregular (AFIB, rate 70) Abdomen: Soft N/T, Other (obese NGT in place) Extremities: No Edema, No Calf Tenderness Neurology: alert, oriented, follow commands Assessment Assessment 1. 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 s/p TPA 11/22 2. PAFIB; Declined OAC multiple times in past. remains is AFIB, rate is controlled 3. Hypertensive urgency; off Cardene. BP now controlled 4. Acute respiratory failure with underlying COPD; improved. on RA 5. Acute on chronic diastolic CHF; compensated 6. Mild troponin elevation; highest 0.06. Most probable type II, demand ischemia. Echo with preserved LV systolic function 7. SHELLEY; Cr stable 1.5 8. Leukocytosis, fevers: none further overnight 9. Dysphagia : PEG pending today 10. Severe pulmonary hypertension; PAP 67 mmHg. 11. Hematuria: Hgb stable. will obtain UA Discussed with RN to securely anchor guerrero Recommendations Continue metoprolol for rate control, norvasc via PEG Low dose eliquis for stroke prevention once OK with GI post PEG, meantime continue ASA. PEG pending for today Lasix PRN Continue statin Consider outpatient CVN if OAC can safely be resumed Ongoing rehab modalities Supportive care Other Comments 1. 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 s/p TPA 11/22 2. PAFIB; Declined OAC multiple times in past. remains is AFIB, rate is controlled 3. Hypertensive urgency; off Cardene. BP now controlled 4. Acute respiratory failure with underlying COPD; improved. on RA 5. Acute on chronic diastolic CHF; compensated 6. Mild troponin elevation; highest 0.06. Most probable type II, demand ischemia. Echo with preserved LV systolic function 7. SHELLEY; Cr stable 1.5 8. Leukocytosis, fevers: none further overnight 9. Dysphagia : PEG in place 10. Severe pulmonary hypertension; PAP 67 mmHg. 11. Hematuria: Hgb stable. better, likely from UTI Recommendations Continue metoprolol for rate control, norvasc via PEG Low dose eliquis for stroke prevention to start tomorrow AM, discussed with GI, meantime continue ASA. Lasix PRN Continue statin Consider outpatient CVN. Also consider [facility] outpt referral. Ongoing rehab modalities Supportive care Justicifation of Admission Dx: Justifications for Admission: Justification of Admission Dx: Yes Stroke - Ischemic: Stroke-Ischemic RAMÓN WHITNEY MD 12/03/20 1729: CARDIO Progress Notes Plan Plan Patient seen and examined. Agree with above nurse practitioner note. Supportive care. Discussed with son at bedside. REYES ANDERSEN APRN Dec 03, 2020 12:35 RAMÓN WHITNEY MD Dec 03, 2020 17:29
--- NOTE | 2020-12-03 13:15 | NUR ---
SS following up with discharge planning. SS reviewed pt chart and discussed with pt RN. Pt is currently requiring three liters nasal canula. COVID19 negative. Pt had PEG placement on . Pt just starting tube feeds. Jevity 1.2 with a goal of 50 ml/hr. Pt is currently at 20ml/hr. Physicians requesting hold for one more day for tube feeds. Eliquis to be restarted in the morning. PT/OT recommended acute rehabilitation. Pt accepted at [facility], ; fax [phone]. SS phoned and faxed clinical updates to [facility]. Probable discharge to facility tomorrow. SS will continue to follow for discharge planning.
[2020-12-03 15:00] VITALS: BP 153/64
[2020-12-03] MEDS: ACETAMINOPHEN 325 MG TABLET. PO PRN ×2 (18:10→20:52)
[2020-12-03 19:51] VITALS: BP 189/48
[2020-12-03] MEDS: ATORVASTATIN CALCIUM 20 MG TABLET PO SCH (20:51)
[2020-12-03] MEDS: AMOXICILLIN/K CLAV 500/125MG TABLET. PEG SCH (20:51)
[2020-12-03] MEDS ORDERED: APIXABAN 2.5 MG TABLET. PO SCH (21:00)
[2020-12-03 23:06] VITALS: BP 92/62
[2020-12-04 03:30] VITALS: BP 133/58
[2020-12-04 07:00] VITALS: BP 123/60
[2020-12-04] MEDS: ALBUTEROL SULFATE 2.5 MG/3 ML NEBU. NEB SCH ×3 (07:58→15:47)
[2020-12-04] MEDS: BUDESONIDE 0.5 MG/2 ML NEBU. NEB SCH (07:58)
[2020-12-04] MEDS ORDERED: LANSOPRAZOLE 30 MG TAB.RAP.DR FT SCH (09:00)
[2020-12-04] MEDS ORDERED: APIXABAN 2.5 MG TABLET. PO SCH (09:00)
[2020-12-04] MEDS: CYANOCOBALAMIN (VITAMIN B-12) 1,000 MCG TABLET. PO SCH (09:11)
[2020-12-04] MEDS: ROFLUMILAST 500 MCG TABLET. PO SCH (09:12)
[2020-12-04] MEDS: AMOXICILLIN/K CLAV 500/125MG TABLET. PEG SCH (09:12)
[2020-12-04] MEDS: METOPROLOL TART IMMED RELEASE 50 MG TABLET. PO SCH (09:12)
[2020-12-04] MEDS: buPROPion XL 150 MG TAB.ER.24H. PO SCH (09:13)
--- NOTE | 2020-12-04 09:32 | PDOC ---
Date of Service: DATE: 12/04/20 TIME: 09:30 Subjective: Subjective: No abd pain. Family present - says might DC today. Objective: Objective: D/w nurse - tolerating tube feeds @ 40cc, loose stool x 1. Vital Signs: Vital Signs Date Time Temp Pulse Resp B/P (MAP) Pulse Ox O2 Delivery O2 Flow Rate FiO2 12/04/20 09:13 67 123/60 12/04/20 08:01 98 Nasal Cannula 3.0 12/04/20 07:00 98.6 18 98.6 Labs: Laboratory Tests Test 12/03/20 09:40 White Blood Count 11.0 x10^3/uL Red Blood Count 3.10 x10^6/uL Hemoglobin 10.1 g/dL Hematocrit 30.2 % Mean Corpuscular Volume 97 fL Mean Corpuscular Hemoglobin 32 pg Mean Corpuscular Hemoglobin Concent 33 g/dL Red Cell Distribution Width 13.5 % Platelet Count 336 x10^3/uL Neutrophils (%) (Auto) 80 % Lymphocytes (%) (Auto) 9 % Monocytes (%) (Auto) 7 % Eosinophils (%) (Auto) 4 % Basophils (%) (Auto) 1 % Neutrophils # (Auto) 8.8 x10^3/uL Lymphocytes # (Auto) 1.0 x10^3/uL Monocytes # (Auto) 0.7 x10^3/uL Eosinophils # (Auto) 0.4 x10^3/uL Basophils # (Auto) 0.1 x10^3/uL BLOOD CULTURE Preliminary NO GROWTH AFTER 2 DAYS PE: GEN: NAD LUNGS: clear, NC 3L HEART: irregular ABD: soft, non-tender, PEG site clean/dry and bumper w/ appropriate tension, abd binder replaced NEURO/PSYCH: A & O 3 A/P: A Fib, CVA, s/p PEG GERD -- Tolerating tube feeds. Continue abd binder and PPI. DC per primary. Justicifation of Admission Dx: Justifications for Admission: Justification of Admission Dx: Yes Stroke - Ischemic: Stroke-Ischemic MANNY BLUE Dec 04, 2020 09:32
[2020-12-04 10:37] VITALS: BP 121/65
[2020-12-04] MEDS: ANTI-COAG MONITOR BY PHARMACY. MC PRN (11:04)
[2020-12-04] MEDS ORDERED: APIX2.5T PO (11:50)
[2020-12-04] MEDS ORDERED: METO50TA6 PO (11:50)
[2020-12-04] MEDS ORDERED: AMLO-187 PO (11:50)
[2020-12-04] MEDS ORDERED: ATOR20TA58 PO (11:50)
--- NOTE | 2020-12-04 11:53 | SNU/HH DC ---
DISCHARGE ORDERS DISCHARGE INFORMATION: DISCHARGE DATE: Dec 04, 2020 FINAL DIAGNOSIS Problems Medical Problems: (1) Acute CVA (cerebrovascular accident) Status: Acute (2) Hypoxia Status: Acute (3) Lactic acidosis Status: Acute (4) Pulmonary vascular congestion Status: Acute (5) Suspected 2019 novel coronavirus infection Status: Acute CONDITION ON DISCHARGE: Stable CODE STATUS: Code Status: Full JAIL: SNF STAY <30 DAYS: Yes POST DISCHARGE ORDERS: ACTIVITY ORDERS: Activity as tolerated WEIGHT BEARING STATUS: As tolerated WOUND/INCISION CARE: Change dressing, Reinforce dressing PRN, Routine catheter care OTHER WOUND INSTRUCTIONS: Please check PEG tube wound site every 6 hours while awake FOLLOW-UP: PHYSICIAN FOLLOW-UP: PCP within 2 weeks of discharge ADDITIONAL FOLLOW-UP: GI consult as needed for PEG tube management LAB ORDERS FOR FOLLOW-UP: CBC, CMP, INR ANTICOAGULATION F/U NEEDED: Eliquis TREATMENT/EQUIPMENT ORDERS: Physical Therapy For: Evalulation/Treatment Occupational Therapy For: Evaluation/Treatment DISCHARGE MEDICATIONS: Home Meds Active Scripts Ondansetron Hcl (ZOFRAN) 4 Mg Tablet, 1 TAB PO PRN Q6-8HRS PRN for NAUSEA, #5 TAB Prov:STANLEY SMITH DO 06/11/18 Reported Medications Guaifenesin/Dextromethorphan (MUCINEX DM ER 600-30 MG TABLET) 1 Each Tab.er.12h, 1 TAB PO BID PRN for cough and congestion for 14 Days, #28 TAB 0 Refills 11/23/20 Aspirin (ASPIRIN) 325 Mg Tablet, 1 TAB PO DAILY for CAD, #30 TAB 5 Refills 11/23/20 Cyanocobalamin (Vitamin B-12) (VITAMIN B-12) 1,000 Mcg Tablet, 1 TAB PO DAILY for supplement for 30 Days, #30 TAB 0 Refills 11/23/20 Mv-Mn/Iron/Fa/Herbal Cmplx#190 (VITAMIN D3 COMPLETE CAPLET) 1 Each Tablet, 1 EACH PO DAILY for supplement, TAB 11/23/20 Ascorbic Acid (VITAMIN C) 500 Mg Capsule.er, 2 CAP PO BID for Supplement for 30 Days, #120 CAP 0 Refills 11/23/20 Metoprolol Tartrate (METOPROLOL TARTRATE) 25 Mg Tablet, 1 TAB PO BID for Afib, rate control, #180 TAB 1 Refill 11/23/20 Dronedarone Hcl (MULTAQ) 400 Mg Tablet, 1 TAB PO BID for Afib, #180 TAB 1 Refill 11/23/20 Fluticasone Propionate (FLOVENT 44MCG HFA) 10.6 Gm Aer.w.adap, 10.6 GM IH DAILY 07/29/15 Levalbuterol Tartrate (XOPENEX HFA) 15 Gm Hfa.aer.ad, 15 GM IH PRN for SHORTNESS OF BREATH 07/20/14 Verapamil Hcl (VERAPAMIL ER) 120 Mg Tablet.er, 120 MG PO DAILY, TAB.SR 07/20/14 Pravastatin Sodium (PRAVASTATIN SODIUM) 80 Mg Tablet, 80 MG PO DAILY, TAB 07/20/14 Roflumilast (DALIRESP) 500 Mcg Tablet, 500 MCG PO DAILY 07/20/14 Bupropion Hcl (WELLBUTRIN XL) 300 Mg Tab.er.24h, 300 MG PO DAILY, TAB.SR 07/20/14 Albuterol Sulfate (ALBUTEROL SULFATE CONC NEB SOLN) 2.5 Mg/0.5 Ml Vial.neb, 1 VIAL NEB QID, #120 VIAL 5 Refills 07/20/14 Fluticasone/Salmeterol (ADVAIR 250-50 DISKUS) 1 Each Disk.w.dev, 1 PUFF IH BID, #1 INHALER 5 Refills 07/20/14 AKIL MCCARTY MD Dec 04, 2020 11:53
--- NOTE | 2020-12-04 11:57 | SNU/HH DC ---
DISCHARGE ORDERS DISCHARGE INFORMATION: DISCHARGE DATE: Dec 04, 2020 FINAL DIAGNOSIS Problems Medical Problems: (1) Acute CVA (cerebrovascular accident) Status: Acute (2) Hypoxia Status: Acute (3) Lactic acidosis Status: Acute (4) Pulmonary vascular congestion Status: Acute (5) Suspected 2019 novel coronavirus infection Status: Acute CONDITION ON DISCHARGE: Stable CODE STATUS: Code Status: Full JAIL: SNF STAY <30 DAYS: Yes POST DISCHARGE ORDERS: ACTIVITY ORDERS: Activity as tolerated WEIGHT BEARING STATUS: As tolerated WOUND/INCISION CARE: Change dressing, Reinforce dressing PRN, Routine catheter care OTHER WOUND INSTRUCTIONS: Please check PEG tube wound site every 6 hours while awake FOLLOW-UP: PHYSICIAN FOLLOW-UP: PCP within 2 weeks of discharge ADDITIONAL FOLLOW-UP: GI consult as needed for PEG tube management LAB ORDERS FOR FOLLOW-UP: CBC, CMP, INR ANTICOAGULATION F/U NEEDED: Eliquis TREATMENT/EQUIPMENT ORDERS: Physical Therapy For: Evalulation/Treatment Occupational Therapy For: Evaluation/Treatment DISCHARGE MEDICATIONS: Home Meds Active Scripts Amlodipine Besylate (AMLODIPINE BESYLATE) 10 Mg Tablet, 10 MG PO DAILY for blood pressure for 30 Days, #30 TAB Prov:AKIL MCCARTY MD 12/04/20 Metoprolol Tartrate (METOPROLOL TARTRATE) 50 Mg Tablet, 50 MG PO BID for heart rate for 30 Days, #60 TAB Prov:AKIL MCCARTY MD 12/04/20 Atorvastatin Calcium (ATORVASTATIN CALCIUM) 20 Mg Tablet, 20 MG PO QHS for cholesterol for 30 Days, #30 TAB Prov:AKIL MCCARTY MD 12/04/20 Apixaban (ELIQUIS) 2.5 Mg Tablet, 2.5 MG PO BID for afib for 30 Days, #60 TAB Prov:AKIL MCCARTY MD 12/04/20 Ondansetron Hcl (ZOFRAN) 4 Mg Tablet, 1 TAB PO PRN Q6-8HRS PRN for NAUSEA, #5 TAB Prov:STANLEY SMITH DO 06/11/18 Reported Medications Guaifenesin/Dextromethorphan (MUCINEX DM ER 600-30 MG TABLET) 1 Each Tab.er.12h, 1 TAB PO BID PRN for cough and congestion for 14 Days, #28 TAB 0 Refills 11/23/20 Cyanocobalamin (Vitamin B-12) (VITAMIN B-12) 1,000 Mcg Tablet, 1 TAB PO DAILY for supplement for 30 Days, #30 TAB 0 Refills 11/23/20 Mv-Mn/Iron/Fa/Herbal Cmplx#190 (VITAMIN D3 COMPLETE CAPLET) 1 Each Tablet, 1 EAC H PO DAILY for supplement, TAB 11/23/20 Ascorbic Acid (VITAMIN C) 500 Mg Capsule.er, 2 CAP PO BID for Supplement for 30 Days, #120 CAP 0 Refills 11/23/20 Dronedarone Hcl (MULTAQ) 400 Mg Tablet, 1 TAB PO BID for Afib, #180 TAB 1 Refill 11/23/20 Fluticasone Propionate (FLOVENT 44MCG HFA) 10.6 Gm Aer.w.adap, 10.6 GM IH DAILY 07/29/15 Levalbuterol Tartrate (XOPENEX HFA) 15 Gm Hfa.aer.ad, 15 GM IH PRN for SHORTNESS OF BREATH 07/20/14 Verapamil Hcl (VERAPAMIL ER) 120 Mg Tablet.er, 120 MG PO DAILY, TAB.SR 07/20/14 Roflumilast (DALIRESP) 500 Mcg Tablet, 500 MCG PO DAILY 07/20/14 Bupropion Hcl (WELLBUTRIN XL) 300 Mg Tab.er.24h, 300 MG PO DAILY, TAB.SR 07/20/14 Albuterol Sulfate (ALBUTEROL SULFATE CONC NEB SOLN) 2.5 Mg/0.5 Ml Vial.neb, 1 VIAL NEB QID, #120 VIAL 5 Refills 07/20/14 Fluticasone/Salmeterol (ADVAIR 250-50 DISKUS) 1 Each Disk.w.dev, 1 PUFF IH BID, #1 INHALER 5 Refills 07/20/14 Discontinued Reported Medications Aspirin (ASPIRIN) 325 Mg Tablet, 1 TAB PO DAILY for CAD, #30 TAB 5 Refills 11/23/20 Metoprolol Tartrate (METOPROLOL TARTRATE) 25 Mg Tablet, 1 TAB PO BID for Afib, rate control, #180 TAB 1 Refill 11/23/20 Pravastatin Sodium (PRAVASTATIN SODIUM) 80 Mg Tablet, 80 MG PO DAILY, TAB 07/20/14 AKIL MCCARTY MD Dec 04, 2020 11:57
--- NOTE | 2020-12-04 12:08 | NUR ---
SS following up with discharge planning. SS reviewed pt chart and discussed with pt RN. Pt is currently requiring oxygen at three liters nasal canula. PT/OT recommended acute rehabilitation. Pt accepted at [facility]. SS phoned and faxed nutrition notes and updated clinical to [facility]. Discharge orders received and phoned and faxed to [facility], ; fax [phone]. SS discussed with Steve Benavides at [facility] and pt's son. SS currently awaiting transportation time from [facility]. SS will continue to follow for discharge planning.
--- NOTE | 2020-12-04 13:02 | PDOC ---
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 Her strength is improving, clinically she looks great considering. Recurrence of atrial fibrillation COPD exacerbation, better Hypertension, history of COVID-19 Pulmonary hypertension Neurogenic dysphagia, status-post PEG COPD worsening and atrial fibrillation, required rapid response night of 11/30 Plan Switched to apixaban 2.5 mg twice daily Stopped enoxaparin and aspirin Statin, low intensity given favorable lipid profile PT/OT/ST Transfer to SNU for inpatient rehabilitation Discussed with family Subjective No complaints Objective Vital Signs Date Time Temp Pulse Resp B/P (MAP) Pulse Ox O2 Delivery O2 Flow Rate FiO2 12/04/20 12:30 Nasal Cannula 3.0 12/04/20 10:37 98.2 71 18 121/65 (83) 99 98.2 Intake and Output 12/04/20 07:00 Intake Total 375 ml Output Total 675 ml Balance -300 ml Intake Oral 0 ml Tube Feeding 375 ml Output Urine Total 675 ml # Bowel Movements 2 PHYSICAL EXAM Alert, replies, moves to command, knows location, not date PERRL. EOMI. CN: Left field cut, left central facial weakness. Muscle tone: normal. Muscle strength: 4/5 left hemiparesis DTR: 2+ Plantar reflex: Flexor Gait: not examined in bed. Sensory exam: no abnormal findings. No cerebellar signs elicited. Review of Relevant I have reviewed the following items gerry (where applicable) has been applied. Labs Laboratory Tests Test 12/02/20 18:30 12/03/20 09:40 Urine Collection Type Unknown Urine Color Brown Urine Clarity Turbid Urine pH 6.0 (<5.0-8.0) Urine Specific [place] >=1.030 (1.000-1.030) Urine Protein 100 mg/dL (NEG-TRACE) Urine Glucose (UA) Negative mg/dL (NEG) Urine Ketones (Stick) 15 mg/dL (NEG) Urine Blood Large (NEG) Urine Nitrite Negative (NEG) Urine Bilirubin Moderate (NEG) Urine Urobilinogen Dipstick 1.0 mg/dL (0.2 mg/dL) Urine Leukocyte Esterase Small (NEG) Urine RBC Tntc /HPF (0-2) Urine WBC 5-10 /HPF (0-4) Urine Squamous Epithelial Cells Occ /LPF Urine Amorphous Sediment Present /HPF Urine Bacteria Few /HPF (0-FEW) White Blood Count 11.0 x10^3/uL (4.0-11.0) Red Blood Count 3.10 x10^6/uL (3.50-5.40) Hemoglobin 10.1 g/dL (12.0-15.5) Hematocrit 30.2 % (36.0-47.0) Mean Corpuscular Volume 97 fL (79-100) Mean Corpuscular Hemoglobin 32 pg (25-35) Mean Corpuscular Hemoglobin Concent 33 g/dL (31-37) Red Cell Distribution Width 13.5 % (11.5-14.5) Platelet Count 336 x10^3/uL (140-400) Neutrophils (%) (Auto) 80 % (31-73) Lymphocytes (%) (Auto) 9 % (24-48) Monocytes (%) (Auto) 7 % (0-9) Eosinophils (%) (Auto) 4 % (0-3) Basophils (%) (Auto) 1 % (0-3) Neutrophils # (Auto) 8.8 x10^3/uL (1.8-7.7) Lymphocytes # (Auto) 1.0 x10^3/uL (1.0-4.8) Monocytes # (Auto) 0.7 x10^3/uL (0.0-1.1) Eosinophils # (Auto) 0.4 x10^3/uL (0.0-0.7) Basophils # (Auto) 0.1 x10^3/uL (0.0-0.2) Microbiology 12/02/20 Urine Culture - Final, Complete 12/01/20 Blood Culture - Preliminary, Resulted NO GROWTH AFTER 3 DAYS Medications Current Medications Sodium Chloride 1,000 ml @ 1,000 mls/hr Q1H IV Last administered on 11/22/20at 19:31; Start 11/22/20 at 19:15; Stop 11/22/20 at 20:14; Status DC Alteplase, Recombinant 9 ml @ 540 mls/hr 1X ONCE IV Last administered on 11/22/20at 19:57; Start 11/22/20 at 19:45; Stop 11/22/20 at 19:46; Status DC Alteplase, Recombinant 81 ml @ 81 mls/hr Q1H IV Last administered on 11/22/20at 20:00; Start 11/22/20 at 19:45; Stop 11/22/20 at 20:44; Status DC Sodium Chloride 50 ml @ 200 mls/hr 1X ONCE IV Last administered on 11/22/20at 20:10; Start 11/22/20 at 19:45; Stop 11/22/20 at 19:59; Status DC Alteplase, Recombinant 10 ml @ 600 mls/hr 1X ONCE IV ; Start 11/22/20 at 19:45; Stop 11/22/20 at 19:46; Status UNV Alteplase, Recombinant 90 ml @ 90 mls/hr 1X ONCE IV ; Start 11/22/20 at 19:45; Stop 11/22/20 at 20:44; Status UNV Sodium Chloride 50 ml @ 50 mls/hr 1X ONCE IV ; Start 11/22/20 at 19:45; Stop 11/22/20 at 20:44; Status UNV Aspirin (Aspirin Rectal Supp) 300 mg 1X ONCE UT Last administered on 11/22/20at 20:16; Start 11/22/20 at 19:45; Stop 11/22/20 at 19:48; Status DC Iohexol (Omnipaque 300 Mg/ml) 60 ml 1X ONCE IV Last administered on 11/22/20at 20:38; Start 11/22/20 at 20:15; Stop 11/22/20 at 20:16; Status DC Info (CONTRAST GIVEN -- Rx MONITORING) 1 each PRN DAILY PRN MC SEE COMMENTS; Start 11/22/20 at 20:30; Stop 11/24/20 at 20:29; Status DC Ondansetron HCl (Zofran) 4 mg PRN Q8HRS PRN IV NAUSEA/VOMITING 1ST CHOICE Last administered on 11/23/20at 04:05; Start 11/22/20 at 21:45; Stop 11/23/20 at 21:44; Status DC Bumetanide (Bumex) 0.5 mg 1X ONCE IV Last administered on 11/23/20at 00:51; Start 11/22/20 at 23:30; Stop 11/22/20 at 23:31; Status DC Labetalol HCl (Normodyne Iv Push) 10 mg PRN Q10MIN PRN IVP HYPERTENSION Last administered on 11/24/20at 13:07; Start 11/23/20 at 02:15; Stop 11/24/20 at 15:00; Status DC Nicardipine HCl 50 mg/Sodium Chloride 250 ml @ 25 mls/hr CONT PRN PRN IV HYPERTENSION Last administered on 11/23/20at 15:53; Start 11/23/20 at 02:15; Stop 11/24/20 at 09:35; Status DC Potassium Chloride/Water 100 ml @ 100 mls/hr Q1H IV Last administered on 11/23/20at 07:34; Start 11/23/20 at 03:00; Stop 11/23/20 at 06:59; Status DC Magnesium Sulfate 50 ml @ 25 mls/hr 1X ONCE IV Last administered on 11/23/20at 04:31; Start 11/23/20 at 03:00; Stop 11/23/20 at 04:59; Status DC Amino Acids/ Glycerin/ Electrolytes 1,000 ml @ 80 mls/hr [id number] IV Last administered on 11/28/20at 03:16; Start 11/23/20 at 11:30; Stop 12/02/20 at 08:46; Status DC Cyanocobalamin (Vitamin B-12) 1,000 mcg DAILY PO Last administered on 12/04/20at 09:11; Start 11/24/20 at 09:00 Dronedarone (Multaq) 400 mg BID PO ; Start 11/23/20 at 21:00; Stop 11/27/20 at 15:13; Status DC Guaifenesin (MUCINEX ER with DM) 1 tab PRN BID PRN PO cough and congestion Last administered on 11/30/20at 21:27; Start 11/23/20 at 12:00 Metoprolol Tartrate (Lopressor) 25 mg BID PO ; Start 11/23/20 at 21:00; Stop 11/28/20 at 10:35; Status DC Roflumilast (Daliresp) 500 mcg DAILY PO Last administered on 12/04/20at 09:12; Start 11/24/20 at 09:00 Verapamil HCl (Calan Sr) 120 mg DAILY PO ; Start 11/23/20 at 13:00; Stop 11/28/20 at 10:35; Status DC Albuterol Sulfate (Ventolin Neb Soln) 2.5 mg RTQID NEB Last administered on 12/04/20at 12:29; Start 11/23/20 at 16:00 Bupropion HCl (Wellbutrin Xl) 300 mg DAILY PO Last administered on 12/04/20at 09:13; Start 11/23/20 at 13:00 Non-Formulary Medication (Fluticasone Propionate (Flovent 44MCG Hfa)) 10.6 gm DAILY IH ; Start 11/24/20 at 09:00; Status UNV Non-Formulary Medication (Fluticasone/ Salmeterol (Advair 250-50 Diskus)) 1 puff BID IH ; Start 11/23/20 at 21:00; Status UNV Atorvastatin Calcium (Lipitor) 20 mg QHS PO Last administered on 12/03/20at 20:51; Start 11/23/20 at 21:00 Budesonide (Pulmicort) 0.5 mg RTBID NEB Last administered on 11/27/20at 07:24; Start 11/23/20 at 20:00; Stop 11/27/20 at 15:13; Status DC Metoprolol Tartrate (Lopressor Vial) 2.5 mg Q6HRS IVP Last administered on 11/25/20at 05:31; Start 11/23/20 at 18:00; Stop 11/25/20 at 08:41; Status DC Metoprolol Tartrate (Lopressor Vial) 2.5 mg 1X ONCE IVP Last administered on 11/23/20at 13:01; Start 11/23/20 at 13:00; Stop 11/23/20 at 13:01; Status DC Azithromycin 250 ml @ 250 mls/hr 1X ONCE IV ; Start 11/23/20 at 14:15; Stop 11/23/20 at 15:14; Status UNV Azithromycin 500 mg/Sodium Chloride 250 ml @ 250 mls/hr Q24H IV Last administered on 12/02/20at 16:19; Start 11/23/20 at 16:00; Stop 12/03/20 at 13:29; Status DC Aspirin (Ecotrin) 81 mg DAILYWBKFT PO ; Start 11/23/20 at 23:30; Stop 11/27/20 at 15:07; Status DC Clopidogrel Bisulfate (Plavix) 75 mg 1X ONCE PO ; Start 11/23/20 at 23:30; Stop 11/23/20 at 23:31; Status DC Clopidogrel Bisulfate (Plavix) 75 mg DAILYWBKFT PO ; Start 11/24/20 at 08:00; Stop 11/27/20 at 15:07; Status DC Diltiazem HCl 125 mg/Sodium Chloride 125 ml @ 5 mls/hr CONT PRN IV SEE ADMIN INSTRUCTIONS Last administered on 11/24/20at 00:17; Start 11/23/20 at 23:45; Stop 11/28/20 at 10:32; Status DC Labetalol HCl (Normodyne Iv Push) 10 mg PRN Q10MIN PRN IVP HYPERTENSION, 1ST CHOICE Last administered on 11/25/20at 03:05; Start 11/24/20 at 08:45; Stop 12/01/20 at 02:30; Status DC Nicardipine HCl 50 mg/Sodium Chloride 250 ml @ 25 mls/hr CONT PRN PRN IV HYPERTENSION, See comments Last administered on 11/28/20at 00:04; Start 11/24/20 at 08:45; Stop 11/28/20 at 10:32; Status DC Acetaminophen (Tylenol) 650 mg PRN Q6HRS PRN PO MILD PAIN / TEMP > 100.3'F Last administered on 12/03/20at 20:52; Start 11/24/20 at 08:45 Acetaminophen (Tylenol Supp) 650 mg PRN Q6HRS PRN UT MILD PAIN / TEMP > 100.3'F Last administered on 12/01/20at 02:40; Start 11/24/20 at 08:45 Ondansetron HCl (Zofran) 4 mg PRN Q6HRS PRN IVP NAUSEA/VOMITING Last administered on 12/01/20at 02:40; Start 11/24/20 at 08:45 Enoxaparin Sodium (Lovenox 30mg Syringe) 30 mg Q24H SQ Last administered on 11/30/20at 08:23; Start 11/24/20 at 08:45; Stop 11/30/20 at 12:10; Status DC Saliva Substitute (Biotene Moisturizing Mouth) 2 spray PRN Q15MIN PRN PO DRY MOUTH Last administered on 11/24/20at 16:37; Start 11/24/20 at 15:45 Haloperidol Lactate (Haldol Inj) 5 mg PRN Q6HRS PRN IVP AGITATION Last administered on 11/25/20at 05:55; Start 11/25/20 at 05:45 Metoprolol Tartrate (Lopressor Vial) 5 mg Q6HRS IVP Last administered on 11/28/20at 05:41; Start 11/25/20 at 09:00; Stop 11/28/20 at 10:35; Status DC Digoxin (Lanoxin) 500 mcg 1X ONCE IV Last administered on 11/25/20at 12:23; Start 11/25/20 at 12:00; Stop 11/25/20 at 12:01; Status DC Methylprednisolone Sodium Succinate (SOLU-Medrol 40MG VIAL) 40 mg 1X ONCE IV Last administered on 11/25/20at 14:01; Start 11/25/20 at 14:00; Stop 11/25/20 at 14:01; Status DC Budesonide (Pulmicort) 0.5 mg RTBID NEB Last administered on 12/04/20at 07:58; Start 11/25/20 at 20:00 Aspirin (Aspirin Rectal Supp) 300 mg PRN DAILY PRN UT IF UNABLE TO TAKE PO Last administered on 11/28/20at 08:39; Start 11/25/20 at 14:00; Stop 12/03/20 at 09:44; Status DC Hydralazine HCl (Apresoline Inj) 10 mg PRN Q4HRS PRN IVP ELEVATED BP, 2ND CHOICE Last administered on 12/01/20at 01:40; Start 11/25/20 at 15:00 Aspirin (Aspirin Rectal Supp) 300 mg 1X ONCE UT Last administered on 11/25/20at 22:21; Start 11/25/20 at 21:00; Stop 11/25/20 at 21:01; Status DC Labetalol HCl (Normodyne Iv Push) 20 mg 1X ONCE IVP Last administered on 11/25/20at 15:40; Start 11/25/20 at 15:45; Stop 11/25/20 at 15:46; Status DC Sodium Chloride 1,000 ml @ 100 mls/hr 1X ONCE IV ; Start 11/26/20 at 09:45; Stop 11/26/20 at 19:44; Status DC Furosemide (Lasix) 20 mg 1X ONCE IVP Last administered on 11/27/20at 15:37; Start 11/27/20 at 13:30; Stop 11/27/20 at 13:34; Status DC Barium Sulfate (Varibar Thin Liquid Apple) 148 gm 1X ONCE PO Last administered on 11/27/20at 13:43; Start 11/27/20 at 13:45; Stop 11/27/20 at 13:46; Status DC Lorazepam (Ativan Inj) 0.5 mg PRN QHS PRN IVP SLEEP Last administered on 11/30/20at 21:28; Start 11/27/20 at 15:15 Pantoprazole Sodium (PROTONIX VIAL for IV PUSH) 40 mg DAILYAC IVP Last administered on 12/03/20at 07:59; Start 11/27/20 at 15:15; Stop 12/03/20 at 09:21; Status DC Fentanyl Citrate (Fentanyl 2ml Vial) 25 mcg 1X ONCE IVP Last administered on 11/27/20at 15:36; Start 11/27/20 at 15:30; Stop 11/27/20 at 15:31; Status DC Metoprolol Tartrate (Lopressor) 50 mg BID PO Last administered on 12/01/20at 08:01; Start 11/28/20 at 21:00; Stop 12/01/20 at 19:34; Status DC Amlodipine Besylate (Norvasc) 10 mg DAILY PO Last administered on 12/04/20at 09:13; Start 11/28/20 at 12:00 Digoxin (Lanoxin) 250 mcg 1X ONCE IV Last administered on 11/28/20at 12:01; Start 11/28/20 at 10:45; Stop 11/28/20 at 10:46; Status DC Sodium Chloride 500 ml @ 500 mls/hr 1X ONCE IV Last administered on 11/29/20at 11:45; Start 11/29/20 at 11:30; Stop 11/29/20 at 12:29; Status DC Cefazolin Sodium/ Dextrose 50 ml @ 100 mls/hr 1X ONCE IV ; Start 12/01/20 at 12:00; Stop 12/01/20 at 12:29; Status DC Zolpidem Tartrate (Ambien) 5 mg PRN QHS PRN PO INSOMNIA Last administered on 11/30/20at 20:31; Start 11/30/20 at 15:30; Stop 12/01/20 at 02:30; Status DC Digoxin (Lanoxin) 500 mcg 1X ONCE IV Last administered on 12/01/20at 01:46; Start 12/01/20 at 01:45; Stop 12/01/20 at 01:46; Status DC Metoprolol Tartrate (Lopressor Vial) 5 mg Q6HRS IVP ; Start 12/01/20 at 06:00; Status Cancel Fentanyl Citrate (Fentanyl 2ml Vial) 50 mcg 1X ONCE IM ; Start 12/01/20 at 02:15; Stop 12/01/20 at 02:16; Status Cancel Metoprolol Tartrate (Lopressor Vial) 5 mg PRN Q6HRS PRN IVP HYPERTENSION Last administered on 12/01/20at 02:29; Start 12/01/20 at 02:30 Fentanyl Citrate (Fentanyl 2ml Vial) 25 mcg 1X ONCE IVP Last administered on 12/01/20at 02:42; Start 12/01/20 at 02:45; Stop 12/01/20 at 02:46; Status DC Piperacillin Sod/ Tazobactam Sod 3.375 gm/Sodium Chloride 50 ml @ 100 mls/hr 1X ONCE IV Last administered on 12/01/20at 03:30; Start 12/01/20 at 03:00; Stop 12/01/20 at 03:29; Status DC Furosemide (Lasix) 40 mg 1X ONCE IVP Last administered on 12/01/20at 02:59; Start 12/01/20 at 03:00; Stop 12/01/20 at 03:01; Status DC Piperacillin Sod/ Tazobactam Sod (Zosyn Per Pharmacy) 1 each PRN DAILY PRN MC SEE COMMENTS; Start 12/01/20 at 03:00; Stop 12/03/20 at 13:30; Status DC Vancomycin HCl 2 gm/Sodium Chloride 500 ml @ 250 mls/hr 1X ONCE IV Last administered on 12/01/20at 04:28; Start 12/01/20 at 03:30; Stop 12/01/20 at 05:29; Status DC Piperacillin Sod/ Tazobactam Sod 3.375 gm/Sodium Chloride 50 ml @ 100 mls/hr Q6HRS IV Last administered on 12/03/20at 13:03; Start 12/01/20 at 12:00; Stop 12/03/20 at 13:30; Status DC Metoprolol Tartrate (Lopressor) 75 mg BID PO Last administered on 12/03/20at 08:01; Start 12/01/20 at 21:00; Stop 12/03/20 at 12:26; Status DC Ringer's Solution 1,000 ml @ 100 mls/hr Q10H IV Last administered on 12/02/20at 12:40; Start 12/02/20 at 12:30; Stop 12/03/20 at 09:32; Status DC Propofol (Diprivan) 200 mg STK-MED ONCE IV ; Start 12/02/20 at 12:36; Stop 12/02/20 at 12:36; Status DC Lidocaine HCl (Lidocaine Pf 2% Vial) 5 ml STK-MED ONCE .ROUTE ; Start 12/02/20 at 12:36; Stop 12/02/20 at 12:37; Status DC Apixaban (Eliquis) 2.5 mg BID PO ; Start 12/02/20 at 21:00; Stop 12/02/20 at 17:48; Status DC Info (Anti-Coagulation Monitoring By Pharmacy) 1 each PRN DAILY PRN MC SEE COMMENTS Last administered on 12/04/20at 11:04; Start 12/02/20 at 16:15 Apixaban (Eliquis) 2.5 mg BID PO ; Start 12/03/20 at 21:00; Stop 12/03/20 at 10:26; Status DC Aspirin (Aspirin Chewable) 81 mg DAILYWBKFT PO Last administered on 12/03/20at 07:59; Start 12/03/20 at 08:00; Stop 12/03/20 at 09:44; Status DC Lansoprazole (Prevacid) 30 mg DAILY FT Last administered on 12/04/20at 09:12; Start 12/04/20 at 09:00 Apixaban (Eliquis) 2.5 mg BID PO Last administered on 12/04/20at 09:12; Start 12/04/20 at 09:00 Metoprolol Tartrate (Lopressor) 50 mg BID PO Last administered on 12/04/20at 09:12; Start 12/03/20 at 21:00 Amoxicillin/ Clavulanate Potassium (Augmentin 500/ 125mg) 1 tab BID PEG Last administered on 12/04/20at 09:12; Start 12/03/20 at 21:00; Stop 12/06/20 at 09:01 Active Scripts Active Amlodipine Besylate 10 Mg Tablet 10 Mg PO DAILY 30 Days Metoprolol Tartrate 50 Mg Tablet 50 Mg PO BID 30 Days Atorvastatin Calcium 20 Mg Tablet 20 Mg PO QHS 30 Days Eliquis (Apixaban) 2.5 Mg Tablet 2.5 Mg PO BID 30 Days Zofran (Ondansetron Hcl) 4 Mg Tablet 1 Tab PO PRN Q6-8HRS PRN Reported Mucinex Dm Er 600-30 Mg Tablet (Guaifenesin/Dextromethorphan) 1 Each Tab.er.12h 1 Tab PO BID PRN 14 Days Vitamin B-12 (Cyanocobalamin (Vitamin B-12)) 1,000 Mcg Tablet 1 Tab PO DAILY 30 Days Vitamin D3 Complete Caplet (Mv-Mn/Iron/Fa/Herbal Cmplx#190) 1 Each Tablet 1 Each PO DAILY Vitamin C (Ascorbic Acid) 500 Mg Capsule.er 2 Cap PO BID 30 Days Multaq (Dronedarone Hcl) 400 Mg Tablet 1 Tab PO BID Flovent 44MCG Hfa (Fluticasone Propionate) 10.6 Gm Aer.w.adap 10.6 Gm IH DAILY Xopenex Hfa (Levalbuterol Tartrate) 15 Gm Hfa.aer.ad 15 Gm IH PRN Verapamil Er (Verapamil Hcl) 120 Mg Tablet.er 120 Mg PO DAILY Daliresp (Roflumilast) 500 Mcg Tablet 500 Mcg PO DAILY Wellbutrin Xl (Bupropion Hcl) 300 Mg Tab.er.24h 300 Mg PO DAILY Albuterol Sulfate Conc Neb Soln (Albuterol Sulfate) 2.5 Mg/0.5 Ml Vial.neb 1 Vial NEB QID Advair 250-50 Diskus (Fluticasone/Salmeterol) 1 Each Disk.w.dev 1 Puff IH BID Vitals/I & O Vital Sign - Last 24 Hours 12/03/20 12/03/20 12/03/20 12/03/20 15:00 15:57 19:51 19:51 Temp 98.8 98.0 98.8 98.0 Pulse 70 71 Resp 20 18 B/P (MAP) 153/64 (93) 189/48 (95) Pulse Ox 99 96 94 O2 Delivery Nasal Cannula Nasal Cannula Nasal Cannula Nasal Cannula O2 Flow Rate 3.0 3.0 5.0 3.0 12/03/20 12/03/20 12/03/20 12/04/20 20:51 21:17 23:06 03:30 Temp 98.1 98.6 98.1 98.6 Pulse 71 74 64 Resp 18 18 B/P (MAP) 189/48 92/62 (72) 133/58 (83) Pulse Ox 98 95 99 O2 Delivery Nasal Cannula Nasal Cannula Nasal Cannula O2 Flow Rate 3.0 5.0 3.0 12/04/20 12/04/20 12/04/20 12/04/20 07:00 08:00 08:00 08:01 Temp 98.6 98.6 Pulse 67 Resp 18 B/P (MAP) 123/60 (81) Pulse Ox 92 98 98 O2 Delivery Nasal Cannula Nasal Cannula Nasal Cannula Nasal Cannula O2 Flow Rate 3.0 3.0 3.0 3.0 12/04/20 12/04/20 12/04/20 12/04/20 09:12 09:13 10:37 12:30 Temp 98.2 98.2 Pulse 67 67 71 Resp 18 B/P (MAP) 123/60 123/60 121/65 (83) Pulse Ox 99 O2 Delivery Nasal Cannula Nasal Cannula O2 Flow Rate 3.0 3.0 Intake and Output 12/03/20 12/03/20 12/04/20 15:00 23:00 07:00 Intake Total 250 ml 125 ml Output Total 375 ml 300 ml Balance -125 ml -175 ml Justicifation of Admission Dx: Justifications for Admission: Justification of Admission Dx: Yes Stroke - Ischemic: Stroke-Ischemic THOM POP MD Dec 04, 2020 13:02
[2020-12-04] MEDS ORDERED: AMOX1TAB10 PEG (13:13)
--- NOTE | 2020-12-04 13:13 | SNU/HH DC ---
DISCHARGE ORDERS DISCHARGE INFORMATION: DISCHARGE DATE: Dec 04, 2020 FINAL DIAGNOSIS Problems Medical Problems: (1) Acute CVA (cerebrovascular accident) Status: Acute (2) Hypoxia Status: Acute (3) Lactic acidosis Status: Acute (4) Pulmonary vascular congestion Status: Acute (5) Suspected 2019 novel coronavirus infection Status: Acute CONDITION ON DISCHARGE: Stable CODE STATUS: Code Status: Full LONG TERM: SNF STAY <30 DAYS: Yes POST DISCHARGE ORDERS: ACTIVITY ORDERS: Activity as tolerated WEIGHT BEARING STATUS: As tolerated WOUND/INCISION CARE: Change dressing, Reinforce dressing PRN, Routine catheter care OTHER WOUND INSTRUCTIONS: Please check PEG tube wound site every 6 hours while awake FOLLOW-UP: PHYSICIAN FOLLOW-UP: Dr. Russo (cardiology) 01/07/21 at 3pm at [facility] [phone] ADDITIONAL FOLLOW-UP: PCP in 1 week LAB ORDERS FOR FOLLOW-UP: CBC, CMP, INR ANTICOAGULATION F/U NEEDED: Eliquis TREATMENT/EQUIPMENT ORDERS: Physical Therapy For: Evalulation/Treatment Occupational Therapy For: Evaluation/Treatment DISCHARGE MEDICATIONS: Home Meds Active Scripts Amoxicillin/Potassium Clav (AMOX TR-K CLV 500-125 MG TAB) 1 Each Tablet, 1 TAB PEG BID for prophylaxis after PEG placemen for 3 Days, #6 TAB Prov:AKIL MCCARTY MD 12/04/20 Amlodipine Besylate (AMLODIPINE BESYLATE) 10 Mg Tablet, 10 MG PO DAILY for blood pressure for 30 Days, #30 TAB Prov:AKIL MCCARTY MD 12/04/20 Metoprolol Tartrate (METOPROLOL TARTRATE) 50 Mg Tablet, 50 MG PO BID for heart rate for 30 Days, #60 TAB Prov:AKIL MCCARTY MD 12/04/20 Atorvastatin Calcium (ATORVASTATIN CALCIUM) 20 Mg Tablet, 20 MG PO QHS for cholesterol for 30 Days, #30 TAB Prov:AKIL MCCARTY MD 12/04/20 Apixaban (ELIQUIS) 2.5 Mg Tablet, 2.5 MG PO BID for afib for 30 Days, #60 TAB Prov:AKIL MCCARTY MD 12/04/20 Ondansetron Hcl (ZOFRAN) 4 Mg Tablet, 1 TAB PO PRN Q6-8HRS PRN for NAUSEA, #5 TAB Prov:STANLEY SMITH DO 06/11/18 Reported Medications Guaifenesin/Dextromethorphan (MUCINEX DM ER 600-30 MG TABLET) 1 Each Tab.er.12h, 1 TAB PO BID PRN for cough and congestion for 14 Days, #28 TAB 0 Refills 11/23/20 Cyanocobalamin (Vitamin B-12) (VITAMIN B-12) 1,000 Mcg Tablet, 1 TAB PO DAILY for supplement for 30 Days, #30 TAB 0 Refills 11/23/20 Mv-Mn/Iron/Fa/Herbal Cmplx#190 (VITAMIN D3 COMPLETE CAPLET) 1 Each Tablet, 1 EACH PO DAILY for supplement, TAB 11/23/20 Ascorbic Acid (VITAMIN C) 500 Mg Capsule.er, 2 CAP PO BID for Supplement for 30 Days, #120 CAP 0 Refills 11/23/20 Fluticasone Propionate (FLOVENT 44MCG HFA) 10.6 Gm Aer.w.adap, 10.6 GM IH DAILY 07/29/15 Levalbuterol Tartrate (XOPENEX HFA) 15 Gm Hfa.aer.ad, 15 GM IH PRN for SHORTNESS OF BREATH 07/20/14 Roflumilast (DALIRESP) 500 Mcg Tablet, 500 MCG PO DAILY 07/20/14 Bupropion Hcl (WELLBUTRIN XL) 300 Mg Tab.er.24h, 300 MG PO DAILY, TAB.SR 07/20/14 Albuterol Sulfate (ALBUTEROL SULFATE CONC NEB SOLN) 2.5 Mg/0.5 Ml Vial.neb, 1 AL NEB QID, #120 VIAL 5 Refills 07/20/14 Fluticasone/Salmeterol (ADVAIR 250-50 DISKUS) 1 Each Disk.w.dev, 1 PUFF IH BID, #1 INHALER 5 Refills 07/20/14 Discontinued Reported Medications Aspirin (ASPIRIN) 325 Mg Tablet, 1 TAB PO DAILY for CAD, #30 TAB 5 Refills 11/23/20 Metoprolol Tartrate (METOPROLOL TARTRATE) 25 Mg Tablet, 1 TAB PO BID for Afib, rate control, #180 TAB 1 Refill 11/23/20 Dronedarone Hcl (MULTAQ) 400 Mg Tablet, 1 TAB PO BID for Afib, #180 TAB 1 Refill 11/23/20 Verapamil Hcl (VERAPAMIL ER) 120 Mg Tablet.er, 120 MG PO DAILY, TAB.SR 07/20/14 Pravastatin Sodium (PRAVASTATIN SODIUM) 80 Mg Tablet, 80 MG PO DAILY, TAB 07/20/14 AKIL MCCARTY MD Dec 04, 2020 13:13
--- NOTE | 2020-12-04 13:30 | NUR ---
Feeding, water, & tubing switched to new.
--- NOTE | 2020-12-04 14:14 | NUR ---
SS following up with discharge planning. Pt will discharge today and go to [facility] at 1830 vis stretcher transportation. [facility] to provide transportation. Pt, pt's family, and pt's RN notified.
[2020-12-04 14:42] VITALS: BP 121/55
[2020-12-04] MEDS ORDERED: SCOPOLAMINE 1.5MG PATCH. TD ONE (18:30)
--- NOTE | 2020-12-04 18:45 | NUR ---
Discharge Note: OWEN CARROLL [address] [place] [address] Discharge instructions and discharge home medications reviewed with Other facility and a copy given. All questions have been answered and understanding verbalized. The following instructions and handouts were given: discharge instructions, med list, stroke info, peg tube info Discontinued lines and drains: PICC Line DL intact. Patient discharged to Rehab Facility with transportation via Stretcher at 1845. Called 3 times before patient left to try to give report & no one answered phone. Called again at 1930 & they said they would have to call us back for report. Awaiting call back from [facility] to give them report.
--- NOTE | 2020-12-04 20:21 | NUR ---
Attempted to call [facility]'s main phone number 2 more times at 2019 but no answer, called [phone] the number this RN was told to call report to again 2 more times at 2019 but no answer there either. DEBRA Azar supervisor slashing department notified. Report sheets left at nursing station if they are to call back.
--- NOTE | 2020-12-09 08:12 | PDOC3 ---
[facility]-Discharge Summary Date of Admission: Date of Admission: Nov 25, 2020 Date of Discharge: Date of Discharge: Dec 04, 2020 Discharge Diagnosis: Discharge Diagnosis: acute stoke, RIGHT MCA, s/p TPA currently on ASA for anticoagulation. left hemiparesis hand face left sided neglect obese, BMI 35 DM2 dysphagia status post PEG placement 12/02/2020 Debility Eliquis for anticoagulation Hospital Course: Hospital Course: 85-year-old woman who presented late yesterday via 911, having been found on the floor of her bedroom about 2-1/2 hours after her last known normal with inability to move her left side. The patient was found to have a dense left hemiparesis, left facial droop, and aphasia. She was found to have a large right MCA territory stroke, which was worked up extensively in the Emergency Department including consultation by phone with the on-call stroke neurologist. The patient was not a candidate for transfer for intravascular intervention given the location of the defect. The patient was treated with TPA in the Emergency Department with improvement of symptoms. I am seeing her this morning now about 18 hours after admission. Her only complaint is that she is very hungry. She says she was not eating well yesterday before the event. She has little memory of the event. She has had about 2 weeks of cough and congestion and was tested over a week ago for COVID-19 and negative. She has been placed in isolation while awaiting a repeat COVID-19 test at this point. The patient tells me that she has a history of COPD and feels that this is a COPD exacerbation. She has several tissues on her bed with significant blood-tinged sputum. She denies any chest pain, palpitations, nausea, vomiting, or change in her bowel habits. Her biggest issue is that she wants to eat. Initial concern given the size of her stroke is that she has a significant swallow deficit. 12/03/2020 No acute events overnight. Patient seen and examined next recliner. Status post PEG tube placement and tolerated procedure well. Patient is suctioning herself due to copious mucus sputum. Have not started tube feeds yet but will have dietitian evaluate for tube feeds regimen. Patient's chart, labs, images were reviewed and discussed with RN 12/02/2020 No acute events overnight. Patient's T-max of 99.3. Saturating 90% on 3 L nasal cannula. Pending PEG tube placement today. Patient's chart, labs, images were reviewed and discussed with RN 12/01/20 No acute events. Fever of 102.7. PEG cancelled and rescheduled for tomorrow. > 50% time spent in patient chart, labs, and image review and discussion with RN and SW 11/30, doing well, some cough, atelactasis on exam, better with breathing exercises planned PEG in AM, then DC to acute rehab hospital likely 1. she is able to move the fingers of her left hand, most slightly, today 11/29, dobhoff feeds are going well, cont current plan PEG for DC to acute rehab, she is doign well family is here this AM and they were very supportive 11/28 NG tube placed for nutrition, marked weakness, confusion at times but better Out of ICU, may DC tele [facility], needs PEG, planned tuesday, GI unable to sched today Disposition: Disposition/Orders: D/C to Another Facility Activity: Activity: Resume previous activity Diet: Diet: Tube Feeding Medications: Home Meds Active Scripts Amoxicillin/Potassium Clav (AMOX TR-K CLV 500-125 MG TAB) 1 Each Tablet, 1 TAB PEG BID for prophylaxis after PEG placemen for 3 Days, #6 TAB Prov:AKIL MCCARTY MD 12/04/20 Amlodipine Besylate (AMLODIPINE BESYLATE) 10 Mg Tablet, 10 MG PO DAILY for blood pressure for 30 Days, #30 TAB Prov:AKIL MCCARTY MD 12/04/20 Metoprolol Tartrate (METOPROLOL TARTRATE) 50 Mg Tablet, 50 MG PO BID for heart rate for 30 Days, #60 TAB Prov:AKIL MCCARTY MD 12/04/20 Atorvastatin Calcium (ATORVASTATIN CALCIUM) 20 Mg Tablet, 20 MG PO QHS for cholesterol for 30 Days, #30 TAB Prov:AKIL MCCARTY MD 12/04/20 Apixaban (ELIQUIS) 2.5 Mg Tablet, 2.5 MG PO BID for afib for 30 Days, #60 TAB Prov:AKIL MCCARTY MD 12/04/20 Ondansetron Hcl (ZOFRAN) 4 Mg Tablet, 1 TAB PO PRN Q6-8HRS PRN for NAUSEA, #5 TAB Prov:STANLEY SMITH DO 06/11/18 Reported Medications Guaifenesin/Dextromethorphan (MUCINEX DM ER 600-30 MG TABLET) 1 Each Tab.er.12h, 1 TAB PO BID PRN for cough and congestion for 14 Days, #28 TAB 0 Refills last dose 11/30 2129 next dose as needed 11/23/20 Cyanocobalamin (Vitamin B-12) (VITAMIN B-12) 1,000 Mcg Tablet, 1 TAB PO DAILY for supplement for 30 Days, #30 TAB 0 Refills last dose 12/04 910 next dose 12/05 89911/23/20 Mv-Mn/Iron/Fa/Herbal Cmplx#190 (VITAMIN D3 COMPLETE CAPLET) 1 Each Tablet, 1 EACH PO DAILY for supplement, TAB next dose 12/05 89911/23/20 Ascorbic Acid (VITAMIN C) 500 Mg Capsule.er, 2 CAP PO BID for Supplement for 30 Days, #120 CAP 0 Refills next dose 12/04 209911/23/20 Fluticasone Propionate (FLOVENT 44MCG HFA) 10.6 Gm Aer.w.adap, 10.6 GM IH DAILY for shortness of breath next dose 12/05 89907/29/15 Levalbuterol Tartrate (XOPENEX HFA) 15 Gm Hfa.aer.ad, 15 GM IH PRN for SHORTNESS OF BREATH 07/20/14 Roflumilast (DALIRESP) 500 Mcg Tablet, 500 MCG PO DAILY for COPD last dose 12/04 911 next dose 12/05 89907/20/14 Bupropion Hcl (WELLBUTRIN XL) 300 Mg Tab.er.24h, 300 MG PO DAILY for depression, TAB.SR last dose 12/04 912 next dose 12/05 89907/20/14 Albuterol Sulfate (ALBUTEROL SULFATE CONC NEB SOLN) 2.5 Mg/0.5 Ml Vial.neb, 1 VIAL NEB QID for shortness of breath, #120 VIAL 5 Refills last dose 12/04 1546 next dose 12/04 199907/20/14 Fluticasone/Salmeterol (ADVAIR 250-50 DISKUS) 1 Each Disk.w.dev, 1 PUFF IH BID for shortness of breath, #1 INHALER 5 Refills next dose 12/04 209907/20/14 Discontinued Reported Medications Aspirin (ASPIRIN) 325 Mg Tablet, 1 TAB PO DAILY for CAD, #30 TAB 5 Refills 11/23/20 Metoprolol Tartrate (METOPROLOL TARTRATE) 25 Mg Tablet, 1 TAB PO BID for Afib, rate control, #180 TAB 1 Refill 11/23/20 Dronedarone Hcl (MULTAQ) 400 Mg Tablet, 1 TAB PO BID for Afib, #180 TAB 1 Refill 11/23/20 Verapamil Hcl (VERAPAMIL ER) 120 Mg Tablet.er, 120 MG PO DAILY, TAB.SR 07/20/14 Pravastatin Sodium (PRAVASTATIN SODIUM) 80 Mg Tablet, 80 MG PO DAILY, TAB 07/20/14 Scheduled Albuterol Sulfate (Albuterol Sulfate Conc Neb Soln), 1 VIAL NEB QID, (Reported) Amlodipine Besylate (Amlodipine Besylate), 10 MG PO DAILY Amoxicillin/Potassium Clav (Amox Tr-K Clv 500-125 Mg Tab), 1 TAB PEG BID Apixaban (Eliquis), 2.5 MG PO BID Ascorbic Acid (Vitamin C), 2 CAP PO BID, (Reported) Atorvastatin Calcium (Atorvastatin Calcium), 20 MG PO QHS Bupropion Hcl (Wellbutrin Xl), 300 MG PO DAILY, (Reported) Cyanocobalamin (Vitamin B-12) (Vitamin B-12), 1 TAB PO DAILY, (Reported) Fluticasone Propionate (Flovent 44MCG Hfa), 10.6 GM IH DAILY, (Reported) Fluticasone/Salmeterol (Advair 250-50 Diskus), 1 PUFF IH BID, (Reported) Metoprolol Tartrate (Metoprolol Tartrate), 50 MG PO BID Mv-Mn/Iron/Fa/Herbal Cmplx#190 (Vitamin D3 Complete Caplet), 1 EACH PO DAILY, (Reported) Roflumilast (Daliresp), 500 MCG PO DAILY, (Reported) Scheduled PRN Guaifenesin/Dextromethorphan (Mucinex Dm Er 600-30 Mg Tablet), 1 TAB PO BID PRN for cough and congestion, (Reported) Levalbuterol Tartrate (Xopenex Hfa), 15 GM IH for SHORTNESS OF BREATH, (Reported) Ondansetron Hcl (Zofran), 1 TAB PO PRN Q6-8HRS PRN for NAUSEA Discontinued Medications Aspirin (Aspirin), 1 TAB PO DAILY, (Reported) Dronedarone Hcl (Multaq), 1 TAB PO BID, (Reported) Metoprolol Tartrate (Metoprolol Tartrate), 1 TAB PO BID, (Reported) Pravastatin Sodium (Pravastatin Sodium), 80 MG PO DAILY, (Reported) Verapamil Hcl (Verapamil Er), 120 MG PO DAILY, (Reported) Total Time: Total Time: Total time spent was 45 minutes in preparing scripts, discharge planning with SW and RN, and preparing this discharge summary. Patient seen and examined on day of discharge. Justicifation of Admission Dx: Justifications for Admission: Justification of Admission Dx: Yes Stroke - Ischemic: Stroke-Ischemic AKIL MCCARTY MD Dec 09, 2020 08:12
== END 2020-12-04 18:45 | DRG 61 ==
LOC: ER 19:10 → 1 WEST ICU 21:50 → 2 NORTH 11-26 14:10
PROVIDERS: ADMIT Internal Medicine; ATTEND Internal Medicine
PROC: 3E03317 Introduction of Other Thrombolytic into Peripheral Vein, Percutaneous Approach (ICD-10-PCS; 2020-11-22)
PROC: 5A09357 Assistance with Respiratory Ventilation, Less than 24 Consecutive Hours, Continuous Positive Airway Pressure (ICD-10-PCS; 2020-11-24)
PROC: 5A09357 Assistance with Respiratory Ventilation, Less than 24 Consecutive Hours, Continuous Positive Airway Pressure (ICD-10-PCS; 2020-11-25)
PROC: 0DH63UZ Insertion of Feeding Device into Stomach, Percutaneous Approach (ICD-10-PCS; principal; 2020-12-02 13:30)
DX: I63.511 Cerebral infarction due to unspecified occlusion or stenosis of right middle cerebral artery (principal); I50.33 Acute on chronic diastolic (congestive) heart failure; J96.21 Acute and chronic respiratory failure with hypoxia; G81.94 Hemiplegia, unspecified affecting left nondominant side; E87.2 Acidosis; I13.0 Hypertensive heart and chronic kidney disease with heart failure and stage 1 through stage 4 chronic kidney disease, or unspecified chronic kidney disease; J44.1 Chronic obstructive pulmonary disease with (acute) exacerbation; J98.11 Atelectasis; N17.9 Acute kidney failure, unspecified; R41.4 Neurologic neglect syndrome; E11.22 Type 2 diabetes mellitus with diabetic chronic kidney disease; E78.5 Hyperlipidemia, unspecified; E66.9 Obesity, unspecified; F32.9 Major depressive disorder, single episode, unspecified; I07.1 Rheumatic tricuspid insufficiency; I16.0 Hypertensive urgency; I27.20 Pulmonary hypertension, unspecified; I48.0 Paroxysmal atrial fibrillation; K21.9 Gastro-esophageal reflux disease without esophagitis; K44.9 Diaphragmatic hernia without obstruction or gangrene; M15.9 Polyosteoarthritis, unspecified; N18.9 Chronic kidney disease, unspecified; R13.12 Dysphagia, oropharyngeal phase; R13.19 Other dysphagia; W06.XXXA Fall from bed, initial encounter; Y92.003 Bedroom of unspecified non-institutional (private) residence as the place of occurrence of the external cause; Z20.822 Contact with and (suspected) exposure to COVID-19; Z68.35 Body mass index [BMI] 35.0-35.9, adult; Z79.82 Long term (current) use of aspirin; Z86.16 Personal history of COVID-19; Z86.73 Personal history of transient ischemic attack (TIA), and cerebral infarction without residual deficits; Z90.49 Acquired absence of other specified parts of digestive tract; Z90.710 Acquired absence of both cervix and uterus; Z96.643 Presence of artificial hip joint, bilateral; Z96.659 Presence of unspecified artificial knee joint; F41.9 Anxiety disorder, unspecified; D64.9 Anemia, unspecified
CPT/HCPCS: 31720; 36415; 36569; 36600; 43246; 70450; 70496; 70498; 70551; 71045; 74018; 74230; 80053; 80061; 81001; 82140; 82553; 82805; 82962; 83036; 83605; 83735; 83880; 84443; 84484; 85007; 85025; 85610; 85730; 87040; 87086; 93005; 93306; 94640; 94660; 94760; 96365; 99285; 99407; C9113; J0360; J0456; J1160; J1630; J1650; J1940; J2060; J2405; J2543; J2704; J2920; J2997; J3010; J3370; J3475; J3480; J3490; J7030; J7040; J7050; J7120; Q9967; U0003; 92526-GN; 92610-GN; 92611-GN; 97110-GO; 97110-GP; 97112-GO; 97116-GP; 97530-GO; 97530-GP; 97535-GO; G0378; J7613; J7626